=== PATIENT | female | born 1935 | race Caucasian/White ===

== ENCOUNTER 2016-07-17 | Outpatient (CLI) | payer MEDICARE, OTHER | END 2016-07-17 15:38 | disposition critical access hospital (66) | CPT/HCPCS: A0425; A0429 ==

== ENCOUNTER 2016-07-17 | Outpatient (CLI) | payer MEDICARE, OTHER | END 2016-07-17 19:11 | disposition home or self-care (01) | CPT/HCPCS: A0425; A0428 ==

== ENCOUNTER 2016-07-17 15:47 | Emergency (ER) | payer MEDICARE, OTHER ==
[2016-07-17] MEDS ORDERED: HYDROCORTISONE 25 MG SUPPOSITORY PR STA (16:37)
[2016-07-17] MEDS ORDERED: HYDROCORTISONE 25 MG SUPPOSITORY PR ONE (17:08)
== END 2016-07-17 18:44 | disposition home or self-care (01) ==
DX: K59.04 Chronic idiopathic constipation (principal); K64.1 Second degree hemorrhoids; K64.4 Residual hemorrhoidal skin tags; I10 Essential (primary) hypertension; G62.9 Polyneuropathy, unspecified; Z85.3 Personal history of malignant neoplasm of breast
CPT/HCPCS: 99283; 99284; J3490

== ENCOUNTER 2017-10-19 19:52 | Outpatient (CLI) | payer MEDICARE, OTHER | END 2017-10-19 19:53 | disposition critical access hospital (66) | LOC: EMS 19:52 | PROVIDERS: ATTEND Surgery | DX: R41.0 Disorientation, unspecified (principal); R32 Unspecified urinary incontinence; R11.0 Nausea | CPT/HCPCS: A0425; A0427 ==

== ENCOUNTER 2017-10-19 19:59 | Emergency (ER) | payer MEDICARE, OTHER ==
--- NOTE | 2017-10-19 20:49 | ED Physician Documentation ---
PD HPI ALTERED MENTAL STATUS - Stated complaint Stated Complaint: AMS - Chief complaint Chief Complaint: Neuro - History obtained from History obtained from: Patient, Family - History of Present Illness Timing - onset: Enter time (15:00), Today, Other (last normal was 13:00 ) Timing - details: Abrupt onset Quality / character: Confused Basline status: Alert and oriented X 3, Bedbound (due to neuropathy) Similar symptoms before: Has not had sx before Recently seen: Not recently seen - Additional information Additional information: patient woke in late afternoon, which is normal. she took a nap at 1 PM, which states is not normal for her. He then did some errands and returned at 4 PM, woke patient. 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 she usually has mild confusion but today she was asking about names of family whom she would not usually have forgotten, and asking about relatives who had as if they were still alive (also very odd for her). On presentstion, patient is at baseline and says she just feels tired. Review of Systems Constitutional: reports: Reviewed and negative Eyes: reports: Reviewed and negative Cardiac: reports: Reviewed and negative Respiratory: reports: Reviewed and negative GI: reports: Reviewed and negative : denies: Dysuria, Frequency Musculoskeletal: denies: Neck pain, Back pain Neurologic: reports: Focal weakness (chronic BLE weakness due to neuropathy NOS) , Confused, Altered mental status. 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 : Incontinence HEENT: None Psych: Depression Musculoskeletal: Chronic back pain Derm: None - Past Surgical History Past Surgical History: Yes General: Cholecystectomy - Present Medications Home Medications: Ambulatory Orders Medication Instructions Recorded Confirmed Gabapentin 300 mg PO TID 11/13/14 07/17/16 Lisinopril 10 mg PO DAILY 03/07/15 07/17/16 Hydrocortisone Acetate [Anucort-Hc] 25 mg RC DAILY #15 supp.rect 07/17/16 Ciprofloxacin HCl [Cipro] 500 mg PO BID #13 tablet 10/19/17 - Allergies Allergies/Adverse Reactions: Allergies Allergy/AdvReac Type Severity Reaction Status Date / Time Milk Containing Products Allergy Unknown Verified 10/19/17 20:04 scopolamine Allergy Nausea Verified 10/19/17 20:04 - Social History Does the pt smoke?: No Smoking Status: Never smoker Does the pt drink ETOH?: No Does the pt have substance abuse?: No - Immunizations Immunizations are current?: Yes - POLST Patient has POLST: Yes PD ED PE NORMAL - Vitals Vital signs reviewed: Yes - General General: Alert and oriented X 3, No acute distress, Well developed/nourished - HEENT HEENT: Atraumatic, PERRL, EOMI, Moist mucous membranes - Cardiac Cardiac: RRR, No murmur - Respiratory Respiratory: No respiratory distress, Clear bilaterally - Abdomen Abdomen: Soft, Non tender, Non distended - Derm Derm: Normal color, Warm and dry - Extremities Extremities: No edema - Neuro Neuro: Alert and oriented X 3, black puller 2-12 intact Eye Opening: Spontaneous Motor: Obeys Commands Verbal: Oriented GCS Score: 15 PD ED PE EXPANDED - Neuro Neuro: Weakness (BLE 1/5 leg lift (iliopsoas) and dorsi/plantarflexion) Results - Vitals Vitals: Oxygen O2 Source [Without Activity] Room air O2 Source Room air - Labs Labs: Microbiology 10/19/17 21:20 Urine Culture - Final Urine,Catheterized No growth Laboratory Tests 10/19/17 10/19/17 10/19/17 21:20 21:33 21:33 WBC 9.5 RBC 3.82 L Hgb 13.6 Hct 42.4 MCV 110.9 H MCH 35.6 H MCHC 32.1 RDW 16.0 H Plt Count 311 MPV 9.0 Neut # 7.6 H Lymph # 1.1 L [place] # 0.4 Eos # 0.3 Baso # 0.1 Absolute Nucleated RBC 0.01 Nucleated RBC % 0.1 Sodium 142 Potassium 4.2 Chloride 103 Carbon Dioxide 29 Anion Gap 10.0 BUN 12 Creatinine 0.4 Estimated GFR (MDRD) 153 Glucose 115 H Calcium 9.2 Urine Color YELLOW Urine Clarity CLEAR Urine pH 7.0 Ur Specific [place] 1.010 Urine Protein NEGATIVE Urine Glucose (UA) NEGATIVE Urine Ketones NEGATIVE Urine Occult Blood NEGATIVE Urine Nitrite NEGATIVE Urine Bilirubin NEGATIVE Urine Urobilinogen 1 (NORMAL) Ur Leukocyte Esterase TRACE H Urine RBC None Seen Urine WBC 11-25 H Urine WBC Clumps PRESENT Ur Squamous Epith Cells FEW Squamous Urine Bacteria None Seen Ur Microscopic Review INDICATED Urine Culture Comments INDICATED - Rads (name of study) CT head Radiology: Prelim report reviewed, See rad report PD MEDICAL DECISION MAKING - ED course Complexity details: reviewed results, re-evaluated patient, considered differential, d/w patient, d/w family Departure - Departure Disposition: 01 Home, Self Care Clinical Impression: Neuropathy, Confusion, Urinary tract infection Condition: Good Instructions: ED Confusion, ED UTI Cystitis Female Follow-Up: Denzel Trammell MD [Primary Care Provider] - Within 3 Days Prescriptions: Ciprofloxacin HCl [Cipro] 500 mg PO BID #13 tablet Discharge Date/Time: 10/20/17 00:24
[2017-10-19 21:42] LABS: BILIRUBIN,URINE NEGATIVE (NEGATIVE); GLUCOSE, URINE (UA) NEGATIVE (NEGATIVE); KETONES,URINE (UA) NEGATIVE (NEGATIVE); LEUKOCYTE ESTERASE, URINE TRACE (NEGATIVE); NITRITE,URINE NEGATIVE (NEGATIVE); OCCULT BLOOD,URINE NEGATIVE (NEGATIVE); PROTEIN,URINE NEGATIVE (NEGATIVE); UROBILINOGEN,URINE 1 (NORMAL) E.U./dL (NORMAL)
[2017-10-19 21:43] LABS: BASOPHILS # (AUTO) 0.1 10^3/uL (0.0-0.1); EOSINOPHILS # (AUTO) 0.3 10^3/uL (0.0-0.7); EOSINOPHILS % (AUTO) 2.9 %; HGB - HEMOGLOBIN 13.6 g/dL (12.0-16.0); LYMPHOCYTES # (AUTO) 1.1 10^3/uL (1.5-3.5); LYMPHOCYTES % (AUTO) 11.9 %; MEAN CORPUSCULAR HEMOGLOBIN 35.6 pg (27.0-31.0); MEAN CORPUSCULAR HGB CONC 32.1 g/dL (32.0-36.0); MEAN CORPUSCULAR VOLUME 110.9 fL (81.0-99.0); MONOCYTES # (AUTO) 0.4 10^3/uL (0.0-1.0); MONOCYTES % (AUTO) 4.4 %; NEUTROPHILS # (AUTO) 7.6 10^3/uL (1.5-6.6); NEUTROPHILS % (AUTO) 79.8 %; PLT - PLATELET COUNT 311 10^3/uL (130-450); RED BLOOD COUNT 3.82 10^6/uL (4.20-5.40); WHITE BLOOD COUNT 9.5 x10^3/uL (4.8-10.8)
[2017-10-19 21:47] LABS: CLARITY,URINE CLEAR (CLEAR)
[2017-10-19 21:49] LABS: CALCIUM 9.2 mg/dL (8.5-10.3); CREATININE 0.4 mg/dL (0.4-1.0)
[2017-10-19 21:53] LABS: BACTERIA,URINE None Seen /HPF (None Seen); RBC,URINE None Seen /HPF (0-5); SQUAMOUS EPITHELIAL CELL,UR FEW Squamous (<= Few); WBC CLUMPS,URINE PRESENT
--- NOTE | 2017-10-19 22:07 | CT Report ---
EXAM: CT HEAD EXAM DATE: 10/19/2017 09:53 PM. CLINICAL HISTORY: AMS. COMPARISON: None. TECHNIQUE: Multiaxial CT images were obtained from the foramen magnum to the vertex. Reformats: Coron al. IV contrast: None. In accordance with CT protocol optimization, one or more of the following dose reduction techniques w ere utilized for this exam: automated exposure control, adjustment of mA and/or KV based on patient s ize, or use of iterative reconstructive technique. FINDINGS: Parenchyma: No intraparenchymal hemorrhage. No evidence of mass, midline shift, or CT findings of acu te infarction. Herrera-white differentiation is distinct. There is moderate chronic microvascular change s throughout the periventricular and deep white matter of both cerebral hemispheres. 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 Extraaxial Spaces: There is moderate generalized cerebral volume loss. No subdural or epidural collec tions identified. Ventricles: Mild ventriculomegaly is likely related to underlying central volume loss. The temporal h orns do not appear dilated. There is no definite hydrocephalus. Sinuses and Orbits: Imaged paranasal sinuses, orbits, and mastoids show no significant abnormality. Bones: No evidence of fracture or calvarial defect. Other: None. IMPRESSION: 1. No CT evidence of an acute intracranial abnormality. 2. Moderate generalized cerebral volume loss and chronic microvascular change. 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 3. Mild ventriculomegaly. This is likely related to underlying cerebral volume loss. [facility] Referring Provider Line: [phone] SITE ID: [id number]
[2017-10-19 23:34] VITALS: BP 208/92
[2017-10-19] MEDS ORDERED: CIPROFLOXACIN 250 MG TABLET PO STA (23:49)
== END 2017-10-20 00:24 | disposition home or self-care (01) ==
LOC: EDUNIT# → EDBD → ED 19:59
DX: G62.9 Polyneuropathy, unspecified (principal); R41.0 Disorientation, unspecified; N39.0 Urinary tract infection, site not specified; C50.919 Malignant neoplasm of unspecified site of unspecified female breast; I10 Essential (primary) hypertension
CPT/HCPCS: 36415; 51701; 70450; 80048; 81001; 85025; 87086; 99284; A9270; 81003

== ENCOUNTER 2017-10-20 00:29 | Outpatient (CLI) | payer MEDICARE, OTHER | END 2017-10-20 00:30 | disposition home or self-care (01) | LOC: EMS 00:29 | PROVIDERS: ATTEND Surgery | DX: R41.82 Altered mental status, unspecified (principal); N39.0 Urinary tract infection, site not specified; Z74.01 Bed confinement status | CPT/HCPCS: A0425; A0428 ==

== ENCOUNTER 2019-06-20 20:36 | Outpatient (CLI) | payer MEDICARE, OTHER | END 2019-06-20 20:37 | disposition critical access hospital (66) | LOC: EMS 20:36 | PROVIDERS: ATTEND Surgery | DX: R46.4 Slowness and poor responsiveness (principal); R29.810 Facial weakness; R51 Headache; R50.9 Fever, unspecified | CPT/HCPCS: A0425; A0429 ==

== ENCOUNTER 2019-06-20 20:38 | Emergency (ER) | payer MEDICARE, OTHER ==
--- NOTE | 2019-06-20 21:07 | ED Physician Documentation ---
PD HPI ALTERED MENTAL STATUS - Stated complaint Stated Complaint: ALOC - Chief complaint Chief Complaint: Neuro - History obtained from History obtained from: Patient, Family, EMS - History of Present Illness Timing - onset: Today Timing - duration: Hours Timing - details: Gradual onset, Still present in ED Quality / character: Less responsive Associated symptoms: Fever, Headache, General weakness Basline status: Alert and oriented X 3, Bedbound, Home Similar symptoms before: Has not had sx before Recently seen: Not recently seen - Additional information Additional information: 84-year-old female with a disabling peripheral neuropathy that is left her bedbound has had some swelling in her left upper extremity starting about 5 days ago. She has a lot of pain with any movement of the arm seems to be centered around the elbow and the wrist. Today she did not wake up in her usual fashion and when she still was not awake this evening her called 911 and the patient has been brought to the emergency department for evaluation.She did have some headache when the medics were called and she has had resolution of that headache she has some low-grade fever and decreased alertness. Review of Systems Constitutional: reports: Fever, Fatigue Eyes: denies: Decreased vision Ears: denies: Ear pain Nose: denies: Rhinorrhea / runny nose, Congestion Throat: denies: Sore throat Cardiac: denies: Chest pain / pressure, Palpitations Respiratory: denies: Dyspnea, Cough GI: denies: Abdominal Pain, Nausea, Vomiting : denies: Dysuria, Frequency Skin: denies: Rash Musculoskeletal: reports: Extremity pain, Joint pain, Extremity swelling, Joint swelling. denies: Neck pain, Back pain Neurologic: reports: Generalized weakness, Altered mental status, Headache. 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 : Incontinence HEENT: None Psych: Depression Musculoskeletal: Chronic back pain Derm: None - Past Surgical History Past Surgical History: Yes General: Cholecystectomy - Present Medications Home Medications: Ambulatory Orders Medication Instructions Recorded Confirmed Gabapentin 300 mg PO TID 11/13/14 07/17/16 lisinopriL [Lisinopril] 10 mg PO DAILY 03/07/15 07/17/16 Hydrocortisone Acetate [Anucort-Hc] 25 mg RC DAILY #15 supp.rect 07/17/16 Ciprofloxacin HCl [Cipro] 500 mg PO BID #13 tablet 10/19/17 Amox/Clav 875/125 [Augmentin] 1 each PO Q12H #20 tablet 06/21/19 - Allergies Allergies/Adverse Reactions: Allergies Allergy/AdvReac Type Severity Reaction Status Date / Time Milk Containing Products Allergy Unknown Verified 06/20/19 20:55 scopolamine Allergy Nausea Verified 06/20/19 20:55 - Social History Does the pt smoke?: No Smoking Status: Never smoker Does the pt drink ETOH?: No Does the pt have substance abuse?: No - Immunizations Immunizations are current?: Yes - POLST Patient has POLST: Yes PD ED PE NORMAL - Vitals Vital signs reviewed: Yes (low grade fever) - General General: No acute distress, Well developed/nourished, Other (The patient is open mouthed but responds appropriately when questioned. Does want to go home. ) - HEENT HEENT: Atraumatic, PERRL, EOMI, Other (There is a mild right facial droop that is described by the as normal for the patient ) - Neck Neck: Supple, no meningeal sign, No bony TTP - Cardiac Cardiac: RRR, No murmur - Respiratory Respiratory: No respiratory distress, Other (rhonchi in the left base diminished breath sounds ) - Abdomen Abdomen: Soft, Non tender - Back Back: No CVA TTP, No spinal TTP - Derm Derm: Normal color, Warm and dry, No rash - Extremities Extremities: Other (There is marked swelling to the left upper extremity from the mid humerus to the hand There is specific tenderness to the wrist and the elbow and crying pain with any movement of the wrist or elbow. ) - Neuro Neuro: Other (The patients LE are motionless the right insurance collector is present but weak. Any movement on the left causes severe pain. The speech is intelligible and resonable. Her alertness is poor. ) Eye Opening: Spontaneous Motor: Obeys Commands Verbal: Confused GCS Score: 14 - Psych Psych: Other (mood is withdrawn and the affect is flat. ) Results - Vitals Vitals: Vital Signs - 24 hr 06/20/19 06/20/19 06/21/19 20:55 23:43 02:28 Temperature 37.7 C H Heart Rate 61 59 L 69 Respiratory 22 18 19 Rate Blood Pressure 187/53 H 209/71 H O2 Saturation 93 97 97 06/21/19 03:17 Temperature Heart Rate 65 Respiratory 23 Rate Blood Pressure 206/77 H O2 Saturation 96 Oxygen O2 Source [] Room air O2 Source Nasal cannula - Labs Labs: Laboratory Tests 06/20/19 06/20/19 06/20/19 21:02 22:00 22:03 WBC 13.1 H RBC 4.67 Hgb 13.2 Hct 43.4 MCV 92.9 MCH 28.3 MCHC 30.4 L RDW 14.9 Plt Count 276 MPV 10.8 Neut # (Auto) 10.6 H Lymph # (Auto) 1.0 L [place] # (Auto) 1.2 H Eos # (Auto) 0.2 Baso # (Auto) 0.1 Absolute Nucleated RBC 0.00 Nucleated RBC % 0.0 Sodium 138 Potassium 4.1 Chloride 103 Carbon Dioxide 26 Anion Gap 9.0 BUN 13 Creatinine 0.5 Estimated GFR (MDRD) 118 Glucose 140 H Lactic Acid 1.0 Calcium 8.4 L Total Bilirubin 1.0 AST 14 ALT 12 Alkaline Phosphatase 103 Total Protein 6.5 L Albumin 3.2 Globulin 3.3 Albumin/Globulin Ratio 1.0 Lipase 37 Urine Color Urine Clarity Urine pH Ur Specific [place] Urine Protein Urine Glucose (UA) Urine Ketones Urine Occult Blood Urine Nitrite Urine Bilirubin Urine Urobilinogen Ur Leukocyte Esterase Urine RBC Urine WBC Ur Squamous Epith Cells Urine Bacteria Ur Microscopic Review Urine Culture Comments 06/20/19 23:40 WBC RBC Hgb Hct MCV MCH MCHC RDW Plt Count MPV Neut # (Auto) Lymph # (Auto) [place] # (Auto) Eos # (Auto) Baso # (Auto) Absolute Nucleated RBC Nucleated RBC % Sodium Potassium Chloride Carbon Dioxide Anion Gap BUN Creatinine Estimated GFR (MDRD) Glucose Lactic Acid Calcium Total Bilirubin AST ALT Alkaline Phosphatase Total Protein Albumin Globulin Albumin/Globulin Ratio Lipase Urine Color YELLOW Urine Clarity HAZY Urine pH 6.0 Ur Specific [place] <=1.005 Urine Protein TRACE Urine Glucose (UA) NEGATIVE Urine Ketones NEGATIVE Urine Occult Blood LARGE H Urine Nitrite NEGATIVE Urine Bilirubin NEGATIVE Urine Urobilinogen 0.2 (NORMAL) Ur Leukocyte Esterase NEGATIVE Urine RBC 11-25 H Urine WBC 0-3 Ur Squamous Epith Cells MOD Squamous H Urine Bacteria Few Ur Microscopic Review INDICATED Urine Culture Comments NOT INDICATED - Rads (name of study) chest Radiology: Prelim report reviewed (Impression: No acute cardiopulmonary abnormality demonstrated.), EMP read indepedently, See rad report Wrist Radiology: Prelim report reviewed, EMP read indepedently, See rad report Elbow Radiology: Prelim report reviewed, EMP read indepedently, See rad report CT head w/o Radiology: Prelim report reviewed (Impression: No acute intracranial abnormalities. Small air-fluid levels in the right greater than left sphenoid sinuses. Correlation as to the presence of sinusitis.), EMP read indepedently, See rad report u/s LUE Radiology: Prelim report reviewed (Impression: No evidence of venous thrombus in the left arm within limitations of the exam as described above. Soft tissue edema.), EMP read indepedently, See rad report Procedures - IVC sono (time) 2100 Bedside IVC sono: IVC measures (cm) (0.87), IVC collapsed c insp (cm) (complete), Dehydration (est 2 liter deficit) PD MEDICAL DECISION MAKING - ED course Complexity details: reviewed old records, reviewed results, re-evaluated patient, considered differential, d/w patient, d/w family ED course: 84-year-old bedbound female has had decreased level of consciousness today and a low-grade fever. She is found to be dehydrated on interrogation the inferior vena cava and she is administered intravenous saline with some improvement. She is mentating normally now and acting normally. She does have sphenoid sinus disease on her CT scan and she has no other explanation for her fever. Her chest x-ray is without evidence of infiltrate and her urinalysis is unremarkable. She is administered Rocephin and dexamethasone here for treatment of the sinusitis and she is given 30 mg of Toradol intravenously for the pain in her left arm. And we will do a venous Doppler on the arm with concerns about deep vein thrombosis. This is a negative study and the explanation for the arm swelling is not had. Departure - Departure Disposition: 01 Home, Self Care Clinical Impression: Dehydration, Left arm swelling Sinusitis Qualifiers: Sinusitis location: sphenoidal Chronicity: acute Recurrence: non-recurrent Qualified Code(s): J01.30 - Acute sphenoidal sinusitis, unspecified Condition: Stable Instructions: ED Dehydration, ED Sinusitis Abx Tx Follow-Up: Laureano Motta MD [Primary Care Provider] - Prescriptions: Amox/Clav 875/125 [Augmentin] 1 each PO Q12H #20 tablet Discharge Date/Time: 06/21/19 03:17
[2019-06-20] MEDS ORDERED: SODIUM CHLORIDE 0.9% 1,000 ML IV ONE ×2 (21:14→22:44)
--- NOTE | 2019-06-20 21:55 | XRAY Report ---
Reason: pain with movement swelling Procedure Date: 06/20/2019 Accession Number: [id number] / [id number] Procedure: XR - Elbow 3 View LT CPT Code: Final Report FULL RESULT: EXAM: LEFT ELBOW RADIOGRAPHY EXAM DATE: 06/20/2019 09:07 PM. CLINICAL HISTORY: Left elbow pain and swelling. COMPARISON: None. TECHNIQUE: 3 views. FINDINGS: Bones: Bones are osteopenic. No fractures or bone lesions. Joints: Normal. No effusion. No subluxation. Soft Tissues: Normal. No soft tissue swelling. IMPRESSION: No acute findings. [facility]
--- NOTE | 2019-06-20 21:56 | XRAY Report ---
Reason: swelling and pain with movement Procedure Date: 06/20/2019 Accession Number: [id number] / [id number] Procedure: XR - Wrist 4 View LT CPT Code: Final Report FULL RESULT: EXAM: LEFT WRIST RADIOGRAPHY EXAM DATE: 06/20/2019 09:39 PM. CLINICAL HISTORY: Left wrist pain. COMPARISON: WRIST 4 VIEW LT 03/07/2015 6:22 PM. TECHNIQUE: 4 views. FINDINGS: Bones: Bones are osteopenic. No fractures or bone lesions. 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 Alignment is preserved. Soft Tissues: Generalized soft tissue swelling is seen. No radiodense soft tissue abnormality is identified. IMPRESSION: No acute osseous abnormality demonstrated. [facility]
--- NOTE | 2019-06-20 21:57 | XRAY Report ---
Reason: chest pain Procedure Date: 06/20/2019 Accession Number: [id number] / [id number] Procedure: XR - Chest 1 View X-Ray CPT Code: 42174 Final Report FULL RESULT: EXAM: CHEST RADIOGRAPHY EXAM DATE: 06/20/2019 09:49 PM. CLINICAL HISTORY: Chest pain. COMPARISON: XR CHEST 1 VIEWS 06/10/2011 8:47 AM. TECHNIQUE: 1 view. FINDINGS: Lungs/Pleura: Lung apices are partially obscured by patient's chin. No focal opacities evident in the visualized lung kim. No pleural effusion. No pneumothorax. Mediastinum: Heart and mediastinal contours are notable for aortic calcification. Other: None. IMPRESSION: No acute cardiopulmonary abnormality demonstrated. [facility]
[2019-06-20 22:08] LABS: BASOPHILS # (AUTO) 0.1 10^3/uL (0.0-0.1); BASOPHILS % (AUTO) 0.4 %; EOSINOPHILS # (AUTO) 0.2 10^3/uL (0.0-0.7); EOSINOPHILS % (AUTO) 1.3 %; HGB - HEMOGLOBIN 13.2 g/dL (12.0-16.0); MEAN CORPUSCULAR HEMOGLOBIN 28.3 pg (27.0-31.0); MEAN CORPUSCULAR HGB CONC 30.4 g/dL (32.0-36.0); MEAN CORPUSCULAR VOLUME 92.9 fL (81.0-99.0); MEAN PLATELET VOLUME 10.8 fL (7.9-10.8); MONOCYTES # (AUTO) 1.2 10^3/uL (0.0-1.0); NEUTROPHILS # (AUTO) 10.6 10^3/uL (1.5-6.6); NEUTROPHILS % (AUTO) 80.8 %; PLT - PLATELET COUNT 276 10^3/uL (130-450); RED BLOOD COUNT 4.67 10^6/uL (4.20-5.40); RED CELL DISTRIBUTION WIDTH 14.9 % (12.0-15.0); WHITE BLOOD COUNT 13.1 x10^3/uL (4.8-10.8)
--- NOTE | 2019-06-20 22:11 | CT Report ---
Reason: altered loc Procedure Date: 06/20/2019 Accession Number: [id number] / [id number] Procedure: CT - HEAD WO CPT Code: Final Report FULL RESULT: EXAM: CT HEAD EXAM DATE: 06/20/2019 09:38 PM. CLINICAL HISTORY: Altered loc. COMPARISON: HEAD W/O 10/19/2017 9:38 PM. TECHNIQUE: Multiaxial CT images were obtained from the foramen magnum to the vertex. Reformats: Sagittal and coronal. IV contrast: None. In accordance with CT protocol optimization, one or more of the following dose reduction techniques were utilized for this exam: automated exposure control, adjustment of mA and/or KV based on patient size, or use of iterative reconstructive technique. FINDINGS: Parenchyma: No intraparenchymal hemorrhage. No evidence of mass, midline shift or CT findings of acute territorial infarction. Herrera-white differentiation is distinct. Deep white matter low attenuation likely reflects chronic micro-angiopathic ischemic change. Moderate global volume loss. Extraaxial Spaces: No subdural or epidural collections identified. Ventricles: Stable ventricular dilatation, probably ex vacuo. Sinuses: Air-fluid levels in the right greater than left sphenoid sinuses. Bones: No evidence of acute fracture or calvarial defect. Other: None. IMPRESSION: No acute intracranial abnormalities. Small air-fluid levels in the right greater than left sphenoid sinuses. Correlation as to the presence of sinusitis. [facility]
[2019-06-20 22:22] LABS: ALBUMIN 3.2 g/dL (3.2-5.5); CALCIUM 8.4 mg/dL (8.5-10.3); CREATININE 0.5 mg/dL (0.4-1.0); TOTAL PROTEIN 6.5 g/dL (6.7-8.2)
[2019-06-20 23:49] LABS: BILIRUBIN,URINE NEGATIVE (NEGATIVE); GLUCOSE, URINE (UA) NEGATIVE (NEGATIVE); KETONES,URINE (UA) NEGATIVE (NEGATIVE); LEUKOCYTE ESTERASE, URINE NEGATIVE (NEGATIVE); NITRITE,URINE NEGATIVE (NEGATIVE); OCCULT BLOOD,URINE LARGE (NEGATIVE); PROTEIN,URINE TRACE mg/dL (NEGATIVE); UROBILINOGEN,URINE 0.2 (NORMAL) E.U./dL (NORMAL)
[2019-06-20 23:50] LABS: CLARITY,URINE HAZY (CLEAR)
[2019-06-20 23:55] LABS: BACTERIA,URINE Few /HPF (None Seen); SQUAMOUS EPITHELIAL CELL,UR MOD Squamous (<= Few)
[2019-06-21] MEDS ORDERED: DEXAMETHASONE 10 MG/ML VIAL IVP STA (00:10)
[2019-06-21] MEDS ORDERED: KETOROLAC 30 MG/ML VIAL IVP STA (00:10)
[2019-06-21] MEDS ORDERED: cefTRIAXone 1 GM in SODIUM CHLORIDE 0.9% MINIBAG 100 ML IV STA (00:10)
--- NOTE | 2019-06-21 02:10 | Ultrasound Report ---
Reason: left upper ext swelling/pain whole UE Procedure Date: 06/21/2019 Accession Number: [id number] / [id number] Procedure: US - Duplex Ext Veins Left CPT Code: Final Report FULL RESULT: EXAM: LEFT Upper Extremity Venous Ultrasound CLINICAL HISTORY: Arm swelling COMPARISON: None TECHNIQUE: Real-time sonographic vascular imaging was performed by the desk monitor through the upper extremity utilizing both color-flow and Doppler spectral analysis. Multiple vendor representatives static images were saved for review. FINDINGS: Internal Jugular Vein (IJV): Patent. Subclavian Vein (SCV): Limited visualization without gross evidence of thrombus. Axillary Vein : Patent Cephalic Vein (superficial):Patent Basilic Vein (superficial): Patent Brachial Vein: Patent Radial vein: Limited evaluation. No gross evidence of thrombus. Ulnar vein: Limited evaluation. No gross evidence of thrombus. Other:Evaluation of the veins was somewhat limited by the patient's arm swelling and body habitus. IMPRESSION: No evidence of venous thrombus in the left arm within the limitations of the exam as described above. Soft tissue edema. [facility]
[2019-06-21 03:18] VITALS: BP 206/77
== END 2019-06-21 03:17 | disposition home or self-care (01) ==
LOC: ED 20:38
DX: E86.0 Dehydration (principal); J01.30 Acute sphenoidal sinusitis, unspecified; R50.9 Fever, unspecified; M79.602 Pain in left arm; M79.89 Other specified soft tissue disorders; G62.9 Polyneuropathy, unspecified; I10 Essential (primary) hypertension; R29.810 Facial weakness
CPT/HCPCS: 36415; 51701; 70450; 71045; 80053; 81001; 81003; 83605; 83690; 85025; 87040; 87086; 96361; 96365; 96375; 99284

== ENCOUNTER 2019-06-21 03:21 | Outpatient (CLI) | payer MEDICARE, OTHER | END 2019-06-21 03:22 | disposition home or self-care (01) | LOC: EMS 03:21 | PROVIDERS: ATTEND Surgery | DX: Z74.01 Bed confinement status (principal); G82.20 Paraplegia, unspecified; J01.30 Acute sphenoidal sinusitis, unspecified | CPT/HCPCS: A0425; A0428 ==

== ENCOUNTER 2020-02-21 10:50 | Outpatient (CLI) | payer MEDICARE, OTHER ==
--- NOTE | 2020-02-21 18:23 | CONSULTATION NOTE ---
Palliative Care Follow Up - Referral Referring Provider: Dr. Laureano Motta Time of Visit: [id number] Referral setting: Home Referral Reason: Discoloration to legs/Morning Congestion - Information Sources Records reviewed: Previous records reviewed History/Review of Systems obtained from: Patient, Family (spouse, Ham), Caregiver (caregivers Shayna and Lila present) Exam limitations: Clinical condition (Mild short-term memory impairment) - History of Present Illness Update Brief HPI Update: This is an 84-year-old female who is seen in follow-up today in regards to reports of morning congestion, discoloration to lower extremities and underlying debility. Please see detailed history from 01/31/2020 for further details. The patient's spouse and his caregivers continue to note small drops of blood intermittently to the patient's depends. This is not appearing to be a source from the patient's rectum but more as a source of vaginal. He will typically be a drop or 2. The patient herself denies dysuria, flank pain, or suprapubic pressure. She has never had an abnormal Pap smear reported in the past. The patient has increased congestion in the mornings. She typically will consuming liquids to help thin her secretions. She will typically have to cough and clear her throat several times first thing in the morning before clearing. She is presently using Flonase nasal spray in the morning. Does not have a reported history of underlying allergies but cannot be fully ruled out. The patient's spouse has given the patient over the counter cough medication that has contain multiple ingredients including phenylephrine and the patient had reported some "wooziness" after administration. They have not tried any antihistamine nondrowsy relief for her symptoms. The patient and her spouse report that this is been going on for "quite some time." The patient has skin discoloration to her bilateral lower extremities with the left greater than right. Caregiver reports intermittent discoloration to the patient's sheets on the left side with a faint light yellow color. She has flaking to the left lower extremity. No increased warmth or redness. The discoloration to her lower extremities have been present for approximately 4 years. The patient is seen alert sitting up in her hospital bed watching TV. No evidence of acute distress. Patient has a past medical history of hypertension, peripheral neuropathy, breast cancer with left breast infiltrating ductal carcinoma status post lum pectomy with radiation in 2009 and recurrent disease in 2011, incontinence, depression, chronic back pain, herpes zoster, Social History - Living Situation Living arrangement: At home Living Situation: With spouse/s.o. Support System: Patient lives in a one-story home with her , Ham of 62 years. They have 3 children, 2 girls and 1 boy. They have a private duty family that provide caregiving needs, Lorenzo who attends 7 days/week for the last 4 years. Medications/Allergies - Medications Home Medications: Ambulatory Orders Medication Instructions Recorded Confirmed lisinopriL [Lisinopril] 10 mg PO DAILY 03/07/15 01/31/20 Ascorbic Acid [Vitamin C] 1,000 mg PO DAILY 01/31/20 01/31/20 Cholecalciferol (Vitamin D3) 1 cap PO DAILY 01/31/20 01/31/20 [Vitamin D3] Fluticasone [Flonase] 1 spray IN .DAILYBOTHNARES 01/31/20 01/31/20 Gabapentin [Neurontin] 800 mg PO TID 01/31/20 01/31/20 Senna [Senokot] 8.6 mg PO QPM PRN MDD No BM in 2 01/31/20 01/31/20 days Vit A/Vit C/Vit E/Zinc/Copper 1 cap PO BID 01/31/20 01/31/20 [Preservision Areds Softgel] Vitamin B12 1,000 mcg PO DAILY 01/31/20 polyethylene glycoL 3350 [Miralax] 17 g PO DAILY 01/31/20 01/31/20 Loratadine [Claritin] 10 mg PO QPM 02/22/20 02/22/20 - Allergies Allergies/Adverse Reactions: Allergies Allergy/AdvReac Type Severity Reaction Status Date / Time Milk Containing Products Allergy Unknown Verified 01/31/20 16:47 scopolamine Allergy Unknown Verified 01/31/20 16:47 aspirin AdvReac Nausea Verified 01/31/20 16:47 Review of Systems - Constitutional Constitutional: reports: Weight stable. denies: Fever - Ears, Nose & Throat Ears, Nose & Throat: reports: Hearing loss, Nasal congestion (in AM). denies: Hearing aids - Cardiovascular Cardiovascular: denies: Chest pain - Respiratory Respiratory: reports: Cough (first thing in AM, present for appx 1 year). denies: SOB at rest - Gastrointestinal Gastrointestinal: reports: Good appetite. denies: Abdominal pain, Constipation - Genitourinary Genitourinary: reports: Incontinence. denies: Dysuria - Musculoskeletal Musculoskeletal: reports: Muscle pain, Assistive devices, Transfer issues - Integumentary Integumentary: reports: Pigment changes (to BLE, chronic), Other (dry patch to scalp). denies: Rash - Neurological Neurological: reports: General weakness, Memory problems (short term memory, i ntermittent) - Psychiatric Psychiatric: denies: Depression - Endocrine Endocrine: denies: Diabetes type 2 - All Other Systems All Other Systems: reports: Reviewed and negative Physical Exam - Vital Signs Temperature: 36.6 C Pulse Rate: 63 Respiratory Rate: 16 O2 Saturation: 97 (on RA at rest) Blood Pressure: 142/68 - Physical Exam General Appearance: positive: No acute distress, Alert, Other (obese) Eyes Bilateral: positive: Normal inspection ENT: positive: No signs of dehydration, Other (Nose: Nasal mucosa moist without edematous turbinates without obstruction; septum midline.Throat: Posterior oropharynx with PND. Uvula midline. Tonsils without exudate or erythema..). negative: Purulent nasal drainage Neck: positive: No JVD, Trachea midline Cardiovascular: positive: No murmur, Bradycardia Respiratory: positive: No respiratory distress, Breath sounds nml. negative: Wheezes Abdomen: positive: Non-tender, Soft, Nml bowel sounds, Hepatomegaly, Obese, Other (drop of blood noted intermingled with urine on depend). 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 She has tried kcxp-ymh-jikqlgl cough medication but due to multiple ingredients this led to some side effects with dizziness. She continues to take Flonase in the morning for her congestion as well as trying to maintain oral hydration to loosen her secretions. She does not have a history of asthma per her report. The patient continues to have some intermittent bleeding, potentially vaginally with a few drops every so often. Noted on examination today with a drop intermixed with urine. Given the patient's functional disability with her bedbound status and lack of further discomfort no interventions at the present time and will continue to follow. 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 Palliative care to continue to explore goals of care, build rapport, provide symptom management and advance care planning. Recommendations/Counseling Done: 1. Spotting coming likely vaginal nature. Intermittent over the past 2.5 months. No prior history of abnormal Pap smears and is without abdominal discomfort. There is been no heavy bleeding noted. Continue to monitor at the present time with the patient and her spouse wishing to weigh benefits versus burdens with proceeding with diagnostic work-up. 2.Congestion with cough. Noted in the life insurance sales. No past medical history of asthma. Chronic. Recommend trial of administration of Flonase in the evening to work overnight for congestion. Initiate Claritin 10 mg in the evening as a nondrowsy antihistamine to see if her underlying congestion is allergy related. May consider use of humidifier in the future as if there is dryness in the home may contribute to rebound congestion. Recommended to the patient's spouse Would avoid izgl-qhy-tcgzmom cough medication that contains multiple ingredients. If desired ymcq-vcy-cjvwygr cough medication to use guaifenesin or Mucinex with a glass of water if needed as per the package in serts. Continue to encourage oral hydration in the morning to thin secretions. Recommend incorporation of incentive spirometer in to the patient's morning routine. Demonstrated incentive spirometer to the patient with return demonstration provided. 3. Topical candidiasis noted to abdominal pannus, resolved. Nystatin powder as needed in the future. 4. Chronic venous stasis dermatitis bilateral lower extremities with left greater than right. No evidence of infection. Recommend obtainment of remedy skin repair cream to use daily to bilateral lower extremities and as needed for moisturization. 5. HTN. No cardiac awareness. Continue lisinopril as prescribed by PCP discussed with patient and spouse goal blood pressure less than 150/90 at the present time given age and debility with risk of hypotension due to physical deconditioning. Discussed with patient and spouse that blood pressure today was taken prior to the patient's medication administration. Continue to monitor and to be followed by PCP. Time Spent: F/u March 2020 or prn. Total time spent 40 minutes with greater than 50% of this spent in counseling and coordination of care with patient, spouse and private caregivers; review of symptom management and anticipatory guidance. Disclaimer: The chart note was formulated using voice recognition technology and unfortunately sound alike errors may occur.
== END 2020-02-21 10:51 | disposition home or self-care (01) ==
LOC: PC 10:50
PROVIDERS: ATTEND Nurse Practitioner Family
DX: Z51.5 Encounter for palliative care (principal); I87.2 Venous insufficiency (chronic) (peripheral); R58 Hemorrhage, not elsewhere classified; R53.1 Weakness; R41.3 Other amnesia; R09.89 Other specified symptoms and signs involving the circulatory and respiratory systems; R05 Cough; B37.2 Candidiasis of skin and nail; I10 Essential (primary) hypertension; G62.89 Other specified polyneuropathies; Z79.899 Other long term (current) drug therapy; Z74.01 Bed confinement status; Z66 Do not resuscitate
CPT/HCPCS: 99349

== ENCOUNTER 2020-03-09 14:37 | Outpatient (CLI) | payer MEDICARE, OTHER | END 2020-03-09 14:38 | disposition critical access hospital (66) | LOC: EMS 14:37 | PROVIDERS: ATTEND Surgery | DX: N93.9 Abnormal uterine and vaginal bleeding, unspecified (principal) ==

== ENCOUNTER 2020-03-09 14:44 | Emergency (ER) | payer MEDICARE, OTHER ==
--- NOTE | 2020-03-09 14:48 | ED Physician Documentation ---
History of Present Illness - Stated complaint Stated Complaint: FEM - History obtained from History obtained from: Patient, EMS - Additonal information Additional information: This is an 85-year-old woman who is bedbound from neuropathy and who has some dementia. She is cared at home by her and caregivers. She is been having ongoing slight vaginal bleeding for several months but today it was heavier, paramedics estimate about 40 mL. Looking at palliative care notes this was a known phenomenon but was not being worked up because a work-up would not have been concordant with goals of care. 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: Other (Multiple breast biposies) - Present Medications Home Medications: Ambulatory Orders Medication Instructions Recorded Confirmed lisinopriL [Lisinopril] 10 mg PO DAILY 03/07/15 01/31/20 Ascorbic Acid [Vitamin C] 1,000 mg PO DAILY 01/31/20 01/31/20 Cholecalciferol (Vitamin D3) 1 cap PO DAILY 01/31/20 01/31/20 [Vitamin D3] Fluticasone [Flonase] 1 spray IN .DAILYBOTHNARES 01/31/20 01/31/20 Gabapentin [Neurontin] 800 mg PO TID 01/31/20 01/31/20 Senna [Senokot] 8.6 mg PO QPM PRN MDD No BM in 2 01/31/20 01/31/20 days Vit A/Vit C/Vit E/Zinc/Copper 1 cap PO BID 01/31/20 01/31/20 [Preservision Areds Softgel] Vitamin B12 1,000 mcg PO DAILY 01/31/20 polyethylene glycoL 3350 [Miralax] 17 g PO DAILY 01/31/20 01/31/20 Loratadine [Claritin] 10 mg PO QPM 02/22/20 02/22/20 Medroxyprogesterone Acetate 10 mg PO DAILY #90 tablet 03/09/20 - Allergies Allergies/Adverse Reactions: Allergies Allergy/AdvReac Type Severity Reaction Status Date / Time Milk Containing Products Allergy Unknown Verified 03/09/20 14:52 scopolamine Allergy Unknown Verified 03/09/20 14:52 aspirin AdvReac Nausea Verified 03/09/20 14:52 - Social History Does the pt smoke?: No Smoking Status: Never smoker Does the pt drink ETOH?: No Does the pt have substance abuse?: No - Immunizations Immunizations are current?: Yes - POLST Patient has POLST: Yes PD ED PE NORMAL - Vitals Vital signs reviewed: Yes - General General: Other (A/O x2) - HEENT HEENT: PERRL, EOMI - Abdomen Abdomen: Normal bowel sounds, Soft, Non tender - Neuro Neuro: No motor deficit, No sensory deficit Eye Opening: Spontaneous Motor: Obeys Commands Verbal: Confused GCS Score: 14 - Psych Psych: Normal mood, Normal affect Results - Vitals Vitals: Vital Signs - 24 hr 03/09/20 03/09/20 03/09/20 14:52 16:00 17:24 Temperature 36.8 C Heart Rate 55 L 40 L 55 L Respiratory 18 21 19 Rate Blood Pressure 123/72 193/99 H 154/59 H O2 Saturation 100 94 96 03/09/20 19:00 Temperature Heart Rate 61 Respiratory 19 Rate Blood Pressure 150/58 H O2 Saturation 100 Oxygen O2 Source [] Room air O2 Source Room air - EKG (time done) 1604 Rate: Rate (enter#) (53) Rhythm: NSR [place]: Normal Intervals: RBBB QRS: Normal Ischemia: Normal ST segments Computer interpretation: Agree with computer - Labs Labs: Laboratory Tests 03/09/20 03/09/20 03/09/20 15:30 15:30 15:30 WBC 10.2 RBC 5.16 Hgb 14.7 Hct 48.6 H MCV 94.2 MCH 28.5 MCHC 30.2 L RDW 15.5 H Plt Count 287 MPV 10.6 Neut # (Auto) 7.0 H Lymph # (Auto) 1.7 [place] # (Auto) 0.8 Eos # (Auto) 0.6 Baso # (Auto) 0.1 Absolute Nucleated RBC 0.00 Nucleated RBC % 0.0 PT 12.6 INR 1.1 Sodium Potassium Chloride Carbon Dioxide Anion Gap BUN Creatinine Estimated GFR (MDRD) Glucose Calcium Total Bilirubin AST ALT Alkaline Phosphatase Total Protein Albumin Globulin Albumin/Globulin Ratio Lipase Blood Type O POSITIVE Antibody Screen POSITIVE 03/09/20 15:30 WBC RBC Hgb Hct MCV MCH MCHC RDW Plt Count MPV Neut # (Auto) Lymph # (Auto) [place] # (Auto) Eos # (Auto) Baso # (Auto) Absolute Nucleated RBC Nucleated RBC % PT INR Sodium 143 Potassium 4.3 Chloride 103 Carbon Dioxide 28 Anion Gap 12.0 BUN 13 Creatinine 0.6 Estimated GFR (MDRD) 95 Glucose 94 Calcium 9.3 Total Bilirubin 0.7 AST 14 ALT 11 Alkaline Phosphatase 140 H Total Protein 7.5 Albumin 3.8 Globulin 3.7 Albumin/Globulin Ratio 1.0 Lipase 37 Blood Type Antibody Screen - Rads (name of study) CT A/P Radiology: EMP read contemporaneously (Grossly thickened endometrial stripe and 1.3 cm proximal right ureteral stone) PD MEDICAL DECISION MAKING - ED course ED course: arrived shortly after patient's arrival. We discussed potential work-up options; I discussed that given her age and the complaint I am worried about tumor and malignancy and asked what the goals of care would be if that were the case and he did not seem to be able to answer that without some more information such as he did not know if she would want surgeries, Biopsies etc. At that point a work-up was undertaken to obtain more information as to the source of bleeding such that a more informed decision could be made. Imaging was discussed with the , we tried to figure out goals of care but he was vacillating and did not really know what Route to choose as far as aggressiveness of work-up and potential intervention. Dr. Chanel will graciously come and see them and discuss options. Dr. Chanel saw the patient, offered a biopsy, the wanted the biopsy but the patient refused. As such she recommend starting progesterone at a dose of 10 mg a day. Departure - Departure Disposition: 01 Home, Self Care Clinical Impression: Endometrial mass, Vaginal bleeding Condition: Good Record reviewed to determine appropriate education?: Yes Follow-Up: Oneyda Chanel MD [Provider Admit Priv/Credential] - Prescriptions: Medroxyprogesterone Acetate 10 mg PO DAILY #90 tablet Comments: Return or go to the gynecology clinic if you decide you do want the biopsy done or further work-up otherwise. Return for new or worsening symptoms.
[2020-03-09 15:41] LABS: BASOPHILS # (AUTO) 0.1 10^3/uL (0.0-0.1); BASOPHILS % (AUTO) 0.5 %; EOSINOPHILS # (AUTO) 0.6 10^3/uL (0.0-0.7); EOSINOPHILS % (AUTO) 5.5 %; HGB - HEMOGLOBIN 14.7 g/dL (12.0-16.0); LYMPHOCYTES # (AUTO) 1.7 10^3/uL (1.5-3.5); MEAN CORPUSCULAR HEMOGLOBIN 28.5 pg (27.0-31.0); MEAN CORPUSCULAR HGB CONC 30.2 g/dL (32.0-36.0); MEAN CORPUSCULAR VOLUME 94.2 fL (81.0-99.0); MEAN PLATELET VOLUME 10.6 fL (7.9-10.8); MONOCYTES # (AUTO) 0.8 10^3/uL (0.0-1.0); MONOCYTES % (AUTO) 7.5 %; NEUTROPHILS % (AUTO) 69.1 %; PLT - PLATELET COUNT 287 10^3/uL (130-450); RED BLOOD COUNT 5.16 10^6/uL (4.20-5.40); RED CELL DISTRIBUTION WIDTH 15.5 % (12.0-15.0); WHITE BLOOD COUNT 10.2 x10^3/uL (4.8-10.8)
[2020-03-09 15:50] LABS: INR 1.1 (0.8-1.2); PT - PROTHROMBIN TIME 12.6 secs (9.9-12.6)
[2020-03-09 15:52] LABS: ALBUMIN 3.8 g/dL (3.2-5.5); BILIRUBIN,TOTAL 0.7 mg/dL (0.2-1.0); CALCIUM 9.3 mg/dL (8.5-10.3); CREATININE 0.6 mg/dL (0.4-1.0); TOTAL PROTEIN 7.5 g/dL (6.7-8.2)
[2020-03-09] MEDS ORDERED: hydrALAZINE INJ 20 MG/ML VIAL IVP STA (16:13)
[2020-03-09] MEDS ORDERED: IOVERSOL 320 100 ML VIAL IVP ONE ×3 (16:29→17:07)
[2020-03-09] MEDS ORDERED: SODIUM CHLORIDE 0.9% 1,000 ML IV STA (16:38)
--- NOTE | 2020-03-09 17:31 | CT Report ---
PROCEDURE: Abdomen/Pelvis W INDICATIONS: vaginal bleed IV only CONTRAST: IV CONTRAST: Optiray 320 ml: 100 PO CONTRAST: *NO PO CONTRAST TECHNIQUE: After the administration of nonionic IV contrast, 5 mm thick sections acquired from the diaphragms to the symphysis. 5 mm thick coronal and sagittal reformats were acquired. For radiation dose reducti on, the following was used: automated exposure control, adjustment of mA and/or kV according to tye ent size. COMPARISON: None. FINDINGS: Image quality: Excellent. ABDOMEN: Lung bases: Lung bases are clear. Heart size is normal. Solid organs: Liver and spleen are normal in size and enhancement. Gallbladder is not seen and is p resumed to have been previously removed. Biliary system is non dilated. Pancreas enhances normally . No adrenal nodules. Kidneys demonstrate normal size and enhancement, without hydronephrosis. At the posterior aspect of the right kidney, there is a water density cyst seen that measures up to 9.2 cm. There is moderate ri ght-sided hydronephrosis. Within the right proximal ureter, there is an obstructing stone seen that m easures up to 1.3 cm craniocaudally, as on series 3 image 42 and on series 6 image 31. Peritoneum and bowel: Bowel loops demonstrate normal wall thickness and caliber. No free fluid or a ir. A normal appendix is incidentally noted. Nodes and vessels: No retroperitoneal or mesenteric adenopathy by size criteria. Aorta and inferior vena cava are normal in size. Miscellaneous: No ventral hernias. PELVIS: Genitourinary: Bladder wall thickness is normal. The endometrial stripe is thickened in this patien t, measuring up to 2.7 cm, as on series 7 image 37. Miscellaneous: No inguinal hernias or adenopathy. Bones: Scattered sclerotic lesions are seen, which are most likely related to bone islands. The bones are osteopenic. No vertebral body compression fractures. Mild levoconvex scoliotic curvature is see n. Age-appropriate degenerative changes are seen. IMPRESSION: The endometrial stripe is grossly thickened in this patient with a presenting history of postmenopausal bleeding. Differential diagnosis includes endometrial neoplasm versus endometrial hyp erplasia. The scheduled pelvic ultrasound is anticipated to provide additional diagnostic information . Please consider gynecological consultation. There is a 1.3 cm obstructing stone seen within the proximal right ureter. Incidental note is made of: Presumed prior cholecystectomy Prominent simple appearing right renal cyst Normal appendix Sclerotic bone lesions, with an appearance most consistent with bone islands. Levoconvex scoliotic curvature Age-appropriate osteopenia and degenerative change Reviewed by: Mahendra Nuno MD on 03/09/2020 4:29 PM AKDT Approved by: Mahendra Nuno MD on 03/09/2020 4:29 PM AKDT Station ID: [id number]
--- NOTE | 2020-03-09 20:00 | Ultrasound Report ---
PROCEDURE: Pelvic w/Transvaginal INDICATIONS: vaginal bleed TECHNIQUE: Real-time scanning was performed of the pelvic organs, with image documentation. Additional endovagi nal scanning was necessary due to incomplete visualization of the adnexal and endometrial structures by transabdominal scanning. COMPARISON: None. FINDINGS: Endometrium is ill-defined and markedly thickened measuring up to 2.4 cm in maximal double layer thic kness (normal less than 0.6-0.8 cm in a patient of this age. Some of this measured thickness may repr esent blood products in the uterine cavity, nonetheless abnormal. Neither ovary is definitely identified. The adnexa demonstrate no evidence of mass or fluid collectio n. IMPRESSION: Markedly thickened endometrium which in the setting of persistent postmenopausal bleeding is suspicio us for endometrial carcinoma. Endometrial biopsy recommended. Reviewed by: Ronan Marie MD on 03/09/2020 7:59 PM PDT Approved by: Ronan Marie MD on 03/09/2020 7:59 PM PDT Station ID: [id number]
[2020-03-09 21:17] VITALS: BP 194/92
--- NOTE | 2020-03-09 23:32 | CONSULTATION NOTE ---
Referring Provider Name of Referring Provider:: Dr. Soares Consult Date: 03/09/20 Chief Complaint - Chief Complaint Chief Complaint: Postmenopausal bleeding History of Present Illness - History Obtained From Records Reviewed: [facility] History obtained from: Records and patient/ Exam Limitations: Cognitive impairment - History of Present Illness HPI Comment/Other: Patient is a 85 yo who presented [facility] ambulance transport with her for vaginal bleeding. Patient has baseline cognitive/memory impairment and is bed bound due to severe peripheral neuropathy. Her is her primary care provider in the home and he has 2 other assistance that provide home health care. He provides the bulk of her history. 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 She has progressive neuropathy which has left her bed-bound and incontinent. Also has hx of hypertension. Prior Oncology notes from 2014 list her as DNR and patient has had palliative care consultation within the last 2 months. BMI is 40.9. Patient has had on-going vaginal bleeding for at least several months. Eval uation and treatment has not been pursued in the past due to prior discussions that the patient would not necessarily pursue care. Bleeding has become mildly higher in volume, more afshin bleeding that spotting, in the last 24 hours and patient's has brought her in for evaluation. She is not soaking pads, bedding, or clothing. She underwent a CT scan this evening which showed a thickened endometrium of 2.7 cm but no pelvic LAD, free fluid, or other abdomino-pelvic abnormalities. Pelvic us confirmed endometrial thickening of at least 2.4 cm. Patient and her want to discuss next steps in evaluation and management. 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 - Substance History Use: Uses substance without health or social issues: NONE (Former smoker) - POLST Patient has POLST: Yes Meds/Allgy - Home Medications Home Medications: Ambulatory Orders Medication Instructions Recorded Confirmed lisinopriL [Lisinopril] 10 mg PO DAILY 03/07/15 01/31/20 Ascorbic Acid [Vitamin C] 1,000 mg PO DAILY 01/31/20 01/31/20 Cholecalciferol (Vitamin D3) 1 cap PO DAILY 01/31/20 01/31/20 [Vitamin D3] Fluticasone [Flonase] 1 spray IN .DAILYBOTHNARES 01/31/20 01/31/20 Gabapentin [Neurontin] 800 mg PO TID 01/31/20 01/31/20 Senna [Senokot] 8.6 mg PO QPM PRN MDD No BM in 2 01/31/20 01/31/20 days Vit A/Vit C/Vit E/Zinc/Copper 1 cap PO BID 01/31/20 01/31/20 [Preservision Areds Softgel] Vitamin B12 1,000 mcg PO DAILY 01/31/20 polyethylene glycoL 3350 [Miralax] 17 g PO DAILY 01/31/20 01/31/20 Loratadine [Claritin] 10 mg PO QPM 02/22/20 02/22/20 Medroxyprogesterone Acetate 10 mg PO DAILY #90 tablet 03/09/20 - Allergies Allergies/Adverse Reactions: Allergies Allergy/AdvReac Type Severity Reaction Status Date / Time Milk Containing Products Allergy Unknown Verified 03/09/20 14:52 scopolamine Allergy Unknown Verified 03/09/20 14:52 aspirin AdvReac Nausea Verified 03/09/20 14:52 Review of Systems - Other Findings Other Findings: As per HPI, otherwise remaining systems are negative Exam - Vital Signs Reviewed Vital Signs: Yes Vital Signs: Vital Signs x48h Temp Pulse Resp BP Pulse Ox 03/09/20 21:16 98.1 F 56 L 21 194/92 H 96 03/09/20 19:00 61 19 150/58 H 100 03/09/20 17:24 55 L 19 154/59 H 96 03/09/20 16:00 40 L 21 193/99 H 94 - Physical Exam General Appearance: positive: No acute distress Respiratory: positive: No respiratory distress Cardiovascular: positive: Regular rate & rhythm, Other Abdomen: positive: Other (obese, NT/ND) Extremities: positive: Other (Limites mobility) Neurologic/Psychiatric: positive: Sensory loss, Other (Bed bound, progressive n europathy limiting mobility. Memory impairment, cognitive decline. Poor pain tolerance, on verge of tears 2/2 discomfort related to pulse ox.) Conclusion/Plan - Diagnosis Diagnosis: Postmenopausal bleeding. Thickened endometrium - Plan Plan: We had an extensive discussion regarding the implications of postmenopausal bleeding and thickened endometrium. Her primary concern is always malignancy or premalignancy. However, thickened endometrium can also represent an endometrial polyp which can also cause bleeding but is benign. The only way we can differentiate between the various underlying etiologies is through biopsy which we achieved through an endometrial biopsy during clinical exam versus hysteroscopy D&C. We reviewed that malignancy would likely be treated with surgical intervention, which would likely have consequences for further loss in cognitive status in addition to the routine challenges of a surgical recovery. Reviewed that [facility] are only available in [facility] at this time. Hyperplasia (without atypia) is typically managed with progesterone supplementation. Dysfunctional uterine bleeding can also be managed with progesterone. Progression of endometrial cancer can also be slowed with administration of progesterone. We reviewed that an endometrial biopsy can be quite uncomfortable for the patient, particularly in a patient remote from menopause and without any recent sexual activity. Patient herself is reluctant to pursue sampling at this time. Her is adamant that he would like to proceed with some sort of sampling and possible treatment for any premalignant or malignant conditions. Given her limitations on transport and mobility, it would be best to perform a biopsy in the ED today given that patient is present and already positioned on a gynecologic exam bed.Patient is very clear that she is unwilling to undergo a biopsy at this time. We reviewed the potential difficulties with performing a biopsy in clinic versus performing a biopsy in the operating room. Patient is clear that she wants to leave and return to her home. Her wants to follow-up with a biopsy or uterine sampling of some sort. He was provided with clinic contact information. We reviewed the potential challenges to performing a biopsy in clinic including adequate examination beds, need for transport team and standby transfer service to help position the patient.He will call the clinic for follow-up. Patient was provided with a prescription for medroxyprogesterone 10 mg p.o. daily to manage her bleeding and slow progression of a possible premalignant condition. A total of 75 minutes was spent with patient, of which more than 50% was spent in face to face career counselor. - Lab Results Fish Bones: 03/09/20 15:30 03/09/20 15:30
== END 2020-03-09 21:44 | disposition home or self-care (01) ==
LOC: EDUNIT# → ED 14:44
DX: N95.0 Postmenopausal bleeding (principal); N85.8 Other specified noninflammatory disorders of uterus; R93.89 Abnormal findings on diagnostic imaging of other specified body structures; F03.90 Unspecified dementia, unspecified severity, without behavioral disturbance, psychotic disturbance, mood disturbance, and anxiety; G62.9 Polyneuropathy, unspecified; Z85.3 Personal history of malignant neoplasm of breast; I45.10 Unspecified right bundle-branch block; Z74.01 Bed confinement status; R32 Unspecified urinary incontinence; Z66 Do not resuscitate; N21.1 Calculus in urethra; I10 Essential (primary) hypertension
CPT/HCPCS: 36415; 74177; 76856; 80053; 83690; 85025; 85610; 86850; 86900; 86901; 93005; 96374; 99281; 99284; A9270; Q9967; 86870

== ENCOUNTER 2020-03-09 21:43 | Outpatient (CLI) | payer MEDICARE, OTHER | END 2020-03-09 21:44 | disposition home or self-care (01) | LOC: EMS 21:43 | PROVIDERS: ATTEND Surgery | DX: F03.90 Unspecified dementia, unspecified severity, without behavioral disturbance, psychotic disturbance, mood disturbance, and anxiety (principal); G62.9 Polyneuropathy, unspecified | CPT/HCPCS: A0425; A0428; A0429 ==

== ENCOUNTER 2020-03-25 12:00 | Outpatient (CLI) | payer MEDICARE, OTHER ==
--- NOTE | 2020-03-25 13:54 | CONSULTATION NOTE ---
Palliative Care Follow Up - Referral Referring Provider: Dr. Laureano Motta Time of Visit: [id number] Referral setting: Home Referral Reason: Postmenopausal bleeding/Cough - Information Sources Records reviewed: Previous records reviewed History/Review of Systems obtained from: Patient, Family (spouse, Ham), Caregiver (Shayna and Lila present with permission from spouse and patient) Exam limitations: Clinical condition (short term memory impairment) - History of Present Illness Update Brief HPI Update: This is an 85-year-old female who is seen in follow-up today due to postmenopausal bleeding and cough with her , him and private duty caregivers, Shayna and Lila present within her home. The patient has been bedbound for approximately 4 years. In that timeframe the patient and her spouse have private duty caregivers that are a family to assist with their needs as well as the needs of the patient on a daily basis 7 days a week. She developed her debility approximately 20 years ago due to an undifferentiated progressive neuropathy that impacted her functional status. Beginning in approximately November 2019 the patient's spouse and caregivers began noticing blood on the patient depends. The frequency and quantity would vary throughout the week. Sometimes there would be no visible blood. If blood was present it was typically small in quantity. She has never saturated any pads due to blood. She does have a history of left breast infiltrating ductal carcinoma status post radiation in 2009 with recurrent disease in 2010. The patient denies any abnormal Pap smears in the past. On 03/08 the patient's report that she had increased vaginal bleeding from her typical baseline. The following morning she had another episode again that was heavier that prompted her to be evaluated in the emergency department. While in the emergency department on 03/[address] scan as well as ultrasound of her abdomen that demonstrated thickened endometrium of approximately 2.4 to 2.7 cm. She was evaluated by gynecology while in the emergency department. Gynecology was consulted and met with the patient and her spouse. At the time, the patient was reluctant to pursue an endometrial biopsy and subsequently her called to schedule an appointment as an outpatient. Since being discharged home, she was initiated on medroxyprogesterone 10 mg daily to manage her bleeding. Her reports that she will have spotting on her depends every week or so but it is a very "minute amount of blood." Due to a potential exposure of the surgical staff due to COVID-19 the surgical staff at [facility] are on quarantine and the patient's biopsy has subsequently is pending rescheduling and given this rescheduling, moving forward with weighing risk versus benefit of proceeding with an intervention with both the patient and her spouse. The patient is quite clear on her recollection of the events during her emergency department visit. She understands that she needs to undergo a endometrial biopsy to determine if she has an underlying malignancy. She is relaying that she wishes to move forward with a endometrial biopsy to then move forward with further decision making weighing benefits versus burdens with her . Patient is seen sitting up in bed in no apparent distress. She has her TV on [email or web address]. Patient has a past medical history that includes hypertension, peripheral neuropathy, breast cancer with left breast infiltrating ductal carcinoma status post lumpectomy with radiation in 2009 and recurrent disease in 2010, incontinence, depression, chronic back pain, herpes zoster. Social History - Living Situation Living arrangement: At home Living Situation: With spouse/s.o. Support System: The patient lives in a one-story home with her , Ham of 62 years. They have 3 children, 2 girls and 1 boy that are not local. They have private duty family that provides caregiving needs, Lorenzo who attend to the patient and her 7 days/week for the last 4 years. Medications/Allergies - Medications Home Medications: Ambulatory Orders Medication Instructions Recorded Confirmed lisinopriL [Lisinopril] 10 mg PO DAILY 03/07/15 03/20/20 Ascorbic Acid [Vitamin C] 1,000 mg PO DAILY 01/31/20 03/20/20 Cholecalciferol (Vitamin D3) 1 cap PO DAILY 01/31/20 03/20/20 [Vitamin D3] Fluticasone [Flonase] 1 spray IN .DAILYBOTHNARES 01/31/20 03/20/20 Gabapentin [Neurontin] 800 mg PO TID 01/31/20 03/20/20 Senna [Senokot] 8.6 mg PO QPM PRN MDD No BM in 2 01/31/20 03/20/20 days Vit A/Vit C/Vit E/Zinc/Copper 1 cap PO BID 01/31/20 03/20/20 [Preservision Areds Softgel] Vitamin B12 1,000 mcg PO DAILY 01/31/20 03/20/20 polyethylene glycoL 3350 [Miralax] 17 g PO DAILY 01/31/20 03/20/20 Medroxyprogesterone Acetate 10 mg PO DAILY 03/25/20 03/25/20 - Allergies Allergies/Adverse Reactions: Allergies Allergy/AdvReac Type Severity Reaction Status Date / Time Milk Containing Products Allergy Unknown Verified 03/09/20 14:52 scopolamine Allergy Unknown Verified 03/09/20 14:52 aspirin AdvReac Nausea Verified 03/09/20 14:52 Review of Systems - Constitutional Constitutional: reports: Weight stable. denies: Fever - Ears, Nose & Throat Ears, Nose & Throat: reports: Nasal congestion (in AM) - Cardiovascular Cardiovascular: denies: Chest pain - Respiratory Respiratory: reports: Cough (first thing in AM for appx 1 year. reports noted increased dryness with claritin nightly and this has been discontinued after last discussion with last week. Reports cough is better at the present time.). denies: Wheezing - Gastrointestinal Gastrointestinal: reports: Constipation (controlled), Vomiting (reported last week that has resolved.), Good appetite. denies: Abdominal pain - Genitourinary Genitourinary: reports: Incontinence. denies: Dysuria - Musculoskeletal Musculoskeletal: reports: Muscle pain, Assistive devices, Transfer issues. denies: Joint swelling - Integumentary Integumentary: reports: Pigment changes (to BLE, chronic). denies: Pruritis - Neurological Neurological: reports: General weakness, Memory problems (short term memory impairment) - Psychiatric Psychiatric: denies: Depression - Endocrine Endocrine: denies: Diabetes type 2 - All Other Systems All Other Systems: reports: Reviewed and negative Physical Exam - Vital Signs Temperature: 36.6 C Pulse Rate: 54 O2 Saturation: 96 (on RA) Blood Pressure: 142/68 (right UE) - Physical Exam General Appearance: positive: No acute distress, Alert, Other (obese) ENT: positive: No signs of dehydration Neck: positive: No JVD, Trachea midline Cardiovascular: positive: No murmur, Bradycardia Respiratory: positive: No respiratory distress, Breath sounds nml. negative: Wheezes Abdomen: positive: Non-tender, Soft, Nml bowel sounds, Obese Skin: positive: Pallor, Other (scar to left breast s/p lumpectomy; chronic venous stasis dermatitis changes to BLE above ankles L>R with improved moisture to LLE.) Extremities: positive: No pedal edema Neurologic/Psychiatric: positive: Oriented x3, Mood/affect nml (cheerful) Palliative Care - POLST Patient has POLST: Yes POLST Status: DNR, Selective Treatment Performance Status: PPS 30% - Palliative Care Discussion: The patient has had postmenopausal bleeding since November 2019 and previously had opted not for further evaluation given the potential challenges for transport given her bedbound status and immobility due to her undifferentiated progressive neuropathy as well as a lack of symptom burden. However, the patient had an increase of postmenopausal bleeding and was evaluated in the emergency department with demonstration of thickening of the endometrium on imaging. Upon further discussion at home with her /D POA, the patient wishes to proceed forward with an endometrial biopsy to determine the underlying cause of her postmenopausal bleeding. The patient's is presently frustrated regarding the delay in obtainment due to COVID exposure at the facility resulting in staff quarantine and cancelling of the procedure in the operative room. The patient's /DPOA sees the postmenopausal bleeding as a problem that needs intervening to be fixed. The patient herself recognizes that the biopsy could reveal an underlying malignancy and she will weigh the benefits versus burdens of proceeding forward with any surgical interventions, if needed, after the results of the biopsy. Both the patient and her spouse report that they are pragmatic individuals and need [id number] evidence to proceed in a linear fashion regarding any decision making. When further exploring Goals of care the patient, she continues to report that she finds tierra in visits from her caregivers 7 pound toy poodle, Bitsy, spending time with her /D POA as well as watching TV programs with animals. Results - Lab Results Lab results reviewed: Yes Lab and Imaging Results: 03/09/2020 WBC 10.2, hemoglobin 14.7, hematocrit 48.6%, platelet 287, sodium 143, potassium 4.3, BUN 13, creatinine 0.6, glucose 94 Impression and Recommendations - Palliative Care Impression: This is an 85-year-old female with postmenopausal bleeding since November 2019, with functional decline over several years due to undifferentiated progressive neuropathy resulting in a bedbound state with obesity.The patient was scheduled for an endometrial biopsy on 03/27/2020, however, due to surgical staff exposure to coronavirus the staff is presently on mandated quarantine by the health department and is up for rescheduling. Palliative care to continue to explore goals of care, provide symptom management and advance care planning. Recommendations/Counseling Done: 1. Postmenopausal bleeding. Evidence of thickened endometrium on imaging performed in emergency department 03/09/2020 status post gynecology evaluation. The patient has not had any further increase in quantity of vaginal bleeding after initiation of medroxyprogesteron 10mg. Patient and her /DPOA wish to proceed with an endometiral biopsy to differentiate the possible underlying etiology. Contacted Pre-Op nursing at [facility] to coordinate with Dr. Chanel's office for re-scheduling. Once new date of biopsy is set, the patient's will coordinate BLS transport to the hospital and this DIRECTOR OF EVENT MARKETING will assist with COVID testing that is required 72 hours prior to the patient's procedure within her home. 2. Mild cognitive impairment. Supportive care. Patient was quite sharp in her recollection of her emergency department visit and subsequent recommendations that were made by the bender helper and potential outcomes. The patient is able to make her decisions regarding her medical management known with support from her /DPOA. 3. Congestion with cough. Noted in the hand braille transcriber. No past medical history of asthma. Chronic. No improvement with trial of Claritin as potential underlying allergy component. Claritin has been discontinued for lack of effect. Spouse reports improvement. No adventitious lung sounds on assessment today. If continues with cough symptoms further explore potential underlying GERD due to patient's body habitus and sedentary lifestyle. Continue to monitor. 4. Chronic venous stasis dermatitis bilateral lower extremities with left greater than right. No evidence of infection. Noted improvement since initiation of remedy skin repair cream. Continue to use skin repair cream daily to bilateral lower extremities and as needed for moist generalization. 5.Advance care planning. Patient has POLST as DN AR with selective interventions. Reviewed goals with patient and she is pragmatic in regards to her thinking with her postmenopausal bleeding wishing to move forward with an endometrial biopsy to determine the underlying cause. Reviewed potential course that may be ahead, as worse case scenario, with underlying malignancy and need for surgical intervention with both the patient and her /DPOA that would require anesthesia. Highlighted that given the patient's mild cognitive impai rment, by undergoing anesthesia she can be at risk for post-operative delirium and postoperative cognitive dysfunction with surgical intervention and anesthesia. The patient and her /DPOA acknowledge the risk and wish to have an answer for the cause of the patient's postmenopausal bleeding and then will proceed with weighing risks vs benefits regarding further interventions and recommendations based on the biopsy results. Time Spent: F/u after results of biopsy or PRN. Total time spent 60 minutes with greater than 50% of this spent in counseling and coordination of care with patient, spouse and private caregivers; potential etiologies for endometrial thickening; exploration of goals of care; and anticipatory guidance. Disclaimer: The chart note was formulated using voice recognition technology and unfortunately sound alike errors may occur.
== END 2020-03-25 12:01 | disposition home or self-care (01) ==
LOC: PC 12:00
PROVIDERS: ATTEND Nurse Practitioner Family
DX: Z51.5 Encounter for palliative care (principal); N95.0 Postmenopausal bleeding; R93.5 Abnormal findings on diagnostic imaging of other abdominal regions, including retroperitoneum; G31.84 Mild cognitive impairment of uncertain or unknown etiology; I87.2 Venous insufficiency (chronic) (peripheral); R09.81 Nasal congestion; R05 Cough; Z79.899 Other long term (current) drug therapy; Z74.01 Bed confinement status; Z66 Do not resuscitate
CPT/HCPCS: 99350

== ENCOUNTER 2020-04-26 16:15 | Outpatient (CLI) | payer MEDICARE, OTHER | END 2020-04-26 23:59 | disposition home or self-care (01) | LOC: LAB.R 16:15 | PROVIDERS: ATTEND Obstetrics & Gynecology | DX: Z01.812 Encounter for preprocedural laboratory examination (principal); Z20.828 Contact with and (suspected) exposure to other viral communicable diseases; Z74.01 Bed confinement status ==

== ENCOUNTER 2020-05-02 08:07 | Outpatient (CLI) | payer MEDICARE, OTHER | END 2020-05-02 08:08 | disposition critical access hospital (66) | LOC: EMS 08:07 | PROVIDERS: ATTEND Surgery | DX: Z74.01 Bed confinement status (principal); E66.9 Obesity, unspecified | CPT/HCPCS: A0425; A0428 ==

== ENCOUNTER 2020-05-02 08:10 | Inpatient (IN) | payer MEDICARE, OTHER ==
[2020-05-02] MEDS ORDERED: LACTATED RINGERS 1,000 ML IV ONE (09:00)
[2020-05-02 10:36] LABS: BASOPHILS # (AUTO) 0.1 10^3/uL (0.0-0.1); BASOPHILS % (AUTO) 0.4 %; EOSINOPHILS # (AUTO) 0.3 10^3/uL (0.0-0.7); HGB - HEMOGLOBIN 13.7 g/dL (12.0-16.0); LYMPHOCYTES # (AUTO) 1.2 10^3/uL (1.5-3.5); LYMPHOCYTES % (AUTO) 8.8 %; MEAN CORPUSCULAR VOLUME 93.3 fL (81.0-99.0); MONOCYTES # (AUTO) 0.8 10^3/uL (0.0-1.0); MONOCYTES % (AUTO) 5.5 %; NEUTROPHILS # (AUTO) 11.4 10^3/uL (1.5-6.6); NEUTROPHILS % (AUTO) 82.9 %; PLT - PLATELET COUNT 288 10^3/uL (130-450); RED BLOOD COUNT 4.89 10^6/uL (4.20-5.40); RED CELL DISTRIBUTION WIDTH 15.5 % (12.0-15.0); WHITE BLOOD COUNT 13.7 x10^3/uL (4.8-10.8)
[2020-05-02] MEDS ORDERED: ACETAMINOPHEN 325 MG TABLET PO PRN (10:36)
[2020-05-02] MEDS ORDERED: ONDANSETRON 4 MG/2 ML VIAL IVP PRN (10:36)
[2020-05-02] MEDS ORDERED: SODIUM CHLORIDE FLUSH 0.9% 10 ML SYRINGE IVP PRN (10:36)
[2020-05-02] MEDS ORDERED: ONDANSETRON ODT 4 MG TABLET TL PRN (10:36)
[2020-05-02] MEDS ORDERED: oxyCODONE 5 MG TABLET PO PRN (10:36)
[2020-05-02] MEDS ORDERED: hydrALAZINE INJ 20 MG/ML VIAL IVP ONE (10:40)
--- NOTE | 2020-05-02 10:44 | XRAY Report ---
PROCEDURE: Chest 1 View X-Ray INDICATIONS: increased WOD, edema TECHNIQUE: One view of the chest was acquired. COMPARISON: 06/20/2019 FINDINGS: Surgical changes and devices: None. Lungs and pleura: No pleural effusions or pneumothorax. Mild pulmonary vascular congestion is seen. No focal infiltrate. Mediastinum: Tortuous thoracic aorta is seen. Heart size is enlarged. Bones and chest wall: No suspicious bony lesions. Overlying soft tissues appear unremarkable. IMPRESSION: Mild CHF changes. No focal infiltrate, significant pleural effusion or pneumothorax. Reviewed by: Elton Shaw MD on 05/02/2020 9:43 AM RUST Approved by: Elton Shaw MD on 05/02/2020 9:43 AM RUST Station ID: [id number]
[2020-05-02 10:51] LABS: ALBUMIN 3.5 g/dL (3.2-5.5); BILIRUBIN,TOTAL 0.7 mg/dL (0.2-1.0); CREATININE 0.6 mg/dL (0.4-1.0); TOTAL PROTEIN 6.9 g/dL (6.7-8.2)
--- NOTE | 2020-05-02 11:02 | HISTORY & PHYSICAL EXAMINATION ---
HPI - Admitted From Admitted from: Other - History of Present Illness HPI Comment/Other: Patient is a 85 yo presented to the ED on 03/09/2020 ambulance transport with her for vaginal bleeding. Patient has baseline cognitive/memory impairment and is bed bound due to severe peripheral neuropathy. Her is her primary care provider in the home and he has 2 other assistance that provide home health care. He provides the bulk of her history. 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 She has progressive neuropathy which has left her bed-bound and incontinent. Also has hx of hypertension. Prior Oncology notes from 2014 list her as DNR and patient has had palliative care consultation within the last 2 months. BMI is 40.9. Patient has had on-going vaginal bleeding for at least several months. Evaluation and treatment has not been pursued in the past due to prior discussions that the patient would not necessarily pursue care. Bleeding has become mildly higher in volume, more afshin bleeding that spotting, in the last 24 hours and patient's has brought her in for evaluation. She is not soaking pads, bedding, or clothing. She underwent a CT scan this evening which showed a thickened endometrium of 2.7 cm but no pelvic LAD, free fluid, or other abdomino-pelvic abnormalities. Pelvic us confirmed endometrial thickening of at least 2.4 cm. We had discussed the possibility of endometrial cancer and what management and prognosis would entail. Patient refused a biopsy at that time. Her was adamant that she should undergo sampling for a biopsy. An exam under anesthesia and hysteroscopy D&C was scheduled despite patient not having been seen in clinic. Palliative care went to their home to discuss the clinical utility of th e surgery relative to the potential harms. Patient's was clear that he just wanted an answer with regard to a cancer diagnosis. COVID testing was performe din her home but no preop labs were performed. Patient presented to pre-op today for H&P, consent, and procedure. At presentation she was noted to have a temp of 99.7, increased work of breathing, orthopnea, lower extremity edema, and markedly elevated blood pressures into the 220s with heart rate in the 50s. Per Anesthesia, respiratory exam was notable for diminished breath sounds at bases with crackles c/f edema. It was determined that it would be unsafe to proceed with the surgical procedure today. Given her clinical presentation,the hospitalist team has been consulted for possible admission and management of her reposiratory statua and any other relevent underlying conditions. Of note, patient was started on medroxyprogesterone on 03/09/20 and vaginal bleeding has been minimal with spotting limited to every 3-4 days. PMH/PSH - Past Medical History Cardiovascular: positive: Hypertension, Deep vein thrombosis Respiratory: positive: Other Neuro: positive: Dementia, Peripheral neuropathy, Other Endocrine/Autoimmune: positive: None GI: positive: Chronic constipation PULMONOLOGY TECHNICIAN: positive: Breast cancer (Left breast infiltrating ductal carcinoma status post lumpectomy with radiation in 2010 and recurrent disease in 2011), Other ( thickened endometrium and VB c/f endometrial cancer, no biopsy) : positive: Incontinence HEENT: positive: Chronic vision loss, Chronic sinusitis Psych: positive: Depression, Anxiety Musculoskeletal: positive: Chronic back pain, Other (bed bound, LE weakness) Derm: positive: Herpes zoster, Other MRSA Hx?: No - Past Surgical History General: positive: Cholecystectomy /PULMONOLOGY TECHNICIAN: positive: Other (lumpectomy) Social & Family Hx - Social History Does the pt smoke?: No Smoking Status: Never smoker Does the pt drink ETOH?: No Does the pt have substance abuse?: No - POLST Patient has POLST: Yes Meds/Allgy - Home Medications Home Medications: Ambulatory Orders Medication Instructions Recorded Confirmed lisinopriL [Lisinopril] 10 mg PO DAILY 03/07/15 03/20/20 Ascorbic Acid [Vitamin C] 1,000 mg PO DAILY 01/31/20 03/20/20 Cholecalciferol (Vitamin D3) 1 cap PO DAILY 01/31/20 03/20/20 [Vitamin D3] Fluticasone [Flonase] 1 spray IN .DAILYBOTHNARES 01/31/20 03/20/20 Gabapentin [Neurontin] 800 mg PO TID 01/31/20 03/20/20 Senna [Senokot] 8.6 mg PO QPM PRN MDD No BM in 2 01/31/20 03/20/20 days Vit A/Vit C/Vit E/Zinc/Copper 1 cap PO BID 01/31/20 03/20/20 [Preservision Areds Softgel] Vitamin B12 1,000 mcg PO DAILY 01/31/20 03/20/20 polyethylene glycoL 3350 [Miralax] 17 g PO DAILY 01/31/20 03/20/20 Medroxyprogesterone Acetate 10 mg PO DAILY 03/25/20 03/25/20 - Allergies Allergies/Adverse Reactions: Allergies Allergy/AdvReac Type Severity Reaction Status Date / Time Milk Containing Products Allergy Unknown Verified 03/09/20 14:52 scopolamine Allergy Unknown Verified 03/09/20 14:52 aspirin AdvReac Nausea Verified 03/09/20 14:52 Review of Systems - Other Findings Other Findings: Patient history limited due to poor recall. ROS as per HPI, otherwise remaining systems are negative. Exam - Vital Signs Reviewed Vital Signs: Yes Vital Signs: Vital Signs x48h Temp Pulse Resp BP Pulse Ox 05/02/20 08:25 99.7 F H 68 14 212/62 H 100 - Physical Exam General Appearance: positive: Other (Increased WOB, distress when supine) Respiratory: positive: Other (Per FUR DRESSING SUPERVISOR exam, diminished sounds at bases, crackles. Increased WOB and increased RR at time of exam) Cardiovascular: positive: Bradycardia (HR in the 50s on later assessment) Skin: positive: Other (venous stasis changes in BLE with weeping) Extremities: positive: Other (Limited mobility in LE, pitting BLE with weeping.) Neurologic/Psychiatric: positive: Other (baseline cognitive impairment) Results - Lab Results Fish Bones: 05/02/20 10:34 05/02/20 10:34 Other Lab Results: Lab Results x24hrs 05/02/20 05/02/20 05/02/20 Range/Units 10:34 10:34 10:34 WBC 13.7 H (4.8-10.8) x10^3/uL RBC 4.89 (4.20-5.40) 10^6/uL Hgb 13.7 (12.0-16.0) g/dL Hct 45.6 (37.0-47.0) % MCV 93.3 (81.0-99.0) fL MCH 28.0 (27.0-31.0) pg MCHC 30.0 L (32.0-36.0) g/dL RDW 15.5 H (12.0-15.0) % Plt Count 288 (130-450) 10^3/uL MPV 11.0 H (7.9-10.8) fL Neut # (Auto) 11.4 H (1.5-6.6) 10^3/uL Lymph # (Auto) 1.2 L (1.5-3.5) 10^3/uL Gordon # (Auto) 0.8 (0.0-1.0) 10^3/uL Eos # (Auto) 0.3 (0.0-0.7) 10^3/uL Baso # (Auto) 0.1 (0.0-0.1) 10^3/uL Absolute Nucleated RBC 0.00 x10^3/uL Nucleated RBC % 0.0 /100WBC Sodium 143 (135-145) mmol/L Potassium 4.5 (3.5-5.0) mmol/L Chloride 106 (101-111) mmol/L Carbon Dioxide 25 (21-32) mmol/L Anion Gap 12.0 (6-13) BUN 15 (6-20) mg/dL Creatinine 0.6 (0.4-1.0) mg/dL Estimated GFR (MDRD) 95 (>89) Glucose 108 H (70-100) mg/dL Lactic Acid 1.6 (0.5-2.2) mmol/L Calcium 9.0 (8.5-10.3) mg/dL Total Bilirubin 0.7 (0.2-1.0) mg/dL AST 11 (10-42) IU/L ALT 10 (10-60) IU/L Alkaline Phosphatase 116 (42-121) IU/L Total Protein 6.9 (6.7-8.2) g/dL Albumin 3.5 (3.2-5.5) g/dL Globulin 3.4 (2.1-4.2) g/dL Albumin/Globulin Ratio 1.0 (1.0-2.2) Impression/Plan - Problem List Problem List: PREOP: Cancelled surgery due to poor clinical status of patient Patient was signed out to Medicine/Hospitalist with possible admit to ICU for stabilization CBC/CMP/BNP/lactate/portable CXR ordered
[2020-05-02] MEDS: ENALAPRILAT 1.25 MG/ML VIAL IVP SCH ×3 (11:53→23:29)
--- NOTE | 2020-05-02 11:55 | PHARMACY PROGRESS NOTE ---
- Best Possible Medication History Admit Date and Time: 05/02/20 1036 Processed by: Pharmacy Medication History completed: Yes Patient Interview: Pt unable to participate Secondary Source(s): Physician records, Pharmacy records, Insurance records As the person ultimately responsible for medication therapy, providers are able to order a medication from an existing home medication list in [facility] via the "Reconcile Routine" prior to Confirmation of that medication by community support specialist. Such practice is discouraged except when the physician, in their clinical judgment, deems that a medical need exists for a medication without regard to previous use.
[2020-05-02 12:37] LABS: C. PNEUMONIAE- RESP PCR PANEL NOT DETECTED
[2020-05-02] MEDS: SODIUM CHLORIDE 0.9% 1,000 ML IV SCH ×2 (12:38→20:34)
--- NOTE | 2020-05-02 13:02 | HISTORY & PHYSICAL EXAMINATION ---
Chief Complaint - Chief Complaint Chief Complaint: increased work of breathing History of Present Illness - Admitted From Admitted From:: PACU - History Obtained From Records Reviewed: Yes History obtained from: Patient, , and chart Exam Limitations: N/A - History of Present Illness HPI Comment/Other: Patient is a tarah 85-year-old female with a history of breast cancer, hypertension, peripheral neuropathy, and postmenopasual bleeding that has been ongoing for several months. She was seen in our ED on 03/09/20 for increased vaginal bleeding. Her pelvic CT scan showed a thicken endometrium of 2.7cm but not pelvic LAD, free fluid, or other abnormalities. Patient and her were adamant about undergoing a biopsy to determine if patient has cancer. However, they will not pursue any care or treatment if positive for cancer. She was started on medroxyprogesterone on 03/09/2020 and vaginal bleeding has decreased with occasional spotting every few days. Patient was scheduled for a hysteroscopy D&C under anesthesia at [facility] today. Patient was checked into pre-op and was noted to have a low-grade fever of 99.7F, increased work of breathing, orthopneic, lower extremity edema, and elevated blood pressure in the 220s systolic. Per anesthesia, her respiratory exam was notable for diminished breath sounds at the base with crackles. Because of her presentation, it was determined that it is unsafe to proceed with the biopsy today. Due to her respiratory status, her procedure was cancelled and the hospitalist team was called for consult. Upon physical exam, patient was alert and oriented x3. She was sitting upright in bed and did not appear in any respiratory distress. Her O2 saturation is princess ding 98-99% on room air and no signs of labored breathing. She reports having a chronic, nagging cough that started 3 months ago. She denies feeling dyspneic at the moment and says she occasionally feels short of breath because of the cough. She states not being able to lay flat due to her chronic back pain and always sits and sleeps at a 30 degree angle. She has been coughing up clear sputum and denies hemoptysis. No chest pain, palpitations. She has had bilateral pitting edema and according to her George, who is at the bedside, says her legs seems more swollen the last few months. Of note, she has been bed bound for 4 years and has progressive bilateral peripheral neuropathy and cannot gauge the extent of her pedal edema. She is incontinent and is dependent on her two caregivers at home. Her denies seeing bloody stool or urine. Patient denies fever, chills, or malaise. Her CXR shows mild pulmonary vascular congestion and enlarged cardiac silhouette. She is admitted to the hospital service for close monitoring and heart failure work up. Echo is ordered and labs pending. 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: Breast cancer (Left breast infiltrating ductal carcinoma status post lumpectomy with radiation in 2010 and recurrent disease in 2011), Other (thickened endometrium and VB c/f endometrial cancer, no biopsy) : reports: Incontinence HEENT: reports: Chronic vision loss, Chronic sinusitis Psych: reports: Depression, Anxiety Musculoskeletal: reports: Chronic back pain, Other Derm: reports: Herpes zoster, Other MRSA Hx?: No - Past Surgical History General: reports: Cholecystectomy /BRAKE REPAIRER RAILROAD: reports: Other - Family & Social History Family History: Mother: , Father: Living arrangement: At home Living Situation: With spouse/s.o. Social History Notes: The patient lives in a one-story home with her , Ham of 62 years. The patient and her spouse met at a [employer] social event called [employer] and [employer]. The patient's spouse served in the [employer] and they relocated to [facility] in 1978 after he retired from the [employer]. They have 3 children, 2 girls and 1 boy. The children reside in [place], [place] and [place].They have a private duty family that provide caregiving needs, Rod and Lila, 7 days/week for the last 4 years. - Substance History Use: Uses substance without health or social issues: NONE (Former smoker) - POLST Patient has POLST: Yes POLST Status: DNI (Ok for CPAP/BiPAP) Meds/Allgy - Home Medications Home Medications: Ambulatory Orders Medication Instructions Recorded Confirmed lisinopriL [Lisinopril] 10 mg PO DAILY 03/07/15 05/02/20 Ascorbic Acid [Vitamin C] 1,000 mg PO DAILY 01/31/20 05/02/20 Cholecalciferol (Vitamin D3) 1 cap PO DAILY 01/31/20 05/02/20 [Vitamin D3] Cyanocobalamin (Vitamin B-12) 1,000 mcg PO DAILY 01/31/20 05/02/20 [Vitamin B-12] Fluticasone [Flonase] 1 spray IN .DAILYBOTHNARES 01/31/20 05/02/20 Gabapentin [Neurontin] 800 mg PO TID 01/31/20 05/02/20 Senna [Senokot] 8.6 mg PO QPM PRN MDD No BM in 2 01/31/20 05/02/20 days Vit A/Vit C/Vit E/Zinc/Copper 1 cap PO BID 01/31/20 05/02/20 [Preservision Areds Softgel] polyethylene glycoL 3350 [Miralax] 17 g PO DAILY 01/31/20 05/02/20 Medroxyprogesterone Acetate 10 mg PO DAILY 03/25/20 05/02/20 - Allergies Allergies/Adverse Reactions: Allergies Allergy/AdvReac Type Severity Reaction Status Date / Time Milk Containing Products Allergy Unknown Verified 03/09/20 14:52 scopolamine Allergy Unknown Verified 03/09/20 14:52 aspirin AdvReac Nausea Verified 03/09/20 14:52 Review of Systems - Constitutional Constitutional: denies: Fatigue, Fever, Chills, Malaise, Weakness, Poor appetite, Diaphoresis, Night sweats, Weight gain, Weight loss - Eyes Eyes: reports: Vision loss, Corrective lenses. denies: Pain, Irritation, Blurred vision, Spots in vision, Field loss, Dipolpia - Ears, Nose & Throat Ears, Nose & Throat: reports: Bleeding gums. denies: Ear pain, Tinnitus, Nasal pain, Nasal discharge, Nosebleeds, Nasal congestion, Postnasal drainage, Sore throat, Hoarseness - Cardiovascular Cariovascular: reports: Edema, Orthopnea (Sleeps at a 30 degree angle). denies: Irregular heart rate, Palpitations, Chest pain, Lightheadedness, Syncope, Exertional dyspnea - Respiratory Respiratory: reports: Sputum production (clear sputum), Orthopnea, Other (short of breath with coughing fits or when laying flat). denies: Wheezing, Snoring, Hemoptysis, SOB at rest, SOB with exertion - Gastrointestinal Gastrointestinal: reports: Constipation (She has chronic constipation and receives daily suppositories). denies: Abdominal pain, Abdominal distention, Diarrhea, Change in bowel habits, Black stools, Bloody stools, Nausea, Vomiting, Bile emesis, Noah blood emesis, Coffee grounds emesis, Reflux/heartburn, Bloating, Poor appetite - Genitourinary Genitourinary: reports: Incontinence, Other (She uses dependents and pads at home.). denies: Dysuria, Frequency, Urgency, Hematuria - Musculoskeletal Musculoskeletal: reports: Back pain (Chronic back pain), Muscle aches, Stiffness, Limited range of motion, Muscle weakness. denies: Muscle pain, Joint pain, Joint swelling - Integumentary Integumentary: reports: Rash (Red rash under breasts and skin folds/pannus most likely caused by candidiasis). denies: Lesions, Lumps, Acne, Pigment changes, Nail changes, Hair changes - Neurological Neurological: reports: General weakness, Numbness, Memory problems, Pre-existing deficit, Other (Patient has a long history of peripheral neuropathy, but has progressively gotten worse the last 4 years leaving her bedridden.). denies: Headache, Dizziness, Seizures, Incoordination, Slurred speech - Psychiatric Psychiatric: reports: Depression, Anxiety. denies: Suicidal - Endocrine Endocrine: denies: Polyuria, Polydypsia, Polyphagia, Intolerance to cold, Intolerance to heat - Hematologic/Lymphatic Hematologic/Lymphatic: denies: Bruising - All Other Systems All Other Systems: reports: Reviewed and negative Prior Level of Functionality: Patient is bedridden, wheelchair dependent, and immobile due to peripheral neuropathy and chronic back pain. She is fully dependent on caregivers to help her with her ADLs. She is incontinent and uses pads and depends. Because of her neuropathy and loss of fine motor skills and strength, she needs help from her and care givers to help her eat/drink. Exam - Vital Signs Reviewed Vital Signs: Yes Vital Signs: Vital Signs x48h Temp Pulse Pulse Resp BP BP Pulse Ox 05/02/20 12:55 58 L 17 202/94 H 100 05/02/20 12:30 58 L 18 190/81 H 99 05/02/20 12:15 57 L 19 198/64 H 100 05/02/20 12:10 55 L 18 190/69 H 100 05/02/20 12:05 54 L 22 173/99 H 97 05/02/20 12:00 55 L 17 199/86 H 100 05/02/20 11:55 52 L 19 188/82 H 100 05/02/20 11:53 200/83 H 05/02/20 11:45 36.9 C 40 L 12 200/83 H 100 05/02/20 11:30 46 L 18 202/79 H 99 05/02/20 08:25 37.6 C H 68 14 212/62 H 100 - Physical Exam General Appearance: positive: No acute distress, Alert (She is pleasant, cooperative, but looks a little tired.) Eyes Bilateral: positive: Normal inspection, PERRL, EOMI, No lid inflammation, Conjunctivae nml, No scleral icterus ENT: positive: ENT inspection nml, Pharynx nml, No signs of dehydration. negative: Purulent nasal drainage, Pharyngeal erythema, Dry mucous membranes Neck: positive: Nml inspection, Thyroid nml, Trachea midline, Other (Unable to appreciate JVD because of body habitus). negative: Thyromegaly, Lymphadenopathy (R), Lymphadenopathy (L), Stiff neck, Carotid bruit, Tracheal deviation Respiratory: positive: Chest non-tender, No respiratory distress, Wheezes, Rales, Rhonchi, Other (Rate is regular and unlabored. Lung kim are clear in the upper lobe and diminished at the base.) Cardiovascular: positive: Regular rate & rhythm, No gallop, Bradycardia, Systolic murmur (Grade II systolic murmur heard at the Right 2nd ICS). negative: Irregularly irregular, Tachycardia, PMI displaced laterally, Diastolic murmur, Gallop/S3, Gallop/S4, Friction rub, Crepitus Abdomen: positive: Non-tender, Nml bowel sounds, No distention, Other (Unable to assess for organomegaly due to body habitus.). negative: Tenderness, Guarding, Rebound Skin: positive: Color nml, Warm, Dry, Skin rash (Red rash under skin folds: pannus, breasts. Likely due to candidiasis.), Decubitus, Laceration (cm). negative: Cyanosis, Diaphoresis, Pallor Extremities: positive: Pedal edema (+2 to 3 bilateral pedal edema. Skin is red/jessica in the LEs. Slightly tender to palpation and pressure.). negative: Calf tenderness, Joint swelling Neurologic/Psychiatric: positive: Oriented x3, Mood/affect nml, Weakness, Sensory loss (decreased sensation to touch in bilateral LEs). negative: Sensation nml, Facial droop, Slurred/abnml speech, Depressed mood/affect Conclusion/Plan - Problem List (1) Acute respiratory distress Conclusion/Plan: In pre-op, patient appeared to be using accessory muscles and had increased work of breathing when laying supine in preparation for her hysteroscopy D&C procedure. It was noted by anesthesia that she was coughing which was later confirmed by her that her cough has been ongoing for the last several months. A CXR was done and showed mild pulmonary vascular congestion and enlarged cardiac silhouette. Her acute respiratory distress is likely secondary to her lying supine, chronic bronchitis, and possibly undiagnosed heart failure. She is currently on room air and saturating 98-99%. Not in any respiratory distress. Her lung sounds are diminished at the base. Her physical exam and symptoms are consistent with heart failure. BNP is mildly elevated in the 190s. ECG unremarkable. Plan: will work her up for heart failure and order 2D echo. Depending on echo results, may start her on diuretics to help decrease pulmonary congestion. (2) Vaginal bleeding Conclusion/Plan: Patient has been on medroxyprogesterone since 03/09/20. According to patient's , her vaginal bleeding has reduced to spotting every 3-4 days. Plan: Patient will undergo hysteroscopy D&C before discharging home after heart failure workup and stabilizing her vitals. Patient and her Ham is certain that they do not want to undergo any therapy if her biopsy result come back positive for cancer. (3) Hypertension Conclusion/Plan: Her blood pressure was highly elevated in the pre-op area with systolic in the 220s. PRN hydralazine given couple of times with little response. Patient received a dose of Vasotec IV with oren improvement. Her most current BP is 158/73. Her hypertension is likely caused by holding her home dose lisinopril and being in the hospital. Plan is to restart her lisinopril in the morning and continue to monitor her BP. (4) Neuropathy Conclusion/Plan: This is a chronic problem. Will continue her home dose gabapentin. - Lab Results Lab results reviewed: Yes Fish Bones: 05/02/20 10:34 05/02/20 10:34 - Diagnostic Imaging Results Diagnostic Imaging Results: positive: Final report reviewed - EKG Results EKG Interpreted Independently: Yes EKG Comparison: Unchanged from prior EKG Core Measures - Anticipated LOS I expect patient to be DC'd or transferred within 96 hours.: Yes - DVT/VTE - Prophylaxis VTE/DVT Device ordered at admit?: Yes VTE/DVT Prophylaxis med ordered at admit?: Yes - Stroke - Rehab Assessment Rehab services assessment to be ordered?: No Not Ordered - Medical Reason: Not indicated - AMI - Statin at Admit Aspirin Prescribed on Admit: No Not Ordered - Medical Reason: Not indicated
[2020-05-02] MEDS: SODIUM CHLORIDE FLUSH 0.9% 10 ML SYRINGE IVP SCH ×2 (17:27→23:37)
--- NOTE | 2020-05-02 22:05 | Ultrasound Report ---
PROCEDURE: Duplex Ext Veins Bilateral INDICATIONS: Severe leg edema with pain and redness TECHNIQUE: Real-time imaging, as well as color and pulse Doppler interrogation, were performed of the deep veins of both legs from the inguinal ligament to the popliteal fossa. COMPARISON: None FINDINGS: Incomplete examination due to patient refusal to terminate scanning of the legs secondary t o severe pain associated with imaging. IMPRESSION: Nondiagnostic study. Patient requested early termination of imaging secondary to pain. The study does not exclude lower extremity deep vein thrombosis. Reviewed by: Елена Villegas MD, PhD on 05/02/2020 10:03 PM [facility] Approved by: Елена Villegas MD, PhD on 05/02/2020 10:03 PM [facility] Station ID: [id number]
[2020-05-03] MEDS: ENALAPRILAT 1.25 MG/ML VIAL IVP SCH ×2 (05:11→12:52)
[2020-05-03] MEDS: SODIUM CHLORIDE 0.9% 1,000 ML IV SCH (06:46)
[2020-05-03] MEDS ORDERED: ENOXAPARIN 40 MG/0.4 ML SYRINGE SUBQ SCH (09:00)
[2020-05-03] MEDS ORDERED: guaiFENesin 600 MG TABLET PO SCH (09:00)
--- NOTE | 2020-05-03 09:46 | PROVIDER PROGRESS NOTE ---
Subjective - Prog Note Date Prog Note Date: 05/03/20 Prog Note Time: 09:40 - Subjective Pt reports feeling: Improved Subjective: Patient is feeling well today. Denies having any shortness of breath. The only thing she said has been bothering her is her cough. No fevers or chills. She denies having any issues overnight. Patient is mildly confused and is alert and oriented x1. This is patient's baseline per and previous notes. Current Medications - Current Medications Current Medications: Active Medications Generic Name Dose Route Start Last Admin Trade Name Freq PRN Reason Stop Dose Admin Acetaminophen 650 mg 05/02/20 10:36 Tylenol PO Q4HR PRN Pain 1 to 4 Enalaprilat 1.25 mg 05/02/20 12:00 05/03/20 05:11 Vasotec Inj IVP 1.25 mg Q6HR TYLER Administration Enoxaparin Sodium 40 mg 05/03/20 09:00 Lovenox SUBQ DAILY TYLER Guaifenesin 600 mg 05/03/20 09:00 Mucinex PO BID TYLER Sodium Chloride 1,000 mls @ 100 mls/hr 05/02/20 11:00 05/03/20 06:46 Normal Saline 0.9% IV 100 mls/hr .Q10H TYLER Administration Ondansetron HCl 4 mg 05/02/20 10:36 Zofran Odt TL Q6HR PRN Nausea / Vomiting Ondansetron HCl 4 mg 05/02/20 10:36 Zofran Inj IVP Q6HR PRN Nausea / Vomiting Oxycodone HCl 5 mg 05/02/20 10:36 Roxicodone PO Q4HR PRN Pain 5 to 7 Sodium Chloride 10 ml 05/02/20 10:36 05/02/20 20:35 Normal Saline Flush 0.9% IVP 10 ml PRN PRN Administration NEEDED PER PROVIDER ORDERS Sodium Chloride 10 ml 05/02/20 17:00 05/02/20 23:37 Normal Saline Flush 0.9% IVP 10 ml 0100,0900,1700 TYLER Administration lisinopriL [Lisinopril] 10 mg PO DAILY 03/07/15 Ascorbic Acid [Vitamin C] 1,000 mg PO DAILY 01/31/20 Cholecalciferol (Vitamin D3) [Vitamin D3] 1 cap PO DAILY 01/31/20 Cyanocobalamin (Vitamin B-12) [Vitamin B-12] 1,000 mcg PO DAILY 01/31/20 Fluticasone [Flonase] 1 spray IN .DAILYBOTHNARES 01/31/20 Gabapentin [Neurontin] 800 mg PO TID 01/31/20 Senna [Senokot] 8.6 mg PO QPM PRN MDD No BM in 2 days 01/31/20 Vit A/Vit C/Vit E/Zinc/Copper [Preservision Areds Softgel] 1 cap PO BID 01/31/20 polyethylene glycoL 3350 [Miralax] 17 g PO DAILY 01/31/20 Medroxyprogesterone Acetate 10 mg PO DAILY 03/25/20 Objective - Vital Signs/Intake & Output Reviewed Vital Signs: Yes Vital Signs: Vital Signs x48h Temp Pulse Resp BP Pulse Ox 05/03/20 06:10 72 166/69 H 05/03/20 05:55 72 169/66 H 05/03/20 05:40 78 162/92 H 05/03/20 05:25 77 168/70 H 05/03/20 05:20 80 177/70 H 05/03/20 05:15 182/115 H 05/03/20 05:10 36.7 C 83 20 168/77 H 96 Intake & Output: Intake & Output 04/30/20 05/01/20 05/02/20 05/03/20 23:59 23:59 23:59 23:59 Intake Total 450 985.000 Output Total 1 650 Balance 449 335.000 - Objective General Appearance: positive: No acute distress, Alert, Other (Older obsese woman. Bedridden and lying in bed comfortably.) Eyes Bilateral: positive: Normal inspection, PERRL, No lid inflammation, Conjunctivae nml, No scleral icterus ENT: positive: ENT inspection nml, Pharynx nml, No signs of dehydration. negative: Purulent nasal drainage, Dry mucous membranes Neck: positive: Nml inspection, Thyroid nml, Trachea midline. negative: Thyromegaly, Lymphadenopathy (R), Lymphadenopathy (L), Stiff neck, Tracheal deviation Respiratory: positive: Chest non-tender, No respiratory distress, Breath sounds nml, Other (rate is regular and unlabored. Upper lobes at clear bilaterally but diminished at the base.). negative: Wheezes, Rales, Rhonchi Cardiovascular: positive: Regular rate & rhythm, Bradycardia, Systolic murmur (Low grade murmur noted.), Other (unable to appreciate JVD due to short neck). negative: No gallop, Irregularly irregular, Tachycardia, PMI displaced laterally, Diastolic murmur, Gallop/S3, Gallop/S4, Friction rub, Decreased pulse(s), Crepitus Peripheral Pulses: 1+ Posterior tibialis (R), 2+ Radial (R), 2+ Radial (L), 2+ D orsalis pedis (R), 2+ Dorsalis pedis (L) Abdomen: positive: Non-tender, Nml bowel sounds, No distention, Other (unable to assess for organomegaly due to body habitus.). negative: Tenderness, Guarding, Rebound, Bruit Skin: positive: Color nml, Warm, Dry, Skin rash (She has red skin rashes under her breasts and pannus, most likely [place].). negative: Diaphoresis, Pallor Extremities: positive: Pedal edema, Other (She has +2 to 3 bilateral LE edema that is tender to touch. She also has a longstanding history of peripheral neuropathy.). negative: Calf tenderness, Joint swelling Neurologic/Psychiatric: positive: Mood/affect nml (She is mildly confused. She has dementia at baseline.), Disoriented to place, Disoriented to time, Weakness, Sensory loss. negative: Facial droop, Slurred/abnml speech, Depressed mood/affect - Lab Results Fish Bones: 05/02/20 10:34 05/02/20 10:34 Other Labs: Lab Results x24hrs 05/02/20 05/02/20 05/02/20 Range/Units 11:10 11:10 10:34 WBC (4.8-10.8) x10^3/uL RBC (4.20-5.40) 10^6/uL Hgb (12.0-16.0) g/dL Hct (37.0-47.0) % MCV (81.0-99.0) fL MCH (27.0-31.0) pg MCHC (32.0-36.0) g/dL RDW (12.0-15.0) % Plt Count (130-450) 10^3/uL MPV (7.9-10.8) fL Neut # (Auto) (1.5-6.6) 10^3/uL Lymph # (Auto) (1.5-3.5) 10^3/uL [place] # (Auto) (0.0-1.0) 10^3/uL Eos # (Auto) (0.0-0.7) 10^3/uL Baso # (Auto) (0.0-0.1) 10^3/uL Absolute Nucleated RBC x10^3/uL Nucleated RBC % /100WBC Sodium (135-145) mmol/L Potassium (3.5-5.0) mmol/L Chloride (101-111) mmol/L Carbon Dioxide (21-32) mmol/L Anion Gap (6-13) BUN (6-20) mg/dL Creatinine (0.4-1.0) mg/dL Estimated GFR (MDRD) (>89) Glucose (70-100) mg/dL Lactic Acid 1.6 (0.5-2.2) mmol/L Calcium (8.5-10.3) mg/dL Total Bilirubin (0.2-1.0) mg/dL AST (10-42) IU/L ALT (10-60) IU/L Alkaline Phosphatase (42-121) IU/L B-Natriuretic Peptide (5-100) pg/mL Total Protein (6.7-8.2) g/dL Albumin (3.2-5.5) g/dL Globulin (2.1-4.2) g/dL Albumin/Globulin Ratio (1.0-2.2) Nasal Adenovirus (PCR) NOT DETECTED Nasal B. parapertussis DNA (PCR) NOT DETECTED Nasal Coronavir 229E PCR NOT DETECTED Nasal Coronavir HKU1 PCR NOT DETECTED Nasal Coronavir NL63 PCR NOT DETECTED Nasal Coronavir OC43 PCR NOT DETECTED Nasal Enterovir/Rhinovir PCR NOT DETECTED Nasal Influenza B PCR NOT DETECTED Nasal Influenza A PCR NOT DETECTED Nasal Parainfluen 1 PCR NOT DETECTED Nasal Parainfluen 2 PCR NOT DETECTED Nasal Parainfluen 3 PCR NOT DETECTED Nasal Parainfluen 4 PCR NOT DETECTED Nasal RSV (PCR) NOT DETECTED Nasal Screen MRSA (PCR) NEGATIVE (NEGATIVE) Nasal B.pertussis DNA PCR NOT DETECTED Nasal C.pneumoniae (PCR) NOT DETECTED Deven Human Metapneumo PCR NOT DETECTED Nasal M.pneumoniae (PCR) NOT DETECTED Nasal SARS-CoV-2 (PCR) NOT DETECTED 05/02/20 05/02/20 05/02/20 Range/Units 10:34 10:34 10:34 WBC 13.7 H (4.8-10.8) x10^3/uL RBC 4.89 (4.20-5.40) 10^6/uL Hgb 13.7 (12.0-16.0) g/dL Hct 45.6 (37.0-47.0) % MCV 93.3 (81.0-99.0) fL MCH 28.0 (27.0-31.0) pg MCHC 30.0 L (32.0-36.0) g/dL RDW 15.5 H (12.0-15.0) % Plt Count 288 (130-450) 10^3/uL MPV 11.0 H (7.9-10.8) fL Neut # (Auto) 11.4 H (1.5-6.6) 10^3/uL Lymph # (Auto) 1.2 L (1.5-3.5) 10^3/uL [place] # (Auto) 0.8 (0.0-1.0) 10^3/uL Eos # (Auto) 0.3 (0.0-0.7) 10^3/uL Baso # (Auto) 0.1 (0.0-0.1) 10^3/uL Absolute Nucleated RBC 0.00 x10^3/uL Nucleated RBC % 0.0 /100WBC Sodium 143 (135-145) mmol/L Potassium 4.5 (3.5-5.0) mmol/L Chloride 106 (101-111) mmol/L Carbon Dioxide 25 (21-32) mmol/L Anion Gap 12.0 (6-13) BUN 15 (6-20) mg/dL Creatinine 0.6 (0.4-1.0) mg/dL Estimated GFR (MDRD) 95 (>89) Glucose 108 H (70-100) mg/dL Lactic Acid (0.5-2.2) mmol/L Calcium 9.0 (8.5-10.3) mg/dL Total Bilirubin 0.7 (0.2-1.0) mg/dL AST 11 (10-42) IU/L ALT 10 (10-60) IU/L Alkaline Phosphatase 116 (42-121) IU/L B-Natriuretic Peptide 196 H (5-100) pg/mL Total Protein 6.9 (6.7-8.2) g/dL Albumin 3.5 (3.2-5.5) g/dL Globulin 3.4 (2.1-4.2) g/dL Albumin/Globulin Ratio 1.0 (1.0-2.2) Nasal Adenovirus (PCR) Nasal B. parapertussis DNA (PCR) Nasal Coronavir 229E PCR Nasal Coronavir HKU1 PCR Nasal Coronavir NL63 PCR Nasal Coronavir OC43 PCR Nasal Enterovir/Rhinovir PCR Nasal Influenza B PCR Nasal Influenza A PCR Nasal Parainfluen 1 PCR Nasal Parainfluen 2 PCR Nasal Parainfluen 3 PCR Nasal Parainfluen 4 PCR Nasal RSV (PCR) Nasal Screen MRSA (PCR) (NEGATIVE) Nasal B.pertussis DNA PCR Nasal C.pneumoniae (PCR) Deven Human Metapneumo PCR Nasal M.pneumoniae (PCR) Nasal SARS-CoV-2 (PCR) - Diagnostic Imaging Diagnostic Imaging Results: positive: Final report reviewed ABX Reporting Has patient been on IV antibiotics over the past 48 hours?: No Assessment/Plan - Problem List (1) Acute respiratory distress Impression: Her acute respiratory distress in the OR yesterday was most likely caused by putting her in the [place] position which she does not tolerate. She has not had any signs of respiration distress since her admission. She is on room air saturating at 99% and not using any accessory muscles. Because of her lower extremity edema and mild congestion and enlarged heart per CXR, she was worked up for heart failure. Her 2D echo came back unremarkable. She has grade I liang tolic dysfunction, but otherwise her EF is >75%, no valvular disease, and no wall motion abnormality. Plan for her is to be discharged home after her hysteroscopy. (2) Vaginal bleeding Impression: This has been ongoing for the last several months. Her vaginal bleeding is improving since she was started on medroxyprogesterone on 03/09/20. Will touch base with gynecology to see if she can get her hysteroscopy done today or tomorrow depending on the OR schedule before she is discharged home. (3) Hypertension Impression: Her blood pressure is much better today. Systolics are in the 150s. Will restart her lisinopril after her hysteroscopy. (4) Neuropathy Impression: This is a chronic issue. Will continue her gabapentin. This is being managed by her PCP.
[2020-05-03] MEDS: SODIUM CHLORIDE FLUSH 0.9% 10 ML SYRINGE IVP SCH (10:11)
[2020-05-03 13:47] VITALS: BP 157/90
--- NOTE | 2020-05-03 14:30 | PROVIDER PROGRESS NOTE ---
Subjective - Prog Note Date Prog Note Date: 05/03/20 Prog Note Time: 14:23 - Subjective Subjective: Patient has improved from yesterday am. Had an extensive discussion with patient and her partner regarding plans for biopsy. Patient declines biopsy and states that she does not want to proceed and wants to go home. Partner states she feels more comfortable at this time continuing with biopsy. Both are satisfied with continuing with medroxyprogesterone. Objective - Vital Signs/Intake & Output Reviewed Vital Signs: Yes Vital Signs: Vital Signs x48h Temp Pulse Pulse Resp BP Pulse Ox 05/03/20 13:46 70 157/90 H 99 05/03/20 13:30 66 153/73 H 05/03/20 13:15 71 144/83 H 05/03/20 13:00 77 179/69 H 05/03/20 12:55 75 194/77 H 05/03/20 12:50 70 158/81 H 05/03/20 11:04 98.2 F 78 20 149/68 H 94 Intake & Output: Intake & Output 04/30/20 05/01/20 05/02/20 05/03/20 23:59 23:59 23:59 23:59 Intake Total 450 985.000 Output Total 1 1100 Balance 449 -115.000 - Objective General Appearance: positive: Lethargic Neck: positive: Nml inspection Respiratory: positive: Other (normal effort) Cardiovascular: positive: Other (RR) Neurologic/Psychiatric: positive: Other (Non ambulatory. Dementia) - Lab Results Fish Bones: 05/02/20 10:34 05/02/20 10:34 Assessment/Plan - Problem List (1) Postmenopausal bleeding Impression: Patient and partner are declining biopsy at this time Will continue with medroxyprogesterone Have ample supply Reviewed imaging reports showing lack of LAD and ascites from prior assessment Cleared for DC from [facility] perpsective. Thank you for including me in the care of this patient.
--- NOTE | 2020-05-03 14:45 | Discharge Plan ---
Discharge Plan Problem Reviewed?: Yes Disposition: Home, Self Care Condition: Fair Diet: Regular Activity Restrictions: Activity as Tolerated Shower Restrictions: No Driving Restrictions: Yes (no driving) Assistance Devices: Wheelchair Health Concerns: you were admitted to the hospital because of breathing distress while you were being prepared for a uterine biopsy. We found you to have bronchitis, excessive phlegm, and the position they put your body in as the cause of the respiratory distress. Plan of Treatment: 1. You and your have had a long talk about getting the biopsy and have decided not to go thru with in since it will not change the managment of your vaginal bleeding. If you have cancer, you will not get treatment. 2. You will continue your progesterone daily and see Dr. Chanel in folllowup. 3. Followup with your provider, Palliative Care NGUYEN Cordoba in the next week or so. Care Goals: to return to home and stay there for as long as possible Assessment: patient and understand goals and will follow thru No Smoking: If you smoke, Please STOP! Call for help. Follow-up with: Laureano Motta MD [Primary Care Provider] -
[2020-05-03] MEDS ORDERED: GABAPENTIN 400 MG CAPSULE PO SCH (15:00)
--- NOTE | 2020-05-03 15:27 | Discharge Plan ---
Discharge Plan Problem Reviewed?: Yes Disposition: Home, Self Care Condition: Fair No Smoking: If you smoke, Please STOP! Call for help. Follow-up with: Laureano Motta MD [Primary Care Provider] -
--- NOTE | 2020-05-03 18:22 | DISCHARGE SUMMARY ---
"Discharge Summary Admit Date: 05/02/20 Discharge Date: 05/03/20 Discharging Provider: Gayatri Lan MD Primary Care Provider: NGUYEN Shearer Code Status: Do Not Attempt Resuscitation Condition at Discharge: Fair Discharge Disposition: 01 Home, Self Care - DIAGNOSES Discharge Diagnoses with Status of Each Condition: 1. acute respiratory distress 2. Postmenopausal bleeding 3. Hypertension 4. Polyneuropathy 5. Bed confinement status 6. Chronic bronchitis 7. Morbid obesity - HPI History of Present Illness: Patient is a tarah 85-year-old female with a history of breast cancer, hypertension, peripheral neuropathy, and postmenopasual bleeding that has been ongoing for several months. She was seen in our ED on 03/09/20 for increased vaginal bleeding. Her pelvic CT scan showed a thicken endometrium of 2.7cm but not pelvic LAD, free fluid, or other abnormalities. Patient and her were adamant about undergoing a biopsy to determine if patient has cancer. However, they will not pursue any care or treatment if positive for cancer. She was started on medroxyprogesterone on 03/09/2020 and vaginal bleeding has decreased with occasional spotting every few days. Patient was scheduled for a hysteroscopy D&C under anesthesia at [facility] today. Patient was checked into pre-op and was noted to have a low-grade fever of 99.7F, increased work of breathing, orthopneic, lower extremity edema, and elevated blood pressure in the 220s systolic. Per anesthesia, her respiratory exam was notable for diminished breath sounds at the base with crackles. Because of her presentation, it was determined that it is unsafe to proceed with the biopsy today. Due to her respiratory status, her procedure was cancelled and the hospitalist team was called for consult. Upon physical exam, patient was alert and oriented x3. She was sitting upright in bed and did not appear in any respiratory distress. Her O2 saturation is reading 98-99% on room air and no signs of labored breathing. She reports having a chronic, nagging cough that started 3 months ago. She denies feeling dyspneic at the moment and says she occasionally feels short of breath because of the cough. She states not being able to lay flat due to her chronic back pain and always sits and sleeps at a 30 degree angle. She has been coughing up clear sputum and denies hemoptysis. No chest pain, palpitations. She has had bilateral pitting edema and according to her George, who is at the bedside, says her legs seems more swollen the last few months. Of note, she has been bed bound for 4 years and has progressive bilateral peripheral neuropathy and cannot gauge the extent of her pedal edema. She is incontinent and is dependent on her two caregivers at home. Her denies seeing bloody stool or urine. Patient denies fever, chills, or malaise. Her CXR shows mild pulmonary vascular congestion and enlarged cardiac silhouette. She is admitted to the hospital service for close monitoring and heart failure work up. Echo is ordered and labs pending. - Past Medical History Cardiovascular: reports: Hypertension, Deep vein thrombosis Respiratory: reports: Other Neuro: reports: Dementia, Peripheral neuropathy, Other Endocrine/Autoimmune: reports: None GI: reports: Chronic constipation PLANNING FEEDER: reports: Breast cancer (Left breast infiltrating ductal carcinoma status post lumpectomy with radiation in 2010 and recurrent disease in 2011), Other (thickened endometrium and VB c/f endometrial cancer, no biopsy) : reports: Incontinence HEENT: reports: Chronic vision loss, Chronic sinusitis Psych: reports: Depression, Anxiety Musculoskeletal: reports: Chronic back pain, Other Derm: reports: Herpes zoster, Other - CONSULTS | PROCEDURES Consultations: DRYING TUNNEL OPERATOR, Dr. Carmella Chanel Procedures: 1. Chest x-ray with mild CHF changes, no focal infiltrate, significant pleural effusion or pneumothorax. 2. Venous duplex of the legs technically difficult to do because she just could not tolerate the pressure. As such it was nondiagnostic. 3. Echocardiogram showed her to have an ejection fraction that was 65 to 70%. Slightly hyperdynamic. Right ventricle normal. Mild tricuspid regurgitation. RVSP 46 mmHg. Grade 1 diastolic dysfunction. - HOSPITAL COURSE Hospital Course: She was placed initially with one-to-one supervision because of the description of such severe respiratory status in the OR, but by the time we examined her she was baseline. She had coughing, copious phlegm production during our exam but lungs were relatively clear. She was hypertensive and that gradually resolved with resumption of her usual medications. We did a work-up for congestive heart failure and possible PE but were unable to complete the PE work-up because she could not tolerate the venous Doppler studies. Echocardiogram is as above. We really did not change any other medications other than treating her blood pressure. Throughout her stay she was alert, oriented, negative lung exam. It became very clear that there was a push to do the biopsy from the even though both he and his stated that they were not going to do anything with those results. If she had cancer they were not can to do treatment. If she did not have cancer they were not can to do anything further than they were already doing which is taking progesterone. As such the patient was felt stable enough to go back to the OR to get this endometrial biopsy. Dr. Chanel met yet once again with the and . They finally agreed to not to the biopsy since it was not going to change the management and it was causing quite a bit of consternation with regards to how much of risk she was to undergo even a simple lithotomy position or [place] position. We feel that she has chronic bronchitis, and has had it for quite some time. Copious phlegm production, combined with a Trendelenburg position in a patient who never lays down flat, severe obesity, and uncontrolled hypertension cause her to have the acute respiratory distress. She really improved much more quickly than we expected. We thought this lady was going to be here for a couple of days with acute congestive heart failure and uncontrolled hypertension. She was discharged in stable condition. Pulse was 70. Blood pressure 157/90. 99% on room air. She is 5 foot 6 inches tall and weighs 111.5 kg. Pleasant slightly deaf, slightly forgetful elderly female. Neck is difficult to assess for JVD because it she is so short statured. But it is supple. Lungs have diminished breath sounds at the bases but otherwise clear to crackles rhonchi wheezing. PMI is normally placed and she has a regular rate and rhythm. The abdomen is hugely obese, she has Melia in tertrigo. And nonspecific macular blanching rash of the pannus. Melia intertrigo is also present underneath the breast. She has changes of her mastectomy. Normal bowel sounds, nontender. The legs are huge, with dependent edema. Redness in the dependent edema areas. Skin is taut as are the muscles. She has severe lymphedema and venous stasis changes. But she was unable to tolerate venous Dopplers for DVT evaluation. She is bedbound, always sits at a 30 degree position. As such she is discharged in stable condition with the use of BLS. She will follow up with Dr. Chanel about postmenopausal bleeding but only to use the progesterone. I have asked her to follow-up with her palliative care director Lilliam Cordoba. - ALLERGIES Allergies/Adverse Reactions: Allergies Allergy/AdvReac Type Severity Reaction Status Date / Time Milk Containing Products Allergy Unknown Verified 03/09/20 14:52 scopolamine Allergy Unknown Verified 03/09/20 14:52 aspirin AdvReac Nausea Verified 03/09/20 14:52 - MEDICATIONS Home Medications: Ambulatory Orders Medication Instructions Recorded Confirmed lisinopriL [Lisinopril] 10 mg PO DAILY 03/07/15 05/02/20 Ascorbic Acid [Vitamin C] 1,000 mg PO DAILY 01/31/20 05/02/20 Cholecalciferol (Vitamin D3) 1 cap PO DAILY 01/31/20 05/02/20 [Vitamin D3] Cyanocobalamin (Vitamin B-12) 1,000 mcg PO DAILY 01/31/20 05/02/20 [Vitamin B-12] Fluticasone [Flonase] 1 spray IN .DAILYBOTHNARES 01/31/20 05/02/20 Gabapentin [Neurontin] 800 mg PO TID 01/31/20 05/02/20 Senna [Senokot] 8.6 mg PO QPM PRN MDD No BM in 2 01/31/20 05/02/20 days Vit A/Vit C/Vit E/Zinc/Copper 1 cap PO BID 01/31/20 05/02/20 [Preservision Areds Softgel] polyethylene glycoL 3350 [Miralax] 17 g PO DAILY 01/31/20 05/02/20 Medroxyprogesterone Acetate 10 mg PO DAILY 03/25/20 05/02/20 - LABS Result Diagrams: 05/02/20 10:34 05/02/20 10:34"
[2020-05-04] MEDS ORDERED: CYANOCOBALAMIN 500 MCG TABLET PO SCH (09:00)
[2020-05-04] MEDS ORDERED: ASCORBIC ACID CHEW 500 MG TABLET PO SCH (09:00)
[2020-05-04] MEDS ORDERED: lisinopriL 5 MG TABLET PO SCH (09:00)
[2020-05-04] MEDS ORDERED: CHOLECALCIFEROL 25 MCG TABLET PO SCH (09:00)
== END 2020-05-03 18:00 | disposition home or self-care (01) | DRG 204 ==
LOC: SDS 08:10 → ICU 10:36 → MS2 20:51
PROVIDERS: ADMIT Specialist; ATTEND Specialist
DX: R06.03 Acute respiratory distress (principal); Z68.41 Body mass index [BMI] 40.0-44.9, adult; J42 Unspecified chronic bronchitis; N95.0 Postmenopausal bleeding; I11.9 Hypertensive heart disease without heart failure; G62.9 Polyneuropathy, unspecified; E66.01 Morbid (severe) obesity due to excess calories; F03.90 Unspecified dementia, unspecified severity, without behavioral disturbance, psychotic disturbance, mood disturbance, and anxiety; I07.1 Rheumatic tricuspid insufficiency; J32.9 Chronic sinusitis, unspecified; I89.0 Lymphedema, not elsewhere classified; I87.8 Other specified disorders of veins; B37.2 Candidiasis of skin and nail; M54.9 Dorsalgia, unspecified; G89.29 Other chronic pain; K59.09 Other constipation; R32 Unspecified urinary incontinence; H54.7 Unspecified visual loss; Z66 Do not resuscitate; Z51.5 Encounter for palliative care; Z20.828 Contact with and (suspected) exposure to other viral communicable diseases; Z74.01 Bed confinement status; Z87.891 Personal history of nicotine dependence; Z86.718 Personal history of other venous thrombosis and embolism; Z79.899 Other long term (current) drug therapy; Z53.09 Procedure and treatment not carried out because of other contraindication; I10 Essential (primary) hypertension; Z85.3 Personal history of malignant neoplasm of breast
CPT/HCPCS: 36415; 71045; 80053; 83605; 83880; 85025; 87150; 87631; 93005; 93306; 93970; A9270; J7120; 0202U

== ENCOUNTER 2020-05-03 18:04 | Outpatient (CLI) | payer MEDICARE, OTHER | END 2020-05-03 18:05 | disposition home or self-care (01) | LOC: EMS 18:04 | PROVIDERS: ATTEND Surgery | DX: Z74.01 Bed confinement status (principal) | CPT/HCPCS: A0425; A0428 ==

== ENCOUNTER 2020-05-05 00:38 | Outpatient (CLI) | payer MEDICARE, OTHER | END 2020-05-05 00:39 | disposition critical access hospital (66) | LOC: EMS 00:38 | PROVIDERS: ATTEND Surgery | DX: R41.82 Altered mental status, unspecified (principal) | CPT/HCPCS: A0425; A0429 ==

== ENCOUNTER 2020-05-05 00:42 | Inpatient (IN) | payer MEDICARE, OTHER ==
--- NOTE | 2020-05-05 01:24 | ED Physician Documentation ---
PD HPI ALTERED MENTAL STATUS - Stated complaint Stated Complaint: AMS - Chief complaint Chief Complaint: General - History obtained from History obtained from: Family (spouse) - History of Present Illness Timing - onset: Yesterday Quality / character: Less responsive Associated symptoms: No: Fever, Cough, NVD Basline status: Alert and oriented X 3, Bedbound Recently seen: Admitted - Additional information Additional information: discharged from [facility] (inpatient) yesterday. Spouse called 911 phillip, he says that she has been lethargic and "has been sleeping since she came back home from the hospital". He says her baseline mental status is awake, alert, and conversant. He says phillip "I couldn't wake her up". Patient unable to contribute to HPI due to AMS; she responds to some questions with yes/no answers, but speaks quietly and does not give any other/longer answers than simple yes/no answers. Review of Systems Constitutional: reports: Fatigue. denies: Fever Cardiac: denies: Chest pain / pressure Respiratory: reports: Dyspnea GI: denies: Abdominal Pain, Vomiting : denies: Dysuria, Frequency Musculoskeletal: denies: Neck pain, Back pain Neurologic: reports: Generalized weakness. denies: Focal weakness, Numbness, Headache PD PAST MEDICAL HISTORY - Past Medical History Cardiovascular: Hypertension, Deep vein thrombosis Respiratory: Other Neuro: Dementia, Peripheral neuropathy, Other Endocrine/Autoimmune: None GI: Chronic constipation MD PSYCHIATRY: Breast cancer, Other : Incontinence HEENT: Chronic vision loss, Chronic sinusitis Psych: Depression, Anxiety Musculoskeletal: Chronic back pain, Other Derm: Herpes zoster, Other - Past Surgical History Past Surgical History: Yes General: Cholecystectomy /MD PSYCHIATRY: Other - Present Medications Home Medications: Ambulatory Orders Medication Instructions Recorded Confirmed lisinopriL [Lisinopril] 10 mg PO DAILY 03/07/15 05/05/20 Ascorbic Acid [Vitamin C] 1,000 mg PO DAILY 01/31/20 05/05/20 Cholecalciferol (Vitamin D3) 1 cap PO DAILY 01/31/20 05/05/20 [Vitamin D3] Cyanocobalamin (Vitamin B-12) 1,000 mcg PO DAILY 01/31/20 05/05/20 [Vitamin B-12] Fluticasone [Flonase] 1 spray IN DAILY 01/31/20 05/05/20 Gabapentin [Neurontin] 800 mg PO TID 01/31/20 05/05/20 Senna [Senokot] 8.6 mg PO QPM PRN MDD No BM in 2 01/31/20 05/05/20 days Vit A/Vit C/Vit E/Zinc/Copper 1 cap PO BID 01/31/20 05/05/20 [Preservision Areds Softgel] polyethylene glycoL 3350 [Miralax] 17 g PO DAILY 01/31/20 05/05/20 Medroxyprogesterone Acetate 10 mg PO DAILY 03/25/20 05/05/20 - Allergies Allergies/Adverse Reactions: Allergies Allergy/AdvReac Type Severity Reaction Status Date / Time Milk Containing Products Allergy Unknown Verified 03/09/20 14:52 scopolamine Allergy Unknown Verified 03/09/20 14:52 aspirin AdvReac Nausea Verified 03/09/20 14:52 - Social History Does the pt smoke?: No Smoking Status: Never smoker Does the pt drink ETOH?: No Does the pt have substance abuse?: No - Immunizations Immunizations are current?: Yes - POLST Patient has POLST: Yes POLST Status: DNI (Ok for CPAP/BiPAP) PD ED PE NORMAL - Vitals Vital signs reviewed: Yes - HEENT HEENT: PERRL, EOMI, Other (scant left eye discharge). No: Moist mucous membranes (dry mucous membranes) - Cardiac Cardiac: RRR, No murmur - Respiratory Respiratory: No respiratory distress, Clear bilaterally - Abdomen Abdomen: Soft, Non tender PD ED PE EXPANDED - General General: Lethargic, Other (answer few questions, slowly, with yes/no answer but not others) - Neuro Neuro: Lethargic Results - Vitals Vitals: Vital Signs - 24 hr 05/05/20 05/05/20 05/05/20 00:52 01:00 02:30 Temperature 36.9 C Heart Rate 86 79 85 Respiratory 24 20 16 Rate Blood Pressure 208/101 H 199/91 H 204/95 H O2 Saturation 97 97 98 05/05/20 03:30 Temperature Heart Rate 83 Respiratory 18 Rate Blood Pressure 161/117 H O2 Saturation 99 Oxygen O2 Source [Without Activity] Room air O2 Source Room air - Labs Labs: Laboratory Tests 05/05/20 05/05/20 05/05/20 01:50 01:50 01:50 WBC 11.6 H RBC 4.91 Hgb 13.7 Hct 45.3 MCV 92.3 MCH 27.9 MCHC 30.2 L RDW 15.2 H Plt Count 302 MPV 10.6 Neut # (Auto) 8.6 H Lymph # (Auto) 1.6 Hayes # (Auto) 0.8 Eos # (Auto) 0.5 Baso # (Auto) 0.1 Absolute Nucleated RBC 0.00 Nucleated RBC % 0.0 Sodium 143 Potassium 3.7 Chloride 111 Carbon Dioxide 22 Anion Gap 10.0 BUN 10 Creatinine 0.5 Estimated GFR (MDRD) 118 Glucose 107 H Lactic Acid Calcium 8.9 Total Bilirubin 0.8 AST 13 ALT 11 Alkaline Phosphatase 113 B-Natriuretic Peptide 166 H Total Protein 7.0 Albumin 3.6 Globulin 3.4 Albumin/Globulin Ratio 1.1 Lipase 34 TSH Urine Color Urine Clarity Urine pH Ur Specific [place] Urine Protein Urine Glucose (UA) Urine Ketones Urine Occult Blood Urine Nitrite Urine Bilirubin Urine Urobilinogen Ur Leukocyte Esterase Urine RBC Urine WBC Ur Squamous Epith Cells Urine Bacteria Ur Microscopic Review Urine Culture Comments 05/05/20 05/05/20 05/05/20 01:50 01:50 02:22 WBC RBC Hgb Hct MCV MCH MCHC RDW Plt Count MPV Neut # (Auto) Lymph # (Auto) Hayes # (Auto) Eos # (Auto) Baso # (Auto) Absolute Nucleated RBC Nucleated RBC % Sodium Potassium Chloride Carbon Dioxide Anion Gap BUN Creatinine Estimated GFR (MDRD) Glucose Lactic Acid 1.3 Calcium Total Bilirubin AST ALT Alkaline Phosphatase B-Natriuretic Peptide Total Protein Albumin Globulin Albumin/Globulin Ratio Lipase TSH 5.45 Urine Color YELLOW Urine Clarity CLEAR Urine pH 6.0 Ur Specific [place] <=1.005 Urine Protein NEGATIVE Urine Glucose (UA) NEGATIVE Urine Ketones NEGATIVE Urine Occult Blood TRACE-INTA Urine Nitrite NEGATIVE Urine Bilirubin NEGATIVE Urine Urobilinogen 0.2 (NORMAL) Ur Leukocyte Esterase TRACE H Urine RBC 0-5 Urine WBC 0-3 Ur Squamous Epith Cells MANY Squamous H Urine Bacteria Rare Ur Microscopic Review INDICATED Urine Culture Comments NOT INDICATED - Rads (name of study) CT head Radiology: Prelim report reviewed, See rad report PD MEDICAL DECISION MAKING - ED course Complexity details: reviewed old records, reviewed results, re-evaluated patient, considered differential, d/w patient, d/w family ED course: after tests resulted, results d/w patient and spouse. Results are reassuring and nondiagnostic. She is no different, regarding her mental status/level of responsiveness, than when I initially evaluated her. Spouse reiterates that this is far off from baseline. Her blood pressures have been quite elevated in ED and after trending down, have gone back up to 110s DBP. D/W Dr. Spencer, plan is to initiate nicardipine drip for possible hypertensive encephalopathy, can reevaluate mental status as her blood pressure is better controlled and further testing/treatment accordingly Departure - Departure Disposition: [facility] DC/Xfer Clinical Impression: Hypertensive encephalopathy Condition: Stable Discharge Date/Time: 05/05/20 05:25
[2020-05-05] MEDS ORDERED: SODIUM CHLORIDE 0.9% 500 ML IV STA (01:35)
[2020-05-05 02:00] LABS: BASOPHILS # (AUTO) 0.1 10^3/uL (0.0-0.1); BASOPHILS % (AUTO) 0.6 %; EOSINOPHILS # (AUTO) 0.5 10^3/uL (0.0-0.7); EOSINOPHILS % (AUTO) 4.6 %; HGB - HEMOGLOBIN 13.7 g/dL (12.0-16.0); LYMPHOCYTES # (AUTO) 1.6 10^3/uL (1.5-3.5); LYMPHOCYTES % (AUTO) 13.7 %; MEAN CORPUSCULAR HEMOGLOBIN 27.9 pg (27.0-31.0); MEAN CORPUSCULAR HGB CONC 30.2 g/dL (32.0-36.0); MEAN CORPUSCULAR VOLUME 92.3 fL (81.0-99.0); MEAN PLATELET VOLUME 10.6 fL (7.9-10.8); MONOCYTES # (AUTO) 0.8 10^3/uL (0.0-1.0); MONOCYTES % (AUTO) 6.9 %; NEUTROPHILS # (AUTO) 8.6 10^3/uL (1.5-6.6); NEUTROPHILS % (AUTO) 73.8 %; PLT - PLATELET COUNT 302 10^3/uL (130-450); RED BLOOD COUNT 4.91 10^6/uL (4.20-5.40); RED CELL DISTRIBUTION WIDTH 15.2 % (12.0-15.0); WHITE BLOOD COUNT 11.6 x10^3/uL (4.8-10.8)
[2020-05-05 02:13] LABS: ALBUMIN 3.6 g/dL (3.2-5.5); ALBUMIN/GLOBULIN RATIO 1.1 (1.0-2.2); BILIRUBIN,TOTAL 0.8 mg/dL (0.2-1.0); CALCIUM 8.9 mg/dL (8.5-10.3); CREATININE 0.5 mg/dL (0.4-1.0)
[2020-05-05 02:36] LABS: BILIRUBIN,URINE NEGATIVE (NEGATIVE); CLARITY,URINE CLEAR (CLEAR); GLUCOSE, URINE (UA) NEGATIVE (NEGATIVE); KETONES,URINE (UA) NEGATIVE (NEGATIVE); LEUKOCYTE ESTERASE, URINE TRACE (NEGATIVE); NITRITE,URINE NEGATIVE (NEGATIVE); OCCULT BLOOD,URINE TRACE-INTA (NEGATIVE); PROTEIN,URINE NEGATIVE (NEGATIVE); UROBILINOGEN,URINE 0.2 (NORMAL) E.U./dL (NORMAL)
[2020-05-05 02:41] LABS: BACTERIA,URINE Rare /HPF (None Seen); RBC,URINE 0-5 /HPF (0-5); SQUAMOUS EPITHELIAL CELL,UR MANY Squamous (<= Few)
[2020-05-05] MEDS ORDERED: NICARDIPINE HCL 25 MG in SODIUM CHLORIDE 0.9% 240 ML IV STA (03:51)
[2020-05-05] MEDS ORDERED: ACETAMINOPHEN 325 MG TABLET PO PRN (03:53)
[2020-05-05] MEDS ORDERED: SODIUM CHLORIDE FLUSH 0.9% 10 ML SYRINGE IVP PRN (03:53)
[2020-05-05] MEDS ORDERED: ONDANSETRON ODT 4 MG TABLET TL PRN (03:53)
--- NOTE | 2020-05-05 03:57 | HISTORY & PHYSICAL EXAMINATION ---
Chief Complaint - Chief Complaint Chief Complaint: Unresponsive History of Present Illness - Admitted From Admitted From:: Home - History Obtained From Records Reviewed: Yes History obtained from: ER Physician, Spouse, EMR Exam Limitations: Patient is altered and minimally verbal. - History of Present Illness HPI Comment/Other: This is a 85-year-old female with a past medical history significant for breast cancer, hypertension, peripheral neuropathy, abnormal uterine bleeding who presents today after her was concerned about her being minimally responsive. She had been just discharged in the hospital on 03 May after she was admitted when she developed shortness of breath and respiratory distress while in the OR preparing for a hysteroscopy and endometrial biopsy. Her states that the day they were discharged, the power was out and so they went to sleep early that night. She woke up the following morning and she was lethargic but was able to take her medications and have a little breakfast. He states throughout the day she has become less responsive until yesterday evening when she would not respond at all. He was concerned that she may have been dehydrated and so he brought her to the emergency department. The patient is altered and unable provide a meaningful history. She complains of abdominal pain when asked if she has any pain. Shortly after she will say that she has no abdominal pain whatsoever. Patient's reports no new medication since discharge. In the emergency department, she was found to be afebrile temperature of 36.9 C. Heart is 86. Blood pressure was 208/101. She was tachypneic with respirate of 20. She was saturating well on room air. Labs reviewed for white count of 9.6 low left shift otherwise are unremarkable. Lactic acid was normal. She underwent a CT of the head which showed no acute abnormalities. She was initially quite altered upon arrival to the emergency department and unable to verbalize at all. Upon my evaluation, her blood pressure had improved slightly to systolic 160s and diastolic in the 110s. She was a little more verbal with occasional words here and there but still quite altered. Given the above findings, medicine was consulted for admission. I discussed with the regarding goals of care and he confirms that she is a DNR. History - Past Medical History Cardiovascular: reports: Hypertension, Deep vein thrombosis Respiratory: reports: Other Neuro: reports: Dementia, Peripheral neuropathy Endocrine/Autoimmune: reports: None GI: reports: Chronic constipation [employer]: reports: Breast cancer, Other : reports: Incontinence HEENT: reports: Chronic vision loss, Chronic sinusitis Psych: reports: Depression, Anxiety Musculoskeletal: reports: Chronic back pain, Other Derm: reports: Herpes zoster, Other MRSA Hx?: No - Past Surgical History General: reports: Cholecystectomy /[employer]: reports: Other - Family & Social History Family History: Mother: , Father: Family History Comment/Other: The patient's reports that her mother had lung cancer. She was a smoker. Living arrangement: At home Living Situation: With spouse/s.o. Social History Notes: The patient lives at home with her , Clarence. He states that she has remote smoking history in her 20s when she smoked for a few years. She does not drink alcohol. They have a private duty family that provide caregiving needs, Rod and Lila, 7 days/week for the last 4 years. - Substance History Use: Uses substance without health or social issues: NONE (Former smoker) - POLST Patient has POLST: Yes POLST Status: DNI (Ok for CPAP/BiPAP) Meds/Allgy - Home Medications Home Medications: Ambulatory Orders Medication Instructions Recorded Confirmed lisinopriL [Lisinopril] 10 mg PO DAILY 03/07/15 05/02/20 Ascorbic Acid [Vitamin C] 1,000 mg PO DAILY 01/31/20 05/02/20 Cholecalciferol (Vitamin D3) 1 cap PO DAILY 01/31/20 05/02/20 [Vitamin D3] Cyanocobalamin (Vitamin B-12) 1,000 mcg PO DAILY 01/31/20 05/02/20 [Vitamin B-12] Fluticasone [Flonase] 1 spray IN .DAILYBOTHNARES 01/31/20 05/02/20 Gabapentin [Neurontin] 800 mg PO TID 01/31/20 05/02/20 Senna [Senokot] 8.6 mg PO QPM PRN MDD No BM in 2 01/31/20 05/02/20 days Vit A/Vit C/Vit E/Zinc/Copper 1 cap PO BID 01/31/20 05/02/20 [Preservision Areds Softgel] polyethylene glycoL 3350 [Miralax] 17 g PO DAILY 01/31/20 05/02/20 Medroxyprogesterone Acetate 10 mg PO DAILY 03/25/20 05/02/20 - Allergies Allergies/Adverse Reactions: Allergies Allergy/AdvReac Type Severity Reaction Status Date / Time Milk Containing Products Allergy Unknown Verified 03/09/20 14:52 scopolamine Allergy Unknown Verified 03/09/20 14:52 aspirin AdvReac Nausea Verified 03/09/20 14:52 Review of Systems - Cardiovascular Cariovascular: denies: Chest pain - Respiratory Respiratory: denies: SOB at rest, SOB with exertion - Gastrointestinal Gastrointestinal: denies: Abdominal pain - All Other Systems All Other Systems: reports: Other (Review of systems is limited due to the patient's encephalopathy.) Prior Level of Functionality: Patient is bedbound at baseline. Her tells me she has not gotten out of bed for the past 4 years. Exam - Vital Signs Reviewed Vital Signs: Yes Vital Signs: Vital Signs x48h Temp Pulse Resp BP Pulse Ox 05/05/20 03:30 83 18 161/117 H 99 05/05/20 02:30 85 16 204/95 H 98 05/05/20 01:00 79 20 199/91 H 97 05/05/20 00:52 36.9 C 86 24 208/101 H 97 - Physical Exam General Appearance: positive: Mild distress, Lethargic, Other (She appears lethargic but does have her eyes open and will attempt to verbalize when asked a question although her speech is delayed.) Eyes Bilateral: positive: Normal inspection, PERRL, Conjunctivae nml ENT: positive: ENT inspection nml Neck: positive: Nml inspection Respiratory: positive: No respiratory distress, Other (Diminished in bases.). negative: Wheezes, Rales Cardiovascular: positive: Regular rate & rhythm, No murmur. negative: Tachycardia, Bradycardia, Systolic murmur Abdomen: positive: Non-tender, No distention. negative: Tenderness, Guarding, Rebound Skin: positive: Warm, Dry, Other (She has chronic venous disease changes over the bilateral lower extremities. No obvious erythema.) Extremities: positive: Pedal edema (She has trace to +1 pitting edema in her bilateral lower extremities.) Neurologic/Psychiatric: positive: Other (She does appear to be oriented to self as she will respond nicely to name. She is able to identify her . She does not know location, year, month. She is able to move her upper extremities although this is limited.). negative: Facial droop, Slurred/abnml speech Conclusion/Plan - Problem List (1) Hypertensive encephalopathy Conclusion/Plan: I suspect that her unresponsiveness and encephalopathy is related to her severe hypertension. CT of the head showed no acute normalities. Her labs are also unremarkable except for mildly elevated white count which is likely reactive. Lactic acid is normal. TSH is normal. We will not check an ammonia given her normal LFTs. She not appear to have any obvious focal deficits on exam and no slurred speech so do not suspect a stroke at this time. We will admit her to intensive care unit started on a Cardene infusion. Goal systolic blood pressure will be less than 160 and diastolic blood pressure less than 100 with a goal of a mean arterial pressure 25% reduced compared to her initial pressure upon arrival to the emergency department. Will consider repeating a CT of the head or obtaining MRI if she is not improved despite lowering her blood pressure. We will check blood cultures. Avoid sedatives. (2) Hypertension Conclusion/Plan: We will continue her Cardene infusion for the time being. We will resume her lisinopril once she is taking p.o. consistently and her blood pressure is stable with improvement in her neurologic status. She will likely need a second antihypertensive as well. (3) Postmenopausal bleeding Conclusion/Plan: The concerns for endometrial cancer given the endometrial thickening found on ultrasound. She was scheduled for hysteroscopy and biopsy but this was canceled due to her respiratory distress during prior hospitalization. At this point in time, it appears the plan is to hold off on biopsy as it would not post exchange manager as the patient expressed the past she does not want any treatment. We will resume her progesterone when appropriate. (4) Neuropathy Conclusion/Plan: We will resume her home gabapentin as her mentation improves. - Lab Results Lab results reviewed: Yes Fish Bones: 05/05/20 06:05 05/05/20 06:05 - Diagnostic Imaging Results Diagnostic Imaging Results: positive: Final report reviewed Core Measures - Anticipated LOS I expect patient to be DC'd or transferred within 96 hours.: Yes - Issues Hospital Issues and Management Plan: 85-year-old female presents with unresponsiveness and encephalopathy likely due to hypertensive encephalopathy. We will admit to intensive care unit for Ca rdene infusion. Will consider a repeat CT or MRI of the brain if there is no improvement over next 24 hours. - DVT/VTE - Prophylaxis VTE/DVT Device ordered at admit?: Yes VTE/DVT Prophylaxis med ordered at admit?: Yes
[2020-05-05] MEDS ORDERED: NICARDIPINE HCL 25 MG/10 ML VIAL IV ONE (04:03)
[2020-05-05 05:11] LABS: C. PNEUMONIAE- RESP PCR PANEL NOT DETECTED
[2020-05-05] MEDS: NICARDIPINE HCL 25 MG in SODIUM CHLORIDE 0.9% 240 ML IV SCH ×5 (06:07→20:33)
[2020-05-05 06:13] LABS: BASOPHILS # (AUTO) 0.1 10^3/uL (0.0-0.1); BASOPHILS % (AUTO) 0.4 %; EOSINOPHILS # (AUTO) 0.3 10^3/uL (0.0-0.7); EOSINOPHILS % (AUTO) 2.8 %; LYMPHOCYTES # (AUTO) 1.6 10^3/uL (1.5-3.5); LYMPHOCYTES % (AUTO) 13.5 %; MEAN CORPUSCULAR HEMOGLOBIN 27.9 pg (27.0-31.0); MEAN PLATELET VOLUME 10.8 fL (7.9-10.8); MONOCYTES # (AUTO) 0.7 10^3/uL (0.0-1.0); MONOCYTES % (AUTO) 6.1 %; NEUTROPHILS # (AUTO) 9.3 10^3/uL (1.5-6.6); NEUTROPHILS % (AUTO) 76.9 %; PLT - PLATELET COUNT 308 10^3/uL (130-450); RED BLOOD COUNT 5.01 10^6/uL (4.20-5.40); RED CELL DISTRIBUTION WIDTH 15.2 % (12.0-15.0)
[2020-05-05 06:25] LABS: CREATININE 0.5 mg/dL (0.4-1.0); MAGNESIUM 1.9 mg/dL (1.7-2.8); PHOSPHORUS 2.6 mg/dL (2.5-4.6)
--- NOTE | 2020-05-05 07:05 | PHARMACY PROGRESS NOTE ---
- Best Possible Medication History Admit Date and Time: 05/05/20 0353 Processed by: Pharmacy Medication History completed: Yes Secondary Source(s): Previous admit records As the person ultimately responsible for medication therapy, providers are able to order a medication from an existing home medication list in [facility] via the "Reconcile Routine" prior to Confirmation of that medication by production support specialist. Such practice is discouraged except when the physician, in their clinical judgment, deems that a medical need exists for a medication without regard to previous use.
--- NOTE | 2020-05-05 07:29 | CT Report ---
PROCEDURE: HEAD WO INDICATIONS: AMS TECHNIQUE: Noncontrast 4.5 mm thick angled axial sections acquired from the foramen magnum to the vertex. For r adiation dose reduction, the following was used: automated exposure control, adjustment of mA and/or kV according to patient size. COMPARISON: 06/20/2019 FINDINGS: Image quality: Excellent. CSF spaces: Basal cisterns are patent. No extra-axial fluid collections. Ventricles are prominent in size, stable. Brain: No midline shift. No intracranial masses or hemorrhage. Overall moderate cerebral cortical volume loss and hypodensity in the white matter. Herrera-white matter interface is normal. Skull and face: Calvarium and visualized facial bones are intact, without suspicious lesions. Sinuses: Small air-fluid levels in the sphenoid sinuses. Visualized sinuses and mastoids are otherwi se clear. IMPRESSION: 1. No CT evidence of acute process. 2. Chronic cerebral cortical volume loss and stable microvascular ischemic changes. 3. Chronic mild sphenoid sinus disease. 4. Concordant with preliminary report. Reviewed by: Mahi Barr MD on 05/05/2020 7:27 AM PST Approved by: Mahi Barr MD on 05/05/2020 7:27 AM PST Station ID: [id number]
[2020-05-05] MEDS: ENOXAPARIN 40 MG/0.4 ML SYRINGE SUBQ SCH (09:12)
[2020-05-05] MEDS: SODIUM CHLORIDE FLUSH 0.9% 10 ML SYRINGE IVP SCH ×2 (09:13→16:29)
[2020-05-05] MEDS: CHOLECALCIFEROL 25 MCG TABLET PO SCH (11:43)
[2020-05-05] MEDS: ASCORBIC ACID CHEW 500 MG TABLET PO SCH (11:43)
[2020-05-05] MEDS ORDERED: lisinopriL 5 MG TABLET PO SCH (12:00)
[2020-05-05] MEDS: METOPROLOL TARTRATE 25 MG TABLET PO SCH ×2 (13:09→20:37)
[2020-05-05] MEDS: GABAPENTIN 400 MG CAPSULE PO SCH ×3 (14:06→21:35)
[2020-05-06] MEDS: NICARDIPINE HCL 25 MG in SODIUM CHLORIDE 0.9% 240 ML IV SCH ×4 (01:47→21:00)
[2020-05-06] MEDS: SODIUM CHLORIDE FLUSH 0.9% 10 ML SYRINGE IVP SCH ×3 (01:48→16:30)
[2020-05-06 04:57] LABS: BASOPHILS # (AUTO) 0.1 10^3/uL (0.0-0.1); BASOPHILS % (AUTO) 0.5 %; EOSINOPHILS # (AUTO) 0.4 10^3/uL (0.0-0.7); EOSINOPHILS % (AUTO) 2.5 %; HGB - HEMOGLOBIN 13.3 g/dL (12.0-16.0); LYMPHOCYTES # (AUTO) 1.7 10^3/uL (1.5-3.5); LYMPHOCYTES % (AUTO) 10.7 %; MEAN CORPUSCULAR HEMOGLOBIN 27.8 pg (27.0-31.0); MEAN CORPUSCULAR HGB CONC 30.6 g/dL (32.0-36.0); MEAN CORPUSCULAR VOLUME 90.6 fL (81.0-99.0); MONOCYTES # (AUTO) 1.1 10^3/uL (0.0-1.0); MONOCYTES % (AUTO) 6.8 %; NEUTROPHILS # (AUTO) 12.2 10^3/uL (1.5-6.6); NEUTROPHILS % (AUTO) 78.9 %; PLT - PLATELET COUNT 334 10^3/uL (130-450); RED BLOOD COUNT 4.79 10^6/uL (4.20-5.40); RED CELL DISTRIBUTION WIDTH 15.1 % (12.0-15.0); WHITE BLOOD COUNT 15.5 x10^3/uL (4.8-10.8)
[2020-05-06 05:14] LABS: CALCIUM 8.9 mg/dL (8.5-10.3); CREATININE 0.6 mg/dL (0.4-1.0); MAGNESIUM 1.8 mg/dL (1.7-2.8); PHOSPHORUS 2.3 mg/dL (2.5-4.6)
[2020-05-06] MEDS: GABAPENTIN 400 MG CAPSULE PO SCH ×3 (05:18→22:25)
[2020-05-06] MEDS: CHOLECALCIFEROL 25 MCG TABLET PO SCH (08:19)
[2020-05-06] MEDS: ASCORBIC ACID CHEW 500 MG TABLET PO SCH (08:20)
[2020-05-06] MEDS: ENOXAPARIN 40 MG/0.4 ML SYRINGE SUBQ SCH (08:20)
[2020-05-06] MEDS: lisinopriL 5 MG TABLET PO SCH (08:20)
[2020-05-06] MEDS: METOPROLOL TARTRATE 25 MG TABLET PO SCH (09:18)
--- NOTE | 2020-05-06 15:53 | PROVIDER PROGRESS NOTE ---
Subjective - Prog Note Date Prog Note Date: 05/06/20 Prog Note Time: 15:51 - Subjective Pt reports feeling: Improved Subjective: Since yesterday late morning and into the afternoon she has been at baseline mentally. She is an alert, cooperative, very sweet natured elderly female. Who can only focus on wanting to get home. She must last at least several times a day. We are having no success about getting her off Cardene. We increased her lisinopril. We added metoprolol 25 twice daily and already was slowed in her heart rate but not lower her blood pressure. She denies chest pain, palpitations, shortness of breath. She is developing right arm redness and right hand edema where the Cardene is. Current Medications - Current Medications Current Medications: Active Medications Acetaminophen (Tylenol) 650 mg PO Q4HR PRN PRN Reason: Pain 1 to 4 Last Admin: 05/06/20 12:39 Dose: 650 mg Documented by: Amlodipine Besylate (Norvasc) 5 mg PO DAILY [facility] Ascorbic Acid (Vitamin C) 1,000 mg PO DAILY [facility] Last Admin: 05/06/20 08:20 Dose: 1,000 mg Documented by: Cholecalciferol (Vitamin D3) 50 mcg PO DAILY [facility] Last Admin: 05/06/20 08:19 Dose: 50 mcg Documented by: Enoxaparin Sodium (Lovenox) 40 mg SUBQ DAILY [facility] Last Admin: 05/06/20 08:20 Dose: 40 mg Documented by: Gabapentin (Neurontin) 800 mg PO TID [facility] Last Admin: 05/06/20 15:26 Dose: Not Given Documented by: Hydralazine HCl (Apresoline) 10 mg PO BID [facility] Nicardipine HCl 25 mg/ Sodium (Chloride) 250 mls @ 50 mls/hr IV .Q5H [facility]; Protocol Last Admin: 05/06/20 12:15 Dose: 5 mg/hr, 50 mls/hr Documented by: Lisinopril (Zestril) 20 mg PO DAILY [facility] Last Admin: 05/06/20 08:20 Dose: 20 mg Documented by: Medroxyprogesterone Acetate (Provera) 10 mg PO DAILY [facility] Last Admin: 05/06/20 11:18 Dose: 10 mg Documented by: Ondansetron HCl (Zofran Odt) 4 mg TL Q6HR PRN PRN Reason: Nausea / Vomiting Sodium Chloride (Normal Saline Flush 0.9%) 10 ml IVP 0100,0900,1700 [facility] Last Admin: 05/06/20 08:21 Dose: 10 ml Documented by: Sodium Chloride (Normal Saline Flush 0.9%) 10 ml IVP PRN PRN PRN Reason: NEEDED PER PROVIDER ORDERS lisinopriL [Lisinopril] 10 mg PO DAILY 03/07/15 Ascorbic Acid [Vitamin C] 1,000 mg PO DAILY 01/31/20 Cholecalciferol (Vitamin D3) [Vitamin D3] 1 cap PO DAILY 01/31/20 Cyanocobalamin (Vitamin B-12) [Vitamin B-12] 1,000 mcg PO DAILY 01/31/20 Fluticasone [Flonase] 1 spray IN DAILY 01/31/20 Gabapentin [Neurontin] 800 mg PO TID 01/31/20 Senna [Senokot] 8.6 mg PO QPM PRN MDD No BM in 2 days 01/31/20 Vit A/Vit C/Vit E/Zinc/Copper [Preservision Areds Softgel] 1 cap PO BID 01/31/20 polyethylene glycoL 3350 [Miralax] 17 g PO DAILY 01/31/20 Medroxyprogesterone Acetate 10 mg PO DAILY 03/25/20 Objective - Vital Signs/Intake & Output Reviewed Vital Signs: Yes Vital Signs: Vital Signs x48h Pulse Resp BP BP BP Pulse Ox 05/06/20 15:00 80 16 141/90 H 96 05/06/20 14:00 68 20 147/73 H 94 05/06/20 13:00 67 19 162/90 H 94 05/06/20 12:00 71 15 166/70 H 93 05/06/20 11:00 68 18 144/59 H 95 05/06/20 10:00 69 20 156/56 H 95 05/06/20 09:30 136/51 H 05/06/20 09:18 166/53 H 05/06/20 09:00 70 20 166/53 H 94 05/06/20 08:00 70 21 161/61 H 91 L Intake & Output: Intake & Output 05/03/20 05/04/20 05/05/20 05/06/20 23:59 23:59 23:59 23:59 Intake Total 2328.917 1211.250 Output Total 1900 1300 Balance 428.917 -88.750 - Objective General Appearance: positive: No acute distress, Alert, Other (5 foot 6 elderly female who is 107 kg. Rotund, corpulent obesity. Alert, oriented, cheerful. Just wants to go home. Complaining of the right hand swelling.) Eyes Bilateral: positive: PERRL, EOMI Neck: positive: Other (Difficult to assess for JVD since she has such a short thick neck). negative: Stiff neck Respiratory: positive: No respiratory distress. negative: Wheezes, Rales, Rhonchi Cardiovascular: positive: Regular rate & rhythm. negative: Gallop/S4, Friction rub Abdomen: positive: No organomegaly, Nml bowel sounds, No distention Skin: positive: Warm, Dry, Skin rash (Melia intertrigo), Other (The skin of her right arm is normal in appearance other than it is a slightly pink coloration from the biceps triceps area down the arm to the hand. Once you get to the hand the hand is sausagelike and edematous. That is where she has her IV. Cardene is going through this. Her legs continue to h) Extremities: positive: Full ROM (But generalized weakness. She can barely lift her legs off the bed. She is confined to the bed.), Pedal edema (Significant to the legs. Stretch of the thighs and goes all the way down.) Neurologic/Psychiatric: positive: Oriented x3 (While she is oriented, she has short-term memory loss. Symptoms cannot remember we discussed earlier in the day.), CN's nml (2-12), Motor nml - Lab Results Fish Bones: 05/06/20 04:40 05/06/20 04:40 Other Labs: Lab Results x24hrs 05/06/20 05/06/20 Range/Units 04:40 04:40 WBC 15.5 H (4.8-10.8) x10^3/uL RBC 4.79 (4.20-5.40) 10^6/uL Hgb 13.3 (12.0-16.0) g/dL Hct 43.4 (37.0-47.0) % MCV 90.6 (81.0-99.0) fL MCH 27.8 (27.0-31.0) pg MCHC 30.6 L (32.0-36.0) g/dL RDW 15.1 H (12.0-15.0) % Plt Count 334 (130-450) 10^3/uL MPV 11.0 H (7.9-10.8) fL Neut # (Auto) 12.2 H (1.5-6.6) 10^3/uL Lymph # (Auto) 1.7 (1.5-3.5) 10^3/uL [place] # (Auto) 1.1 H (0.0-1.0) 10^3/uL Eos # (Auto) 0.4 (0.0-0.7) 10^3/uL Baso # (Auto) 0.1 (0.0-0.1) 10^3/uL Absolute Nucleated RBC 0.00 x10^3/uL Nucleated RBC % 0.0 /100WBC Sodium 142 (135-145) mmol/L Potassium 3.7 (3.5-5.0) mmol/L Chloride 110 (101-111) mmol/L Carbon Dioxide 21 (21-32) mmol/L Anion Gap 11.0 (6-13) BUN 13 (6-20) mg/dL Creatinine 0.6 (0.4-1.0) mg/dL Estimated GFR (MDRD) 95 (>89) Glucose 119 H (70-100) mg/dL Calcium 8.9 (8.5-10.3) mg/dL Phosphorus 2.3 L (2.5-4.6) mg/dL Magnesium 1.8 (1.7-2.8) mg/dL ABX Reporting Has patient been on IV antibiotics over the past 48 hours?: No Assessment/Plan - Problem List (1) Hypertensive encephalopathy Impression: She was admitted to the ICU. Started on a Cardene infusion. Her blood pressure has been at goal the entire time. But we Managed to get it down with resumption of her oral medications in an effort to wean off her Cardene. We tried adding metoprolol yesterday and all it did was lower her pulse rate but did nothing for her blood pressure. Plan: Add Norvasc even though this may cause more edema Add hydralazine 10 twice daily Goal blood pressure less than 160 systolic and diastolic less than 100 (2) Hypertension Conclusion/Plan: We will continue her Cardene infusion for the time being. We have resumed her lisinopril, increase the dose. Now adding Norvasc and hydralazine. Stopping metoprolol. (3) Postmenopausal bleeding Conclusion/Plan: The concerns for endometrial cancer given the endometrial thickening found on ultrasound. She was scheduled for hysteroscopy and biopsy but this was canceled due to her respiratory distress during prior hospitalization. 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 We will resume her progesterone when appropriate. (4) Neuropathy Conclusion/Plan: We will resume her home gabapentin as her mentation improves.She is had this for decades. Started in her 30s. Gradually progressive to the point that it was too painful to try and walk. So she is bedbound because of pain from neuropathy not because neuropathy is made her legs paralyzed or weak.
[2020-05-06] MEDS: amLODIPine 5 MG TABLET PO SCH (16:30)
[2020-05-06] MEDS: hydrALAZINE 10 MG TABLET PO SCH ×2 (16:30→20:59)
[2020-05-07] MEDS: NICARDIPINE HCL 25 MG in SODIUM CHLORIDE 0.9% 240 ML IV SCH ×2 (04:24→06:57)
[2020-05-07] MEDS: SODIUM CHLORIDE FLUSH 0.9% 10 ML SYRINGE IVP SCH ×2 (04:30→09:04)
[2020-05-07 05:47] LABS: BASOPHILS # (AUTO) 0.1 10^3/uL (0.0-0.1); BASOPHILS % (AUTO) 0.4 %; EOSINOPHILS # (AUTO) 0.4 10^3/uL (0.0-0.7); EOSINOPHILS % (AUTO) 3.1 %; HGB - HEMOGLOBIN 12.6 g/dL (12.0-16.0); LYMPHOCYTES # (AUTO) 1.5 10^3/uL (1.5-3.5); LYMPHOCYTES % (AUTO) 11.9 %; MEAN CORPUSCULAR HEMOGLOBIN 27.9 pg (27.0-31.0); MEAN CORPUSCULAR HGB CONC 30.6 g/dL (32.0-36.0); MEAN CORPUSCULAR VOLUME 91.4 fL (81.0-99.0); MEAN PLATELET VOLUME 9.9 fL (7.9-10.8); MONOCYTES # (AUTO) 0.8 10^3/uL (0.0-1.0); MONOCYTES % (AUTO) 6.3 %; NEUTROPHILS # (AUTO) 9.5 10^3/uL (1.5-6.6); NEUTROPHILS % (AUTO) 77.6 %; PLT - PLATELET COUNT 323 10^3/uL (130-450); RED BLOOD COUNT 4.51 10^6/uL (4.20-5.40); RED CELL DISTRIBUTION WIDTH 15.4 % (12.0-15.0); WHITE BLOOD COUNT 12.2 x10^3/uL (4.8-10.8)
[2020-05-07 05:59] LABS: CALCIUM 8.6 mg/dL (8.5-10.3); CREATININE 0.4 mg/dL (0.4-1.0); MAGNESIUM 1.8 mg/dL (1.7-2.8); PHOSPHORUS 2.6 mg/dL (2.5-4.6)
[2020-05-07] MEDS: GABAPENTIN 400 MG CAPSULE PO SCH ×2 (06:56→13:54)
--- NOTE | 2020-05-07 07:03 | Ultrasound Report ---
PROCEDURE: Duplex Ext Veins Right INDICATIONS: right arm red adn swollen TECHNIQUE: Real-time imaging, as well as color and pulse Doppler interrogation, were performed of the lower extr emity deep veins from the inguinal ligament to the popliteal fossa. COMPARISON: None. FINDINGS: Evaluation of the right upper extremity deep venous system limited secondary to soft tissu e swelling and inability the patient to abduct arm for image acquisition. The deep veins are normally compressible, and free of intraluminal thrombus. Color and pulse Doppler demonstrate normal phasic intraluminal flow. There is normal augmentation response to distal compression maneuver. IMPRESSION: No evidence of deep vein thrombosis involving the right upper extremity within limitations of the heladio dy. Reviewed by: Елена iVllegas MD, PhD on 05/07/2020 7:02 AM PST Approved by: Елена Villegas MD, PhD on 05/07/2020 7:02 AM PST Station ID: [id number]
[2020-05-07] MEDS ORDERED: POTASSIUM CHLORIDE 20 MEQ TABLET PO ONE (07:29)
[2020-05-07] MEDS: CHOLECALCIFEROL 25 MCG TABLET PO SCH (09:00)
[2020-05-07] MEDS ORDERED: polyethylene glycoL 3350 17 GM PACKET PO SCH (09:00)
[2020-05-07] MEDS: lisinopriL 5 MG TABLET PO SCH (09:01)
[2020-05-07] MEDS: ASCORBIC ACID CHEW 500 MG TABLET PO SCH (09:02)
[2020-05-07] MEDS: ENOXAPARIN 40 MG/0.4 ML SYRINGE SUBQ SCH (09:04)
[2020-05-07] MEDS: amLODIPine 5 MG TABLET PO SCH (09:54)
--- NOTE | 2020-05-07 11:15 | Discharge Plan ---
Discharge Plan Problem Reviewed?: Yes Disposition: Home, Self Care Condition: Stable Prescriptions: Amlodipine Besylate [Norvasc] 2.5 mg PO DAILY #30 tablet Lisinopril [Zestril] 20 mg PO DAILY #30 tablet Diet: Low Sodium Activity Restrictions: Activity as Tolerated Health Concerns: The patient was admitted because of altered mental status which appeared to be from severely elevated high blood pressure. The blood pressure medications have been adjusted and the mental status improved. Therefore, the patient is being discharged with a new list of medicines for blood pressure control, take these as prescribed. New prescriptions were electronically sent to the patient's [facility] in [place]. 9Note, the Lisinopril dose was increased from 10 mg daily to 20 mg daily, so you can use up the 10 mg tablets you have at home by doubling those up). Resume all other prehospital medications. Please measure the patient's blood pressure mid-afternoon daily, and start a log book, and write them down, to show the Home Health visiting RN. Plan of Treatment: As above. Care Goals: Improvement in symptoms and stabilization are the goals. Assessment: Written instructions were provided at discharge for reminders. Additional Instructions or Follow Up instructions: If you have new or worsening symptoms, call your PCP for advice or come to the ER. Follow-Up Care: Home Health - RN, Home Health - PT, Home Health - OT No Smoking: If you smoke, Please STOP! Call for help. Follow-up with: Laureano Motta MD [Provider Admit Priv/Credential] -
--- NOTE | 2020-05-07 13:05 | DISCHARGE SUMMARY ---
Discharge Summary Admit Date: 05/05/20 Discharge Date: 05/07/20 Discharging Provider: Dr Meghan Brown Primary Care Provider: Dr Motta Code Status: Do Not Attempt Resuscitation Condition at Discharge: Stable Discharge Disposition: 01 Home, Self Care - [facility] History of Present Illness: From the admission H&P of Dr. Kurt Lebron: This is a 85-year-old female with a past medical history significant for breast cancer, hypertension, peripheral neuropathy, abnormal uterine bleeding who presents today after her was concerned about her being minimally responsive. She had been just discharged in the hospital on 03 May after she was admitted when she developed shortness of breath and respiratory distress while in the OR preparing for a hysteroscopy and endometrial biopsy. Her states that the day they were discharged, the power was out and so they went to sleep early that night. She woke up the following morning and she was lethargic but was able to take her medications and have a little breakfast. He states throughout the day she has become less responsive until yesterday evening when she would not respond at all. He was concerned that she may have been dehydrated and so he brought her to the emergency department. The patient is altered and unable provide a meaningful history. She complains of abdominal pain when asked if she has any pain. Shortly after she will say that she has no abdominal pain whatsoever. Patient's reports no new medication since discharge. In the emergency department, she was found to be afebrile temperature of 36.9 C. Heart is 86. Blood pressure was 208/101. She was tachypneic with respirate of 20. She was saturating well on room air. Labs reviewed for white count of 9.6 low left shift otherwise are unremarkable. Lactic acid was normal. She underwent a CT of the head which showed no acute abnormalities. She was initially quite altered upon arrival to the emergency department and unable to verbalize at all. Upon my evaluation, her blood pressure had improved slightly to systolic 160s and diastolic in the 110s. She was a little more verbal with occasional words here and there but still quite altered. Given the above findings, medicine was consulted for admission. I discussed with the regarding goals of care and he confirms that she is a DNR. - HOSPITAL COURSE Hospital Course: (1) Hypertensive encephalopathy She was admitted to the ICU. Started on a Cardene infusion, which improved the BP and her mentation corrected to its baseline, with dementia. The drip was weaned to off as her home meds were restarted plus metoprolol Norvasc and hydralazine. He was discharged on a new combination of meds. (2) Hypertension As above (3) Postmenopausal bleeding There had been concern for endometrial cancer given the endometrial thickening found previously on ultrasound. She was scheduled for hysteroscopy and biopsy but this was canceled due to her respiratory distress during the recent prior hospitalization. 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 (4) Neuropathy We resumed her home gabapentin as her mentation improved. 5) Bedbound She is bedbound because of pain from neuropathy not because neuropathy made her legs paralyzed or weak. 6) Urinary incontinence As per Hx. She is in a diaper at home, per the . 7) Dementia As per Hx. - ALLERGIES Allergies/Adverse Reactions: Allergies Allergy/AdvReac Type Severity Reaction Status Date / Time Milk Containing Products Allergy Unknown Verified 03/09/20 14:52 scopolamine Allergy Unknown Verified 03/09/20 14:52 aspirin AdvReac Nausea Verified 03/09/20 14:52 - MEDICATIONS Home Medications: Ambulatory Orders Medication Instructions Recorded Confirmed Ascorbic Acid [Vitamin C] 1,000 mg PO DAILY 01/31/20 05/05/20 Cholecalciferol (Vitamin D3) 1 cap PO DAILY 01/31/20 05/05/20 [Vitamin D3] Cyanocobalamin (Vitamin B-12) 1,000 mcg PO DAILY 01/31/20 05/05/20 [Vitamin B-12] Fluticasone [Flonase] 1 spray IN DAILY 01/31/20 05/05/20 Gabapentin [Neurontin] 800 mg PO TID 01/31/20 05/05/20 Senna [Senokot] 8.6 mg PO QPM PRN MDD No BM in 2 01/31/20 05/05/20 days Vit A/Vit C/Vit E/Zinc/Copper 1 cap PO BID 01/31/20 05/05/20 [Preservision Areds Softgel] polyethylene glycoL 3350 [Miralax] 17 g PO DAILY 01/31/20 05/05/20 Medroxyprogesterone Acetate 10 mg PO DAILY 03/25/20 05/05/20 Amlodipine Besylate [Norvasc] 2.5 mg PO DAILY #30 tablet 05/07/20 Lisinopril [Zestril] 20 mg PO DAILY #30 tablet 05/07/20 - PHYSICAL EXAM AT DISCHARGE General Appearance: positive: No acute distress, Alert, Other (Obese) Eyes Bilateral: positive: Normal inspection, EOMI ENT: positive: ENT inspection nml, No signs of dehydration Neck: positive: Nml inspection, No JVD Respiratory: positive: No respiratory distress Cardiovascular: positive: Regular rate & rhythm Abdomen: positive: Other (Obese with a pannus) Skin: positive: Warm, Dry Extremities: positive: No pedal edema, Other (Arms and legs are diffusely tender to touch ) Neurologic/Psychiatric: positive: Motor nml, Disoriented to place, Disoriented to time, Other (Poor attention span and memory) - LABS Result Diagrams: 05/07/20 05:34 05/07/20 05:34 - DIAGNOSTIC IMAGING Diagnostic Imaging Results: Final report reviewed - FOLLOW UP Follow Up: See PCP in 1 to 2 weeks for hospital follow-up. - TIME SPENT Time Spent in Discharge (Minutes): 30
[2020-05-07 13:23] VITALS: BP 147/58
== END 2020-05-07 14:19 | disposition home or self-care (01) | DRG 79 ==
LOC: EDUNIT# → ED 00:42 → ICU 03:53
PROVIDERS: ADMIT Internal Medicine; ATTEND Internal Medicine
DX: I67.4 Hypertensive encephalopathy (principal); I10 Essential (primary) hypertension; N95.0 Postmenopausal bleeding; G62.9 Polyneuropathy, unspecified; Z74.01 Bed confinement status; R32 Unspecified urinary incontinence; F03.90 Unspecified dementia, unspecified severity, without behavioral disturbance, psychotic disturbance, mood disturbance, and anxiety; Z85.3 Personal history of malignant neoplasm of breast; E66.9 Obesity, unspecified; Z66 Do not resuscitate; Z87.891 Personal history of nicotine dependence; R60.0 Localized edema; L30.4 Erythema intertrigo; Z68.39 Body mass index [BMI] 39.0-39.9, adult
CPT/HCPCS: 36415; 51701; 70450; 80048; 80053; 81001; 83605; 83690; 83735; 83880; 84100; 84443; 85025; 87040; 87150; 87631; 93971; 96360; 99283; 99285; A9270; J1650; 0202U; 81003; 87086

== ENCOUNTER 2020-05-07 14:23 | Outpatient (CLI) | payer MEDICARE, OTHER | END 2020-05-07 14:24 | disposition home or self-care (01) | LOC: EMS 14:23 | PROVIDERS: ATTEND Surgery | DX: Z74.01 Bed confinement status (principal) | CPT/HCPCS: A0425; A0428 ==

== ENCOUNTER 2020-05-13 10:40 | Outpatient (CLI) | payer MEDICARE, OTHER ==
--- NOTE | 2020-05-13 16:53 | CONSULTATION NOTE ---
Palliative Care Follow Up - Referral Referring Provider: Dr. Laureano Motta Time of Visit: 7855-1344 Referral setting: Home Referral Reason: F/u Hospitalizations/HTN/Postmenopausal bleeding - Information Sources Records reviewed: Previous records reviewed History/Review of Systems obtained from: Patient, Family (spouse, Ham), Caregiver (Shayna and Lila present at end of visit) Exam limitations: Clinical condition (Short term memory impairment and fatigue) - History of Present Illness Update Brief HPI Update: This is an 85-year-old female who was seen in follow-up today due to recent [id number] hospitalizations earlier this month, postmenopausal bleeding, and hypertension with her , Ham and private caregivers present at the bedside within her home. Beginning in approximately November 2019 the patient spouse and caregivers began noticing blood on the patient's depends. The frequency and quantity would vary throughout the week. She has not had any abnormal Pap smears in the past. On 03/08/2020 the patient's reported an increase of vaginal bleeding from her baseline she was evaluated in the emergency department where a CT scan of the abdomen demonstrated thickened endometrium and gynecology was consulted. The patient and her spouse wish to proceed with a hysteroscopy D&C which was scheduled on 05/02. The patient had a negative Covid test preceding the procedure. However, the patient presented on the day of procedure with a low- grade temperature, increased work of breathing and an elevated SBP and therefore the procedure was canceled and she was admitted. Ultimately, the patient was found to have respiratory distress due to the pending procedure and positioning that would require her to be maintained in for the obtainment of the endometrial biopsy. After consulting with gynecology, Dr. 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 She had a chest x-ray that demonstrated mild CHF changes, a venous duplex that was performed to rule out VTE that was difficult due to the patient's underlying peripheral neuropathy and was nondiagnostic, and an echocardiogram that demonstrated grade 1 diastolic dysfunction with an EF of 65 to 70%. The patient's elevated blood pressure improved with resumption of her baseline medications. Upon return from the hospital and continuation of medroxyprogesterone the patient has not had any vaginal bleeding reported by the patient's spouse or caregivers. The patient was then discharged after 05/03/2020 and was readmitted on 05/05/2020. The patient's spouse report that after the power was out the patient overall was at baseline but the next morning was more left lethargic and not engaged. The patient's spouse was concerned regarding dehydration and contacted EMS. On presentation the patient's blood pressure was 208/101. She had a CT of the head that did not show an acute process but did show stable microvascular ischemic changes. She was begun on a Delon Marlon infusion with frequent blood pressure monitoring. She was discharged from the hospital with an increased dose of lisinopril and a new prescription for amlodipine. She was diagnosed with hypertensive encephalopathy for the cause of her confusion and lethargy. The patient's spouse/DPOA has further questions regarding this diagnosis to understand the pathophysiology. Since return from the last hospitalization, the patient's spouse has been checking her blood pressure on a daily basis at approximately the same time. Her blood pressures ranged 127-145/60 over 67 with a heart rate of 44-58. She is denied any headaches, dizziness, chest pain or visual changes. The patient's spouse reports that after the last hospitalization the patient had swelling to her right hand that was sensitive to touch. He provided elevation of the right upper extremity with ice packs for approximately 1 to 2 days and this has resolved the swelling and tenderness. At baseline, the patient is typically "fuzzy in the morning" and then will wake up after her caregivers provide a.m. care after which she then received her breakfast and a.m. medications. The patient is seen today sitting up in her hospital bed in the front room of the home and appears fatigued. She is easily able to allow stable and will engage in the conversation when questions are addressed to her head and then drifts back off to sleep. No evidence of acute distress. Medications confirmed with patient's spouse, George. Past Medical History: Patient has a past medical history that includes hypertension, peripheral neuropathy with bedbound status for the last 4 years, breast cancer with left breast infiltrating ductal carcinoma status post lumpectomy with radiation in 2009 and recurrent disease in 2010, incontinence, depression, chronic back pain, herpes zostder, hypertensive encephalopathy 2019, postmenopausal bleeding 2019. Social History - Living Situation Living arrangement: At home Living Situation: With spouse/s.o. Support System: The patient lives in a one-story home with her , George of 62 years. They have 3 children, 2 girls and 1 boy that are not local. They have private duty family that provides caregiving needs, Lorenzo who attend the patient and her 7 days/week for the last 4 years. Medications/Allergies - Medications Home Medications: Ambulatory Orders Medication Instructions Recorded Confirmed Ascorbic Acid [Vitamin C] 1,000 mg PO DAILY 01/31/20 05/05/20 Cholecalciferol (Vitamin D3) 1 cap PO DAILY 01/31/20 05/05/20 [Vitamin D3] Cyanocobalamin (Vitamin B-12) 1,000 mcg PO DAILY 01/31/20 05/05/20 [Vitamin B-12] Fluticasone [Flonase] 1 spray IN DAILY 01/31/20 05/05/20 Gabapentin [Neurontin] 800 mg PO TID 01/31/20 05/05/20 Senna [Senokot] 8.6 mg PO QPM PRN MDD No BM in 2 01/31/20 05/05/20 days Vit A/Vit C/Vit E/Zinc/Copper 1 cap PO BID 01/31/20 05/05/20 [Preservision Areds Softgel] polyethylene glycoL 3350 [Miralax] 17 g PO DAILY 01/31/20 05/05/20 Medroxyprogesterone Acetate 10 mg PO DAILY 03/25/20 05/05/20 Amlodipine Besylate [Norvasc] 2.5 mg PO DAILY #30 tablet 05/07/20 Lisinopril [Zestril] 20 mg PO DAILY #30 tablet 05/07/20 - Allergies Allergies/Adverse Reactions: Allergies Allergy/AdvReac Type Severity Reaction Status Date / Time Milk Containing Products Allergy Unknown Verified 03/09/20 14:52 scopolamine Allergy Unknown Verified 03/09/20 14:52 aspirin AdvReac Nausea Verified 03/09/20 14:52 Review of Systems - Constitutional Constitutional: reports: Fatigue, Weight stable. denies: Fever, Chills - Eyes Eyes: denies: Blurred vision - Ears, Nose & Throat Ears, Nose & Throat: reports: Dentures. denies: Dry mouth - Cardiovascular Cardiovascular: denies: Chest pain, Lightheadedness - Respiratory Respiratory: denies: Wheezing - Gastrointestinal Gastrointestinal: reports: Good appetite (at baseline). denies: Constipation - Genitourinary Genitourinary: reports: Incontinence. denies: Dysuria, Hematuria - Musculoskeletal Musculoskeletal: reports: Muscle pain, Assistive devices, Transfer issues. denies: Joint pain - Integumentary Integumentary: reports: Pigment changes (BLE, chronic) - Neurological Neurological: reports: General weakness, Memory problems - Psychiatric Psychiatric: denies: Depression - Endocrine Endocrine: denies: Diabetes type 2 - All Other Systems All Other Systems: reports: Reviewed and negative (ROS supplemented by spouse and caregivers.) Physical Exam - Vital Signs Pulse Rate: 58 Respiratory Rate: 18 O2 Saturation: 95 (on RA at rest) Blood Pressure: 132/62 (left wrist cuff) - Physical Exam General Appearance: positive: No acute distress, Other (obese, alert when addressed then drifts back off to sleep) Eyes Bilateral: positive: Normal inspection, PERRL ENT: positive: No signs of dehydration, Other (Upper dentures in place) Neck: positive: No JVD, Trachea midline Cardiovascular: positive: No murmur, Bradycardia Respiratory: positive: No respiratory distress, Breath sounds nml. negative: Rales Abdomen: positive: Non-tender, Soft, Nml bowel sounds, Obese Skin: positive: Pallor, Other (scar to left breast s/p lumpectomy; chronic venous stasis dermatitis changes to BLE above ankles L>R with noted improvement since last evaluation with Remedy skin repair cream.) Extremities: positive: No pedal edema Neurologic/Psychiatric: positive: Oriented x3, Mood/affect nml (cheerful) Palliative Care - POLST Patient has POLST: Yes POLST Status: DNR, Selective Treatment Performance Status: PPS 30% - Palliative Care Discussion: The patient has had postmenopausal bleeding since November 2019 and had the misfortune of developing acute respiratory distress due to her underlying body habitus, functional status, and positioning to obtain a endometrial biopsy and subsequently had an admission due to this. The patient and her have now elected not to proceed with further work-up of her postmenopausal bleeding after her first hospitalization this month and wish to proceed with medroxyprogesterone. The patient's /DPOA reports that obtaining the results of an endometrial biopsy would not presently change the desired course for management and given the patient's developed acute distress during the initial attempt at initiation of this procedure they do not wish to proceed. The patient then subsequently developed hypertensive encephalopathy. She had an admission due to severe hypertension with cognitive impairment. The patient's found this second hospitalization to be more difficult to manage due to her underlying peripheral neuropathy and sensitivity to frequent blood pressure monitoring and difficulty with lab draws. Her relates that it took approximately 2 days for the patient to recover at home from the stressful event. It is unclear however, moving forward if the patient and her spouse will wish to focus on comfort measures within the home setting versus is continued elective treatment and transfer to the hospital for management given the patient's recent stressors that developed during her hospitalizations. This is something that need to be explored further in the future with the patient's spouse with input from the patient depsite some underlying cognitive impairment she can still provide a contribution to her medical preferences for interventions. . Results - Lab Results Lab results reviewed: Yes Impression and Recommendations - Palliative Care Impression: This is an 85-year-old female with postmenopausal bleeding since November 2019 with functional decline over several years due to undifferentiated progressive neuropathy resulting in a bedbound status with obesity and recent [id number] hospitalizations with most notably hypertensive encephalopathy that has resolved. The patient has tolerated introduction of new antihypertensive medication and increase of her baseline lisinopril. The Patient denies cardiac symptoms. At the present time no further interventions are desired regarding the patient's postmenopausal bleeding. Palliative care to continue to explore goals of care, provide symptom management and advance care planning. Recommendations/Counseling Done: 1. Hypertensive encephalopathy in the setting of chronic hypertensive. Cognitive changes noted on hospitalization resolved and patient is presently at baseline. Lengthy conversation had with the patient's spouse/DPOA as well as private duty caregivers in regards to pathophysiology of hypertensive encephalopathy with questions answered and addressed. Has tolerated introduction of amlodipine and reviewed potential risk of lower extremity edema with both the patient and her spouse. Has tolerated dose increase of lisinopril from 10 mg to 20 mg daily. Discussed importance to avoid hypertensive crisis as well as hypotension given the patient's poor functional status. Goal blood pressure less than 160/90. Ideally do not want her systolic blood pressure less than 110. Request that the patient's spouse/DPOA continue to monitor and record blood pressure daily. Continue to monitor. 2. Postmenopausal bleeding. Evidence of thickened endometrium on imaging performed previously and status post gynecology evaluation. The patient has not had recent vaginal bleeding with continuation of medroxyprogesterone 10 mg daily. There is some question regarding pulse administration of medroxyprogesterone versus daily administration. Contacted hatchery helper, Dr. Eaton at [phone] and message left regarding administration goals of medroxyprogesterone moving forward. The patient and her spouse at the present time declined further work-up given the patient's development of acute respiratory distress prior to her scheduled procedure And the results of a biopsy would not change the plan of care moving forward. 3. Mild cognitive impairment. Supportive care. 1 no disease modifying agents. Patient is typically clear with her alertness later in the day per 's report. The patient is able to make her preferences regarding her medical management known with support from her /DPOA. Given the patient's advanced age and chronic comorbidities a gradual decline is expected. 4. Chronic venous stasis dermatitis bilateral lower extremities with the left greater than the right. No evidence of infection. Significant improvement noted to the left lower extremity since initiation of remedy skin repair cream. Continue application of remedy skin repair cream daily and as needed. 5. Advanced care planning. Patient has POLST as DN AR with selective interventions. Patient subsequently has sustained 2 ajgo-[id number]-[id number] hospitalizations and it took approximately 2 days to recover from the stressful events circling a hospitalization with frequent blood draws and vital sign monitoring that the patient does not recall but the does. The patient and her spouse are declining further evaluation in regards to her postmenopausal bleeding. She diagnosis postmenopausal bleeding above for further details. Given the patient's recent [id number] hospitalizations will need to explore goals of care moving forward regarding advanced care planning and interventions. Time Spent: Follow-up 3 to 6 weeks or as needed Total time spent 50 minutes with greater than 50% of this spent in counseling co ordination of care with the patient, spouse and private caregivers; pathophysiology review of hypertension and hypertension encephalopathy; medication side effects; examination of patient; and anticipatory guidance. Disclaimer: The chart note was formulated using voice recognition technology and unfortunately sound alike errors may occur.
== END 2020-05-13 10:41 | disposition home or self-care (01) ==
LOC: PC 10:40
PROVIDERS: ATTEND Nurse Practitioner Family
DX: Z51.5 Encounter for palliative care (principal); I67.4 Hypertensive encephalopathy; N95.0 Postmenopausal bleeding; G31.84 Mild cognitive impairment of uncertain or unknown etiology; I87.2 Venous insufficiency (chronic) (peripheral); I10 Essential (primary) hypertension; G62.9 Polyneuropathy, unspecified; E66.9 Obesity, unspecified; Z74.01 Bed confinement status; Z66 Do not resuscitate
CPT/HCPCS: 99349

== ENCOUNTER 2020-05-28 10:45 | Outpatient (CLI) | payer MEDICARE, OTHER ==
--- NOTE | 2020-05-28 12:05 | CONSULTATION NOTE ---
Palliative Care Follow Up - Referral Referring Provider: Dr. Laureano Motta Time of Visit: 6032-8574 Referral setting: Home Referral Reason: HTN/Postmenopausal bleeding/Cough - Information Sources Records reviewed: Previous records reviewed History/Review of Systems obtained from: Patient, Family (spouse, George) Exam limitations: Clinical condition (Short-term memory impairment) - History of Present Illness Update Brief HPI Update: This is a tarah 85-year-old female who is seen in follow-up today for postmenopausal bleeding controlled with medroxyprogesterone, hypertension and cough seen within her home with her , George present. The patient began developing postmenopausal bleeding in approximately November 2019. Her caregivers as well as her spouse had noticed small amounts of blood intermittently on her depends. She has never had any abnormal Pap smears in the past. She had a CT scan on 03/08/2020 of the abdomen that demonstrated thickened endometrium and gynecology was consulted by the patient was in the emergency department. She was scheduled for a hysteroscopy D&C on 05/02 but was unable to proceed due to respiratory symptoms and it was eventually decided between the patient, spouse and gynecology, Dr. Eaton that the patient would not pursue treatment even if biopsy resulted in underlying cancer and at this time the patient will continue on medroxyprogesterone therapy. It has been a number of weeks since the patient has had any postmenopausal bleeding per the spouse's report. The patient herself denies any abdominal discomfort. The patient has a history of hypertension and was recently admitted for hypertensive encephalopathy in April/2020. The patient's spouse is checking her blood pressure and pulse on a routine basis at approximately 3 PM in the afternoon. Upon review of blood pressure trends the lowest has been 106/51. Blood pressure trends have ranged 130-146/58-70 with a heart rate of 49-53. The patient herself denies any headaches, dizziness, chest pain or palpitations. The patient continues with a cough typically first thing in the morning where sh e has to clear phlegm. The phlegm is typically clear or lightly yellow-tinged. She has a dry mouth first thing in the morning due to mouth breathing overnight. She also reports nasal dryness that is "present 50% of the time." She has been triedOn routine Claritin but the patient's spouse did not notice a improvement with her congestion. She has used Flonase in the past and had requested that this been changed from morning to evening however, the spouse reports today that they have not been using it consistently in the last several weeks. The patient herself does report a history of seasonal allergies. She has noticed difficulties with see foam plants in their prior home. No history of asthma or COPD reported. The patient herself is not troubled by the cough. She denies any wheezing or shortness of breath. However, she does have some increased congestion when she is laid flat for her caregivers to provide bathing assistance. She is a former tobacco user. Per the patient and 's report this cough has been going on for "some time." Therefore, it is not recent. The patient herself is seen sitting up in bed today watching the [employer] on aviation. She is alert and quite conversant. No evidence of acute distress. Past Medical History: Patient has a past medical history that includes hypertension, peripheral neuropathy with bedbound status for the last 4 years, breast cancer with left breast infiltrating ductal carcinoma status post lumpectomy with radiation in 2009 and recurrent disease in 2010, incontinence, depression, chronic back pain, herpes zoster, hypertensive encephalopathy 2019, postmenopausal bleeding 2019. Social History - Living Situation Living arrangement: At home Living Situation: With spouse/s.o. Support System: Lives in a one story home with her , George of 62 years. They have 3 children, 2 girls and 1 boy a. Their eldest, Elaina is about 10 hours away in [place]. They have private duty family that provides caregiving needs, Lorenzo who attend to the patient and her 7 days/week for the last 4 years. Medications/Allergies - Medications Home Medications: Ambulatory Orders Medication Instructions Recorded Confirmed Ascorbic Acid [Vitamin C] 1,000 mg PO DAILY 01/31/20 05/05/20 Cholecalciferol (Vitamin D3) 1 cap PO DAILY 01/31/20 05/05/20 [Vitamin D3] Cyanocobalamin (Vitamin B-12) 1,000 mcg PO DAILY 01/31/20 05/05/20 [Vitamin B-12] Fluticasone [Flonase] 1 spray IN BID 01/31/20 05/05/20 Gabapentin [Neurontin] 800 mg PO TID 01/31/20 05/05/20 Senna [Senokot] 8.6 mg PO QPM PRN MDD No BM in 2 01/31/20 05/05/20 days Vit A/Vit C/Vit E/Zinc/Copper 1 cap PO BID 01/31/20 05/05/20 [Preservision Areds Softgel] polyethylene glycoL 3350 [Miralax] 17 g PO DAILY 01/31/20 05/05/20 Medroxyprogesterone Acetate 10 mg PO DAILY 03/25/20 05/05/20 Amlodipine Besylate [Norvasc] 2.5 mg PO DAILY #30 tablet 05/07/20 Lisinopril [Zestril] 20 mg PO DAILY #30 tablet 05/07/20 Guaifenesin [Tussin] PRN MDD per bottle OTC 05/28/20 - Allergies Allergies/Adverse Reactions: Allergies Allergy/AdvReac Type Severity Reaction Status Date / Time Milk Containing Products Allergy Unknown Verified 03/09/20 14:52 scopolamine Allergy Unknown Verified 03/09/20 14:52 aspirin AdvReac Nausea Verified 03/09/20 14:52 Review of Systems - Constitutional Constitutional: reports: Weight stable. denies: Fever - Ears, Nose & Throat Ears, Nose & Throat: reports: Nasal congestion (in AM), Dentures - Cardiovascular Cardiovascular: denies: Palpitations, Chest pain - Respiratory Respiratory: reports: Cough (in the AM with congestion), Other (short of breath when lying flat due to body habitus). denies: Wheezing - Gastrointestinal Gastrointestinal: reports: Good appetite (at baseline). denies: Constipation - Genitourinary Genitourinary: reports: Incontinence. denies: Dysuria - Musculoskeletal Musculoskeletal: reports: Assistive devices, Transfer issues. denies: Joint pain - Integumentary Integumentary: reports: Pigment changes (BLE, chronic) - Neurological Neurological: reports: General weakness, Memory problems - Psychiatric Psychiatric: denies: Depression - Endocrine Endocrine: denies: Diabetes type 2 - All Other Systems All Other Systems: reports: Reviewed and negative (ROS supplemented by spouse.) Physical Exam - Vital Signs Temperature: 36.9 C Pulse Rate: 52 O2 Saturation: 97 (on RA at rest) Blood Pressure: 135/60 (left wrist cuff) - Physical Exam General Appearance: positive: No acute distress, Other (obese, alert and engaged today) Eyes Bilateral: positive: Normal inspection ENT: positive: No signs of dehydration, Other (Ears: Bilateral TMs intact. Nose: dry crusting to b/l nares without boggy turbinates that are slightly enlarged. spetum midlines. Throat: MMM. Posterior oropharynx with PND and without cobblestoning. Uvula midline.) Neck: positive: Trachea midline. negative: Lymphadenopathy (R), Lymphadenopathy (L) Cardiovascular: positive: No murmur, Bradycardia Respiratory: positive: No respiratory distress, Breath sounds nml, Diminished in bases. negative: Wheezes, Rales Abdomen: positive: Non-tender, Soft, Nml bowel sounds, Obese Skin: positive: Pallor, Other (scar to left breast s/p lumpectomy; chronic venous stasis dermatitis changes to BLE above ankles L>R) Extremities: positive: No pedal edema Neurologic/Psychiatric: positive: Oriented x3 (STM impairment), Mood/affect nml (cheerful) Palliative Care - POLST Patient has POLST: Yes POLST Status: DNR, Selective Treatment Sleep: Sleeps well Constipation: Managed Performance Status: PPS 30% - Palliative Care Discussion: The patient has been without cardiac complaints since her recent admission for hypertensive encephalopathy. She continues to tolerate her antihypertensive medications with her blood pressure trends less than 160/90 upon review. The patient her self is quite content and without symptom burden. The patient's spouse, George is most concerned regarding the patient's continued, chronic cough. The cough is most persistent in the morning and then clears after the patient has been up for a length of time. She denies any wheezing or shortness of breath with the cough with noted congestion. They are no longer using Flonase consistently and the patient is reporting a past history of seasonal allergies that may be contributing. The patient herself is not bothered by the cough. Impression and Recommendations - Palliative Care Impression: This is an 85-year-old female with postmenopausal bleeding since November 2019 with functional decline over several years due to undifferentiated progressive neuropathy resulting in bedbound status with obesity, hypertension, and chronic cough. The patient's spouse is most worried about having the patient's cough under control however, the patient herself is not bothered by the increased morning congestion. She has tolerated adjustment of her lisinopril and addition of amlodipine and her continues to monitor her blood pressure daily with recording the readings. Palliative care to continue to provide support for symptom management, care coordination and advance care planning. Recommendations/Counseling Done: 1. Cough, chronic. 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 Likely due to postnasal drip secondary to rhinitis. The patient does have a history of seasonal allergies. She did not find Claritin effective. Discussion with the patient and her spouse today regarding the 3 top causes of cough including asthma/COPD, GERD, and rhinitis. Given that the patient has congestion first in the morning her cough is likely due to rhinitis vs KARIN inhibitor that would expect throughout the day. Chest x-ray performed while inpatient 04/2020 that demonstrated "mild CHF changes, no focal infiltrate, significant pleural effusion or pneumothorax." They have relaxed in the use of Flonase. Recommend reinitiating Flonase 1 spray each nostril twice daily and to expect having to do this for some time consistently to note any improvement in symptoms. Advised unlikely to have complete resolution of cough. Continue to encourage oral hydration in the morning to thin secretions. May use guaifenesin as needed [id number] for cough. Provided demonstration for Flonase administration. Questions answered and addressed. 2. Chronic venous stasis dermatitis bilateral lower extremities with left greater than right. No evidence of infection. Noted reduction in pigmentation discoloration. Continue remedy skin repair cream daily to bilateral lower extremities and as needed after bathing. 3. Hypertension. Status post hypertensive encephalopathy 04/2020. Blood pressure log reviewed. Encourage goal blood pressure to be less than 160/90 given the patient's age and sedentary lifestyle. Continue lisinopril 20 mg daily and amlodipine 2.5 mg daily. If noted lower blood pressure trends then consider discontinuation of amlodipine in the future. Continue to monitor blood pressure on a daily basis around the same time. Continue to monitor. 4. Postmenopausal bleeding. Evidence of thickened endometrium tram on imaging performed by CT of abdomen 02/2020. Has not had any vaginal bleeding since initiation of medroxyprogesterone 10 mg daily. Per gynecology, to continue medroxyprogesterone moving forward. The patient and her spouse have declined further work-up. 5. Mild cognitive impairment. Supportive care. On no disease modifying agents. Given the patient's advanced age and chronic comorbidities a gradual decline is expected. Time Spent: Follow-up 4 to 6 weeks or as needed if new/worsening symptoms. Total time spent 40 minutes with greater than 50% of this spent in counseling and coordination of care with patient and spouse; expectations regarding chronic cough that the patient is not troubled by and potential underlying etiologies reviewed; medication administration review of flonase with demonstration; examination of patient; review of symptom management and anticipatory guidance. Disclaimer: The chart note was formulated using voice recognition technology and unfortunately sound alike errors may occur.
== END 2020-05-28 10:46 | disposition home or self-care (01) ==
LOC: PC 10:45
PROVIDERS: ATTEND Nurse Practitioner Family
DX: Z51.5 Encounter for palliative care (principal); R05 Cough; I87.2 Venous insufficiency (chronic) (peripheral); I10 Essential (primary) hypertension; N95.0 Postmenopausal bleeding; G31.84 Mild cognitive impairment of uncertain or unknown etiology; G62.9 Polyneuropathy, unspecified; Z87.891 Personal history of nicotine dependence; Z74.01 Bed confinement status; Z66 Do not resuscitate
CPT/HCPCS: 99349

== ENCOUNTER 2020-07-17 10:35 | Outpatient (CLI) | payer MEDICARE, OTHER ==
--- NOTE | 2020-07-17 13:13 | CONSULTATION NOTE ---
Palliative Care Follow Up - Referral Referring Provider: Dr. Laureano Motta Time of Visit: 1211-8610 Referral Reason: Chronic AM cough/HTN/Debility - Information Sources Records reviewed: Previous records reviewed History/Review of Systems obtained from: Patient, Family (spouse/DPOA, Ror) Exam limitations: Clinical condition (short term memory impairment) - History of Present Illness Update Brief HPI Update: This is a tarah 85-year-old female who was seen in follow-up today for postmenopausal bleeding, hypertension and chronic cough within her home with her , George present at bedside. Patient began developing postmenopausal bleeding in approximately November 2019. Initially which is small amounts noted intermittently on her depends. Denies any abnormal Pap smears in the past. She had a CT scan on 03/08/2020 of the abdomen that demonstrated thickened endometrium and gynecology was consulted while the patient was in the emergency department. She was scheduled for hysteroscopic D&C on 05/02/2020 but unable to proceed due to respiratory symptoms and was eventually decided between the patient, spouse and gynecology that they would not pursue further treatment even if the biopsy resulted in underlying cancer the patient was to continue medroxyprogesterone therapy indefinitely. The patient was discharged home with medroxyprogesterone and there have been approximately 3 episodes where there has been "a speck of blood" noted on the patient's depends per the spouse report but none in the last month. The patient denies any abdominal discomfort. The patient has a history of hypertension was admitted for hypertensive encephalopathy in April 2020. The patient spouse is checking her blood pressure on a daily basis between 3:57 PM in the afternoon. She typically is ranging about in the 140s over 160s to 70s. Upon review of the blood pressure log the lowest was noted at 95/61 and the highest at 164/76. The patient denies any cardiac symptoms such as chest pain, palpitations or lightheadedness. The patient continues to have a chronic cough typically first thing in the morning where she needs to clear phlegm. The patient spouse is reinitiated her Flonase after they had previously been lax and discontinued. Since reinitiating the Flonase she has noticed some improvement in her morning congestion. The patient spouse is also administering guaifenesin/Mucinex 1 tablet typically in the evenings and reviewed today with the spouse may administer 1 tablet twice daily if needed for the cough. The patient denies any shortness of breath. The patient is seen sitting up in bed watching television. She is alert and conversant. No evidence of acute distress. 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 Social History - Living Situation Living arrangement: At home Living Situation: With spouse/s.o. Support System: Patient lives in a one-story home with her , George of 62 years. They have 3 children, 2 girls and 1 boy. Their eldest Elaina is about 10 hours away in [place]. They have a private duty family that provides caregiving needs, Shayna and Lila who attend to the patient and her 7 days/week and they have been present for the last 4 years. Medications/Allergies - Medications Home Medications: Ambulatory Orders Medication Instructions Recorded Confirmed Ascorbic Acid [Vitamin C] 1,000 mg PO DAILY 01/31/20 05/05/20 Cholecalciferol (Vitamin D3) 1 cap PO DAILY 01/31/20 05/05/20 [Vitamin D3] Cyanocobalamin (Vitamin B-12) 1,000 mcg PO DAILY 01/31/20 05/05/20 [Vitamin B-12] Fluticasone [Flonase] 1 spray IN BID 01/31/20 05/05/20 Gabapentin [Neurontin] 800 mg PO TID 01/31/20 05/05/20 Senna [Senokot] 8.6 mg PO QPM PRN MDD No BM in 2 01/31/20 05/05/20 days Vit A/Vit C/Vit E/Zinc/Copper 1 cap PO BID 01/31/20 05/05/20 [Preservision Areds Softgel] polyethylene glycoL 3350 [Miralax] 17 g PO DAILY 01/31/20 05/05/20 Medroxyprogesterone Acetate 10 mg PO DAILY 03/25/20 05/05/20 Amlodipine Besylate [Norvasc] 2.5 mg PO DAILY #30 tablet 05/07/20 Lisinopril [Zestril] 20 mg PO DAILY #30 tablet 05/07/20 guaiFENesin [Mucinex] 1 tab PO BID PRN 07/17/20 07/17/20 - Allergies Allergies/Adverse Reactions: Allergies Allergy/AdvReac Type Severity Reaction Status Date / Time Milk Containing Products Allergy Unknown Verified 03/09/20 14:52 scopolamine Allergy Unknown Verified 03/09/20 14:52 aspirin AdvReac Nausea Verified 03/09/20 14:52 Review of Systems - Constitutional Constitutional: reports: Weight stable. denies: Fever - Ears, Nose & Throat Ears, Nose & Throat: reports: Nasal congestion (in AM, see HPI), Dentures - Cardiovascular Cardiovascular: denies: Palpitations, Chest pain - Respiratory Respiratory: reports: Cough (in the AM with congestion), Other (short of breath when lying flat due to body habitus). denies: Wheezing - Gastrointestinal Gastrointestinal: reports: Good appetite. denies: Constipation (controlled with mirlax every 2-4 days with defecation) - Genitourinary Genitourinary: reports: Incontinence. denies: Dysuria - Musculoskeletal Musculoskeletal: reports: Assistive devices, Transfer issues. denies: Joint pain - Integumentary Integumentary: reports: Pigment changes (BLE, chronic) - Neurological Neurological: reports: General weakness, Memory problems - Psychiatric Psychiatric: reports: Depression - Endocrine Endocrine: denies: Diabetes type 2 - Hematologic/Lymphatic Hematologic/Lymph: Other (No recurrent infections) - All Other Systems All Other Systems: reports: Reviewed and negative (ROS supplemented by spouse.) Physical Exam - Vital Signs Temperature: 36.4 C Pulse Rate: 64 O2 Saturation: 94 (on RA) Blood Pressure: 134/68 (left wrist cuff) - Physical Exam General Appearance: positive: No acute distress, Alert, Other (obese, sitting up in her hospital bed) Eyes Bilateral: positive: Normal inspection ENT: positive: No signs of dehydration Neck: positive: Trachea midline Cardiovascular: positive: Regular rate & rhythm, No murmur Respiratory: positive: No respiratory distress, Breath sounds nml, Diminished in bases. negative: Wheezes Abdomen: positive: Non-tender, Soft, Nml bowel sounds, Obese, Other (bladder nondistended and nontender) Skin: positive: Other (scar to left breast s/p lumpectomy; chronic venous stasis dermatitis changes to BLE above ankles L>R) Extremities: positive: No pedal edema Neurologic/Psychiatric: positive: Oriented x3 (STM impairment), Mood/affect nml (cheerful and engaged) Palliative Care - POLST Patient has POLST: Yes POLST Status: DNR, Selective Treatment Pain: Comment (controlled with present regimen) Constipation: Managed (controlled with present regimen) Performance Status: PPS 30% - Palliative Care Discussion: Patient at this time remains relatively stable. Reviewing her blood pressure trends today she is less than 160/90 overall and is without cardiac complaints. The patient herself is not troubled by anything and is quite content. The patient's spouse reports that they are just taking things day by day and moving right along. The patient's spouse is concerned regarding obtainment of Covid 19 vaccine and discussed obtainment moving forward. Impression and Recommendations - Palliative Care Impression: This is an 85-year-old female with postmenopausal bleeding since November 2019 with functional decline over several years due to undifferentiated progressive neuropathy resulting in a bedbound status with obesity, hypertension and chronic cough. Cough has improved some since initial reinitiation of Flonase. Spouse continues to intermittently give her Mucinex 600 mg 1-2 times daily. Palliative care to continue provide support for symptom management, care coordination and advance care planning. Recommendations/Counseling Done: 1. Chronic cough. Continues to persist but improved since patient spouse is reinitiated Flonase nasal spray. 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 The patient does have a history of seasonal allergies. 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 Questions answered and addressed. 2. Hypertension. Status post hypertensive encephalopathy 04/2020. Blood pressure log reviewed with spouse. Continue to encourage goal blood pressure to be less than 160/90 given the patient's age and sedentary lifestyle. Continue lisinopril 20 mg daily and amlodipine 2.5 mg daily. Spouse continues to take patient's blood pressure at approximately 3-4pm in the afternoon. Patient has no cardiac complaints. Continue to monitor. 3. Postmenopausal bleeding. On CT of abdomen before 02/2020 there was evidence of thickened endometrium. Patient was unable to undergo biopsy. She was initiated on medroxyprogesterone 10 mg daily and per gynecology is to continue this moving forward. Recent small evidence of drops of blood, not concerning. Patient remains without discomfort. Spouse and patient have declined further work-up. Continue to monitor. 4. Skin tear. Reported to left buttocks previously. Resolved. Spouse has calamine barrier cream in the home to utilize if needed. Time Spent: F/u 2-3 months or PRN if new/worsening symptoms. Total time spent 45 minutes with greater than 50% of this spent in counseling and coordination of care with patient and spouse/DPOA; examination of patient; review of symptom management and anticipatory guidance. Disclaimer: The chart note was formulated using voice recognition technology and unfortunately sound alike errors may occur.
== END 2020-07-17 10:36 | disposition home or self-care (01) ==
LOC: PC 10:35
PROVIDERS: ATTEND Nurse Practitioner Family
DX: Z51.5 Encounter for palliative care (principal); R05 Cough; I10 Essential (primary) hypertension; N95.0 Postmenopausal bleeding; Z66 Do not resuscitate
CPT/HCPCS: 99349

== ENCOUNTER 2020-08-23 12:00 | Outpatient (CLI) | payer MEDICARE, OTHER ==
--- NOTE | 2020-08-23 15:42 | CONSULTATION NOTE ---
Palliative Care Follow Up - Referral Referring Provider: Dr. Laureano Motta Time of Visit: 9997-9138 Referral setting: Home Referral Reason: Chronic AM cough/HTN/left hand swelling - Information Sources Records reviewed: Previous records reviewed History/Review of Systems obtained from: Patient, Family (spouse/DPOA, George) Exam limitations: Clinical condition (short term memory impairment due to dementia) - History of Present Illness Update Brief HPI Update: This is a tarah 85-year-old female who was seen in an evaluation today in follow-up for chronic cough in the mornings, hypertension, and new development of left hand swelling within her home with her , George present at bedside. Please see detailed history dictated in HPI from 07/17/2020. The patient has intermittent spotting due to postmenopausal bleeding but has not had any recurrence of significant bleeding since the initiation of medroxypro gesterone therapy in February 2020. In the last several weeks the patient's spouse and caregivers report to some noted swelling in the patient's left upper extremity most specifically, her left hand. She denies any increased pain to her left upper extremity and there is no visual discoloration or skin changes to the left upper extremity. The spouse reports that when doing caregiving and assistance every morning with bathing the patient is always on her left side. Of note, she has a history of breast cancer on the left status post lumpectomy and radiation with no prior history of lymphedema reported. No history of trauma to left upper extremity prior to changes. The patient has a history of hypertension was admitted for hypertensive encephalopathy in April 2020. Her spouse continues to check her blood pressure on almost daily basis and range has been 122-169/60 -82 with her heart rate mainly in the 40s. She denies any cardiac symptoms such as chest pain, palpitation, or headaches. Due to recent reports of left hand swelling the spouse has not been checking her blood pressure on the left side but has been taking her blood pressure with a wrist blood pressure cuff on the right side. The patient continues to have a chronic cough typically first thing in the morning when she needs to clear phlegm. She has reinitiated Flonase without improvement of her morning symptoms. The spouse has been administering Mucinex but this has not alleviated any symptoms of cough in the morning. The patient herself denies shortness of breath. She is unable to lie a flat due to her body habitus and increasing reports of shortness of breath. The patient is seen sitting up in bed watching television. She is alert and conversant. No evidence of acute distress. 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 Social History - Living Situation Living arrangement: At home Living Situation: With spouse/s.o. Support System: Patient lives in a one-story home with her , George of 62 years. They have 3 children, 2 girls and 1 boy. Their eldest child, Elaina is about 10 hours away in [place]. They have a private duty family that provides caregiving needs, Shayna and Lila who attend to the patient and her 7 days/week and they have been present for the last 4 years. Medications/Allergies - Medications Home Medications: Ambulatory Orders Medication Instructions Recorded Confirmed Ascorbic Acid [Vitamin C] 1,000 mg PO DAILY 01/31/20 05/05/20 Cholecalciferol (Vitamin D3) 1 cap PO DAILY 01/31/20 05/05/20 [Vitamin D3] Cyanocobalamin (Vitamin B-12) 1,000 mcg PO DAILY 01/31/20 05/05/20 [Vitamin B-12] Fluticasone [Flonase] 1 spray IN BID 01/31/20 05/05/20 Gabapentin [Neurontin] 800 mg PO TID 01/31/20 05/05/20 Senna [Senokot] 8.6 mg PO QPM PRN MDD No BM in 2 01/31/20 05/05/20 days Vit A/Vit C/Vit E/Zinc/Copper 1 cap PO BID 01/31/20 05/05/20 [Preservision Areds Softgel] polyethylene glycoL 3350 [Miralax] 17 g PO DAILY 01/31/20 05/05/20 Medroxyprogesterone Acetate 10 mg PO DAILY 03/25/20 05/05/20 Amlodipine Besylate [Norvasc] 2.5 mg PO DAILY #30 tablet 05/07/20 Lisinopril [Zestril] 20 mg PO DAILY #30 tablet 05/07/20 guaiFENesin [Mucinex] 1 tab PO BID PRN 07/17/20 07/17/20 Ipratropium [place] 2 spray IN .EACHNOSTRILDAILY 08/23/20 08/23/20 - Allergies Allergies/Adverse Reactions: Allergies Allergy/AdvReac Type Severity Reaction Status Date / Time Milk Containing Products Allergy Unknown Verified 08/23/20 15:53 scopolamine Allergy Unknown Verified 08/23/20 15:53 aspirin AdvReac Nausea Verified 08/23/20 15:53 Review of Systems - Constitutional Constitutional: reports: Weight stable. denies: Fever, Poor appetite - Ears, Nose & Throat Ears, Nose & Throat: reports: Nasal congestion (in AM, see HPI), Postnasal drainage, Dentures. denies: Dry mouth - Cardiovascular Cardiovascular: reports: Edema (left hand, see hPI). denies: Palpitations, Chest pain, Lightheadedness - Respiratory Respiratory: reports: Cough (in the AM with congestion), Other (short of breath when lying flat due to body habitus). denies: Wheezing - Gastrointestinal Gastrointestinal: reports: Good appetite. denies: Abdominal pain, Constipation (controlled with mirlax every 2-4 days with defecation), Vomiting - Genitourinary Genitourinary: reports: Incontinence. denies: Dysuria - Musculoskeletal Musculoskeletal: reports: Assistive devices, Transfer issues. denies: Joint pain - Integumentary Integumentary: reports: Pigment changes (BLE, chronic) - Neurological Neurological: reports: General weakness, Memory problems. denies: Headache - Psychiatric Psychiatric: reports: Depression - Endocrine Endocrine: denies: Hypothyroidism - Hematologic/Lymphatic Hematologic/Lymph: reports: Other (No recurrent infections) - All Other Systems All Other Systems: reports: Reviewed and negative (ROS supplemented by spouse.) Physical Exam - Vital Signs Temperature: 36.5 C Pulse Rate: 52 O2 Saturation: 97 (on RA) Blood Pressure: 146/70 (right wrist) - Physical Exam General Appearance: positive: No acute distress, Alert, Other (obese, sitting up in her hospital bed) Eyes Bilateral: positive: Normal inspection ENT: positive: No signs of dehydration, Other (+upper dentures; dry crusting to both nares with left > right; No noted cobblestoning to oropharynx) Neck: positive: No JVD, Trachea midline. negative: Lymphadenopathy (R), Lymphadenopathy (L) Cardiovascular: positive: No murmur, Bradycardia Respiratory: positive: No respiratory distress, Breath sounds nml, Diminished in bases Abdomen: positive: Non-tender, Soft, Nml bowel sounds, Obese Skin: positive: Other (scar to left breast s/p lumpectomy; chronic venous stasis dermatitis changes to BLE above ankles L>R) Extremities: positive: No pedal edema, Other (Trace swelling noted to left hand with circumference of RUE and LUE almost equal with both forearms. LUE with no visible open areas without tenderness to palpation or erythema.) Neurologic/Psychiatric: positive: Oriented x3 (STM impairment), Mood/affect nml Palliative Care - POLST Patient has POLST: Yes POLST Status: DNR, Selective Treatment Pain: Comment (controlled with present regimen of gabapentin) Anorexia: None Depression: None Anxiety: None Constipation: No, Managed Performance Status: PPS 30% - Palliative Care Discussion: Patient has developed some left and edema that appears to be related to lymphedema given it is on the affected side that she has a history of left breast cancer and lump ectomy as well as radiation. Discussed with the patient as well as her spouse that lymphedema can occur years after treatment and is likely is less likely that it is due to something such as a DVT given she has not had any recent injury or central venous catheter placement. Weight benefits versus burdens upon further evaluation and patient and spouse opted to monitor at this time at his has been present for several weeks. She is not troubled by this new development. The chronic cough in the morning continues to bother both the patient and her spouse. Given it is due to increased congestion we will try to manage further with introduction of an intranasal anticholinergic to reduce congestion in the mornings and the patient and spouse are open to this. Impression and Recommendations - Palliative Care Impression: This is an 85-year-old female with a history of postmenopausal bleeding since November 2019 with functional decline over several years due to undifferentiated progressive neuropathy resulting in bedbound status with obesity, hypertension, chronic cough, and development of left hand edema over several weeks. Cough remains the same despite introduction of Mucinex in the evenings as well as Flonase. Palliative care to continue provide support for symptom management, care coordination and advance care planning. Recommendations/Counseling Done: 1. Left hand swelling. Present for the last several weeks no history of trauma or recent central venous catheter that would be more suspicious of UE DVT. Given that the affected side is on the side the patient had left breast cancer status post lumpectomy and radiation in the setting of obesity more suspicious that this is a development of lymphedema vs venous insufficiency. Review risk versus benefits of further evaluation of left hand swelling such as imaging with venous duplex with spouse and patient declined, opting to monitor as the patient is not having any Discomfort and is bedbound Would recommend elevation of left hand on a pillow to reduce swelling. Would avoid long periods of time on the left side when providing care. Would not obtain blood pressure on the left side reviewed with spouse and patient. Continue to monitor. 2. Chronic Cough. Continues to persist despite introduction of Mucinex and reintroduction of Flonase nasal spray. The cough is typically early in the morning indicative of a postnasal drip secondary to rhinitis. The patient does have a history of seasonal allergies. Continue to encourage oral hydration. Will initiate trial of ipratropium bromide nasal spray 2 sprays each nostril daily in the morning for congestion. 3.Hypertension. Status post hypertensive encephalopathy 04/2020. Blood pressure log reviewed with spouse. Goal blood pressure remains less than 150/90 given the patient's age and sedentary lifestyle. Continue lisinopril 20 mg daily and amlodipine 2.5 mg daily. Spouse continues to take the patient's blood pressure typically daily in the afternoons. Would avoid use of left upper extremity for obtainment of blood pressure. Patient has no cardiac complaints. Continue to monitor. 4.Mild cognitive impairment. Supportive care. On no disease modifying agents. The patient is able to make her preferences regarding her medical management known with support from her /DPOA. Given the patient's advanced age and chronic comorbidities a gradual decline is expected. Total time spent 50 minutes with greater than 50% of this spent in counseling and coordination of care with patient and spouse/DPOA; review of management of edema to left hand and potential causes; examination of patient; review of blood pressure log; review of symptom management and anticipatory guidance. Disclaimer: The chart note was formulated using voice recognition technology and unfortunately sound alike errors may occur.
== END 2020-08-23 12:01 | disposition home or self-care (01) ==
LOC: PC 12:00
PROVIDERS: ATTEND Nurse Practitioner Family
DX: Z51.5 Encounter for palliative care (principal); R22.32 Localized swelling, mass and lump, left upper limb; R05 Cough; I10 Essential (primary) hypertension; G31.84 Mild cognitive impairment of uncertain or unknown etiology; G62.9 Polyneuropathy, unspecified; E66.9 Obesity, unspecified; Z85.3 Personal history of malignant neoplasm of breast; Z74.01 Bed confinement status; Z66 Do not resuscitate
CPT/HCPCS: 99349

== ENCOUNTER 2020-09-26 11:35 | Outpatient (CLI) | payer MEDICARE, OTHER ==
--- NOTE | 2020-09-26 19:00 | CONSULTATION NOTE ---
Palliative Care Follow Up - Referral Referring Provider: Dr. Laureano Motta Time of Visit: 09/26/2020 [id number] Referral setting: Home Referral Reason: Chronic Cough/HTN/Peripheral Neuropathy - Information Sources Records reviewed: Previous records reviewed History/Review of Systems obtained from: Patient, Family (spouse/DPOA, Ham), Caregiver (Shayna and Lila) - History of Present Illness Update Brief HPI Update: This is a tarah 85-year-old female who is seen in and evaluated in follow-up today for chronic cough in the mornings, hypertension, and peripheral neuropathy. Please see detailed history dictated in HPI from 07/17/2020. The patient continues to have intermittent spotting due to postmenopausal bleeding but has not had any recurrence of significant bleeding since the initiation of medroxyprogesterone therapy in February 2020. The patient continues to have a chronic cough, typically first thing in the morning when she needs to clear phlegm. The patient herself denies any wheezing or shortness of breath that is perceived. She finds the cough a nuisance but otherwise does not give her distress. Her caregivers and spouse report that they are unable to lie her flat as she becomes short of breath intermittently the spouse has noticed some wheezing intermittently after coughing. On last evaluation initiated Ipratropium nasal spray but did not offer much effect. She has been tried on a nondrowsy antihistamine without benefit. She has also been on Flonase however, the patient's spouse has not been consistent in the past with administration. She is also trialed Mucinex without noted benefit. Most effective has been guaifenesin administered typically twice a day. Spouse notices that the cough is back tender pulp drier with less phlegm. She has not sounded as congestion as she has previously. He notes intermittently that she will cough in her sleep. The patient denies waking up in the night due to cough. Blood pressure continues to appear to be well controlled.She denies headaches or chest pain. She was admitted for hypertensive encephalopathy in April 2020. Continue to request that the patient's spouse avoid checking the patient's blood pressure on the left side due to right upper extremity nonpitting edema, possibly due to lymphedema. The patient continues to have venous stasis changes to her bilateral lower extremities and both the spouse and caregivers continue application of remedy skin repair cream to good effect. The erythema continues to be controlled to her lower extremities. Patient is seen sitting up in bed watching a television trial. She is alert and conversant. No evidence of acute distress. 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 Social History - Living Situation Living arrangement: At home Living Situation: With spouse/s.o. Support System: Patient lives in a one-story home with her , George of 62 years. They have 3 children, 2 girls and 1 boy. Their eldest child, Elaina is about 10 hours away in [place]. They have a private duty family that provides caregiving needs, Shayna and Lila who attend to the patient and her 7 days/week and they have been present for the last 4 years. Her private caregivers do not feel comfortable preforming toenail care due to the patient's history of neuropathy. Medications/Allergies - Medications Home Medications: Ambulatory Orders Medication Instructions Recorded Confirmed Ascorbic Acid [Vitamin C] 1,000 mg PO DAILY 01/31/20 05/05/20 Cholecalciferol (Vitamin D3) 1 cap PO DAILY 01/31/20 05/05/20 [Vitamin D3] Cyanocobalamin (Vitamin B-12) 1,000 mcg PO DAILY 01/31/20 05/05/20 [Vitamin B-12] Fluticasone [Flonase] 1 spray IN BID 01/31/20 05/05/20 Gabapentin [Neurontin] 800 mg PO TID 01/31/20 05/05/20 Senna [Senokot] 8.6 mg PO QPM PRN MDD No BM in 2 01/31/20 05/05/20 days Vit A/Vit C/Vit E/Zinc/Copper 1 cap PO BID 01/31/20 05/05/20 [Preservision Areds Softgel] polyethylene glycoL 3350 [Miralax] 17 g PO DAILY 01/31/20 05/05/20 Medroxyprogesterone Acetate 10 mg PO DAILY 03/25/20 05/05/20 Amlodipine Besylate [Norvasc] 2.5 mg PO DAILY #30 tablet 05/07/20 Lisinopril [Zestril] 20 mg PO DAILY #30 tablet 05/07/20 Omeprazole Magnesium 20 mg PO DAILY 09/26/20 09/26/20 guaiFENesin [Tussin] 200 mg PO BID PRN 09/26/20 09/26/20 - Allergies Allergies/Adverse Reactions: Allergies Allergy/AdvReac Type Severity Reaction Status Date / Time Milk Containing Products Allergy Unknown Verified 08/23/20 15:53 scopolamine Allergy Unknown Verified 08/23/20 15:53 aspirin AdvReac Nausea Verified 08/23/20 15:53 Review of Systems - Constitutional Constitutional: reports: Weight stable. denies: Fever, Poor appetite - Ears, Nose & Throat Ears, Nose & Throat: reports: Nasal congestion (in AM, see HPI), Dentures (p refers not to take her dentures out and recently had soreness to at her gums that has resolved). denies: Dry mouth - Cardiovascular Cardiovascular: reports: Edema (see HPI). denies: Palpitations, Chest pain, Lightheadedness - Respiratory Respiratory: reports: Cough (in the AM with congestion, is back tender pulp drier lately), Wheezing (perceived by spouse and caregivers intermittently but not by patient), Other (short of breath when lying flat due to body habitus) - Gastrointestinal Gastrointestinal: reports: Good appetite. denies: Abdominal pain, Constipation (controlled), Vomiting - Genitourinary Genitourinary: reports: Incontinence. denies: Dysuria - Musculoskeletal Musculoskeletal: reports: Assistive devices, Transfer issues. denies: Joint pain - Integumentary Integumentary: reports: Pigment changes (BLE, chronic) - Neurological Neurological: reports: General weakness, Memory problems, Other (Neuropathy). denies: Headache - Psychiatric Psychiatric: reports: Depression - Endocrine Endocrine: denies: Diabetes type 2 - Hematologic/Lymphatic Hematologic/Lymph: reports: Other (No recurrent infections) - All Other Systems All Other Systems: reports: Reviewed and negative (ROS supplemented by spouse and caregivers.) Physical Exam - Vital Signs Temperature: 36.3 C Pulse Rate: 52 O2 Saturation: 98 (on RA) Blood Pressure: 132/70 (right arm) - Physical Exam General Appearance: positive: No acute distress, Alert, Other (obese, sitting up in her hospital bed) Eyes Bilateral: positive: Normal inspection ENT: positive: No signs of dehydration, Other (+upper dentures; No noted cobblestoning to oropharynx) Neck: positive: Trachea midline. negative: Lymphadenopathy (R), Lymphadenopathy (L) Cardiovascular: positive: No murmur, Bradycardia Respiratory: positive: No respiratory distress, Breath sounds nml, Rales (RLL, trace). negative: Wheezes Abdomen: positive: Non-tender, Soft, Nml bowel sounds, Obese Skin: positive: Other (scar to left breast s/p lumpectomy; chronic venous stasis dermatitis changes to BLE above ankles L>R) Extremities: positive: No pedal edema, Other (Trace nonpitting edema noted to left hand.) Neurologic/Psychiatric: positive: Oriented x3 (STM impairment), Mood/affect nml Palliative Care - POLST Patient has POLST: Yes POLST Status: DNR, Selective Treatment Performance Status: PPS 30% - Palliative Care Discussion: The patient has continued to left hand nonpitting edema that appears to wax and wane that may be related to lymphedema given it is on the affected side and the patient has a history of left breast cancer and lumpectomy as well as radiation. Continue to encourage elevation. Spouse/DPOA as well as patient has previously declined further diagnostic imaging. The patient denies any pain or distress to her left upper extremity. The patient continues with her chronic cough in the morning that she finds an annoyance. However, it appears to continue to bother the spouse himself regarding management. Several therapies have been tried specifically targeting potential allergic rhinitis, postnasal drip, with oral medications as well as nasal sprays without positive effect. The patient has not had any signs or symptoms of respiratory distress outside of when she is laid entirely flat which is avoided if at all possible. However, her difficulty with lying flat may also be due to her body habitus. We will continue to try to reduce the patient's congestion and this may be due to underlying GERD given her body habitus and immobility. We will trial a PPI. Impression and Recommendations - Palliative Care Impression: This is an 85-year-old female who is in a bedbound state due to undifferentiated progressive neuropathy with obesity, chronic cough, and left hand edema. Cough continues to remain the same typically in the mornings. The patient has not demonstrated any signs or symptoms of acute respiratory distress. Palliative care to continue provide support for symptom management, care coordination and advance care planning. Recommendations/Counseling Done: 1. Chronic Cough. Continues with a persistent cough despite use of Flonase nasal spray and guaifenesin oral cough medication. It is typically early in the morning which is most likely indicative of a post nasal drip however, has not responded to Flonase, second-generation antihistamines, and ipratropium nasal spray. No evidence of respiratory distress on physical examination. Pulse oximetry is 98% on room air. Questionable GERD given the patient's body habitus vs side effect of lisinopril vs CHF. Given her cough is productive feel that CHF is less likely. Discussed with the patient's spouse/DPOA and agreed to trial of omeprazole 20 mg 30 minutes before the first meal of the day. Rx has been sent to [facility]. Recommend discontinuation of ipratropium nasal spray as it was uneffective. Continue to monitor and re-address. If no improvement with PPI, then may consider switching from KARIN inhibitor to ARB therapy for HTN management. 2.Elongated toenails. No evidence of thickness. Has private caregivers are hesitant to provide nail care recommend filing as an alternative. Also provided contact number for toenail specialist, Vero Kevin her services in the homes and follow-up regarding availability to provide care in the home. 3. Left hand nonpitting edema. Patient continues with some mild, nonpitting edema to the left hand. This has been persistent for 2+ months with no history of trauma. Given the affected side his on the side the patient had left breast cancer status post lumpectomy and radiation in the setting of obesity is more likely that she has lymphedema versus venous insufficiency. The patient's spouse is previously opted to not have further evaluation and intervention with imaging as did the patient. She is not displaying any discomfort to the left upper extremity. Continue to advise the patient's spouse not to obtain blood pressure in the left side. Continue to encourage elevation of the left upper extremity on a pillow to reduce swelling. Continue to monitor. 4.Chronic venous stasis dermatitis to bilateral lower extremities with the left greater than the right. No evidence of infection. Hyperpigmentation appears stable. Continue remedy skin repair cream to use daily to bilateral lower extremities for moisturization. 5. Oral care. Reinforced with the patient the need to remove her dentures daily to clean and provide rest to her gums to reduce the risk of gum irritation or gingivitis. She verbalized understanding and is agreeable to taking her dentures out daily. 6.COVID-19 vaccine. Patient has never had a vaccine reaction and spouse has concerns regarding the patient receiving the vaccine due to her underlying health status. Attempted to provide reassurance. As the patient is homebound she may receive Foster and Foster vaccine from [facility]--provided contact number for spouse. Discussed that Foster and Foster vaccine utilizes the viral vector vaccine vs mRNA vaccine and is therefore more traditional . Also reviewed, that as the patient is entirely homebound her risk of peng COVID-19 comes from parties entering the home and therefore it would important for her caregivers and her spouse, himself, be vaccinated to reduce her risk. otherwise, the patient's risk is minimal due to her bedbound status. Total time spent 40 minutes with greater than 50% of the spent in counseling coordination of care with the patient and spouse/DPOA; review of Covid19 vaccine; highlighting potential pathophysiology of chronic cough; examination of patient; review of symptom management and anticipatory guidance. Disclaimer: The chart note was formulated using voice recognition technology and unfortunately sound alike errors may occur.
== END 2020-09-26 11:36 | disposition home or self-care (01) ==
LOC: PC 11:35
PROVIDERS: ATTEND Nurse Practitioner Family
DX: Z51.5 Encounter for palliative care (principal); R05 Cough; R60.9 Edema, unspecified; E11.51 Type 2 diabetes mellitus with diabetic peripheral angiopathy without gangrene; E11.42 Type 2 diabetes mellitus with diabetic polyneuropathy; I10 Essential (primary) hypertension; R32 Unspecified urinary incontinence; E66.9 Obesity, unspecified; Z66 Do not resuscitate; Z74.01 Bed confinement status; Z85.3 Personal history of malignant neoplasm of breast; Z79.899 Other long term (current) drug therapy; Z92.3 Personal history of irradiation; Z90.12 Acquired absence of left breast and nipple
CPT/HCPCS: 99349

== ENCOUNTER 2020-12-06 10:30 | Outpatient (CLI) | payer MEDICARE, OTHER ==
--- NOTE | 2020-12-06 16:01 | CONSULTATION NOTE ---
Palliative Care Follow Up - Referral Referring Provider: Dr. Laureano Motta Time of Visit: [id number] Referral setting: Home Referral Reason: Chronic Cough/HTN/Memory Impairment - Information Sources Records reviewed: Previous records reviewed History/Review of Systems obtained from: Patient, Family (spouse/DPOA, George; son,Reji), Caregiver (Shayna and Lila) Exam limitations: Clinical condition (Memory impairment) - History of Present Illness Update Brief HPI Update: This is a tarah 85-year-old female who was seen and evaluated in her home for follow-up regarding chronic cough, hypertension, peripheral neuropathy and increased forgetfulness with her spouse/DPOA Ham presents as well as additional parties as noted above. Please see detailed history dictated in HPI from 07/17/2020. The patient continues to have intermittent spotting due to postmenopausal bleeding. The patient's spouse reports that when he notes blood on the patient's incontinence pads it may be the size of a quarter or a half daughter. There is no evidence of clotting. The patient has not reported any abdominal pain. Her spouse reports that she may have some evidence of bleeding every several pads. It is not every pad change that the bleeding is present. She continues on medroxyprogesterone therapy which was initiated in February 2020. The patient continues to have a chronic cough, typically first thing in the morning. Various interventions have been trialed however, the patient's spouse who is wanting to trial for a limited period of time and then discontinue if intervention has not been effective. The patient's body habitus is likely a contributing factor. We will have trial potential postnasal drip being a factor with intranasal sprays that have subsequently been discontinued Has well as potential allergies relating to a postnasal drip with nondrowsy and histamine which was without benefit; and lastly none PPI use for potential underlying GERD that also has been discontinued by the patient's spouse. Presently the patient spouse is a menacing guaifenesin periodically as needed for cough. The cough is switched from being productive to now being nonproductive. The patient herself denies wheezing or shortness of breath and is not bothered by the cough. The patient continues to be adequately oxygenated when evaluated with her pulse ox. The patient has been afebrile with out any signs or symptoms of infection. The patient's spouse is frustrated and troubled by the continued chronic cough and does admit that he is likely more bothered by it than the patient herself. Caregivers report a reduction in the patient's overall oral intake, specifically noting for breakfast. She is also requiring assistance from others to feed and is no longer able to fully self feed. She is also demonstrating some word salad at times and this is frustrating for the patient that is visibly noted by the patient's spouse as well as caregivers. She does have a history of hypertension and her blood pressures continue to be in normal range with the patient's spouse obtaining on a regular basis. She has developed some skin breakdown to her right buttocks that her caregivers and spouse are presently working on resolving and they are utilizing a barrier cream and the sizing has significantly reduced and is almost resolved. Patient is seen sitting up in bed after just completing her bath. She is alert and can Versed. No evidence of acute distress. 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 +COVID vaccine Social History - Living Situation Living arrangement: At home Living Situation: With spouse/s.o. Support System: Patient lives in a one-story home with her , George of 62 years. They have 3 children, 2 girls and 1 boy. Their eldest child, Elaina is about 10 hours away in [place]. They have a private duty family that provides caregiving needs, Shayna and Lila who attend to the patient and her 7 days/week and they have been present for the last 4 years. her son,Reji is presently visiting for a week and has not been physically to visit for 2 years and sees change in the patient's cognition. The patient's daughter, Jazmine is to visit later this summer. Medications/Allergies - Medications Home Medications: Ambulatory Orders Medication Instructions Recorded Confirmed Ascorbic Acid [Vitamin C] 1,000 mg PO DAILY 01/31/20 05/05/20 Cholecalciferol (Vitamin D3) 1 cap PO DAILY 01/31/20 05/05/20 [Vitamin D3] Cyanocobalamin (Vitamin B-12) 1,000 mcg PO DAILY 08/12/20 11/15/20 [Vitamin B-12] Gabapentin [Neurontin] 800 mg PO TID 01/31/20 05/05/20 Senna [Senokot] 8.6 mg PO QPM PRN MDD No BM in 2 01/31/20 05/05/20 days Vit A/Vit C/Vit E/Zinc/Copper 1 cap PO BID 01/31/20 05/05/20 [Preservision Areds Softgel] polyethylene glycoL 3350 [Miralax] 17 g PO DAILY 01/31/20 05/05/20 Medroxyprogesterone Acetate 10 mg PO DAILY 03/25/20 05/05/20 Amlodipine Besylate [Norvasc] 2.5 mg PO DAILY #30 tablet 05/07/20 Lisinopril [Zestril] 20 mg PO DAILY #30 tablet 05/07/20 guaiFENesin [Tussin] 200 mg PO BID PRN 09/26/20 09/26/20 - Allergies Allergies/Adverse Reactions: Allergies Allergy/AdvReac Type Severity Reaction Status Date / Time Milk Containing Products Allergy Unknown Verified 08/23/20 15:53 scopolamine Allergy Unknown Verified 08/23/20 15:53 aspirin AdvReac Nausea Verified 08/23/20 15:53 Review of Systems - Constitutional Constitutional: reports: Fatigue, Weight stable. denies: Fever, Poor appetite - Eyes Eyes: denies: Irritation - Ears, Nose & Throat Ears, Nose & Throat: reports: Dentures. denies: Nasal congestion, Dry mouth - Cardiovascular Cardiovascular: denies: Palpitations, Chest pain - Respiratory Respiratory: reports: Cough (in the AM non productive, no cough at night, no reports of apnea noted at night), Wheezing (perceived by spouse and caregivers periodically when patient is laid completely flat in bed--body habitus contributing) - Gastrointestinal Gastrointestinal: reports: Other (Decrease in overall oral intake). denies: Constipation (controlled), Vomiting - Genitourinary Genitourinary: reports: Incontinence. denies: Dysuria - Musculoskeletal Musculoskeletal: reports: Assistive devices, Transfer issues. denies: Joint pain - Integumentary Integumentary: reports: Pigment changes (BLE, chronic) - Neurological Neurological: reports: General weakness, Memory problems (increasing forgetfulness reported), Other (Neuropathy). denies: Headache - Psychiatric Psychiatric: reports: Depression - Hematologic/Lymphatic Hematologic/Lymph: reports: Other (No recurrent infections) - All Other Systems All Other Systems: reports: Reviewed and negative (ROS supplemented by spouse,son and caregivers.) Physical Exam - Vital Signs Temperature: 36.6 C Pulse Rate: 58 O2 Saturation: 96 (on RA) Blood Pressure: 122/80 (right arm) - Physical Exam General Appearance: positive: No acute distress, Alert, Other (obese, sitting up in her hospital bed) Eyes Bilateral: positive: Normal inspection ENT: positive: No signs of dehydration, Other (+upper dentures;no evidence of lesions or candidasis) Neck: positive: Trachea midline Cardiovascular: positive: No murmur, Bradycardia Respiratory: positive: No respiratory distress, Breath sounds nml, Rales (LLL trace). negative: Wheezes Abdomen: positive: Non-tender, Soft, Nml bowel sounds, Obese. negative: Distended Skin: positive: Other (scar to left breast s/p lumpectomy; chronic venous stasis dermatitis changes to BLE above ankles L>R; excoriation to right buttock appx quarter size that is resolving without discharge due to friction/sheer likely) Extremities: positive: No pedal edema Neurologic/Psychiatric: positive: Mood/affect nml, Disoriented to place (Initially kept stating that she was living in [place], when able to connect that she is living in [place] she recognized that the lives in [place]), Disoriented to time (Believed the year was 1978. Did not recognize that her son,Reji that is visiting was her son but called him her brother.) Palliative Care - POLST Patient has POLST: Yes POLST Status: DNR, Selective Treatment Pain: Comment (controlled with routine gabapentin) Sleep: Sleeps well Constipation: Managed Performance Status: Patient is bedbound and nonambulatory. Now requiring assistance with feeding. Incontinent of bowel and bladder. No history of falls. PPS 30% - Palliative Care Discussion: Patient continues with her chronic cough that appears to now be dry in nature and after lengthy discussion with both the patient and her spouse she relates that she is not troubled by the cough but "other appear to be" per her own report. She is not displaying any signs and symptoms of infection and none some of her symptoms may be due to her body habitus due to obesity. Multiple trials of interventions have been performed without success however, the patient spouse wishes to continue utilization of as needed guaifenesin. Gently introduced to the patient's spouse/DPOA to follow the lead of the patient in regards to management of her chronic cough hand spouse recognizes that he is the one that is more troubled by the cough and the patient herself. As this is the case, would look towards comfort and symptom management and as the patient is bedbound and unable to leave her home it is not feasible to be able to obtain diagnostic imaging and again, but we do with this information as the patient herself is not troubled by this symptom. All parties present who recognized the patient is having declining cognitive impairment indicative of dementia. This was discussed briefly today and highlighted that dementia is a chronic, progressive illness. The patient's son notices further decline in the patient's cognitive ability to be able to hold a conversation. We will continue to explore goals of care moving forward. Impression and Recommendations - Palliative Care Impression: This is an 85-year-old female who is in a bedbound state due to undifferentiated progressive neuropathy with obesity, chronic cough, and dementia. Cough continues to be persistent however, the patient herself is not troubled by this symptom. She has not demonstrated any signs or symptoms of respiratory to distress or infection. Palliative care to continue provide support for symptom management, care coordination and advance care planning. Recommendations/Counseling Done: 1. Chronic cough. Patient continues with persistent chronic cough that is now noted to be dry in nature and not productive. Multiple interventions have been trialed without success. The patient's body habitus is likely contributing. As the patient herself is not demonstrating any signs and symptoms of acute acute respiratory distress, infectious process and she is not troubled by the symptoms would continue to have the patient's clinical presentation guide our interventions and to focus on comfort and the patient's spouse/DPOA and agreement. However, the patient's spouse does wish to continue to utilize as needed guaifenesin at the present time. We will continue off omeprazole and intranasal's sprays. In the future may also trial switching from an KARIN inhibitor to an ARB for hypertension management if this may be contributing fac tor for the chronic cough that was previously productive. 2. Excoriations to right right buttocks. Resolving. Continue attentive pericare and application of barrier cream. Turn and reposition frequently every 2 hours. Continue pressure reducing mattress and hospital bed. 3.Postmenopausal bleeding. On CT of the abdomen on 02/2020 there was evidence of thickened endometrium. Patient was unable to undergo endometrial biopsy. She was initiated on medroxyprogesterone 10 mg daily and per gynecology, Dr. Eaton, is to continue this therapy moving forward. Continues to have intermittent in spotting. If the patient were to have heavier flow resulting in skin irritation then per gynecology could in creased dosage of medroxyprogesterone to 20 mg daily. Patient continues without abdominal discomfort. Continue to monitor. 4. Dementia. Patient presents with signs and symptoms of dementia. Patient was not engaged long enough to be able to perform SL UMS testing or more formal testing will be need to be teased out is moving forward. History given by patient's son, spouse and caregivers are indicative of dementia. Reviewed with all parties that dementia is a chronic, progressive course. Supportive measures. On no disease modifying agents. Given the patient's advanced age and chronic comorbidities a gradual decline is expected. 5. Hypertension. Status post hypertensive encephalopathy 04/2020. Blood pressure remained stable with goal blood pressure less than 150/90 given the patient's age and sedentary lifestyle. Continue lisinopril 20 mg daily and amlodipine 12.5 mg daily. Would continue to avoid use of left upper extremity for obtainment of blood pressure. Patient is without cardiac complaints. Continue to monitor. Total time spent dense 60 minutes with greater than 50% of the spent in counseling and coordination of care with the patient's spouse/DPOA, caregivers, and son, Reji; review of dementia signs and symptoms; examination of the patient; review of symptom management anticipatory guidance. Disclaimer: The chart note was formulated using voice recognition technology and unfortunately sound alike errors may occur.
== END 2020-12-06 10:31 | disposition home or self-care (01) ==
LOC: PC 10:30
PROVIDERS: ATTEND Nurse Practitioner Family
DX: Z51.5 Encounter for palliative care (principal); R05 Cough; L98.411 Non-pressure chronic ulcer of buttock limited to breakdown of skin; N95.0 Postmenopausal bleeding; F03.90 Unspecified dementia, unspecified severity, without behavioral disturbance, psychotic disturbance, mood disturbance, and anxiety; I10 Essential (primary) hypertension; E66.9 Obesity, unspecified; G62.9 Polyneuropathy, unspecified; R15.9 Full incontinence of feces; R32 Unspecified urinary incontinence; Z74.01 Bed confinement status; Z66 Do not resuscitate
CPT/HCPCS: 99350

== ENCOUNTER 2021-02-06 12:00 | Outpatient (CLI) | payer MEDICARE, OTHER ==
--- NOTE | 2021-02-06 18:22 | CONSULTATION NOTE ---
Palliative Care Follow Up - Referral Referring Provider: Dr.Richard Motta Time of Visit: [id number] Referral setting: Home Referral Reason: Chronic Cough/Memory Impairment/Post menopausal bleeding - Information Sources Records reviewed: Previous records reviewed History/Review of Systems obtained from: Patient, Family (spouse/DPOA, Ham), Caregiver (Shayna and Lila) Exam limitations: Clinical condition (STM impairment) - History of Present Illness Update Brief HPI Update: This is a tarah 85-year-old female who was seen and evaluated today in her home for follow-up regarding chronic cough, hypertension, peripheral neuropathy and postmenopausal bleeding. With her spouse/DPOA Hem/present as well as her ca regivers. Please see detailed history dictated in HPI from 07/17/2020 for further details. The patient continues to have bleeding due to postmenopausal bleeding. The patient's spouse had contacted the wound care provider and 01/26 and had been advised to increase medroxyprogesterone from 10 mg to 20 mg. The patient's spouse reports upon initial dose increase the bleeding subsided. Has never soak ed pads. He reports that the bleeding is unpredictable. Presently she is on 20 mg of medroxyprogesterone. He will notice 2 to 3 days of nothing and then 2 to 3 days 3 out of her 8 depends will just have a drop. The patient herself is never having any complaints of abdominal discomfort. Palliative care REFINER OPERATOR reached out to her hims clerk, Dr. Eaton who reports that may stay at 20 mg medroxyprogesterone but if she is soaking pads, having heavy bleeding or passing large clots then will need to increase the dose. As patient has had an improvement with 20 mg/day recommend decreasing back to medroxyprogesterone 10 mg/day and increasing if very heavy bleeding or signs and symptoms of large clots with spouse in agreement. Unfortunately, she was unable to undergo an endometrial biopsy in February 2020 and at the present time is focused on comfort. The patient has a longstanding history of chronic cough that is typically first thing in the morning. Various interventions have been trialed however have ultimately not been effective. The patient spouse reports that she is now having less phlegm in the morning over the last few weeks. The patient continues to not be able to lie flat on her back for long periods of time due to her body habitus. The patient herself is not bothered by the cough or displaying any signs of wheezing or shortness of breath. The patient has waxing and waning appetite however, recently she has had an uptake in her appetite per her caregivers report. She enjoys breakfast. She requires assistance for feeding. The patient spouse continues to check her blood pressure regularly and it continues to be in a normal range and denies headaches. Patient is seen sitting up in bed completing breakfast. She is alert and conversant. No evidence of acute distress. 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 +COVID vaccine Social History - Living Situation Living arrangement: At home Living Situation: With spouse/s.o. Support System: Patient lives in a one-story home with her , Ham of 62 years. They have 3 children, 2 girls and 1 boy. Their eldest child, Elaina is about 10 hours away in [place]. They have a private duty family that provides caregiving needs, Shayna and Lila who attend to the patient and her 7 days/week and they have been present for the last 4 years. Medications/Allergies - Medications Home Medications: Ambulatory Orders Medication Instructions Recorded Confirmed Ascorbic Acid [Vitamin C] 1,000 mg PO DAILY 01/31/20 05/05/20 Cholecalciferol (Vitamin D3) 1 cap PO DAILY 01/31/20 05/05/20 [Vitamin D3] Cyanocobalamin (Vitamin B-12) 1,000 mcg PO DAILY 01/31/20 05/05/20 [Vitamin B-12] Gabapentin [Neurontin] 800 mg PO TID 01/31/20 05/05/20 Senna [Senokot] 8.6 mg PO QPM PRN MDD No BM in 2 01/31/20 05/05/20 days Vit A/Vit C/Vit E/Zinc/Copper 1 cap PO BID 01/31/20 05/05/20 [Preservision Areds Softgel] polyethylene glycoL 3350 [Miralax] 17 g PO DAILY 01/31/20 05/05/20 Medroxyprogesterone Acetate 10 mg PO DAILY 03/25/20 05/05/20 Amlodipine Besylate [Norvasc] 2.5 mg PO DAILY #30 tablet 05/07/20 Lisinopril [Zestril] 20 mg PO DAILY #30 tablet 05/07/20 guaiFENesin [Tussin] 200 mg PO BID PRN 09/26/20 09/26/20 - Allergies Allergies/Adverse Reactions: Allergies Allergy/AdvReac Type Severity Reaction Status Date / Time Milk Containing Products Allergy Unknown Verified 08/23/20 15:53 scopolamine Allergy Unknown Verified 08/23/20 15:53 aspirin AdvReac Nausea Verified 08/23/20 15:53 Review of Systems - Constitutional Constitutional: reports: Weight stable (Left MAC 39cm today, 02/06/2021). denies: Fever, Poor appetite - Eyes Eyes: denies: Irritation - Ears, Nose & Throat Ears, Nose & Throat: reports: Dentures. denies: Nasal congestion, Dry mouth - Cardiovascular Cardiovascular: denies: Palpitations, Chest pain - Respiratory Respiratory: reports: Cough (in the AM non productive, no cough at night, no reports of apnea noted at night--improved per spouse) - Gastrointestinal Gastrointestinal: reports: Good appetite (improved recently). denies: Constipation (controlled), Vomiting - Genitourinary Genitourinary: reports: Incontinence. denies: Dysuria - Musculoskeletal Musculoskeletal: reports: Assistive devices, Transfer issues. denies: Joint pain - Integumentary Integumentary: reports: Pigment changes (BLE, chronic) - Neurological Neurological: reports: General weakness, Memory problems (forgetfulness reported), Other (+ Generalized Neuropathy). denies: Headache - Psychiatric Psychiatric: reports: Depression - Endocrine Endocrine: reports: Other (+Post menopausal bleeding) - Hematologic/Lymphatic Hematologic/Lymph: reports: Other (No recurrent infections) - All Other Systems All Other Systems: reports: Reviewed and negative (ROS supplemented by spouse and caregivers.) Physical Exam - Vital Signs Temperature: 36.3 C Pulse Rate: 63 O2 Saturation: 96 (on RA) Blood Pressure: 110/60 (left arm) - Physical Exam General Appearance: positive: No acute distress, Alert, Other (obese, sitting up in her hospital bed) Eyes Bilateral: positive: Normal inspection ENT: positive: No signs of dehydration, Other (+upper dentures) Neck: positive: Trachea midline Cardiovascular: positive: Regular rate & rhythm, Other (Distant heart sound due to body habitus) Respiratory: positive: No respiratory distress, Breath sounds nml. negative: Wheezes Abdomen: positive: Non-tender, Soft, Nml bowel sounds, Obese. negative: Distended Skin: positive: Other (scar to left breast s/p lumpectomy; chronic venous stasis dermatitis changes to BLE above ankles L>R) Extremities: positive: No pedal edema Neurologic/Psychiatric: positive: Mood/affect nml (Pleasant and cheerful), Disoriented to time Palliative Care - POLST Patient has POLST: Yes POLST Status: DNR, Selective Treatment Pain: No pain (C), Pain unchanged (Controlled with gabapentin administration) Feelings of wellbeing/Perceived Quality of Life: Good Sleep: Sleeps well Constipation: Managed - Palliative Care Discussion: Patient continues with postmenopausal bleeding. This is been present since approximately November 2019. In February 2021 she was unable to undergo an endometrial biopsy due to respiratory distress body habitus and the spouse made the decision to focus on comfort measures and consulting with hims clerk, Dr. Eaton was advised to initiate medroxyprogesterone for symptom management. Reviewed at length today with the patient and spouse the potential causes of endometrial thickening such as an oncologic diagnosis, obesity, and unopposed estrogen. Reviewed the purpose of medroxyprogesterone at length and would only go up on dosing as per Dr. Eaton's recommendation if the patient is having very heavy bleeding such as soaking pads or passing large clots. If these are not the case, then would continue at present dose of medroxyprogesterone At 10 mg daily. Attempted to set expectations that would expect as we move forward that the patient may likely have increased bleeding and will need additional oversight. At a certain point, would then need to discuss course and goals for management with patient and spouse. Supportive listening provided and review of titration of medication. Impression and Recommendations - Palliative Care Impression: This is an 85-year-old female who is in a bedbound state due to undifferentiated progressive neuro neuropathy with obesity, chronic cough and cyclic intermittent episodes of post menopausal bleeding managed with medryoxyprogesterone.The cough has improved per spouse's report. Palliative care to continue provide support for symptom management, care coordination between PCP and specialist and advance care planning. Recommendations/Counseling Done: 1. Postmenopausal bleeding. On CT of the abdomen on 02/2020 there was evidence of thickened endometrium. Patient was unable to undergo an endometrial biopsy. She was initiated on medroxyprogesterone 10 mg daily and per gynecology, Dr. Eaton is to continue this therapy moving forward. Again, per Dr. Eaton's recommendations may in crease medroxyprogesterone dosage if the patient has increase in her overall bleeding such as soaking pads or passing long clots. However, if the bleeding is not very heavy and there is only a small increase in her bleeding then would continue at present dosage of medroxyprogesterone. This is reviewed at length with the patient's spouse with review of pathophysiology and supportive listening. Recommend reducing dose back down to 10 mg of medroxyprogesterone daily. Began setting expectations regarding bleeding moving forward given the patient's body habitus, obesity, and unopposed estrogen in the setting of thickened endometrium. Patient continues without any abdominal pain or discomfort. Continue to monitor. 2. Chronic cough. Patient continues with a persistent chronic cough that has greatly improved per spouse's report. Multiple interventions have been tried without success. The patient's body habitus is likely contributing. She is not demonstrating any signs or symptoms of acute respiratory distress, infectious process and she is not troubled by her symptoms. Continue off intranasal sprays and omeprazole. In the future may trial switching from KARIN inhibitor to an ARB for hypertension management if this may be a contributing factor for the chronic cough that was previously productive. Continue to monitor. 3. Hypertension. Status post hypertensive encephalopathy 04/2020. Blood pressure remains within goal less than 150/90 given the patient's age and sedentary lifestyle. Continue lisinopril and amlodipine as prescribed. Patient without cardiac complaints. Continue to monitor. 4. Dementia. Patient presents with signs and symptoms of dementia. Consider SL UMS testing or more formal testing in the future. Chronic. Progressive. Supportive measures. No disease modifying agents. Given the patient's advanced age and chronic comorbidities a gradual decline is expected. Total time spent 40 minutes with greater than 50% of the spent in counseling and coordination of care with the patient spouse/DPOA Ham and caregivers; review of postmenopausal bleeding and pathophysiology as well as medication titration of medroxyprogesterone; examination of patient; review of symptom management and anticipatory guidance. Disclaimer: The chart note was formulated using voice recognition technology and unfortunately sound alike errors may occur.
== END 2021-02-06 12:01 | disposition home or self-care (01) ==
LOC: PC 12:00
PROVIDERS: ATTEND Nurse Practitioner Family
DX: Z51.5 Encounter for palliative care (principal); N95.0 Postmenopausal bleeding; R05 Cough; I10 Essential (primary) hypertension; G62.9 Polyneuropathy, unspecified; R41.3 Other amnesia; Z74.01 Bed confinement status; Z85.3 Personal history of malignant neoplasm of breast; Z66 Do not resuscitate; E66.9 Obesity, unspecified; F03.90 Unspecified dementia, unspecified severity, without behavioral disturbance, psychotic disturbance, mood disturbance, and anxiety
CPT/HCPCS: 99349

== ENCOUNTER 2021-04-02 10:35 | Outpatient (CLI) | payer MEDICARE, OTHER ==
--- NOTE | 2021-04-02 12:22 | CONSULTATION NOTE ---
Palliative Care Follow Up - Referral Referring Provider: Dr. Laureano Motta Time of Visit: Initiated 1035 Referral setting: Home Referral Reason: Post menopausal bleeding/HTN/Dementia/Post menopausal bleeding - Information Sources Records reviewed: Previous records reviewed History/Review of Systems obtained from: Patient, Family (spouse/DPOA Ham) - History of Present Illness Update Brief HPI Update: This is a tarah 86-year-old female who was seen and evaluated today in her home for follow-up regarding hypertension, postmenopausal bleeding, and eye complaint with spouse/DPOA, Ham present. Provider worn N95 mask. Please see detailed history dictated in HPI from 07/17/2020 for further details. In this time #2020 the patient spouse reported the left eye being matted shut most mornings with light yellow tinge and therefore patient was started on Polytrim 1 drop to the left eye 4 times daily. It has been hit or miss for consistency regarding administration. Patient spouse reports almost resolution of matting shut of the eye as well as redness. Continues to utilize warm compress. New Rx for Polytrim was sent to the pharmacy per spouse's request. Patient herself denies blurred vision, double vision, or itching to the site. The patient continues to have bleeding due to postmenopausal bleeding. Presently on medroxyprogesterone 10 mg daily. She has her depends pads changed 8 times per day. To will be completely clear and the rest will either have a spot of blood or a streak. Reports that the consistency for the amount remains the same and no noted clots. The patient herself denies any abdominal pain. She was initially noted to have postmenopausal bleeding in 2019 and was to undergo an endometrial biopsy in February 2020 however, was unable to be performed due to series of events and at the present time is focused on comfort for management. Presently, the patient's appetite remains engaged in good. She is having a bowel movement approximately 3 times per week. She requires assistance with feeding. She does have a history of hypertension and hypertensive encephalopathy that resulted in admission in 2019. Blood pressure is presently controlled with lisinopril and amlodipine. She denies chest pain. Patient spouse continues to check her blood pressure regularly. Patient is seen sitting up in bed watching TV. She is alert and conversant. No evidence of acute distress. 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 +COVID vaccine Social History - Living Situation Living arrangement: At home Living Situation: With spouse/s.o. Support System: Patient lives in a one-story home with her , George of 62 years. They have 3 children, 2 girls and 1 boy. Their eldest child, Elaina is about 10 hours away in [place]. They have a private duty family that provides caregiving needs, Shayna and Lila who attend to the patient and her 7 days/week and they have been present for the last 4 years. Daughter, Nayla to visit the first week of April. Medications/Allergies - Medications Home Medications: Ambulatory Orders Medication Instructions Recorded Confirmed Cholecalciferol (Vitamin D3) 1 cap PO DAILY 01/31/20 05/05/20 [Vitamin D3] Cyanocobalamin (Vitamin B-12) 1,000 mcg PO DAILY 01/31/20 05/05/20 [Vitamin B-12] Gabapentin [Neurontin] 800 mg PO TID 01/31/20 05/05/20 Senna [Senokot] 8.6 mg PO QPM 01/31/20 05/05/20 polyethylene glycoL 3350 [Miralax] 17 g PO DAILY PRN 01/31/20 05/05/20 Medroxyprogesterone Acetate 10 mg PO DAILY 03/25/20 05/05/20 Amlodipine Besylate [Norvasc] 2.5 mg PO DAILY #30 tablet 05/07/20 Lisinopril [Zestril] 20 mg PO DAILY #30 tablet 05/07/20 guaiFENesin [Tussin] 200 mg PO BID PRN 09/26/20 09/26/20 - Allergies Allergies/Adverse Reactions: Allergies Allergy/AdvReac Type Severity Reaction Status Date / Time Milk Containing Products Allergy Unknown Verified 08/23/20 15:53 scopolamine Allergy Unknown Verified 08/23/20 15:53 aspirin AdvReac Nausea Verified 08/23/20 15:53 Review of Systems - Constitutional Constitutional: reports: Weight stable (Left MAC 39cm 02/06/2021). denies: Fever, Poor appetite - Eyes Eyes: reports: Other (see HPI). denies: Irritation, Blurred vision - Ears, Nose & Throat Ears, Nose & Throat: reports: Dentures. denies: Nasal congestion, Dry mouth - Cardiovascular Cardiovascular: denies: Palpitations, Chest pain - Respiratory Respiratory: reports: Cough (in the AM non productive--chronic and stable) - Gastrointestinal Gastrointestinal: reports: Good appetite. denies: Abdominal pain, Constipation (controlled, see HPI), Vomiting - Genitourinary Genitourinary: reports: Incontinence. denies: Dysuria - Musculoskeletal Musculoskeletal: reports: Assistive devices, Transfer issues. denies: Joint pain - Integumentary Integumentary: reports: Pigment changes (BLE, chronic) - Neurological Neurological: reports: General weakness, Memory problems (forgetfulness reported), Other (+ Generalized Neuropathy). denies: Headache - Psychiatric Psychiatric: reports: Depression - Endocrine Endocrine: reports: Other (+Post menopausal bleeding) - Hematologic/Lymphatic Hematologic/Lymph: reports: Other (No recurrent infections) - All Other Systems All Other Systems: reports: Reviewed and negative (ROS supplemented by spouse.) Physical Exam - Vital Signs Temperature: 37.1 C Pulse Rate: 52 O2 Saturation: 97 (on RA) Blood Pressure: 141/62 (right wrist) - Physical Exam General Appearance: positive: No acute distress, Alert, Other (obese, sitting up in her hospital bed) Eyes Bilateral: positive: Normal inspection, PERRL, Conjunctivae nml, Other (no crusting to eyelids b/l) ENT: positive: No signs of dehydration, Other (+upper dentures) Neck: positive: Trachea midline Cardiovascular: positive: Bradycardia, Other (Distant heart sound due to body habitus) Respiratory: positive: No respiratory distress, Breath sounds nml, Wheezes Abdomen: positive: Non-tender, Soft, Nml bowel sounds, Obese Skin: positive: Other (scar to left breast s/p lumpectomy; chronic venous stasis dermatitis changes to BLE above ankles L>R) Extremities: positive: No pedal edema Neurologic/Psychiatric: positive: Mood/affect nml (Pleasant and cheerful), Disoriented to time Palliative Care - POLST Patient has POLST: Yes POLST Status: DNR, Selective Treatment Pain: Comment (controlled with gabapentin routine administration) Nausea: None Anorexia: None Sleep: Sleeps well Constipation: Managed - Palliative Care Discussion: Patient continues with postmenopausal bleeding that began in November 2019. In February 2020 she was unable to go undergo an endometrial biopsy due to respiratory distress from body habitus and spouse made the decision to focus on comfort after consulting with certified solid waste facility operator, Dr. Eaton. She continues on medroxyprogesterone for symptom management. Presently postmenopausal bleeding is stable. Patient has had improvement of with her left eye complaint and made recommendation to spouse to discontinue Polytrim ophthalmic drops and to continue routine ophthalmic care with warm compresses every morning. Presently, the patient spouse reports everything is "status quo." Impression and Recommendations - Palliative Care Impression: This is an 86-year-old female who is bedbound due to undifferentiated progressive neuropathy with obesity, postmenopausal bleeding managed with medroxyprogesterone, hypertension and recent conjunctivitis to the left eye that has resolved. Palliative care to continue provide support for symptom management, care coordination and advance care planning as the patient is unable to leave her home due to her bedbound state. Recommendations/Counseling Done: 1. Hypertension. Status post hypertensive encephalopathy 04/2020. Blood pressure remains within goal less than 150/90 given the patient's advanced age and sedentary lifestyle. Continue lisinopril and amlodipine as prescribed. Patient remains without cardiac complaints. Continue to monitor. 2. Left eye conjunctivitis. Resolved. Advised spouse to discontinue Polytrim as symptoms have resolved. Continue routine eye care with warm compresses every morning. Aware to contact palliative care if symptoms return. 3. Constipation. Multifactorial given the patient's bedbound status and sedentary lifestyle. Presently having routine bowel movements with utilization of senna 8.6 mg nightly. Has MiraLAX available to utilize 17 g as needed if no bowel movement. Continue to monitor and adjust bowel regimen as needed. 4. Peripheral neuropathy. Controlled. Continue gabapentin as ordered by PCP. 5. Postmenopausal bleeding. On CT of the abdomen on 02/2020 there was evidence of thickened endometrium. Patient was unable to undergo an endometrial biopsy. She was initiated on medroxyprogesterone 10 mg daily and per gynecology, Dr. Eaton is to continue this. Therapy moving forward. May increase medroxyprogesterone dosage per Dr. Benedict's recommendations of the patient has an increase in of her overall bleeding such as soaking pads or passing large clots. Presently, her overall bleeding is controlled. And does not require dose adjustment. Patient spouse wishes to focus on comfort measures within the home. Continue to monitor. 6. Dementia. Patient presents with signs and symptoms of dementia. Chronic. Progressive. Supportive measures. On no disease modifying agents. Given the patient's advanced age and chronic comorbidities a gradual Dunn is expected. CPT 92431 Plan of care reviewed with patient and spouse with questions answered and addressed. Disclaimer: The chart note was formulated using voice recognition technology and unfortunately sound alike errors may occur.
== END 2021-04-02 10:36 | disposition home or self-care (01) ==
LOC: PC 10:35
PROVIDERS: ATTEND Nurse Practitioner Family
DX: Z51.5 Encounter for palliative care (principal); N95.0 Postmenopausal bleeding; G62.9 Polyneuropathy, unspecified; Z74.01 Bed confinement status; R32 Unspecified urinary incontinence; F32.9 Major depressive disorder, single episode, unspecified; G89.29 Other chronic pain; M54.9 Dorsalgia, unspecified; I10 Essential (primary) hypertension; H10.9 Unspecified conjunctivitis; K59.00 Constipation, unspecified; F03.90 Unspecified dementia, unspecified severity, without behavioral disturbance, psychotic disturbance, mood disturbance, and anxiety; E66.9 Obesity, unspecified; Z66 Do not resuscitate; Z79.899 Other long term (current) drug therapy
CPT/HCPCS: 99349

== ENCOUNTER 2021-05-21 15:30 | Outpatient (CLI) | payer MEDICARE, OTHER ==
--- NOTE | 2021-05-21 17:00 | CONSULTATION NOTE ---
Palliative Care Follow Up - Referral Referring Provider: Dr. Laureano Motta Time of Visit: 0098-5101 Referral setting: Home Referral Reason: Generalized Rash/HTN/Obesity - Information Sources Records reviewed: Previous records reviewed History/Review of Systems obtained from: Patient, Family (spouse/DPOA Ham) - History of Present Illness Update Brief HPI Update: This is a tarah 86-year-old female who was seen and evaluated today in her home for acute evaluation due to increasing generalized rash with a request for spouse/DPOA and follow-up regarding hypertension and obesity with her spouse/DPOA him present. Provider wore N95 mask. Spouse reports that the patientto her creases under her bilateral breasts and abdominal folds are typically well controlled with use of Lotrimin [id number] cream. However, due to cost was switched to nystatin cream. Spouse reports Lotrimin and nystatin have been effective and recently due to the bulk Lotrimin provides endotube transition back to that but the larger tube was manufactured in [place] and appeared to be not as effective.And the last 2 weeks spouse and private caregivers have noted spreading rash to creases that only under bilateral breasts, abdominal folds but also to the patient's right aspect of her neck and flexors of her elbows where moisture collects. Spouse reports typically they have been able to stay "ahead of things." There has been no change in her soaps or lotions. She denies any pruritus. The patient does not have a history of diabetes mellitus or impaired glucose intolerance. She does have a history of hypertension and hypertensive encephalopathy that resulted in admission in 2019. Blood pressure is presently controlled with lisinopril and amlodipine. She denies chest pain. Patient is seen sitting up in bed watching TV. She is alert and conversant. No evidence of acute distress. 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 +COVID vaccine Social History - Living Situation Living arrangement: At home Living Situation: With spouse/s.o. Support System: Patient lives in a one-story home with her , George of 62 years. They have 3 children, 2 girls and 1 boy. Their eldest child, Elaina is about 10 hours away in [place]. They have a private duty family that provides caregiving needs, Shayna and Lila who attend to the patient and her 7 days/week and they have been present for the last 4 years. Patient's daughter is presently visiting from [place] with her family. Patient is to receive her Covid19 booster tomorrow from [facility]. Medications/Allergies - Medications Home Medications: Ambulatory Orders Medication Instructions Recorded Confirmed Cholecalciferol (Vitamin D3) 1 cap PO DAILY 01/31/20 05/05/20 [Vitamin D3] Cyanocobalamin (Vitamin B-12) 1,000 mcg PO DAILY 01/31/20 05/05/20 [Vitamin B-12] Gabapentin [Neurontin] 800 mg PO TID 01/31/20 05/05/20 Senna [Senokot] 8.6 mg PO QPM 01/31/20 05/05/20 polyethylene glycoL 3350 [Miralax] 17 g PO DAILY PRN 01/31/20 05/05/20 Medroxyprogesterone Acetate 10 mg PO DAILY 03/25/20 05/05/20 Amlodipine Besylate [Norvasc] 2.5 mg PO DAILY #30 tablet 05/07/20 Lisinopril [Zestril] 20 mg PO DAILY #30 tablet 05/07/20 guaiFENesin [Tussin] 200 mg PO BID PRN 09/26/20 09/26/20 Fluconazole [Diflucan] MDD x1 then in 72hours then 1 week 05/21/21 - Allergies Allergies/Adverse Reactions: Allergies Allergy/AdvReac Type Severity Reaction Status Date / Time Milk Containing Products Allergy Unknown Verified 08/23/20 15:53 scopolamine Allergy Unknown Verified 08/23/20 15:53 aspirin AdvReac Nausea Verified 08/23/20 15:53 Review of Systems - Constitutional Constitutional: reports: Weight stable (Left MAC 39cm 02/06/2021). denies: Fever, Poor appetite - Ears, Nose & Throat Ears, Nose & Throat: reports: Dentures. denies: Hearing loss - Cardiovascular Cardiovascular: denies: Chest pain, Edema - Respiratory Respiratory: denies: Wheezing - Gastrointestinal Gastrointestinal: reports: Good appetite. denies: Constipation (controlled with senna in evenings and has not needed enemeese recently), Change in bowel habits, Vomiting - Genitourinary Genitourinary: reports: Incontinence. denies: Dysuria - Musculoskeletal Musculoskeletal: reports: Assistive devices, Transfer issues. denies: Joint pain - Integumentary Integumentary: reports: Rash (see HPI), Pigment changes (BLE, chronic) - Neurological Neurological: reports: General weakness, Memory problems, Other (+ Generalized Neuropathy). denies: Headache - Psychiatric Psychiatric: reports: Depression - Endocrine Endocrine: reports: Other (+Post menopausal bleeding) - Hematologic/Lymphatic Hematologic/Lymph: reports: Other (No recurrent infections) - All Other Systems All Other Systems: reports: Reviewed and negative (ROS supplemented by spouse.) Physical Exam - Vital Signs Temperature: 36.7 C Pulse Rate: 69 O2 Saturation: 94 (on RA) Blood Pressure: 141/62 (right wrist) - Physical Exam General Appearance: positive: No acute distress, Alert, Other (obese, sitting up in her hospital bed) Eyes Bilateral: positive: Normal inspection ENT: positive: No signs of dehydration Neck: positive: Trachea midline Cardiovascular: positive: Regular rate & rhythm, Other (Distant heart sound due to body habitus) Respiratory: positive: No respiratory distress, Breath sounds nml Abdomen: positive: Non-tender, Soft, Nml bowel sounds, Obese Skin: positive: Rash (Candidiasis with pustule Satellite lesions to base of right neck; candiasis with circular satellite patches to right breast, right axilla, flexors of b/l elbows, under bilateral breasts and under b/l abdominal panus. No open areas.), Other (scar to left breast s/p lumpectomy; chronic venous stasis dermatitis changes to BLE above ankles L>R) Extremities: positive: No pedal edema Neurologic/Psychiatric: positive: Mood/affect nml (Pleasant and cheerful), Disoriented to time Palliative Care - POLST Patient has POLST: Yes POLST Status: DNR, Selective Treatment Pain: No pain Constipation: Managed - Palliative Care Discussion: Patient has developed a extensive candidiasis with satellite lesions and patches likely due to her body habitus resulting in increased moisture and potential for impaired fasting glucose however, no recent labs so this is unclear if this is a contributing factor. There have been no changes in her body products and presently rash is resistant to topical treatment and therefore will do a pulse therapy with flucanazole 150 mg over the next 2 weeks. Discussed with the past patient spouse to continue daily skin care to reduce habitable environment for candidiasis. Results - Lab Results Lab and Imaging Results: No visible HgA1C on file Impression and Recommendations - Palliative Care Impression: This is a 86-year-old female who is bedbound due to undifferentiated progressive neuropathy with obesity, hypertension, and diffuse candidiasis with satellite lesions and patches. Would benefit from pulsed dosing of flucanazole over 2 weeks. Palliative care to continue provide support for symptom management, care coordination and advance care planning as the patient is unable to leave her home due to her bedbound state. Recommendations/Counseling Done: 1. Diffuse candidiasis to multiple sites due to increased moisture and body habitus. Patient does not have a history of diabetes mellitus and no visible hemoglobin A1c noted in records. Presently topical treatment is ineffective for management. We will [id number] mg x 1 then in 72 hours and then in 7 days as pulse therapy for a total of 3 doses to maintain a diffuse candidi asis. Discussed with spouse to continue daily skin hygiene to reduce spread. Did introduce utilization of Interdry fabric in the future when rashes diminished. Is of candidiasis dermatitis remains a persistent problem then consider evaluating for underlying diabetes mellitus as a potential contributor. 2. Hypertension. Status post hypertensive encephalopathy 04/2020. Blood pressure remains within goal less than 150/90 given the patient's advanced age and sedentary lifestyle. Continue lisinopril and amlodipine as prescribed. Continue to monitor. 3. Dementia. Patient presents with signs and symptoms of dementia. Chronic. Progressive. Supportive measures. On no disease modifying agents. Given the patient's advanced age and chronic comorbidities a gradual decline is expected. Total time spent 30 minutes with greater than 50% of the spent in counseling and coordination of care with the patient and spouse with questions answered and addressed; examination of patient; review of medication and side effects with flucanazole; and advance care planning. Disclaimer: The chart note was formulated using voice recognition technology and unfortunately sound alike errors may occur.
== END 2021-05-21 15:31 | disposition home or self-care (01) ==
LOC: PC 15:30
PROVIDERS: ATTEND Nurse Practitioner Family
DX: Z51.5 Encounter for palliative care (principal); B37.2 Candidiasis of skin and nail; I10 Essential (primary) hypertension; F03.90 Unspecified dementia, unspecified severity, without behavioral disturbance, psychotic disturbance, mood disturbance, and anxiety; E66.9 Obesity, unspecified; G62.9 Polyneuropathy, unspecified; R32 Unspecified urinary incontinence; F32.9 Major depressive disorder, single episode, unspecified; G89.29 Other chronic pain; M54.9 Dorsalgia, unspecified; Z66 Do not resuscitate; Z79.51 Long term (current) use of inhaled steroids; Z79.899 Other long term (current) drug therapy; Z74.01 Bed confinement status
CPT/HCPCS: 99348

== ENCOUNTER 2021-06-11 14:35 | Outpatient (CLI) | payer MEDICARE, OTHER ==
--- NOTE | 2021-06-11 16:24 | CONSULTATION NOTE ---
Palliative Care Follow Up - Referral Referring Provider: Dr. Laureano Motta Time of Visit: [id number] Referral setting: Home Referral Reason: Candidasis/Lesion to scalp/Dementia - Information Sources Records reviewed: Previous records reviewed History/Review of Systems obtained from: Patient, Family (spouse/DPOA) Exam limitations: Clinical condition - History of Present Illness Update Brief HPI Update: This is a tarah 86-year-old female who was seen and evaluated in her home for follow-up regarding dermatitis due to candidiasis that was diffuse, scalp lesion, and dementia with spouse/DPOA present. Provider wore N95 mask. Patient was seen earlier this month due to a diffuse rash to her bilateral axilla, under her bilateral breasts, under abdominal folds, to bilateral flexors of her elbows. Had been trialed on Lotrimin and nystatin that were not effective when previously had been effective. Has attentive care by her caregivers. She was started on Diflucan and is status post three doses that have been completed. She has had improvement of her rash but it continues to persist. There have been no change in bath products or detergents. Patient denies pruritus. Spouse denies discharge to the rash. Would benefit from continued course of Diflucan. This is all in the setting of obesity without a history of diabetes mellitus. Jayne reports concern regarding lesion to top of the patient's scalp. It is nonbleeding. Symmetric in size and uniform coloring and appears to be a support keratosis. Patient denies tenderness to the sites. Patient is seen sitting up in bed watching TV. She is alert and conversant. No evidence of acute distress. 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 +COVID vaccine Social History - Living Situation Living arrangement: At home Living Situation: With spouse/s.o. Support System: Patient lives in a one-story home with her , George of 62 years. They have 3 children, 2 girls and 1 boy. Their eldest child, Elaina is about 10 hours away in [place]. They have a private duty family that provides caregiving needs, Shayna and Lila who attend to the patient and her 7 days/week and they have been present for the last 4 years. They have recently visited with their children who came to visit and are going to be without family for the upcoming holiday. Patient's mattress of her hospital bed is not functioning properly and repair company to service it in the coming weeks with [facility] being rented for transfer during the repair. Medications/Allergies - Medications Home Medications: Ambulatory Orders Medication Instructions Recorded Confirmed Cholecalciferol (Vitamin D3) 1 cap PO DAILY 01/31/20 05/05/20 [Vitamin D3] Cyanocobalamin (Vitamin B-12) 1,000 mcg PO DAILY 01/31/20 05/05/20 [Vitamin B-12] Gabapentin [Neurontin] 800 mg PO TID 01/31/20 05/05/20 Senna [Senokot] 8.6 mg PO QPM 01/31/20 05/05/20 polyethylene glycoL 3350 [Miralax] 17 g PO DAILY PRN 01/31/20 05/05/20 Medroxyprogesterone Acetate 10 mg PO DAILY 03/25/20 05/05/20 Amlodipine Besylate [Norvasc] 2.5 mg PO DAILY #30 tablet 05/07/20 Lisinopril [Zestril] 20 mg PO DAILY #30 tablet 05/07/20 guaiFENesin [Tussin] 200 mg PO BID PRN 09/26/20 09/26/20 Fluconazole [Diflucan] 1 tab PO .EVERY WEEK MDD x3 doses 05/21/21 - Allergies Allergies/Adverse Reactions: Allergies Allergy/AdvReac Type Severity Reaction Status Date / Time Milk Containing Products Allergy Unknown Verified 08/23/20 15:53 scopolamine Allergy Unknown Verified 08/23/20 15:53 aspirin AdvReac Nausea Verified 08/23/20 15:53 Review of Systems - Constitutional Constitutional: denies: Fever, Poor appetite - Ears, Nose & Throat Ears, Nose & Throat: reports: Dentures. denies: Hearing loss - Cardiovascular Cardiovascular: denies: Edema - Gastrointestinal Gastrointestinal: reports: Good appetite. denies: Constipation (controlled with senna in evenings), Change in bowel habits, Vomiting - Genitourinary Genitourinary: reports: Incontinence. denies: Dysuria - Musculoskeletal Musculoskeletal: reports: Assistive devices, Transfer issues. denies: Joint pain - Integumentary Integumentary: reports: Rash (see HPI), Pigment changes (BLE, chronic) - Neurological Neurological: reports: General weakness, Memory problems, Other (+ Generalized Neuropathy) - Psychiatric Psychiatric: reports: Depression - Endocrine Endocrine: reports: Other (+Post menopausal bleeding) - Hematologic/Lymphatic Hematologic/Lymph: reports: Other (No recurrent infections) - All Other Systems All Other Systems: reports: Reviewed and negative (ROS supplemented by spouse, Ham) Physical Exam - Vital Signs Temperature: 36.7 C Pulse Rate: 64 O2 Saturation: 95 (on RA) Blood Pressure: 135/65 (right wrist) - Physical Exam General Appearance: positive: No acute distress, Alert, Other (obese, sitting up in her hospital bed) Eyes Bilateral: positive: Normal inspection ENT: positive: No signs of dehydration Neck: positive: Trachea midline Cardiovascular: positive: Regular rate & rhythm, Other (Distant heart sound due to body habitus) Respiratory: positive: No respiratory distress, Breath sounds nml, Diminished in bases Abdomen: positive: Non-tender, Soft, Nml bowel sounds, Obese Skin: positive: Rash (Candidiasis with pustule Satellite lesions to base of right neck--reduced; candiasis with circular satellite patches to right breast, under bilateral breasts and under b/l abdominal panus. No open areas. NOted improvement but not resolved.), Other (scar to left breast s/p lumpectomy; chronic venous stasis dermatitis changes to BLE above ankles L>R; lesion to top of scalp appx 2cm that is even in coloring, no bleeding or discharge, dry that appears to be c/w seborrheic keratosis.) Extremities: positive: No pedal edema Neurologic/Psychiatric: positive: Mood/affect nml (Pleasant and cheerful), Disoriented to time Palliative Care - POLST Patient has POLST: Yes POLST Status: DNR, Selective Treatment Pain: Comment (Controlled with gabapentin) Sleep: Sleeps well - Palliative Care Discussion: Patient developed extensive candidiasis with satellite lesions and patches likely due to her body habitus resulting in increased moisture and potential for impaired fasting glucose however, no recent labs. Patient is status post 3 doses of Diflucan 150 mg tablets and pulse therapy. This is resulted in general improvement of the patient's extensive candidiasis however, has not had resolution. Will reintroduce Diflucan 150 mg weekly x3 weeks for additional pulse therapy and check in with the patient spouse for reevaluation. The patient continues to have diligent caregivers providing skin care on a daily basis. Impression and Recommendations - Palliative Care Impression: This is an 86-year-old female who is bedbound due to undifferentiated progressive neuropathy with obesity, hypertension, and diffuse candidiasis that has had some improvement status post 3 doses of Diflucan. Would benefit from additional pulse therapy of Diflucan weekly x3 weeks. Palliative care to continue to provide support for symptom management, care coordination and advance care planning as the patient is unable to leave her home due to her bedbound state. Recommendations/Counseling Done: 1. Diffuse candidiasis dermatitis to multiple sites due to increased moisture and body habitus. Status post 3 doses of Diflucan with some noted improvement. Previously topical treatment was effective and now ineffective. Will prescribe additional pulse therapy with Diflucan 150 mg weekly x3 weeks. Rx sent to [facility] pharmacy in [place]. Discussed continued daily skin hygiene to reduce persistence. May consider utilization of Interdry fabric in the future when r ashes have resolved most pacifically under bilateral breasts and abdominal folds. If remains to continue to persistent problem consider evaluating for diabetes mellitus as a potential contributor. 2. Seborrheic keratosis. Noted to top of scalp. Reviewed with spouse this is a benign lesion and discussed concerns such as bleeding, growth, etc. with understanding verbalized. 3. Dementia. Patient presents with signs and symptoms of dementia. Chronic. Progressive. Supportive care. On no disease modifying agents. Given the patient's advanced age and chronic comorbidities a gradual Dunn is expected. :Total time spent 25 minutes with greater than 50% of the spent in counseling and coordination of care with the patient and spouse [place] of patient; and advance care planning Disclaimer: The chart note was formulated using voice recognition technology and unfortunately sound alike errors may occur.
== END 2021-06-11 14:36 | disposition home or self-care (01) ==
LOC: PC 14:35
PROVIDERS: ATTEND Nurse Practitioner Family
DX: Z51.5 Encounter for palliative care (principal); B37.2 Candidiasis of skin and nail; L82.1 Other seborrheic keratosis; F03.90 Unspecified dementia, unspecified severity, without behavioral disturbance, psychotic disturbance, mood disturbance, and anxiety; G62.9 Polyneuropathy, unspecified; E66.9 Obesity, unspecified; Z79.899 Other long term (current) drug therapy; Z74.01 Bed confinement status; Z66 Do not resuscitate
CPT/HCPCS: 99348

== ENCOUNTER 2021-07-15 15:05 | Outpatient (CLI) | payer MEDICARE, OTHER ==
--- NOTE | 2021-07-15 18:15 | CONSULTATION NOTE ---
Palliative Care Follow Up - Referral Referring Provider: Dr. Laureano Motta Time of Visit: [id number] Referral setting: Home Referral Reason: Rash - Information Sources Records reviewed: Previous records reviewed History/Review of Systems obtained from: Patient, Family (spouse/DPOA Ham), Caregiver (Lila and Shayna) Exam limitations: Clinical condition (Cognitie impairment) - History of Present Illness Update Brief HPI Update: This is a tarah 86-year-old female who was seen in follow-up today in her home regarding dermatitis due to candidiasis continues to persist with her spouse/DPOA and caregivers present. Provider wore N95 mask. Patient was seen first in May 2021 due to diffuse rash to her bilateral axilla, under her bilateral breasts and under her abdominal fold as well as to bilateral flexors of her elbows. Spouse had previously been applying Lotrimin and it was not effective. Caregivers report that they noted that when Lotrimin was obtained from [id number] at local pharmacies this worked better than wholesale that the patient obtained on line. In the past, caregivers report that the patient would have a flare of some mild candidiasis that wants it was attended by Lotrimin would quickly ena and resolved. Unfortunately, the patient has had waxing and waning candidiasis. Overall, her skin has improved from initial presentation however, due to her body habitus and areas of increased moisture the rashes persisted. The patient's caregiver Shayna, reports that approximately 6 days ago the rash was resolving to the backs of her arms more specifically left arm and was fading. Upon return to the home after 5 days off the rash is now flaring up again and is bright red. The patient will report discomfort during bathing due to fissures that are appearing in the skin under her left axilla and left breast fold. The patient has had 2 courses of Diflucan for approximately 6 doses. While this is occurring in the setting of obesity without history of diabetes mellitus. The patient is seen resting in bed asleep, she awakens to conversation. No evidence of acute distress. 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 +COVID vaccine Social History - Living Situation Living arrangement: At home Living Situation: With spouse/s.o. Support System: Patient lives in a one-story home with her , Shawn 62 years. They have 3 children, 2 girls and 1 boy. They have a private duty family that provides caregiving needs, Shayna and Lila who attend the patient and her 7 days/week and have been present for the last 5 years. Medications/Allergies - Medications Home Medications: Ambulatory Orders Medication Instructions Recorded Confirmed Cholecalciferol (Vitamin D3) 1 cap PO DAILY 01/31/20 05/05/20 [Vitamin D3] Cyanocobalamin (Vitamin B-12) 1,000 mcg PO DAILY 01/31/20 05/05/20 [Vitamin B-12] Gabapentin [Neurontin] 800 mg PO TID 01/31/20 05/05/20 Senna [Senokot] 8.6 mg PO QPM 01/31/20 05/05/20 polyethylene glycoL 3350 [Miralax] 17 g PO DAILY PRN 01/31/20 05/05/20 Medroxyprogesterone Acetate 10 mg PO DAILY 03/25/20 05/05/20 Amlodipine Besylate [Norvasc] 2.5 mg PO DAILY #30 tablet 05/07/20 Lisinopril [Zestril] 20 mg PO DAILY #30 tablet 05/07/20 guaiFENesin [Tussin] 200 mg PO BID PRN 09/26/20 09/26/20 Fluconazole [Diflucan] 1 tab PO .EVERY WEEK MDD x3 doses 05/21/21 - Allergies Allergies/Adverse Reactions: Allergies Allergy/AdvReac Type Severity Reaction Status Date / Time Milk Containing Products Allergy Unknown Verified 08/23/20 15:53 scopolamine Allergy Unknown Verified 08/23/20 15:53 aspirin AdvReac Nausea Verified 08/23/20 15:53 Review of Systems - Constitutional Constitutional: denies: Fever, Poor appetite - Ears, Nose & Throat Ears, Nose & Throat: reports: Dentures - Gastrointestinal Gastrointestinal: reports: Good appetite. denies: Constipation (controlled with senna in evenings) - Genitourinary Genitourinary: reports: Incontinence, Nocturia. denies: Dysuria - Musculoskeletal Musculoskeletal: reports: Assistive devices, Transfer issues. denies: Joint pain - Integumentary Integumentary: reports: Rash (see HPI), Pigment changes (BLE, chronic) - Neurological Neurological: reports: General weakness, Memory problems, Other (+ Generalized Neuropathy) - Endocrine Endocrine: denies: Diabetes type 2 - All Other Systems All Other Systems: reports: Reviewed and negative (ROS supplemented by spouse, Ham and caregivers) Physical Exam - Vital Signs Temperature: 36.5 C Pulse Rate: 77 O2 Saturation: 95 - Physical Exam General Appearance: positive: No acute distress, Alert, Other (obese, sitting up in her hospital bed) Eyes Bilateral: positive: Normal inspection ENT: positive: No signs of dehydration Neck: positive: Trachea midline Cardiovascular: positive: Regular rate & rhythm, Other (Distant heart sound due to body habitus) Respiratory: positive: No respiratory distress, Breath sounds nml, Diminished in bases Abdomen: positive: Non-tender, Soft, Nml bowel sounds, Obese Skin: positive: Rash (Candidiasis with extensive patches of erythema to posterior aspect of left arm, b/l axialla (L>R), under bilateral breasts, right elbow flexor and under b/l abdominal panus. Minor fissure noted to left axilla without discharge.), Other (scar to left breast s/p lumpectomy; chronic venous stasis dermatitis changes to BLE above ankles L>R) Extremities: positive: No pedal edema Neurologic/Psychiatric: positive: Mood/affect nml (Pleasant and cheerful), Disoriented to time Palliative Care - POLST Patient has POLST: Yes POLST Status: DNR, Selective Treatment - Palliative Care Discussion: Patient continues to have extensive candidiasis that has improved and then worsened but has now and it returned to original findings. The patient has had a total of 6 doses of Diflucan 150 mg tablets for pulse therapy. Contributing factors for persisting candidiasis remains the patient's body habitus, limited supply of nystatin for her extensive surface area application, and utilization of Chux pads that have plastic to continue to promote moisture staying close to the patient's skin. Patient's caregivers continue to be diligent in providing skin care on a daily basis. Given the persistence would benefit from evaluation of diabetes mellitus though has not been present in the past. Discussed at length with patient spouse regarding diabetes mellitus as possible contributing factor. Impression and Recommendations - Palliative Care Impression: This is an 86-year-old female who is bedbound due to undifferentiated progressive neuropathy with obesity and diffuse candidiasis that continues to persist the patient 6 doses of Diflucan. Would benefit from additional pulse therapy of Diflucan weekly 150 mg x 3 weeks. Also to initiate nystatin topical cream to be applied twice a day to the affected areas. Palliative care to continue provide support for symptom management, care coordination and advance care planning as the patient is unable to leave her home due to her bedbound state. Recommendations/Counseling Done: 1. Diffuse candidiasis dermatitis due to multiple sites due to increased moisture and body habitus. Status post 6 doses of Diflucan with improvement the return of symptoms.Would benefit from additional pulse therapy of Diflucan weekly 150 mg x 3 weeks. Also to initiate nystatin topical cream to be applied twice a day to the affected areas and avoidance of Clotrimazole and Desitin moving forward. Rx for Diflucan and [facility]ystatin [facility] in [place]. Discussed removing plastic Pads away from the patient's arms to allow for better air movement and reduction of moisture buildup. Caregivers report in the past trialed Interdry fabric but given the quantity needed for the patient's folds this was not continued. Given the persistent problem regarding this candidiasis would benefit from evaluation of diabetes mellitus as a potential contributor and will attempt labdraw at next visit. 2. Bedbound state. Obesity and undifferentiated progressive neuropathy contributing. Palliative care to continue provide support within the home as the patient is unable to leave her home. Total time spent 25 minutes with greater than 50% of the spent in counseling and coordination of care with the patient, spouse, and caregivers; review of candidiasis and potential contributing factors and risk reduction; medication management; and anticipatory guidance. Disclaimer: The chart note was formulated using voice recognition technology and unfortunately sound alike errors may occur.
== END 2021-07-15 15:06 | disposition home or self-care (01) ==
LOC: PC 15:05
PROVIDERS: ATTEND Nurse Practitioner Family
DX: Z51.5 Encounter for palliative care (principal); B37.2 Candidiasis of skin and nail; G62.9 Polyneuropathy, unspecified; E66.9 Obesity, unspecified; Z79.899 Other long term (current) drug therapy; Z74.01 Bed confinement status; Z66 Do not resuscitate
CPT/HCPCS: 99348

== ENCOUNTER 2021-08-07 10:30 | Outpatient (CLI) | payer MEDICARE, OTHER ==
--- NOTE | 2021-08-07 11:39 | CONSULTATION NOTE ---
Palliative Care Follow Up - Referral Referring Provider: Dr. Laureano Motta Time of Visit: [id number] Referral setting: Home Referral Reason: Candidiasis/Postmenopasual bleeding - Information Sources Records reviewed: Previous records reviewed History/Review of Systems obtained from: Patient, Family (spouse/DPOA, [place]), Caregiver (Lila and Shayna) Exam limitations: Clinical condition (+Cognitive impairment) - History of Present Illness Update Brief HPI Update: This is a tarah 86-year-old female who was seen in follow-up today in her home regarding dermatitis due to candidiasis, postmenopausal bleeding, and dementia with her spouse/DPOA and caregivers present. Provider N95 mask. Patient was first seen in May 2021 due to diffuse rash to her bilateral axilla, under her bilateral breasts and under her abdominal fold as well as bilateral flexors of her elbows. Spouse had been applying Lotrimin and it was not effective. The patient has had 3 courses of Diflucan for pulse therapy in 3-week intervals. She is also having nystatin being applied twice a day to affected areas in the setting of obesity without a history of diabetes mellitus. Her rash is significantly improved and has faded in multiple sites. There was a skin lesion to the patient's scalp that became soft during hair washing that the spouse removed. There is now a scab formation to that area with no evidence of erythema or discharge. The patient continues to have postmenopausal bleeding. It is often intermingled with urine. She continues on medroxyprogesterone. When her pads are changed every 3 hours she typically is having some trace amount of bright-colored discharge approximately half of the time. She denies headaches or dizziness. 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 +COVID vaccine Social History - Living Situation Living arrangement: At home Living Situation: With spouse/s.o. Support System: Patient lives in a one-story home with her , Shawn 62 years. They have 3 children, 2 girls and 1 boy. They have a private duty family that provides caregiving needs, Shayna and Lila who attend the patient and her 7 days/week and have been present for the last 5 years. Medications/Allergies - Medications Home Medications: Ambulatory Orders Medication Instructions Recorded Confirmed Cholecalciferol (Vitamin D3) 1 cap PO DAILY 01/31/20 05/05/20 [Vitamin D3] Cyanocobalamin (Vitamin B-12) 1,000 mcg PO DAILY 01/31/20 05/05/20 [Vitamin B-12] Gabapentin [Neurontin] 800 mg PO TID 01/31/20 05/05/20 Senna [Senokot] 8.6 mg PO QPM 01/31/20 05/05/20 polyethylene glycoL 3350 [Miralax] 17 g PO DAILY PRN 01/31/20 05/05/20 Medroxyprogesterone Acetate 10 mg PO DAILY 03/25/20 05/05/20 Amlodipine Besylate [Norvasc] 2.5 mg PO DAILY #30 tablet 05/07/20 Lisinopril [Zestril] 20 mg PO DAILY #30 tablet 05/07/20 guaiFENesin [Tussin] 200 mg PO BID PRN 09/26/20 09/26/20 - Allergies Allergies/Adverse Reactions: Allergies Allergy/AdvReac Type Severity Reaction Status Date / Time Milk Containing Products Allergy Unknown Verified 08/23/20 15:53 scopolamine Allergy Unknown Verified 08/23/20 15:53 aspirin AdvReac Nausea Verified 08/23/20 15:53 Review of Systems - Constitutional Constitutional: denies: Fever, Poor appetite, Weight loss - Eyes Eyes: denies: Vision loss - Ears, Nose & Throat Ears, Nose & Throat: reports: Dentures. denies: Hearing aids - Cardiovascular Cardiovascular: denies: Edema - Respiratory Respiratory: reports: Cough (pronounced in the mornings). denies: Wheezing - Gastrointestinal Gastrointestinal: reports: Good appetite. denies: Abdominal pain, Constipation (controlled with senna in evenings), Vomiting - Genitourinary Genitourinary: reports: Incontinence. denies: Dysuria - Musculoskeletal Musculoskeletal: reports: Assistive devices, Transfer issues. denies: Joint pain - Integumentary Integumentary: reports: Rash (see HPI), Lesions (scalp, see HPI), Pigment changes (BLE, chronic). denies: Pruritis - Neurological Neurological: reports: General weakness, Memory problems, Other (+ Generalized Neuropathy) - Psychiatric Psychiatric: reports: Depression - Endocrine Endocrine: denies: Diabetes type 2 - Hematologic/Lymphatic Hematologic/Lymph: reports: Other (No recurrent infections) - All Other Systems All Other Systems: reports: Reviewed and negative (ROS supplemented by spouse, Ham and caregivers) Physical Exam - Vital Signs Temperature: 36.8 C Pulse Rate: 55 O2 Saturation: 96 (on RA) Blood Pressure: 136/59 - Physical Exam General Appearance: positive: No acute distress, Alert, Other (obese, sitting up in her hospital bed) Eyes Bilateral: positive: Normal inspection, Other (keratin deposited lesions by left nostril and above left eyebrow) ENT: positive: No signs of dehydration Neck: positive: Trachea midline Cardiovascular: positive: Bradycardia, Other (Distant heart sound due to body habitus) Respiratory: positive: No respiratory distress, Breath sounds nml, Diminished in bases Abdomen: positive: Non-tender, Soft, Nml bowel sounds, Obese Skin: positive: Rash (No longer with extensive patches of erythema to posterior aspect of left arm, b/l axialla (L>R), under bilateral breasts, right elbow flexor and under b/l abdominal panus. Noted to have trace erythema to posterior aspect of left arm. Mild erythema due to candidasis along right side of neck.), Other (scar to left breast s/p lumpectomy; chronic venous stasis dermatitis changes to BLE above ankles L>R, scab to scap appx 0.3cm in size without erythema or discharge.) Extremities: positive: No pedal edema Neurologic/Psychiatric: positive: Mood/affect nml (Pleasant and cheerful), Disoriented to time Palliative Care - POLST Patient has POLST: Yes POLST Status: DNR, Selective Treatment Pain: No pain - Palliative Care Discussion: The patient has had significant improvement with her extensive candidiasis after approximately 9 doses of Diflucan 150 mg for pulse therapy. Her spouse and caregivers have been diligent in applying nystatin and spouse has removed utilization of Chux pads that may have been promoting moisture staying close to the patient's skin. Her body habitus is likely a contributing factor and given the persistence will evaluate for diabetes mellitus today with obtainment of hemoglobin A1c and BMP and follow with results. Discussed with patient spouse and caregivers at length regarding diabetes mellitus as a contributing factor and what potential treatment options there would be if this indeed was positive. Results - Lab Results Lab and Imaging Results: Labs pending Impression and Recommendations - Palliative Care Impression: This is an 86-year-old female who is bedbound due to undifferentiated progressive neuropathy with obesity and a history of diffuse candidiasis status post 9 doses of Diflucan. She continues to have nystatin topical cream be applied twice daily to affected areas and there has been significant improvement since last evaluation in June 2021. Given the patient's persistence of her candidiasis in the setting of morbid obesity we will evaluate for diabetes mellitus. Palliative care will continue to provide support for symptom management, care coordination and advance care planning as the patient is unable to leave her home due to her bedbound state. Recommendations/Counseling Done: 1. Candidiasis dermatitis due to to multiple sites due to increased moisture and body habitus. Improved. Status post 9 doses of Diflucan with pulse therapy. Continue nystatin topical cream to be applied twice daily to affected areas until rash resolved/gone. No longer utilizing plastic pads for better air movement close to the patient's body. Given the persistence of the problem regarding the candidiasis to obtain BMP and hemoglobin A1c today to evaluate for diabetes mellitus and will follow with results. 2. Postmenopausal bleeding. On CT of the abdomen on 02/2020 there was evidence of thickened endometrium. Patient was unable to undergo an endometrial biopsy. She was initiated on on medroxyprogesterone 10 mg daily and per gynecology, Dr. Eaton, is to continue this therapy moving forward. Again, per Dr. Eaton's recommendations may increase medroxyprogesterone dosage the patient has an increase in her overall bleeding such as soaking pads or passing large clots. Continues to have trace amounts of menopausal postmenopausal bleeding due to the patient's body habitus, obesity, and unopposed estrogen in the setting of thickened endometrium. Patient continues without any distress or complaints. Continue to monitor. 3. Dementia. Patient presents with signs and symptoms of dementia. Consider SL UMS testing or for more formal testing in the future. Chronic. Progressive. Supportive measures. No disease modifying agents. Given the patient's advanced age and chronic morbidities a gradual decline is expected. Total time spent 35 minutes with greater than 50% has been in counseling and coordination of care with the patient, spouse, and caregivers, review of purpose of obtainment of BMP and hemoglobin A1c for evaluation of diabetes mellitus, review of pathophysiology of diabetes mellitus type 2, lab draw; examination of patient; and anticipatory guidance. Disclaimer: The chart note was formulated using voice recognition technology and unfortunately sound alike errors may occur.
== END 2021-08-07 10:31 | disposition home or self-care (01) ==
LOC: PC 10:30
PROVIDERS: ATTEND Nurse Practitioner Family
DX: Z51.5 Encounter for palliative care (principal); N95.0 Postmenopausal bleeding; G62.89 Other specified polyneuropathies; R41.89 Other symptoms and signs involving cognitive functions and awareness; B37.2 Candidiasis of skin and nail; E66.01 Morbid (severe) obesity due to excess calories; Z79.899 Other long term (current) drug therapy; Z74.01 Bed confinement status; Z66 Do not resuscitate
CPT/HCPCS: 99348

== ENCOUNTER 2021-08-07 11:21 | Outpatient (CLI) | payer MEDICARE, OTHER ==
[2021-08-07 11:41] LABS: CALCIUM 8.5 mg/dL (8.5-10.3); CREATININE 0.7 mg/dL (0.4-1.0); POTASSIUM 4.2 mmol/L (3.5-5.0)
[2021-08-07 12:55] LABS: ESTIMATED AVERAGE GLUCOSE 103 mg/dL (70-100); HEMOGLOBIN A1c% 5.2 % (4.27-6.07)
== END 2021-08-07 11:22 | disposition home or self-care (01) ==
LOC: LAB.R 11:21
PROVIDERS: ATTEND Family Medicine
DX: I10 Essential (primary) hypertension (principal); E66.9 Obesity, unspecified; B37.9 Candidiasis, unspecified
CPT/HCPCS: 80048; 83036

== ENCOUNTER 2021-09-11 17:02 | Outpatient (CLI) | payer MEDICARE, OTHER | END 2021-09-11 17:03 | disposition critical access hospital (66) | LOC: EMS 17:02 | DX: R41.82 Altered mental status, unspecified (principal); R06.2 Wheezing; R60.0 Localized edema; R23.2 Flushing; I10 Essential (primary) hypertension | CPT/HCPCS: A0425; A0429 ==

== ENCOUNTER 2021-09-11 17:08 | Inpatient (IN) | payer MEDICARE, OTHER ==
--- NOTE | 2021-09-11 17:51 | ED Physician Documentation ---
PD HPI ALTERED MENTAL STATUS - Stated complaint Stated Complaint: AMS - Chief complaint Chief Complaint: Neuro - History obtained from History obtained from: Family, EMS - History of Present Illness Timing - duration: Days (1) Timing - details: Other (last seen speaking last night) Quality / character: Other (not speaking today) Associated symptoms: No: Fever, Headache Contributing factors: No: Anticoagulated, Diabetic Basline status: Bedbound, Other (alert, mildly confused). No: Ambulatory, Independent Recently seen: Not recently seen - Additional information Additional information: Patient is an 86-year-old female brought in by EMS today for altered mental status. She lives at home with her . 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 states that she lost the ability to walk about 5 years ago, she lost ability to feed herself a few years ago and is bedbound now. He takes care of her at home and has caregivers that come and help him take care of her. They use overnight pads and change them about every 2 hours for her urinary needs. No fevers. No vomiting. She is normally verbal and today she is not verbal. 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 SECURITY DEVELOPER: Breast cancer, Other : Incontinence HEENT: Chronic vision loss, Chronic sinusitis Psych: Depression, Anxiety Musculoskeletal: Chronic back pain, Other Derm: Herpes zoster, Other - Past Surgical History Past Surgical History: Yes General: Cholecystectomy /APPLICATION SECURITY DEVELOPER: Other - Present Medications Home Medications: Ambulatory Orders Medication Instructions Recorded Confirmed Cholecalciferol (Vitamin D3) 1 cap PO DAILY 01/31/20 05/05/20 [Vitamin D3] Cyanocobalamin (Vitamin B-12) 1,000 mcg PO DAILY 01/31/20 05/05/20 [Vitamin B-12] Gabapentin [Neurontin] 800 mg PO TID 01/31/20 05/05/20 Senna [Senokot] 8.6 mg PO QPM 01/31/20 05/05/20 polyethylene glycoL 3350 [Miralax] 17 g PO DAILY PRN 01/31/20 05/05/20 Medroxyprogesterone Acetate 10 mg PO DAILY 03/25/20 05/05/20 Amlodipine Besylate [Norvasc] 2.5 mg PO DAILY #30 tablet 05/07/20 Lisinopril [Zestril] 20 mg PO DAILY #30 tablet 05/07/20 guaiFENesin [Tussin] 200 mg PO BID PRN 09/26/20 09/26/20 - Allergies Allergies/Adverse Reactions: Allergies Allergy/AdvReac Type Severity Reaction Status Date / Time Milk Containing Products Allergy Unknown Verified 09/11/21 17:19 scopolamine Allergy Unknown Verified 09/11/21 17:19 aspirin AdvReac Nausea Verified 09/11/21 17:19 - Social History Does the pt smoke?: No Smoking Status: Never smoker Does the pt drink ETOH?: No Does the pt have substance abuse?: No - Immunizations Immunizations are current?: Yes - POLST Patient has POLST: Yes POLST Status: DNI (Ok for CPAP/BiPAP) PD ED PE NORMAL - Vitals Vital signs reviewed: Yes - General General: No acute distress, Other (Alert, completely nonverbal.) - HEENT HEENT: PERRL, Moist mucous membranes - Neck Neck: Supple, no meningeal sign - Cardiac Cardiac: RRR, Strong equal pulses - Respiratory Respiratory: No respiratory distress, Clear bilaterally - Abdomen Abdomen: Soft, Non tender, Non distended - Derm Derm: Warm and dry, No rash - Extremities Extremities: No calf tenderness / cord - Neuro Neuro: Other (Alert, nonverbal) - Psych Psych: Normal mood, Normal affect Results - Vitals Vitals: Vital Signs - 24 hr 09/11/21 09/11/21 09/11/21 17:18 17:58 21:00 Temperature 37.2 C Heart Rate 58 L 57 L 53 L Respiratory 24 18 25 H Rate Blood Pressure 218/94 H 149/67 H O2 Saturation 97 97 Oxygen O2 Source [Without Activity] Room air O2 Source Room air - Labs Labs: Laboratory Tests 09/11/21 09/11/21 09/11/21 17:54 17:54 18:57 WBC 13.5 H RBC 4.74 Hgb 13.5 Hct 43.7 MCV 92.2 MCH 28.5 MCHC 30.9 L RDW 16.4 H Plt Count 343 MPV 10.1 Neut # (Auto) 10.8 H Lymph # (Auto) 1.3 L Tre[place] # (Auto) 0.7 Eos # (Auto) 0.6 Baso # (Auto) 0.1 Absolute Nucleated RBC 0.00 Nucleated RBC % 0.0 Sodium 143 Potassium 4.2 Chloride 108 Carbon Dioxide 23 Anion Gap 12.0 BUN 10 Creatinine 0.5 Estimated GFR (MDRD) 117 Glucose 125 H Lactic Acid Calcium 8.6 Total Bilirubin 0.7 AST 16 ALT 11 Alkaline Phosphatase 104 Total Protein 6.9 Albumin 3.4 Globulin 3.5 Albumin/Globulin Ratio 1.0 Lipase 28 Urine Color YELLOW Urine Clarity SL. CLOUDY Urine pH 6.0 Ur Specific Calera 1.020 Urine Protein TRACE Urine Glucose (UA) NEGATIVE Urine Ketones NEGATIVE Urine Occult Blood SMALL H Urine Nitrite POSITIVE H Urine Bilirubin NEGATIVE Urine Urobilinogen 0.2 (NORMAL) Ur Leukocyte Esterase MODERATE H Urine RBC 11-25 H Urine WBC >25 H Ur Squamous Epith Cells RARE Squamous Urine Bacteria Moderate H Ur Microscopic Review INDICATED Urine Culture Comments INDICATED Nasal Adenovirus (PCR) Nasal B. parapertussis DNA (PCR) Nasal Coronavir 229E PCR Nasal Coronavir HKU1 PCR Nasal Coronavir NL63 PCR Nasal Coronavir OC43 PCR Nasal Enterovir/Rhinovir PCR Nasal Influenza B PCR Nasal Influenza A PCR Nasal Parainfluen 1 PCR Nasal Parainfluen 2 PCR Nasal Parainfluen 3 PCR Nasal Parainfluen 4 PCR Nasal RSV (PCR) Nasal B.pertussis DNA PCR Nasal C.pneumoniae (PCR) Deven Human Metapneumo PCR Nasal M.pneumoniae (PCR) Nasal SARS-CoV-2 (PCR) 09/11/21 09/11/21 20:20 20:51 WBC RBC Hgb Hct MCV MCH MCHC RDW Plt Count MPV Neut # (Auto) Lymph # (Auto) Treutlen # (Auto) Eos # (Auto) Baso # (Auto) Absolute Nucleated RBC Nucleated RBC % Sodium Potassium Chloride Carbon Dioxide Anion Gap BUN Creatinine Estimated GFR (MDRD) Glucose Lactic Acid 1.2 Calcium Total Bilirubin AST ALT Alkaline Phosphatase Total Protein Albumin Globulin Albumin/Globulin Ratio Lipase Urine Color Urine Clarity Urine pH Ur Specific Calera Urine Protein Urine Glucose (UA) Urine Ketones Urine Occult Blood Urine Nitrite Urine Bilirubin Urine Urobilinogen Ur Leukocyte Esterase Urine RBC Urine WBC Ur Squamous Epith Cells Urine Bacteria Ur Microscopic Review Urine Culture Comments Nasal Adenovirus (PCR) NOT DETECTED Nasal B. parapertussis DNA (PCR) NOT DETECTED Nasal Coronavir 229E PCR NOT DETECTED Nasal Coronavir HKU1 PCR NOT DETECTED Nasal Coronavir NL63 PCR NOT DETECTED Nasal Coronavir OC43 PCR NOT DETECTED Nasal Enterovir/Rhinovir PCR NOT DETECTED Nasal Influenza B PCR NOT DETECTED Nasal Influenza A PCR NOT DETECTED Nasal Parainfluen 1 PCR NOT DETECTED Nasal Parainfluen 2 PCR NOT DETECTED Nasal Parainfluen 3 PCR NOT DETECTED Nasal Parainfluen 4 PCR NOT DETECTED Nasal RSV (PCR) NOT DETECTED Nasal B.pertussis DNA PCR NOT DETECTED Nasal C.pneumoniae (PCR) NOT DETECTED Deven Human Metapneumo PCR NOT DETECTED Nasal M.pneumoniae (PCR) NOT DETECTED Nasal SARS-CoV-2 (PCR) NOT DETECTED - Rads (name of study) CT head Radiology: Final report received, EMP read contemporaneously, See rad report CT abdomen pelvis Radiology: Final report received, EMP read contemporaneously, See rad report PD MEDICAL DECISION MAKING - ED course Complexity details: reviewed results, re-evaluated patient, considered differential, d/w patient, d/w family ED course: 86-year-old female with a 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 Became nonverbal today. Appears to have pyelonephritis and UTI. Will place on IV antibiotics and place the patient in observation to see if her mental status improves with treatment of the UTI/pyelonephritis. No evidence of stroke. Discussed the case with Dr. Darby hospitalist who accepts CT head IMPRESSION: 1.No acute intracranial abnormality. 2.Chronic microvascular ischemic changes and diffuse parenchymal volume loss. 3.Mild sphenoid sinus disease appears similar when compared to the exam from 05/05/2020. CT abdomen pelvis IMPRESSION: 1. Mild dilatation of a right extrarenal pelvis and proximal right ureter with associated wall thickening, enhancement, and adjacent mild fat stranding. The findings are suggestive of a urinary tract infection. No discrete obstructing ur eteral stone identified. 2. Nonobstructing right renal stones measuring up to 1.2 cm. 3. Mild stool distention in the rectosigmoid colon with associated mild wall thickening suggestive of a mild stercoral proctocolitis. 4. Thickening of the endometrium with indistinct margins redemonstrated. The findings are similar to the prior study but are again suspicious for possible endometrial mass versus endometrial hyperplasia. Departure - Departure Disposition: ED Place in Observation Clinical Impression: Pyelonephritis Altered mental status Qualifiers: Altered mental status type: unspecified Qualified Code(s): R41.82 - Altered mental status, unspecified UTI (urinary tract infection) Qualifiers: Urinary tract infection type: acute cystitis Hematuria presence: without hematuria Qualified Code(s): N30.00 - Acute cystitis without hematuria Leukocytosis Qualifiers: Leukocytosis type: unspecified Qualified Code(s): D72.829 - Elevated white blood cell count, unspecified Condition: Stable Discharge Date/Time: 09/11/21 22:08
[2021-09-11 18:00] LABS: BASOPHILS # (AUTO) 0.1 10^3/uL (0.0-0.1); BASOPHILS % (AUTO) 0.5 %; EOSINOPHILS # (AUTO) 0.6 10^3/uL (0.0-0.7); EOSINOPHILS % (AUTO) 4.4 %; HCT - HEMATOCRIT 43.7 % (37.0-47.0); HGB - HEMOGLOBIN 13.5 g/dL (12.0-16.0); LYMPHOCYTES # (AUTO) 1.3 10^3/uL (1.5-3.5); LYMPHOCYTES % (AUTO) 9.5 %; MEAN CORPUSCULAR HEMOGLOBIN 28.5 pg (27.0-31.0); MEAN CORPUSCULAR HGB CONC 30.9 g/dL (32.0-36.0); MEAN CORPUSCULAR VOLUME 92.2 fL (81.0-99.0); MEAN PLATELET VOLUME 10.1 fL (7.9-10.8); MONOCYTES # (AUTO) 0.7 10^3/uL (0.0-1.0); MONOCYTES % (AUTO) 5.4 %; NEUTROPHILS # (AUTO) 10.8 10^3/uL (1.5-6.6); NEUTROPHILS % (AUTO) 79.8 %; PLT - PLATELET COUNT 343 10^3/uL (130-450); RED BLOOD COUNT 4.74 10^6/uL (4.20-5.40); RED CELL DISTRIBUTION WIDTH 16.4 % (12.0-15.0); WHITE BLOOD COUNT 13.5 x10^3/uL (4.8-10.8)
[2021-09-11 18:15] LABS: ALBUMIN 3.4 g/dL (3.2-5.5); BILIRUBIN,TOTAL 0.7 mg/dL (0.2-1.0); CALCIUM 8.6 mg/dL (8.5-10.3); CREATININE 0.5 mg/dL (0.4-1.0); POTASSIUM 4.2 mmol/L (3.5-5.0); TOTAL PROTEIN 6.9 g/dL (6.7-8.2)
--- NOTE | 2021-09-11 18:29 | CT Report ---
PROCEDURE: HEAD WO INDICATIONS: altered mental status TECHNIQUE: Noncontrast 4.5 mm thick angled axial sections acquired from the foramen magnum to the vertex. For r adiation dose reduction, the following was used: automated exposure control, adjustment of mA and/or kV according to patient size. COMPARISON: CT head 05/05/2020. FINDINGS: Image quality: Excellent. CSF spaces: Basal cisterns are patent. No extra-axial fluid collections.. Ventricles and sulci are enlarged, consistent with diffuse cerebral and cerebellar parenchymal volume loss. Brain: No midline shift. No acute intracranial hemorrhage or mass effect. Hypodensities in the subco rtical and periventricular white matter most commonly seen in setting of chronic microvascular ischem ic changes. No acute loss of jefferson-white matter differentiation is seen. Skull and face: Calvarium and visualized facial bones are intact, without suspicious lesions. Sinuses: Small air-fluid levels are seen in the sphenoid sinuses bilaterally. The remaining visualize d paranasal sinuses and the mastoid air cells are clear. IMPRESSION: 1.No acute intracranial abnormality. 2.Chronic microvascular ischemic changes and diffuse parenchymal volume loss. 3.Mild sphenoid sinus disease appears similar when compared to the exam from 05/05/2020. Reviewed by: Ti Tamayo MD on 09/11/2021 5:28 PM DON Approved by: Ti Tamayo MD on 09/11/2021 5:28 PM AKJAY Station ID: [id number]
[2021-09-11 19:01] LABS: BILIRUBIN,URINE NEGATIVE (NEGATIVE); GLUCOSE, URINE (UA) NEGATIVE (NEGATIVE); KETONES,URINE (UA) NEGATIVE (NEGATIVE); LEUKOCYTE ESTERASE, URINE MODERATE (NEGATIVE); NITRITE,URINE POSITIVE (NEGATIVE); OCCULT BLOOD,URINE SMALL (NEGATIVE); PROTEIN,URINE TRACE mg/dL (NEGATIVE); UROBILINOGEN,URINE 0.2 (NORMAL) E.U./dL (NORMAL)
[2021-09-11 19:02] LABS: CLARITY,URINE SL. CLOUDY (CLEAR)
[2021-09-11] MEDS ORDERED: cefTRIAXone 1 GM VIAL IVP STA (19:03)
[2021-09-11 19:07] LABS: BACTERIA,URINE Moderate /HPF (None Seen); SQUAMOUS EPITHELIAL CELL,UR RARE Squamous (<= Few); WBC,URINE >25 /HPF (0-5)
[2021-09-11] MEDS ORDERED: SODIUM CHLORIDE 0.9% 1,000 ML IV STA (19:42)
[2021-09-11] MEDS ORDERED: IOVERSOL 320 100 ML VIAL IVP ONE ×2 (20:07→21:00)
[2021-09-11] MEDS ORDERED: ACETAMINOPHEN 325 MG TABLET PO PRN (21:23)
[2021-09-11] MEDS ORDERED: ONDANSETRON 4 MG/2 ML VIAL IVP PRN (21:23)
[2021-09-11] MEDS ORDERED: SODIUM CHLORIDE FLUSH 0.9% 10 ML SYRINGE IVP PRN (21:23)
--- NOTE | 2021-09-11 21:34 | HISTORY & PHYSICAL EXAMINATION ---
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 She also has history of hypertension, breast cancer status post lumpectomy and radiation and morbid obesity. She lives with her who is her primary caregiver but also has 2 caregivers who come in to assist. History is provided by her who reported that the patient became unresponsive/noncommunicative last night. Normally she is able to speak without difficulty however since yesterday, despite being awake she would not speak. He denied any significant complaints 2 days prior. Work-up in the ED included a urine analysis which was indicative of a UTI. She also had a white blood cell count of 13.5. As a result of this findings she was presented for admission for further treatment. At bedside she appears to be comfortable and awake. However she is noncommunicative. She has a mild audible wheeze. History - Past Medical History Cardiovascular: reports: Hypertension, Deep vein thrombosis Respiratory: reports: Other Neuro: reports: Dementia, Peripheral neuropathy, Other Endocrine/Autoimmune: reports: None GI: reports: Chronic constipation FOOD CHECKER: reports: Breast cancer, Other : reports: Incontinence HEENT: reports: Chronic vision loss, Chronic sinusitis Psych: reports: Depression, Anxiety Musculoskeletal: reports: Chronic back pain, Other Derm: reports: Herpes zoster, Other MRSA Hx?: No - Past Surgical History General: reports: Cholecystectomy /FOOD CHECKER: reports: Other - Family & Social History Family History: Mother: , Father: Family History Comment/Other: The patient's reports that her mother had lung cancer. She was a smoker. Living Situation: With spouse/s.o. Social History Notes: The patient lives at home with her , Clarence. He states that she has remote smoking history in her 20s when she smoked for a few years. She does not drink alcohol. They have a private duty family that provide caregiving needs, Rod and Lila, 7 days/week for the last 4 years. - Substance History Use: Uses substance without health or social issues: NONE (Former smoker) - POLST Patient has POLST: Yes POLST Status: DNI (Ok for CPAP/BiPAP) Meds/Allgy - Home Medications Home Medications: Ambulatory Orders Medication Instructions Recorded Confirmed Cholecalciferol (Vitamin D3) 1 cap PO DAILY 01/31/20 05/05/20 [Vitamin D3] Cyanocobalamin (Vitamin B-12) 1,000 mcg PO DAILY 01/31/20 05/05/20 [Vitamin B-12] Gabapentin [Neurontin] 800 mg PO TID 01/31/20 05/05/20 Senna [Senokot] 8.6 mg PO QPM 01/31/20 05/05/20 polyethylene glycoL 3350 [Miralax] 17 g PO DAILY PRN 01/31/20 05/05/20 Medroxyprogesterone Acetate 10 mg PO DAILY 03/25/20 05/05/20 Amlodipine Besylate [Norvasc] 2.5 mg PO DAILY #30 tablet 05/07/20 Lisinopril [Zestril] 20 mg PO DAILY #30 tablet 05/07/20 guaiFENesin [Tussin] 200 mg PO BID PRN 09/26/20 09/26/20 - Allergies Allergies/Adverse Reactions: Allergies Allergy/AdvReac Type Severity Reaction Status Date / Time Milk Containing Products Allergy Unknown Verified 09/11/21 17:19 scopolamine Allergy Unknown Verified 09/11/21 17:19 aspirin AdvReac Nausea Verified 09/11/21 17:19 Review of Systems - Other Findings Other Findings: Review of system is limited because the patient is noncommunicative and unable to provide a reliable history. 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 She is bedbound. Her care is provided [id number] by her and 2 additional caregivers. Exam - Vital Signs Vital Signs: Vital Signs x48h Temp Pulse Resp BP Pulse Ox 09/11/21 17:58 57 L 18 97 09/11/21 17:18 37.2 C 58 L 24 218/94 H 97 - Physical Exam General Appearance: positive: No acute distress, Alert, Other (non- communicative) Eyes Bilateral: positive: PERRL, EOMI ENT: positive: No signs of dehydration Neck: positive: No JVD Respiratory: positive: Chest non-tender, No respiratory distress, Other (mild wheeze) Cardiovascular: positive: Regular rate & rhythm Abdomen: positive: Non-tender, No organomegaly, Nml bowel sounds, No distention. negative: Guarding, Rebound Back: positive: Nml inspection Skin: positive: Color nml, No rash, Warm, Dry Extremities: positive: Non-tender, Pedal edema (mild. non-pitting) Neurologic/Psychiatric: positive: Mood/affect nml, Other (pparalyzed from neck distally) Conclusion/Plan - Problem List (1) Urinary tract infection Conclusion/Plan: WBC was 13.5. Blood and urine cultures pending. Patient started on Rocephin 1 g IV daily. We will continue. Patient was given IV hydration in the ED. We will hold off on any further IV hy dration for now. Qualifiers: Urinary tract infection type: acute cystitis Hematuria presence: without hematuria Qualified Code(s): N30.00 - Acute cystitis without hematuria (2) Altered mental status Conclusion/Plan: Suspect secondary to infection. Anticipate improvement with treatment of UTI. CT brain without contrast was unremarkable for any acute intracranial process. This could also be due to uncontrolled high blood pressure. Patient systolic blood pressure was 218 in the ED Qualifiers: Altered mental status type: unspecified Qualified Code(s): R41.82 - Altered mental status, unspecified (3) Hypertension Conclusion/Plan: Blood pressure was reported as high as 218/94 Will resume patient's home medications of amlodipine 2.5 mg p.o. daily, lisinopril 20 mg p.o. daily. We will also order hydralazine 10 mg every 4 hours as needed for systolic greater than 160. (4) Neuropathy Conclusion/Plan: On gabapentin 800 mg p.o. 3 times daily - Lab Results Fish Bones: 09/11/21 17:54 09/11/21 17:54 Core Measures - Anticipated LOS I expect patient to be DC'd or transferred within 96 hours.: Yes - DVT/VTE - Prophylaxis VTE/DVT Prophylaxis med ordered at admit?: Yes
--- NOTE | 2021-09-11 21:36 | CT Report ---
PROCEDURE: Abdomen/Pelvis W INDICATIONS: UTI, altered CONTRAST: IV CONTRAST: Optiray 320 ml: 100 PO CONTRAST: *NO PO CONTRAST TECHNIQUE: After the administration of intravenous contrast, 5 mm thick sections acquired from the diaphragms to the symphysis. 5 mm thick coronal and sagittal reformats were acquired. For radiation dose reducti on, the following was used: automated exposure control, adjustment of mA and/or kV according to tye ent size. COMPARISON: CT abdomen pelvis 03/09/2020. FINDINGS: Image quality: There is mild motion artifact as well as beam hardening artifact from the patient's up per extremities limiting evaluation. ABDOMEN: Lung bases: There is bronchial wall thickening within the visualized lower lobes associated with qasim ear peribronchial opacities. Findings suggest sequelae of aspiration. There is biatrial enlargement o f the heart. Solid organs: Evaluation of the liver demonstrates no focal hepatic lesions. The gallbladder is surg ically absent. There is mild intra and extra hepatic biliary ductal dilatation redemonstrated likely representing sequelae of prior cholecystectomy. The spleen is normal in size. Pancreas enhances norm ally without peripancreatic fat stranding or fluid collections. No adrenal nodules. There is a larg e exophytic right renal cyst measuring up to 8.8 cm. There are 2 nonobstructing stones within the rig ht kidney, with the largest stone measuring up to 1.2 cm. This demonstrates attenuation values of rayshawn roximately 500-600 Hounsfield units. There is mild dilatation of a right extrarenal pelvis and the pr oximal right ureter with associated urothelial wall thickening and mild adjacent fat stranding. No di screte obstructing ureteral stone identified. The distal right ureter is nondistended. The left kidne y demonstrates no renal stones or hydronephrosis. The left ureter is nondistended. Peritoneum and bowel: Bowel loops demonstrate normal wall thickness and caliber. No evidence of rayshawn endicitis. There is mild stool distention in the rectosigmoid colon distally with associated mild col onic wall thickening suggestive of a mild stercoral proctocolitis. No free fluid or air. Nodes and vessels: No retroperitoneal or mesenteric adenopathy by size criteria. Aorta and inferior vena cava are normal in size. Miscellaneous: No ventral hernias. PELVIS: Genitourinary: The urinary bladder is nondistended with a Villafuerte catheter present. There is suggestion of bladder wall thickening. There is thickening of the endometrium with indistinct margins, measurin g up to approximately 3.0 cm. Findings are similar to the prior study. Miscellaneous: No inguinal hernias or adenopathy. Bones: No suspicious bony lesions. No vertebral body compression fractures. IMPRESSION: 1. Mild dilatation of a right extrarenal pelvis and proximal right ureter with associated wall thicke angi, enhancement, and adjacent mild fat stranding. The findings are suggestive of a urinary tract in fection. No discrete obstructing ureteral stone identified. 2. Nonobstructing right renal stones measuring up to 1.2 cm. 3. Mild stool distention in the rectosigmoid colon with associated mild wall thickening suggestive of a mild stercoral proctocolitis. 4. Thickening of the endometrium with indistinct margins redemonstrated. The findings are similar to the prior study but are again suspicious for possible endometrial mass versus endometrial hyperplasia . Reviewed by: Trey Crum MD on 09/11/2021 9:34 PM PDT Approved by: Trey Crum MD on 09/11/2021 9:34 PM PDT Station ID: [id number]
[2021-09-11 21:55] LABS: B. PARAPERTUSSIS- RESP PCR PAN NOT DETECTED; B. PERTUSSIS- RESP PCR PANEL NOT DETECTED; C. PNEUMONIAE- RESP PCR PANEL NOT DETECTED; CORONAVIRUS 229E-RESP PCR NOT DETECTED; CORONAVIRUS HKU1-RESP PCR NOT DETECTED; CORONAVIRUS NL63-RESP PCR NOT DETECTED; CORONAVIRUS OC43-RESP PCR NOT DETECTED; HUMAN METAPNEUMOVIRUS NOT DETECTED; INFLUENZA A- RESP PCR PANEL NOT DETECTED; INFLUENZA B - RESP PCR PANEL NOT DETECTED; M. PNEUMONIAE- RESP PCR PANEL NOT DETECTED; PARAINFLUENZA VIRUS 1 NOT DETECTED; PARAINFLUENZA VIRUS 2 NOT DETECTED; PARAINFLUENZA VIRUS 3 NOT DETECTED; PARAINFLUENZA VIRUS 4 NOT DETECTED; RHINOVIRUS/ENTEROVIRUS NOT DETECTED; RSV- RESP PCR PANEL NOT DETECTED; SARS-CoV-2 -RESP PCR PANEL NOT DETECTED
[2021-09-11] MEDS: GABAPENTIN 400 MG CAPSULE PO SCH (23:00)
[2021-09-12] MEDS: SODIUM CHLORIDE FLUSH 0.9% 10 ML SYRINGE IVP SCH ×4 (00:22→22:00)
[2021-09-12] MEDS: GABAPENTIN 400 MG CAPSULE PO SCH (05:37)
[2021-09-12 08:30] LABS: BASOPHILS # (AUTO) 0.1 10^3/uL (0.0-0.1); BASOPHILS % (AUTO) 0.4 %; EOSINOPHILS # (AUTO) 0.4 10^3/uL (0.0-0.7); EOSINOPHILS % (AUTO) 2.7 %; HCT - HEMATOCRIT 43.5 % (37.0-47.0); HGB - HEMOGLOBIN 13.5 g/dL (12.0-16.0); LYMPHOCYTES # (AUTO) 1.3 10^3/uL (1.5-3.5); LYMPHOCYTES % (AUTO) 9.8 %; MEAN CORPUSCULAR HEMOGLOBIN 28.4 pg (27.0-31.0); MEAN CORPUSCULAR VOLUME 91.6 fL (81.0-99.0); MEAN PLATELET VOLUME 9.9 fL (7.9-10.8); MONOCYTES # (AUTO) 0.9 10^3/uL (0.0-1.0); MONOCYTES % (AUTO) 6.4 %; NEUTROPHILS # (AUTO) 10.7 10^3/uL (1.5-6.6); NEUTROPHILS % (AUTO) 80.3 %; PLT - PLATELET COUNT 337 10^3/uL (130-450); RED BLOOD COUNT 4.75 10^6/uL (4.20-5.40); RED CELL DISTRIBUTION WIDTH 16.2 % (12.0-15.0); WHITE BLOOD COUNT 13.4 x10^3/uL (4.8-10.8)
[2021-09-12 08:39] LABS: CALCIUM 8.3 mg/dL (8.5-10.3); CREATININE 0.5 mg/dL (0.4-1.0); POTASSIUM 3.6 mmol/L (3.5-5.0)
[2021-09-12] MEDS: amLODIPine 5 MG TABLET PO SCH (09:19)
[2021-09-12] MEDS: lisinopriL 20 MG TABLET PO SCH (09:19)
[2021-09-12] MEDS: cefTRIAXone 1 GM in SODIUM CHLORIDE 0.9% MINIBAG 100 ML IV SCH (09:20)
[2021-09-12] MEDS: ENOXAPARIN 40 MG/0.4 ML SYRINGE SUBQ SCH (09:20)
--- NOTE | 2021-09-12 13:27 | PROVIDER PROGRESS NOTE ---
Assessment/Plan - Problem List (1) Altered mental status Qualifiers: Altered mental status type: unspecified Qualified Code(s): R41.82 - Altered mental status, unspecified Assessment/Plan: Patient's report 2 days ago patient can talk with him and her family member but today pt is aphasia, when feeding her, she ate it, but she did not respond commands. CT of head was Unremarkable for acute finding. Suspect secondary to UTI infection. pt was admitted just on last night. Anticipate improvement with treatment of UTI. (2)aphasia Patient is aphasia but she ate her breakfast and lunch after feeding to her. she was fed for over one and half year per her Hospital report. CT of the head was unremarkable for acute intracranial process. Suspect secondary to UTI infection. pt was admitted just on last night. (3) Urinary tract infection Conclusion/Plan: WBC was 13.5. pt has hx of elevated WBC. UA analysis reveal pyuria and infection. Blood and urine cultures is pending. Patient started on Rocephin 1 g IV daily. We will continue. (4) Hypertension stable, will resume home meds after confirmed (5) Neuropathy Conclusion/Plan: On gabapentin 800 mg p.o. 3 times daily - Current Meds Current Meds: Current Medications Generic Name Dose Route Start Last Admin Trade Name Freq PRN Reason Stop Dose Admin Amlodipine Besylate 2.5 mg 09/12/21 09:00 09/12/21 09:19 Amlodipine 5 Mg Tablet PO 2.5 mg DAILY TYLER Administration Enoxaparin Sodium 40 mg 09/12/21 09:00 09/12/21 09:20 Enoxaparin 40 Mg/0.4 Ml Syringe SUBQ 40 mg DAILY TYLER Administration Gabapentin 800 mg 09/11/21 22:00 09/12/21 05:37 Gabapentin 400 Mg Capsule PO 800 mg TID TYLER Administration Ceftriaxone Sodium 1 gm/ 100 mls @ 200 mls/hr 09/12/21 09:00 09/12/21 09:20 Sodium Chloride IV 200 mls/hr DAILY TYLER Administration Lisinopril 20 mg 09/12/21 09:00 09/12/21 09:19 Lisinopril 20 Mg Tablet PO 20 mg DAILY TYLER Administration Sodium Chloride 10 ml 09/12/21 01:00 09/12/21 09:20 Sodium Chloride Flush 0.9% 10 Ml Syringe IVP 10 ml 0100,0900,1700 [facility] Administration - Lab Result Fish Bone Diagrams: 09/12/21 08:24 09/12/21 08:24 - Additional Planning My Orders: My Active Orders 09/12/21 Lunch Dysphagia - Soft and Bite Sized [DIET] 09/13/21 05:00 BMP - BASIC METABOLIC PANEL [CHEM] DAILYLAB CBC - COMP BLD CT W/AUTO DIFF [HEME] DAILYLAB 09/14/21 05:00 BMP - BASIC METABOLIC PANEL [CHEM] DAILYLAB CBC - COMP BLD CT W/AUTO DIFF [HEME] DAILYLAB 09/15/21 05:00 BMP - BASIC METABOLIC PANEL [CHEM] DAILYLAB CBC - COMP BLD CT W/AUTO DIFF [HEME] DAILYLAB 09/16/21 05:00 BMP - BASIC METABOLIC PANEL [CHEM] DAILYLAB CBC - COMP BLD CT W/AUTO DIFF [HEME] DAILYLAB 09/17/21 05:00 BMP - BASIC METABOLIC PANEL [CHEM] DAILYLAB CBC - COMP BLD CT W/AUTO DIFF [HEME] DAILYLAB Subjective - Subjective Patient Reports: Other (aphasia) Objective Vital Signs: Vital Signs - 24 hr 09/11/21 09/11/21 09/11/21 17:18 17:58 21:00 Temperature 37.2 C Heart Rate 58 L 57 L 53 L Heart Rate [ Brachial] Respiratory 24 18 25 H Rate Blood Pressure 218/94 H 149/67 H Blood Pressure [Left Radial artery] O2 Saturation 97 97 09/11/21 09/12/21 09/12/21 22:25 05:35 08:30 Temperature 36.6 C 36.4 C L 37.1 C Heart Rate Heart Rate [ 60 58 L 64 Brachial] Respiratory 20 22 20 Rate Blood Pressure Blood Pressure 106/87 H 157/67 H 185/67 H [Left Radial artery] O2 Saturation 99 97 95 09/12/21 11:43 Temperature Heart Rate Heart Rate [ 56 L Brachial] Respiratory 22 Rate Blood Pressure Blood Pressure 149/53 H [Left Radial artery] O2 Saturation 95 Oxygen O2 Source [Without Activity] Room air O2 Source Room air I&O (Last 24 Hrs): Intake and Output Totals x24h 09/10/21 09/11/21 09/12/21 23:59 23:59 23:59 Intake Total 1000 1120 Output Total 1050 1000 Balance -50 120 General: No acute distress HEENT: Atraumatic Neck: Supple Lymphatic: no adenopathy Neuro: Alert Cardiovascular: Regular rate, Normal S1 Respiratory: Chest non-tender, No respiratory distress Abdomen: Normal bowel sounds, Soft Extremities: Normal pulses - Results Results: Laboratory Results WBC 13.4 x10^3/uL (4.8-10.8) H 09/12/21 08:24 RBC 4.75 10^6/uL (4.20-5.40) 09/12/21 08:24 Hgb 13.5 g/dL (12.0-16.0) 09/12/21 08:24 Hct 43.5 % (37.0-47.0) 09/12/21 08:24 MCV 91.6 fL (81.0-99.0) 09/12/21 08:24 MCH 28.4 pg (27.0-31.0) 09/12/21 08:24 MCHC 31.0 g/dL (32.0-36.0) L 09/12/21 08:24 RDW 16.2 % (12.0-15.0) H 09/12/21 08:24 Plt Count 337 10^3/uL (130-450) 09/12/21 08:24 MPV 9.9 fL (7.9-10.8) 09/12/21 08:24 Neut # (Auto) 10.7 10^3/uL (1.5-6.6) H 09/12/21 08:24 Lymph # (Auto) 1.3 10^3/uL (1.5-3.5) L 09/12/21 08:24 [place] # (Auto) 0.9 10^3/uL (0.0-1.0) 09/12/21 08:24 Eos # (Auto) 0.4 10^3/uL (0.0-0.7) 09/12/21 08:24 Baso # (Auto) 0.1 10^3/uL (0.0-0.1) 09/12/21 08:24 Absolute Nucleated RBC 0.00 x10^3/uL 09/12/21 08:24 Nucleated RBC % 0.0 /100WBC 09/12/21 08:24 Sodium 140 mmol/L (135-145) 09/12/21 08:24 Potassium 3.6 mmol/L (3.5-5.0) 09/12/21 08:24 Chloride 104 mmol/L (101-111) 09/12/21 08:24 Carbon Dioxide 23 mmol/L (21-32) 09/12/21 08:24 Anion Gap 13.0 (6-13) 09/12/21 08:24 BUN 8 mg/dL (6-20) 09/12/21 08:24 Creatinine 0.5 mg/dL (0.4-1.0) 09/12/21 08:24 Estimated GFR (MDRD) 117 (>89) 09/12/21 08:24 Glucose 118 mg/dL (70-100) H 09/12/21 08:24 Lactic Acid 1.2 mmol/L (0.5-2.2) 09/11/21 20:20 Calcium 8.3 mg/dL (8.5-10.3) L 09/12/21 08:24 Total Bilirubin 0.7 mg/dL (0.2-1.0) 09/11/21 17:54 AST 16 IU/L (10-42) 09/11/21 17:54 ALT 11 IU/L (10-60) 09/11/21 17:54 Alkaline Phosphatase 104 IU/L (42-121) 09/11/21 17:54 Total Protein 6.9 g/dL (6.7-8.2) 09/11/21 17:54 Albumin 3.4 g/dL (3.2-5.5) 09/11/21 17:54 Globulin 3.5 g/dL (2.1-4.2) 09/11/21 17:54 Albumin/Globulin Ratio 1.0 (1.0-2.2) 09/11/21 17:54 Lipase 28 U/L (22-51) 09/11/21 17:54 Urine Color YELLOW 09/11/21 18:57 Urine Clarity SL. CLOUDY (CLEAR) 09/11/21 18:57 Urine pH 6.0 PH (5.0-7.5) 09/11/21 18:57 Ur Specific [place] 1.020 (1.002-1.030) 09/11/21 18:57 Urine Protein TRACE mg/dL (NEGATIVE) 09/11/21 18:57 Urine Glucose (UA) NEGATIVE mg/dL (NEGATIVE) 09/11/21 18:57 Urine Ketones NEGATIVE mg/dL (NEGATIVE) 09/11/21 18:57 Urine Occult Blood SMALL (NEGATIVE) H 09/11/21 18:57 Urine Nitrite POSITIVE (NEGATIVE) H 09/11/21 18:57 Urine Bilirubin NEGATIVE (NEGATIVE) 09/11/21 18:57 Urine Urobilinogen 0.2 (NORMAL) E.U./dL (NORMAL) 09/11/21 18:57 Ur Leukocyte Esterase MODERATE (NEGATIVE) H 09/11/21 18:57 Urine RBC 11-25 /HPF (0-5) H 09/11/21 18:57 Urine WBC >25 /HPF (0-5) H 09/11/21 18:57 Ur Squamous Epith Cells RARE Squamous (<= Few) 09/11/21 18:57 Urine Bacteria Moderate /HPF (None Seen) H 09/11/21 18:57 Ur Microscopic Review INDICATED 09/11/21 18:57 Urine Culture Comments INDICATED 09/11/21 18:57 Nasal Adenovirus (PCR) NOT DETECTED 09/11/21 20:51 Nasal B. parapertussis DNA (PCR) NOT DETECTED 09/11/21 20:51 Nasal Coronavir 229E PCR NOT DETECTED 09/11/21 20:51 Nasal Coronavir HKU1 PCR NOT DETECTED 09/11/21 20:51 Nasal Coronavir NL63 PCR NOT DETECTED 09/11/21 20:51 Nasal Coronavir OC43 PCR NOT DETECTED 09/11/21 20:51 Nasal Enterovir/Rhinovir PCR NOT DETECTED 09/11/21 20:51 Nasal Influenza B PCR NOT DETECTED 09/11/21 20:51 Nasal Influenza A PCR NOT DETECTED 09/11/21 20:51 Nasal Parainfluen 1 PCR NOT DETECTED 09/11/21 20:51 Nasal Parainfluen 2 PCR NOT DETECTED 09/11/21 20:51 Nasal Parainfluen 3 PCR NOT DETECTED 09/11/21 20:51 Nasal Parainfluen 4 PCR NOT DETECTED 09/11/21 20:51 Nasal RSV (PCR) NOT DETECTED 09/11/21 20:51 Nasal B.pertussis DNA PCR NOT DETECTED 09/11/21 20:51 Nasal C.pneumoniae (PCR) NOT DETECTED 09/11/21 20:51 Deven Human Metapneumo PCR NOT DETECTED 09/11/21 20:51 Nasal M.pneumoniae (PCR) NOT DETECTED 09/11/21 20:51 Nasal SARS-CoV-2 (PCR) NOT DETECTED 09/11/21 20:51 ABX Reporting Has patient been on IV antibiotics over the past 48 hours?: Yes Current Medications - Current Medications Current Medications: Active Medications Acetaminophen (Acetaminophen 325 Mg Tablet) 650 mg PO Q4HR PRN PRN Reason: Pain 1 to 4 Amlodipine Besylate (Amlodipine 5 Mg Tablet) 2.5 mg PO DAILY [facility] Last Admin: 09/12/21 09:19 Dose: 2.5 mg Enoxaparin Sodium (Enoxaparin 40 Mg/0.4 Ml Syringe) 40 mg SUBQ DAILY [facility] Last Admin: 09/12/21 09:20 Dose: 40 mg Gabapentin (Gabapentin 400 Mg Capsule) 800 mg PO TID [facility] Last Admin: 09/12/21 05:37 Dose: 800 mg Hydralazine HCl (Hydralazine Inj 20 Mg/Ml Vial) 10 mg IVP Q4H PRN PRN Reason: PER PHYSICIAN ORDER Ceftriaxone Sodium 1 gm/ (Sodium Chloride) 100 mls @ 200 mls/hr IV DAILY [facility] Last Admin: 09/12/21 09:20 Dose: 200 mls/hr Lisinopril (Lisinopril 20 Mg Tablet) 20 mg PO DAILY [facility] Last Admin: 09/12/21 09:19 Dose: 20 mg Ondansetron HCl (Ondansetron 4 Mg/2 Ml Vial) 4 mg IVP Q6HR PRN PRN Reason: Nausea / Vomiting Sodium Chloride (Sodium Chloride Flush 0.9% 10 Ml Syringe) 10 ml IVP PRN PRN PRN Reason: NEEDED PER PROVIDER ORDERS Sodium Chloride (Sodium Chloride Flush 0.9% 10 Ml Syringe) 10 ml IVP 0100,0900,1700 [facility] Last Admin: 09/12/21 09:20 Dose: 10 ml Cholecalciferol (Vitamin D3) [Vitamin D3] 1 cap PO DAILY 01/31/20 Cyanocobalamin (Vitamin B-12) [Vitamin B-12] 1,000 mcg PO DAILY 01/31/20 Gabapentin [Neurontin] 800 mg PO TID 01/31/20 Senna [Senokot] 8.6 mg PO QPM 01/31/20 polyethylene glycoL 3350 [Miralax] 17 g PO DAILY PRN 01/31/20 Medroxyprogesterone Acetate 10 mg PO DAILY 03/25/20 guaiFENesin [Tussin] 200 mg PO BID PRN 09/26/20
[2021-09-12] MEDS: GABAPENTIN 300 MG CAPSULE PO SCH ×2 (14:29→22:00)
[2021-09-13 04:55] LABS: BASOPHILS # (AUTO) 0.1 10^3/uL (0.0-0.1); BASOPHILS % (AUTO) 0.5 %; EOSINOPHILS # (AUTO) 0.5 10^3/uL (0.0-0.7); EOSINOPHILS % (AUTO) 4.4 %; HCT - HEMATOCRIT 40.3 % (37.0-47.0); HGB - HEMOGLOBIN 12.4 g/dL (12.0-16.0); LYMPHOCYTES # (AUTO) 1.6 10^3/uL (1.5-3.5); LYMPHOCYTES % (AUTO) 13.7 %; MEAN CORPUSCULAR HEMOGLOBIN 28.2 pg (27.0-31.0); MEAN CORPUSCULAR HGB CONC 30.8 g/dL (32.0-36.0); MEAN CORPUSCULAR VOLUME 91.6 fL (81.0-99.0); MEAN PLATELET VOLUME 10.1 fL (7.9-10.8); MONOCYTES # (AUTO) 0.8 10^3/uL (0.0-1.0); MONOCYTES % (AUTO) 7.2 %; NEUTROPHILS # (AUTO) 8.6 10^3/uL (1.5-6.6); NEUTROPHILS % (AUTO) 73.9 %; PLT - PLATELET COUNT 320 10^3/uL (130-450); RED CELL DISTRIBUTION WIDTH 16.3 % (12.0-15.0); WHITE BLOOD COUNT 11.6 x10^3/uL (4.8-10.8)
[2021-09-13 05:03] LABS: CALCIUM 8.3 mg/dL (8.5-10.3); CREATININE 0.5 mg/dL (0.4-1.0); POTASSIUM 3.8 mmol/L (3.5-5.0)
[2021-09-13] MEDS: GABAPENTIN 300 MG CAPSULE PO SCH ×3 (06:12→21:20)
[2021-09-13] MEDS: ENOXAPARIN 40 MG/0.4 ML SYRINGE SUBQ SCH (08:14)
[2021-09-13] MEDS: SODIUM CHLORIDE FLUSH 0.9% 10 ML SYRINGE IVP SCH ×2 (08:14→16:21)
[2021-09-13] MEDS: cefTRIAXone 1 GM in SODIUM CHLORIDE 0.9% MINIBAG 100 ML IV SCH (08:15)
[2021-09-13] MEDS: amLODIPine 5 MG TABLET PO SCH (08:17)
[2021-09-13] MEDS: lisinopriL 20 MG TABLET PO SCH (08:17)
[2021-09-13] MEDS: ZINC OXIDE 20% OINT 30 GM TUBE TOP PRN ×2 (12:57→21:41)
[2021-09-13] MEDS: MIN OIL/DIMETHICON/COCONUT OIL 92 GM TUBE TOP PRN ×2 (12:57→21:41)
--- NOTE | 2021-09-13 14:40 | PHARMACY PROGRESS NOTE ---
- Best Possible Medication History Admit Date and Time: 09/12/21 1041 Processed by: Pharmacy Medication History completed: Yes Secondary Source(s): Physician records, Pharmacy records, Insurance records As the person ultimately responsible for medication therapy, providers are able to order a medication from an existing home medication list in [facility] via the "Reconcile Routine" prior to Confirmation of that medication by business support specialist. Such practice is discouraged except when the physician, in their clinical judgment, deems that a medical need exists for a medication without regard to previous use.
[2021-09-13 16:45] LABS: BACTERIAL VAGINOSIS DNA NEGATIVE (NEGATIVE); CANDIDA GROUP DNA NEGATIVE (NEGATIVE); CANDIDA KRUSEI DNA NEGATIVE (NEGATIVE); TRICHOMONAS VAGINALIS DNA NEGATIVE (NEGATIVE)
[2021-09-13 16:46] LABS: CANDIDA GLABRATA DNA NEGATIVE (NEGATIVE)
[2021-09-13 18:23] LABS: CHLAMYDIA TRACHOMATIS DNA NEGATIVE (NEGATIVE); NEISSERIA GONORRHOEAE DNA NEGATIVE (NEGATIVE); TRICHOMONAS VAGINALIS DNA NEGATIVE (NEGATIVE)
--- NOTE | 2021-09-13 22:41 | PROVIDER PROGRESS NOTE ---
Assessment/Plan - Problem List (1) Urinary tract infection Qualifiers: Urinary tract infection type: acute cystitis Hematuria presence: without hematuria Qualified Code(s): N30.00 - Acute cystitis without hematuria Assessment/Plan: Urine culture grew E. coli. Patient is on Rocephin. WBC 11.6 today. We will continue antibiotics and continue to monitor patient. Anticipate discharge in 1 to 2 days. (2) Altered mental status Qualifiers: Altered mental status type: unspecified Qualified Code(s): R41.82 - Altered mental status, unspecified Assessment/Plan: Though patient remains nonverbal she is more awake and alert. (3) Hypertension Assessment/Plan: On amlodipine and lisinopril. Hydralazine ordered as needed. (4) Neuropathy Assessment/Plan: On gabapentin 800 mg p.o. 3 times daily - Current Meds Current Meds: Current Medications Generic Name Dose Route Start Last Admin Trade Name Freq PRN Reason Stop Dose Admin Amlodipine Besylate 2.5 mg 09/12/21 09:00 09/13/21 08:17 Amlodipine 5 Mg Tablet PO 2.5 mg DAILY TYLER Administration Enoxaparin Sodium 40 mg 09/12/21 09:00 09/13/21 08:14 Enoxaparin 40 Mg/0.4 Ml Syringe SUBQ 40 mg DAILY TYLER Administration Gabapentin 300 mg 09/12/21 14:00 09/13/21 21:20 Gabapentin 300 Mg Capsule PO 300 mg TID TYLER Administration Ceftriaxone Sodium 1 gm/ 100 mls @ 200 mls/hr 09/12/21 09:00 09/13/21 08:50 Sodium Chloride IV Infused DAILY TYLER Infusion Lisinopril 20 mg 09/12/21 09:00 09/13/21 08:17 Lisinopril 20 Mg Tablet PO 20 mg DAILY TYLER Administration Mineral Oil 1 applic 09/13/21 10:22 09/13/21 21:41 Min Oil/Dimethicon/Coconut Oil 92 Gm Tube TOP 1 applic PRN PRN Administration Skin Care Multi-Ingredient Ointment 1 applic 09/13/21 10:22 09/13/21 21:41 Zinc Oxide 20% Oint 30 Gm Tube TOP 1 applic PRN PRN Administration Skin Care Sodium Chloride 10 ml 09/12/21 01:00 09/13/21 16:21 Sodium Chloride Flush 0.9% 10 Ml Syringe IVP 10 ml 0100,0900,1700 TYLER Administration - Lab Result Fish Bone Diagrams: 09/13/21 04:45 09/13/21 04:45 Subjective - Subjective Patient Reports: Other (Patient was resting comfortably in bed. She appears more alert and awake today but remains nonverbal) Objective Vital Signs: Vital Signs - 24 hr 09/12/21 09/13/21 09/13/21 23:39 00:34 04:45 Temperature 36.9 C 37.1 C Heart Rate [ 73 56 L 56 L Brachial] Respiratory 22 22 Rate Blood Pressure [Left Brachial artery] Blood Pressure 182/66 H 142/61 H 147/50 H [Left Radial artery] Blood Pressure [Right Brachial artery] O2 Saturation 100 94 09/13/21 09/13/21 09/13/21 07:54 10:05 11:57 Temperature 37 C 36.1 C L Heart Rate [ 61 63 58 L Brachial] Respiratory 21 20 Rate Blood Pressure 196/58 H 150/56 H [Left Brachial artery] Blood Pressure [Left Radial artery] Blood Pressure 199/57 H 159/55 H [Right Brachial artery] O2 Saturation 98 95 09/13/21 15:43 Temperature 36.7 C Heart Rate [ 57 L Brachial] Respiratory 20 Rate Blood Pressure [Left Brachial artery] Blood Pressure [Left Radial artery] Blood Pressure 141/49 H [Right Brachial artery] O2 Saturation 97 Oxygen O2 Source [Without Activity] Room air O2 Source Room air I&O (Last 24 Hrs): Intake and Output Totals x24h 09/11/21 09/12/21 09/13/21 23:59 23:59 23:59 Intake Total 1000 1420 1080 Output Total 1050 2900 2625 Balance -50 -1480 -1545 General: Alert, No acute distress HEENT: PERRLA, EOMI Neck: Supple, No JVD Neuro: Alert Cardiovascular: Regular rate, Normal S1, Normal S2, No murmurs Respiratory: Chest non-tender, No respiratory distress, Wheezes (mild) Abdomen: Normal bowel sounds, Soft, No tenderness Extremities: No clubbing, Other (mild non-pitting edema) Skin: No rashes, No breakdown - Results Results: Laboratory Results WBC 11.6 x10^3/uL (4.8-10.8) H 09/13/21 04:45 RBC 4.40 10^6/uL (4.20-5.40) 09/13/21 04:45 Hgb 12.4 g/dL (12.0-16.0) 09/13/21 04:45 Hct 40.3 % (37.0-47.0) 09/13/21 04:45 MCV 91.6 fL (81.0-99.0) 09/13/21 04:45 MCH 28.2 pg (27.0-31.0) 09/13/21 04:45 MCHC 30.8 g/dL (32.0-36.0) L 09/13/21 04:45 RDW 16.3 % (12.0-15.0) H 09/13/21 04:45 Plt Count 320 10^3/uL (130-450) 09/13/21 04:45 MPV 10.1 fL (7.9-10.8) 09/13/21 04:45 Neut # (Auto) 8.6 10^3/uL (1.5-6.6) H 09/13/21 04:45 Lymph # (Auto) 1.6 10^3/uL (1.5-3.5) 09/13/21 04:45 [place] # (Auto) 0.8 10^3/uL (0.0-1.0) 09/13/21 04:45 Eos # (Auto) 0.5 10^3/uL (0.0-0.7) 09/13/21 04:45 Baso # (Auto) 0.1 10^3/uL (0.0-0.1) 09/13/21 04:45 Absolute Nucleated RBC 0.00 x10^3/uL 09/13/21 04:45 Nucleated RBC % 0.0 /100WBC 09/13/21 04:45 Sodium 141 mmol/L (135-145) 09/13/21 04:45 Potassium 3.8 mmol/L (3.5-5.0) 09/13/21 04:45 Chloride 106 mmol/L (101-111) 09/13/21 04:45 Carbon Dioxide 25 mmol/L (21-32) 09/13/21 04:45 Anion Gap 10.0 (6-13) 09/13/21 04:45 BUN 6 mg/dL (6-20) 09/13/21 04:45 Creatinine 0.5 mg/dL (0.4-1.0) 09/13/21 04:45 Estimated GFR (MDRD) 117 (>89) 09/13/21 04:45 Glucose 107 mg/dL (70-100) H 09/13/21 04:45 Lactic Acid 1.2 mmol/L (0.5-2.2) 09/11/21 20:20 Calcium 8.3 mg/dL (8.5-10.3) L 09/13/21 04:45 Total Bilirubin 0.7 mg/dL (0.2-1.0) 09/11/21 17:54 AST 16 IU/L (10-42) 09/11/21 17:54 ALT 11 IU/L (10-60) 09/11/21 17:54 Alkaline Phosphatase 104 IU/L (42-121) 09/11/21 17:54 Total Protein 6.9 g/dL (6.7-8.2) 09/11/21 17:54 Albumin 3.4 g/dL (3.2-5.5) 09/11/21 17:54 Globulin 3.5 g/dL (2.1-4.2) 09/11/21 17:54 Albumin/Globulin Ratio 1.0 (1.0-2.2) 09/11/21 17:54 Lipase 28 U/L (22-51) 09/11/21 17:54 Urine Color YELLOW 09/11/21 18:57 Urine Clarity SL. CLOUDY (CLEAR) 09/11/21 18:57 Urine pH 6.0 PH (5.0-7.5) 09/11/21 18:57 Ur Specific [place] 1.020 (1.002-1.030) 09/11/21 18:57 Urine Protein TRACE mg/dL (NEGATIVE) 09/11/21 18:57 Urine Glucose (UA) NEGATIVE mg/dL (NEGATIVE) 09/11/21 18:57 Urine Ketones NEGATIVE mg/dL (NEGATIVE) 09/11/21 18:57 Urine Occult Blood SMALL (NEGATIVE) H 09/11/21 18:57 Urine Nitrite POSITIVE (NEGATIVE) H 09/11/21 18:57 Urine Bilirubin NEGATIVE (NEGATIVE) 09/11/21 18:57 Urine Urobilinogen 0.2 (NORMAL) E.U./dL (NORMAL) 09/11/21 18:57 Ur Leukocyte Esterase MODERATE (NEGATIVE) H 09/11/21 18:57 Urine RBC 11-25 /HPF (0-5) H 09/11/21 18:57 Urine WBC >25 /HPF (0-5) H 09/11/21 18:57 Ur Squamous Epith Cells RARE Squamous (<= Few) 09/11/21 18:57 Urine Bacteria Moderate /HPF (None Seen) H 09/11/21 18:57 Ur Microscopic Review INDICATED 09/11/21 18:57 Urine Culture Comments INDICATED 09/11/21 18:57 Nasal Adenovirus (PCR) NOT DETECTED 09/11/21 20:51 Nasal B. parapertussis DNA (PCR) NOT DETECTED 09/11/21 20:51 Nasal Coronavir 229E PCR NOT DETECTED 09/11/21 20:51 Nasal Coronavir HKU1 PCR NOT DETECTED 09/11/21 20:51 Nasal Coronavir NL63 PCR NOT DETECTED 09/11/21 20:51 Nasal Coronavir OC43 PCR NOT DETECTED 09/11/21 20:51 Nasal Enterovir/Rhinovir PCR NOT DETECTED 09/11/21 20:51 Nasal Influenza B PCR NOT DETECTED 09/11/21 20:51 Nasal Influenza A PCR NOT DETECTED 09/11/21 20:51 Nasal Parainfluen 1 PCR NOT DETECTED 09/11/21 20:51 Nasal Parainfluen 2 PCR NOT DETECTED 09/11/21 20:51 Nasal Parainfluen 3 PCR NOT DETECTED 09/11/21 20:51 Nasal Parainfluen 4 PCR NOT DETECTED 09/11/21 20:51 Nasal RSV (PCR) NOT DETECTED 09/11/21 20:51 Nasal B.pertussis DNA PCR NOT DETECTED 09/11/21 20:51 Nasal C.pneumoniae (PCR) NOT DETECTED 09/11/21 20:51 Deven Human Metapneumo PCR NOT DETECTED 09/11/21 20:51 Nasal M.pneumoniae (PCR) NOT DETECTED 09/11/21 20:51 Nasal SARS-CoV-2 (PCR) NOT DETECTED 09/11/21 20:51 C. glabrata (PCR) NEGATIVE (NEGATIVE) 09/13/21 13:00 C. krusei (PCR) NEGATIVE (NEGATIVE) 09/13/21 13:00 Melia species DNA NEGATIVE (NEGATIVE) 09/13/21 13:00 Chlam trachomat DNA PCR NEGATIVE (NEGATIVE) 09/13/21 13:00 N.gonorrhoeae DNA (PCR) NEGATIVE (NEGATIVE) 09/13/21 13:00 T. vaginalis (PCR) NEGATIVE (NEGATIVE) 09/13/21 13:00 T. vaginalis (PCR) NEGATIVE (NEGATIVE) 09/13/21 13:00 Bact Vaginosis (PCR) NEGATIVE (NEGATIVE) 09/13/21 13:00 ABX Reporting Has patient been on IV antibiotics over the past 48 hours?: Yes
[2021-09-14] MEDS: SODIUM CHLORIDE FLUSH 0.9% 10 ML SYRINGE IVP SCH ×3 (01:08→16:20)
[2021-09-14 05:25] LABS: BASOPHILS # (AUTO) 0.1 10^3/uL (0.0-0.1); BASOPHILS % (AUTO) 0.5 %; EOSINOPHILS # (AUTO) 0.8 10^3/uL (0.0-0.7); EOSINOPHILS % (AUTO) 6.7 %; HCT - HEMATOCRIT 40.2 % (37.0-47.0); HGB - HEMOGLOBIN 12.4 g/dL (12.0-16.0); LYMPHOCYTES # (AUTO) 1.5 10^3/uL (1.5-3.5); LYMPHOCYTES % (AUTO) 13.1 %; MEAN CORPUSCULAR HEMOGLOBIN 28.1 pg (27.0-31.0); MEAN CORPUSCULAR HGB CONC 30.8 g/dL (32.0-36.0); MEAN CORPUSCULAR VOLUME 91.2 fL (81.0-99.0); MEAN PLATELET VOLUME 10.6 fL (7.9-10.8); MONOCYTES # (AUTO) 0.9 10^3/uL (0.0-1.0); MONOCYTES % (AUTO) 7.8 %; NEUTROPHILS # (AUTO) 8.1 10^3/uL (1.5-6.6); NEUTROPHILS % (AUTO) 71.6 %; PLT - PLATELET COUNT 325 10^3/uL (130-450); RED BLOOD COUNT 4.41 10^6/uL (4.20-5.40); RED CELL DISTRIBUTION WIDTH 16.1 % (12.0-15.0); WHITE BLOOD COUNT 11.3 x10^3/uL (4.8-10.8)
[2021-09-14 05:29] LABS: CALCIUM 8.3 mg/dL (8.5-10.3); CREATININE 0.5 mg/dL (0.4-1.0)
[2021-09-14] MEDS: GABAPENTIN 300 MG CAPSULE PO SCH ×3 (05:31→21:34)
[2021-09-14] MEDS: amLODIPine 5 MG TABLET PO SCH (08:31)
[2021-09-14] MEDS: lisinopriL 20 MG TABLET PO SCH (08:31)
[2021-09-14] MEDS: ENOXAPARIN 40 MG/0.4 ML SYRINGE SUBQ SCH (08:32)
[2021-09-14] MEDS: cefTRIAXone 1 GM in SODIUM CHLORIDE 0.9% MINIBAG 100 ML IV SCH (08:32)
[2021-09-14] MEDS: ZINC OXIDE 20% OINT 30 GM TUBE TOP PRN ×2 (10:36→16:20)
[2021-09-14] MEDS: MIN OIL/DIMETHICON/COCONUT OIL 92 GM TUBE TOP PRN (10:36)
[2021-09-14] MEDS ORDERED: polyethylene glycoL 3350 17 GM PACKET PO PRN (10:49)
[2021-09-14] MEDS: NYSTATIN POWDER 15 GM TOP SCH ×2 (14:02→21:34)
--- NOTE | 2021-09-14 16:29 | PROVIDER PROGRESS NOTE ---
Assessment/Plan - Problem List (1) Altered mental status Qualifiers: Altered mental status type: unspecified Qualified Code(s): R41.82 - Altered mental status, unspecified Assessment/Plan: Since being admitted, she has only been able to swallow ( feeds her with a spoon or cup). She only opens her eyes intermittently and only when fed. This is not her usual neuro status, per the . He described to me today that she is usually alert, eyes open when eating, watches TV part of the day, speaks, and they have interactions. Head CT was negative for any acute event. We were suspecting that a UTI was the cause of her altered mental status and she has been getting IV antibiotics since admission. We will continue to treat the infection. We are following electrolytes to assure she is not acidotic. She has had no fevers or hypothermia. Will consider doing an MRI of the brain tomorrow (today is the weekend and they are now here). The wants everything done, wants to "give her all her chances to awaken more" and wants to take her home. He has 2 caregivers that help him, gets help 7 days a week, and does a lot of her care himself. We will also request and consult her established Palliative Care provider, Lilliam Cordoba NP to see her and help with going forward in making decisions regarding her medical care and potentially transitioning to hospice care. 2) Aphasia As per the description and findings on exam 3) E coli UTI The Ecoli is restrepo sensitive. Also awaitred are vaginal culture, which was done when RN noted brown vaginal discharge 4) HTN Stable on her BP meds. 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 Perhaps this AMS is just progression of her neuro deficit. - Current Meds Current Meds: Current Medications Generic Name Dose Route Start Last Admin Trade Name Freq PRN Reason Stop Dose Admin Amlodipine Besylate 2.5 mg 09/12/21 09:00 09/14/21 08:31 Amlodipine 5 Mg Tablet PO 2.5 mg DAILY TYLER Administration Enoxaparin Sodium 40 mg 09/12/21 09:00 09/14/21 08:32 Enoxaparin 40 Mg/0.4 Ml Syringe SUBQ 40 mg DAILY TYLER Administration Gabapentin 300 mg 09/12/21 14:00 09/14/21 14:01 Gabapentin 300 Mg Capsule PO 300 mg TID TYLER Administration Ceftriaxone Sodium 1 gm/ 100 mls @ 200 mls/hr 09/12/21 09:00 09/14/21 09:10 Sodium Chloride IV Infused DAILY TYLER Infusion Lisinopril 20 mg 09/12/21 09:00 09/14/21 08:31 Lisinopril 20 Mg Tablet PO 20 mg DAILY TYLER Administration Mineral Oil 1 applic 09/13/21 10:22 09/14/21 10:36 Min Oil/Dimethicon/Coconut Oil 92 Gm Tube TOP 1 applic PRN PRN Administration Skin Care Multi-Ingredient Ointment 1 applic 09/13/21 10:22 09/14/21 16:20 Zinc Oxide 20% Oint 30 Gm Tube TOP 1 applic PRN PRN Administration Skin Care Nystatin 1 applic 09/14/21 11:00 09/14/21 14:02 Nystatin Powder 15 Gm TOP 1 applic BID TYLER Administration Sodium Chloride 10 ml 09/12/21 01:00 09/14/21 16:20 Sodium Chloride Flush 0.9% 10 Ml Syringe IVP 10 ml 0100,0900,1700 TYLER Administration - Lab Result Fish Bone Diagrams: 09/15/21 04:14 09/15/21 04:14 - Additional Planning My Orders: My Active Orders 09/14/21 Palliative Care Consult [CONS] Routine 09/14/21 10:49 polyethylene glycoL 3350 [Miralax] 17 gm PO DAILY PRN 09/14/21 11:00 Nystatin [Nystop] 1 applic TOP BID 09/15/21 09:00 Cholecalciferol [Vitamin D3] 25 mcg PO DAILY Cyanocobalamin [Vitamin B-12] 1,000 mcg PO DAILY Subjective - Subjective Patient Reports: Other (She does not answer to her name, is asleep) Nursing Reports: Other ( reports that she opens her mouth and swallows when he feeds her here, with a spoon or a cup. She opens her eyes intermittently when eating. She then closes her eyes and sleeps all day. This is not like her usual, as she would be awake part of the day, watching TV at home and speaks to him) Objective Vital Signs: Vital Signs - 24 hr 09/14/21 09/14/21 09/14/21 00:05 07:42 16:01 Temperature 37.1 C 36.1 C L 37.6 C Heart Rate [ 58 L 51 L 73 Brachial] Respiratory 20 16 19 Rate Blood Pressure 165/55 H [Left Radial artery] Blood Pressure 165/55 H 158/65 H [Right Brachial artery] O2 Saturation 96 99 95 Oxygen O2 Source [Without Activity] Room air O2 Source Room air I&O (Last 24 Hrs): Intake and Output Totals x24h 09/12/21 09/13/21 09/14/21 23:59 23:59 23:59 Intake Total 1420 1080 990 Output Total 2900 2625 1750 Balance -2670 -3163 -536 General: Other (Asleep) HEENT: Atraumatic, Mucous membr. moist/pink Neck: No JVD Neuro: Other (Asleep, and no response to sounds or to her name, paralyzed from neck down) Cardiovascular: Regular rate Respiratory: No respiratory distress Abdomen: Other (Obese) Extremities: No edema - Results Results: Laboratory Results WBC 11.3 x10^3/uL (4.8-10.8) H 09/14/21 04:33 RBC 4.41 10^6/uL (4.20-5.40) 09/14/21 04:33 Hgb 12.4 g/dL (12.0-16.0) 09/14/21 04:33 Hct 40.2 % (37.0-47.0) 09/14/21 04:33 MCV 91.2 fL (81.0-99.0) 09/14/21 04:33 MCH 28.1 pg (27.0-31.0) 09/14/21 04:33 MCHC 30.8 g/dL (32.0-36.0) L 09/14/21 04:33 RDW 16.1 % (12.0-15.0) H 09/14/21 04:33 Plt Count 325 10^3/uL (130-450) 09/14/21 04:33 MPV 10.6 fL (7.9-10.8) 09/14/21 04:33 Neut # (Auto) 8.1 10^3/uL (1.5-6.6) H 09/14/21 04:33 Lymph # (Auto) 1.5 10^3/uL (1.5-3.5) 09/14/21 04:33 [place]ran # (Auto) 0.9 10^3/uL (0.0-1.0) 09/14/21 04:33 Eos # (Auto) 0.8 10^3/uL (0.0-0.7) H 09/14/21 04:33 Baso # (Auto) 0.1 10^3/uL (0.0-0.1) 09/14/21 04:33 Absolute Nucleated RBC 0.00 x10^3/uL 09/14/21 04:33 Nucleated RBC % 0.0 /100WBC 09/14/21 04:33 Sodium 142 mmol/L (135-145) 09/14/21 04:33 Potassium 4.0 mmol/L (3.5-5.0) 09/14/21 04:33 Chloride 107 mmol/L (101-111) 09/14/21 04:33 Carbon Dioxide 26 mmol/L (21-32) 09/14/21 04:33 Anion Gap 9.0 (6-13) 09/14/21 04:33 BUN 7 mg/dL (6-20) 09/14/21 04:33 Creatinine 0.5 mg/dL (0.4-1.0) 09/14/21 04:33 Estimated GFR (MDRD) 117 (>89) 09/14/21 04:33 Glucose 98 mg/dL (70-100) 09/14/21 04:33 Lactic Acid 1.2 mmol/L (0.5-2.2) 09/11/21 20:20 Calcium 8.3 mg/dL (8.5-10.3) L 09/14/21 04:33 Total Bilirubin 0.7 mg/dL (0.2-1.0) 09/11/21 17:54 AST 16 IU/L (10-42) 09/11/21 17:54 ALT 11 IU/L (10-60) 09/11/21 17:54 Alkaline Phosphatase 104 IU/L (42-121) 09/11/21 17:54 Total Protein 6.9 g/dL (6.7-8.2) 09/11/21 17:54 Albumin 3.4 g/dL (3.2-5.5) 09/11/21 17:54 Globulin 3.5 g/dL (2.1-4.2) 09/11/21 17:54 Albumin/Globulin Ratio 1.0 (1.0-2.2) 09/11/21 17:54 Lipase 28 U/L (22-51) 09/11/21 17:54 Urine Color YELLOW 09/11/21 18:57 Urine Clarity SL. CLOUDY (CLEAR) 09/11/21 18:57 Urine pH 6.0 PH (5.0-7.5) 09/11/21 18:57 Ur Specific [place] 1.020 (1.002-1.030) 09/11/21 18:57 Urine Protein TRACE mg/dL (NEGATIVE) 09/11/21 18:57 Urine Glucose (UA) NEGATIVE mg/dL (NEGATIVE) 09/11/21 18:57 Urine Ketones NEGATIVE mg/dL (NEGATIVE) 09/11/21 18:57 Urine Occult Blood SMALL (NEGATIVE) H 09/11/21 18:57 Urine Nitrite POSITIVE (NEGATIVE) H 09/11/21 18:57 Urine Bilirubin NEGATIVE (NEGATIVE) 09/11/21 18:57 Urine Urobilinogen 0.2 (NORMAL) E.U./dL (NORMAL) 09/11/21 18:57 Ur Leukocyte Esterase MODERATE (NEGATIVE) H 09/11/21 18:57 Urine RBC 11-25 /HPF (0-5) H 09/11/21 18:57 Urine WBC >25 /HPF (0-5) H 09/11/21 18:57 Ur Squamous Epith Cells RARE Squamous (<= Few) 09/11/21 18:57 Urine Bacteria Moderate /HPF (None Seen) H 09/11/21 18:57 Ur Microscopic Review INDICATED 09/11/21 18:57 Urine Culture Comments INDICATED 09/11/21 18:57 Nasal Adenovirus (PCR) NOT DETECTED 09/11/21 20:51 Nasal B. parapertussis DNA (PCR) NOT DETECTED 09/11/21 20:51 Nasal Coronavir 229E PCR NOT DETECTED 09/11/21 20:51 Nasal Coronavir HKU1 PCR NOT DETECTED 09/11/21 20:51 Nasal Coronavir NL63 PCR NOT DETECTED 09/11/21 20:51 Nasal Coronavir OC43 PCR NOT DETECTED 09/11/21 20:51 Nasal Enterovir/Rhinovir PCR NOT DETECTED 09/11/21 20:51 Nasal Influenza B PCR NOT DETECTED 09/11/21 20:51 Nasal Influenza A PCR NOT DETECTED 09/11/21 20:51 Nasal Parainfluen 1 PCR NOT DETECTED 09/11/21 20:51 Nasal Parainfluen 2 PCR NOT DETECTED 09/11/21 20:51 Nasal Parainfluen 3 PCR NOT DETECTED 09/11/21 20:51 Nasal Parainfluen 4 PCR NOT DETECTED 09/11/21 20:51 Nasal RSV (PCR) NOT DETECTED 09/11/21 20:51 Nasal B.pertussis DNA PCR NOT DETECTED 09/11/21 20:51 Nasal C.pneumoniae (PCR) NOT DETECTED 09/11/21 20:51 Deven Human Metapneumo PCR NOT DETECTED 09/11/21 20:51 Nasal M.pneumoniae (PCR) NOT DETECTED 09/11/21 20:51 Nasal SARS-CoV-2 (PCR) NOT DETECTED 09/11/21 20:51 C. glabrata (PCR) NEGATIVE (NEGATIVE) 09/13/21 13:00 C. krusei (PCR) NEGATIVE (NEGATIVE) 09/13/21 13:00 Melia species DNA NEGATIVE (NEGATIVE) 09/13/21 13:00 Chlam trachomat DNA PCR NEGATIVE (NEGATIVE) 09/13/21 13:00 N.gonorrhoeae DNA (PCR) NEGATIVE (NEGATIVE) 09/13/21 13:00 T. vaginalis (PCR) NEGATIVE (NEGATIVE) 09/13/21 13:00 T. vaginalis (PCR) NEGATIVE (NEGATIVE) 09/13/21 13:00 Bact Vaginosis (PCR) NEGATIVE (NEGATIVE) 09/13/21 13:00
[2021-09-15] MEDS: hydrALAZINE INJ 20 MG/ML VIAL IVP PRN ×2 (00:57→13:12)
[2021-09-15] MEDS: SODIUM CHLORIDE FLUSH 0.9% 10 ML SYRINGE IVP SCH ×3 (00:58→16:27)
[2021-09-15] MEDS: ZINC OXIDE 20% OINT 30 GM TUBE TOP PRN ×4 (00:58→21:46)
[2021-09-15 05:42] LABS: BASOPHILS # (AUTO) 0.1 10^3/uL (0.0-0.1); BASOPHILS % (AUTO) 0.6 %; EOSINOPHILS # (AUTO) 0.5 10^3/uL (0.0-0.7); HCT - HEMATOCRIT 40.7 % (37.0-47.0); HGB - HEMOGLOBIN 12.7 g/dL (12.0-16.0); LYMPHOCYTES # (AUTO) 1.6 10^3/uL (1.5-3.5); LYMPHOCYTES % (AUTO) 13.6 %; MEAN CORPUSCULAR HEMOGLOBIN 28.7 pg (27.0-31.0); MEAN CORPUSCULAR HGB CONC 31.2 g/dL (32.0-36.0); MEAN CORPUSCULAR VOLUME 92.1 fL (81.0-99.0); MEAN PLATELET VOLUME 10.5 fL (7.9-10.8); MONOCYTES # (AUTO) 0.9 10^3/uL (0.0-1.0); MONOCYTES % (AUTO) 7.4 %; NEUTROPHILS # (AUTO) 8.7 10^3/uL (1.5-6.6); PLT - PLATELET COUNT 321 10^3/uL (130-450); RED BLOOD COUNT 4.42 10^6/uL (4.20-5.40); RED CELL DISTRIBUTION WIDTH 16.1 % (12.0-15.0); WHITE BLOOD COUNT 11.7 x10^3/uL (4.8-10.8)
[2021-09-15 05:54] LABS: CALCIUM 8.6 mg/dL (8.5-10.3); CREATININE 0.5 mg/dL (0.4-1.0); POTASSIUM 3.8 mmol/L (3.5-5.0)
[2021-09-15] MEDS: GABAPENTIN 300 MG CAPSULE PO SCH ×3 (06:39→21:47)
[2021-09-15] MEDS: CYANOCOBALAMIN 500 MCG TABLET PO SCH (08:50)
[2021-09-15] MEDS: amLODIPine 5 MG TABLET PO SCH (08:50)
[2021-09-15] MEDS: CHOLECALCIFEROL 25 MCG TABLET PO SCH (08:50)
[2021-09-15] MEDS: lisinopriL 20 MG TABLET PO SCH (08:50)
[2021-09-15] MEDS: cefTRIAXone 1 GM in SODIUM CHLORIDE 0.9% MINIBAG 100 ML IV SCH (08:50)
[2021-09-15] MEDS: ENOXAPARIN 40 MG/0.4 ML SYRINGE SUBQ SCH (08:51)
--- NOTE | 2021-09-15 09:20 | PROVIDER PROGRESS NOTE ---
Assessment/Plan - Problem List (1) Altered mental status Qualifiers: Altered mental status type: unspecified Qualified Code(s): R41.82 - Altered mental status, unspecified Assessment/Plan: Since being admitted, she has only been able to swallow ( feeds her with a spoon or cup). She only opens her eyes intermittently and only when fed. This is not her usual neuro status, per the . He described to me that she is usually alert, eyes open when eating, watches TV part of the day, speaks, and they have interactions. Head CT was negative for any acute event. She remains somnolent, but is able to eat and drink as she has always done when her feeds her. She is not awake as much as she was at home, is not speaking at all or following commands or keeping her eyes open as much as at home. We were hopeful that treating her UTI would help return her mental status recover, back to its usual. She has now finished 4 days of IV antibiotics for the UTI. We are following electrolytes to assure she is not acidotic. She has had no fevers or hypothermia. Will consider doing an MRI of the brain today The wants everything done, wants to "give her all her chances to awaken more" and wants to take her home. He has 2 caregivers that help him, gets help 7 days a week, and does a lot of her care himself. Palliative care has been following her as an outpatient. A consult has been placed for palliative care to do a consult while she is here, since they know her usual mental status and will also help with the make decisions going forward with her care vs comfort care or Hospice. (2) E coli UTI The urine culture grew E. coli, which is pansensitive. E coli also grew from the vaginal culture She has received 4 days of IV ceftriaxone IV. We will change to oral p.o. Augmentin, 3 more days, to complete a 7-day course. (3) Aphasia As per the description and findings on exam. See discussion in #1 (4) Polyneuropathy She has an undiagnosed ascending neuropathy, unchanged for 5 years, per the . Perhaps this AMS is just progression of her neuro deficit. (5) Post-menopausal bleeding The asked her RN today why she is not getting her MedroxyProgesterone. Pharmacy confirmed she is getting it for post-menopausal bleeding, as directed by ObGyn Dr Chanel. Will resume this today as she has been off it since admission. That would explain why nurses saw red-brown vaginal discharge. It was sent for culture and E coli also grew in the vaginal culture (6) HTN Stable on her BP meds. - Current Meds Current Meds: Current Medications Generic Name Dose Route Start Last Admin Trade Name Freq PRN Reason Stop Dose Admin Amlodipine Besylate 2.5 mg 09/12/21 09:00 09/15/21 08:50 Amlodipine 5 Mg Tablet PO 2.5 mg DAILY TYLER Administration Cholecalciferol 25 mcg 09/15/21 09:00 09/15/21 08:50 Cholecalciferol 25 Mcg Tablet PO 25 mcg DAILY TYLER Administration Cyanocobalamin 1,000 mcg 09/15/21 09:00 09/15/21 08:50 Cyanocobalamin 500 Mcg Tablet PO 1,000 mcg DAILY TYLER Administration Enoxaparin Sodium 40 mg 09/12/21 09:00 09/15/21 08:51 Enoxaparin 40 Mg/0.4 Ml Syringe SUBQ 40 mg DAILY TYLER Administration Gabapentin 300 mg 09/12/21 14:00 09/15/21 06:39 Gabapentin 300 Mg Capsule PO 300 mg TID TYLER Administration Hydralazine HCl 10 mg 09/11/21 21:58 09/15/21 00:57 Hydralazine Inj 20 Mg/Ml Vial IVP 10 mg Q4H PRN Administration PER PHYSICIAN ORDER Lisinopril 20 mg 09/12/21 09:00 09/15/21 08:50 Lisinopril 20 Mg Tablet PO 20 mg DAILY TYLER Administration Mineral Oil 1 applic 09/13/21 10:22 09/14/21 10:36 Min Oil/Dimethicon/Coconut Oil 92 Gm Tube TOP 1 applic PRN PRN Administration Skin Care Multi-Ingredient Ointment 1 applic 09/13/21 10:22 09/15/21 00:58 Zinc Oxide 20% Oint 30 Gm Tube TOP 1 applic PRN PRN Administration Skin Care Nystatin 1 applic 09/14/21 11:00 09/14/21 21:34 Nystatin Powder 15 Gm TOP 1 applic BID TYLER Administration Sodium Chloride 10 ml 09/12/21 01:00 09/15/21 08:51 Sodium Chloride Flush 0.9% 10 Ml Syringe IVP 10 ml 0100,0900,1700 TYLER Administration - Lab Result Fish Bone Diagrams: 09/15/21 04:14 09/15/21 04:14 - Additional Planning My Orders: My Active Orders 09/14/21 10:49 polyethylene glycoL 3350 [Miralax] 17 gm PO DAILY PRN 09/14/21 11:00 Nystatin [Nystop] 1 applic TOP BID 09/15/21 09:00 Cholecalciferol [Vitamin D3] 25 mcg PO DAILY Cyanocobalamin [Vitamin B-12] 1,000 mcg PO DAILY 09/16/21 09:00 Amox/Clav 875/125 [Augmentin 875/125 Tab] 1 tab PO BID Subjective - Subjective Patient Reports: Other (Asleep, swallows when fed by ) Objective Vital Signs: Vital Signs - 24 hr 09/14/21 09/15/21 09/15/21 16:01 00:36 01:02 Temperature 37.6 C 37.2 C Heart Rate [ 73 61 54 L Brachial] Respiratory 19 20 Rate Blood Pressure Blood Pressure 165/55 H 215/79 H [Left Radial artery] Blood Pressure 148/50 H [Right Brachial artery] Blood Pressure [Right Radial artery] O2 Saturation 95 97 09/15/21 09/15/21 09/15/21 01:05 01:10 01:15 Temperature Heart Rate [ 64 59 L 59 L Brachial] Respiratory Rate Blood Pressure Blood Pressure [Left Radial artery] Blood Pressure [Right Brachial artery] Blood Pressure 153/50 H 146/48 H 153/45 H [Right Radial artery] O2 Saturation 09/15/21 09/15/21 09/15/21 01:30 01:45 02:00 Temperature Heart Rate [ 61 62 60 Brachial] Respiratory Rate Blood Pressure 161/48 H Blood Pressure [Left Radial artery] Blood Pressure [Right Brachial artery] Blood Pressure 161/48 H 157/43 H 163/51 H [Right Radial artery] O2 Saturation 09/15/21 08:49 Temperature 36.9 C Heart Rate [ 68 Brachial] Respiratory Rate Blood Pressure Blood Pressure [Left Radial artery] Blood Pressure [Right Brachial artery] Blood Pressure 157/98 H [Right Radial artery] O2 Saturation 98 Oxygen O2 Source [Without Activity] Room air O2 Source Room air I&O (Last 24 Hrs): Intake and Output Totals x24h 09/13/21 09/14/21 09/15/21 23:59 23:59 23:59 Intake Total 1080 1260 200 Output Total 2625 2150 1275 [facility] -120 [phone] General: Other (Asleep, opens eyes spontaneously, no response to voice or touch) HEENT: Mucous membr. moist/pink Neck: Supple (Obese, cannot eval JVP) Neuro: Other (Paralyzed from neck down, obtunded, snoring, opens eyes and swallows when spoon at lips, otherwise does not follow commands or move below neck) Cardiovascular: No murmurs Respiratory: No respiratory distress Abdomen: Soft (Obese with pannus) Extremities: Other (1+ edema) - Results Results: Laboratory Results WBC 11.7 x10^3/uL (4.8-10.8) H 09/15/21 04:14 RBC 4.42 10^6/uL (4.20-5.40) 09/15/21 04:14 Hgb 12.7 g/dL (12.0-16.0) 09/15/21 04:14 Hct 40.7 % (37.0-47.0) 09/15/21 04:14 MCV 92.1 fL (81.0-99.0) 09/15/21 04:14 MCH 28.7 pg (27.0-31.0) 09/15/21 04:14 MCHC 31.2 g/dL (32.0-36.0) L 09/15/21 04:14 RDW 16.1 % (12.0-15.0) H 09/15/21 04:14 Plt Count 321 10^3/uL (130-450) 09/15/21 04:14 MPV 10.5 fL (7.9-10.8) 09/15/21 04:14 Neut # (Auto) 8.7 10^3/uL (1.5-6.6) H 09/15/21 04:14 Lymph # (Auto) 1.6 10^3/uL (1.5-3.5) 09/15/21 04:14 [place] # (Auto) 0.9 10^3/uL (0.0-1.0) 09/15/21 04:14 Eos # (Auto) 0.5 10^3/uL (0.0-0.7) 09/15/21 04:14 Baso # (Auto) 0.1 10^3/uL (0.0-0.1) 09/15/21 04:14 Absolute Nucleated RBC 0.00 x10^3/uL 09/15/21 04:14 Nucleated RBC % 0.0 /100WBC 09/15/21 04:14 Sodium 144 mmol/L (135-145) 09/15/21 04:14 Potassium 3.8 mmol/L (3.5-5.0) 09/15/21 04:14 Chloride 108 mmol/L (101-111) 09/15/21 04:14 Carbon Dioxide 26 mmol/L (21-32) 09/15/21 04:14 Anion Gap 10.0 (6-13) 09/15/21 04:14 BUN 7 mg/dL (6-20) 09/15/21 04:14 Creatinine 0.5 mg/dL (0.4-1.0) 09/15/21 04:14 Estimated GFR (MDRD) 117 (>89) 09/15/21 04:14 Glucose 102 mg/dL (70-100) H 09/15/21 04:14 Lactic Acid 1.2 mmol/L (0.5-2.2) 09/11/21 20:20 Calcium 8.6 mg/dL (8.5-10.3) 09/15/21 04:14 Total Bilirubin 0.7 mg/dL (0.2-1.0) 09/11/21 17:54 AST 16 IU/L (10-42) 09/11/21 17:54 ALT 11 IU/L (10-60) 09/11/21 17:54 Alkaline Phosphatase 104 IU/L (42-121) 09/11/21 17:54 Total Protein 6.9 g/dL (6.7-8.2) 09/11/21 17:54 Albumin 3.4 g/dL (3.2-5.5) 09/11/21 17:54 Globulin 3.5 g/dL (2.1-4.2) 09/11/21 17:54 Albumin/Globulin Ratio 1.0 (1.0-2.2) 09/11/21 17:54 Lipase 28 U/L (22-51) 09/11/21 17:54 Urine Color YELLOW 09/11/21 18:57 Urine Clarity SL. CLOUDY (CLEAR) 09/11/21 18:57 Urine pH 6.0 PH (5.0-7.5) 09/11/21 18:57 Ur Specific [place] 1.020 (1.002-1.030) 09/11/21 18:57 Urine Protein TRACE mg/dL (NEGATIVE) 09/11/21 18:57 Urine Glucose (UA) NEGATIVE mg/dL (NEGATIVE) 09/11/21 18:57 Urine Ketones NEGATIVE mg/dL (NEGATIVE) 09/11/21 18:57 Urine Occult Blood SMALL (NEGATIVE) H 09/11/21 18:57 Urine Nitrite POSITIVE (NEGATIVE) H 09/11/21 18:57 Urine Bilirubin NEGATIVE (NEGATIVE) 09/11/21 18:57 Urine Urobilinogen 0.2 (NORMAL) E.U./dL (NORMAL) 09/11/21 18:57 Ur Leukocyte Esterase MODERATE (NEGATIVE) H 09/11/21 18:57 Urine RBC 11-25 /HPF (0-5) H 09/11/21 18:57 Urine WBC >25 /HPF (0-5) H 09/11/21 18:57 Ur Squamous Epith Cells RARE Squamous (<= Few) 09/11/21 18:57 Urine Bacteria Moderate /HPF (None Seen) H 09/11/21 18:57 Ur Microscopic Review INDICATED 09/11/21 18:57 Urine Culture Comments INDICATED 09/11/21 18:57 Nasal Adenovirus (PCR) NOT DETECTED 09/11/21 20:51 Nasal B. parapertussis DNA (PCR) NOT DETECTED 09/11/21 20:51 Nasal Coronavir 229E PCR NOT DETECTED 09/11/21 20:51 Nasal Coronavir HKU1 PCR NOT DETECTED 09/11/21 20:51 Nasal Coronavir NL63 PCR NOT DETECTED 09/11/21 20:51 Nasal Coronavir OC43 PCR NOT DETECTED 09/11/21 20:51 Nasal Enterovir/Rhinovir PCR NOT DETECTED 09/11/21 20:51 Nasal Influenza B PCR NOT DETECTED 09/11/21 20:51 Nasal Influenza A PCR NOT DETECTED 09/11/21 20:51 Nasal Parainfluen 1 PCR NOT DETECTED 09/11/21 20:51 Nasal Parainfluen 2 PCR NOT DETECTED 09/11/21 20:51 Nasal Parainfluen 3 PCR NOT DETECTED 09/11/21 20:51 Nasal Parainfluen 4 PCR NOT DETECTED 09/11/21 20:51 Nasal RSV (PCR) NOT DETECTED 09/11/21 20:51 Nasal B.pertussis DNA PCR NOT DETECTED 09/11/21 20:51 Nasal C.pneumoniae (PCR) NOT DETECTED 09/11/21 20:51 Deven Human Metapneumo PCR NOT DETECTED 09/11/21 20:51 Nasal M.pneumoniae (PCR) NOT DETECTED 09/11/21 20:51 Nasal SARS-CoV-2 (PCR) NOT DETECTED 09/11/21 20:51 C. glabrata (PCR) NEGATIVE (NEGATIVE) 09/13/21 13:00 C. krusei (PCR) NEGATIVE (NEGATIVE) 09/13/21 13:00 Melia species DNA NEGATIVE (NEGATIVE) 09/13/21 13:00 Chlam trachomat DNA PCR NEGATIVE (NEGATIVE) 09/13/21 13:00 N.gonorrhoeae DNA (PCR) NEGATIVE (NEGATIVE) 09/13/21 13:00 T. vaginalis (PCR) NEGATIVE (NEGATIVE) 09/13/21 13:00 T. vaginalis (PCR) NEGATIVE (NEGATIVE) 09/13/21 13:00 Bact Vaginosis (PCR) NEGATIVE (NEGATIVE) 09/13/21 13:00
[2021-09-15] MEDS: NYSTATIN POWDER 15 GM TOP SCH ×2 (12:43→21:46)
[2021-09-15] MEDS: MIN OIL/DIMETHICON/COCONUT OIL 92 GM TUBE TOP PRN (13:13)
[2021-09-16] MEDS: SODIUM CHLORIDE FLUSH 0.9% 10 ML SYRINGE IVP SCH ×3 (01:19→21:32)
[2021-09-16] MEDS: GABAPENTIN 300 MG CAPSULE PO SCH ×3 (05:17→21:31)
[2021-09-16 05:39] LABS: BASOPHILS # (AUTO) 0.1 10^3/uL (0.0-0.1); BASOPHILS % (AUTO) 0.4 %; EOSINOPHILS # (AUTO) 0.6 10^3/uL (0.0-0.7); EOSINOPHILS % (AUTO) 5.1 %; HCT - HEMATOCRIT 40.2 % (37.0-47.0); HGB - HEMOGLOBIN 12.4 g/dL (12.0-16.0); LYMPHOCYTES % (AUTO) 16.4 %; MEAN CORPUSCULAR HEMOGLOBIN 28.1 pg (27.0-31.0); MEAN CORPUSCULAR HGB CONC 30.8 g/dL (32.0-36.0); MEAN CORPUSCULAR VOLUME 91.2 fL (81.0-99.0); MEAN PLATELET VOLUME 10.5 fL (7.9-10.8); MONOCYTES % (AUTO) 7.9 %; NEUTROPHILS # (AUTO) 8.4 10^3/uL (1.5-6.6); NEUTROPHILS % (AUTO) 69.8 %; PLT - PLATELET COUNT 354 10^3/uL (130-450); RED BLOOD COUNT 4.41 10^6/uL (4.20-5.40); RED CELL DISTRIBUTION WIDTH 16.5 % (12.0-15.0); WHITE BLOOD COUNT 12.1 x10^3/uL (4.8-10.8)
[2021-09-16 05:45] LABS: CALCIUM 8.5 mg/dL (8.5-10.3); CREATININE 0.5 mg/dL (0.4-1.0); POTASSIUM 3.9 mmol/L (3.5-5.0)
[2021-09-16] MEDS: CHOLECALCIFEROL 25 MCG TABLET PO SCH (08:46)
[2021-09-16] MEDS: AMOX/CLAV 875 MG/125 MG TABLET PO SCH ×2 (08:46→21:32)
[2021-09-16] MEDS: amLODIPine 5 MG TABLET PO SCH (08:47)
[2021-09-16] MEDS: ENOXAPARIN 40 MG/0.4 ML SYRINGE SUBQ SCH (08:48)
[2021-09-16] MEDS: lisinopriL 20 MG TABLET PO SCH (08:48)
[2021-09-16] MEDS: CYANOCOBALAMIN 500 MCG TABLET PO SCH (08:58)
[2021-09-16] MEDS: SACCHAROMYCES BOULARDII 250 MG CAPSULE PO SCH ×2 (10:12→17:16)
--- NOTE | 2021-09-16 10:57 | XRAY Report ---
PROCEDURE: Chest 1 View X-Ray INDICATIONS: cough, SOB TECHNIQUE: One view of the chest was acquired. COMPARISON: 05/02/2020 FINDINGS: Surgical changes and devices: None. Lungs and pleura: No pleural effusions or pneumothorax. Lungs are clear. Mediastinum: Mediastinal contours appear normal. Heart size is normal. Bones and chest wall: No suspicious bony lesions. Overlying soft tissues appear unremarkable. IMPRESSION: No acute process. Reviewed by: Anay Mackey MD on 09/16/2021 10:56 AM PDT Approved by: Anay Mackey MD on 09/16/2021 10:56 AM PDT Station ID: [id number]
[2021-09-16] MEDS: NYSTATIN POWDER 15 GM TOP SCH ×2 (13:13→21:32)
--- NOTE | 2021-09-16 16:28 | PROVIDER PROGRESS NOTE ---
Assessment/Plan - Problem List (1) Altered mental status Qualifiers: Altered mental status type: unspecified Qualified Code(s): R41.82 - Altered mental status, unspecified Assessment/Plan: pt smile at morning when I assessed pt but pt remains somnolent in the most time of day, she is able to eat and drink when her feeds her. per pt's hus band report She is not awake as much as she was at home, is not speaking at all or following commands or keeping her eyes open as much as at home. pt does not CT of head was unremarkable for acute process. At this point, The wants everything done but he agreed to discuss the further care plan with her family and agree let palliative care see pt. Pt was previous followup with palliative care provider. Thank Palliative care provider see and care of pt today. we will order MRI of brain on today, continue neur check (2) E coli UTI will continue antibiotics, add probiotics. The urine culture grew E. coli, which is pansensitive. 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 pt may followup with PCP (5) Post-menopausal bleeding HGB is stable. we will continue her home MedroxyProgesterone. (6) HTN Stable on her BP meds. - Current Meds Current Meds: Current Medications Generic Name Dose Route Start Last Admin Trade Name Bill PRN Reason Stop Dose Admin Amlodipine Besylate 2.5 mg 09/12/21 09:00 09/16/21 08:47 Amlodipine 5 Mg Tablet PO 2.5 mg DAILY TYLER Administration Amoxicillin/Clavulanate Potassium 1 tab 09/16/21 09:00 09/16/21 08:46 Amox/Clav 875 Mg/125 Mg Tablet PO 09/19/21 00:01 1 tab BID TYLER Administration Cholecalciferol 25 mcg 09/15/21 09:00 09/16/21 08:46 Cholecalciferol 25 Mcg Tablet PO 25 mcg DAILY TYLER Administration Cyanocobalamin 1,000 mcg 09/15/21 09:00 09/16/21 08:58 Cyanocobalamin 500 Mcg Tablet PO 1,000 mcg DAILY TYLER Administration Enoxaparin Sodium 40 mg 09/12/21 09:00 09/16/21 08:48 Enoxaparin 40 Mg/0.4 Ml Syringe SUBQ 40 mg DAILY TYLER Administration Gabapentin 300 mg 09/12/21 14:00 09/16/21 13:56 Gabapentin 300 Mg Capsule PO 300 mg TID YTLER Administration Hydralazine HCl 10 mg 09/11/21 21:58 09/15/21 13:12 Hydralazine Inj 20 Mg/Ml Vial IVP 10 mg Q4H PRN Administration PER PHYSICIAN ORDER Lisinopril 20 mg 09/12/21 09:00 09/16/21 08:48 Lisinopril 20 Mg Tablet PO 20 mg DAILY TYLER Administration Medroxyprogesterone Acetate 10 mg 09/15/21 11:30 09/16/21 10:13 Medroxyprogesterone 2.5 Mg Tablet PO 10 mg DAILY TYLER Administration Mineral Oil 1 applic 09/13/21 10:22 09/15/21 13:13 Min Oil/Dimethicon/Coconut Oil 92 Gm Tube TOP 1 applic PRN PRN Administration Skin Care Multi-Ingredient Ointment 1 applic 09/13/21 10:22 09/15/21 21:46 Zinc Oxide 20% Oint 30 Gm Tube TOP 1 applic PRN PRN Administration Skin Care Nystatin 1 applic 09/14/21 11:00 09/16/21 13:13 Nystatin Powder 15 Gm TOP 1 applic BID TYLER Administration Saccharomyces Boulardii 250 mg 09/16/21 08:13 09/16/21 10:12 Saccharomyces Boulardii 250 Mg Capsule PO 250 mg BIDWM TYLER Administration Sodium Chloride 10 ml 09/11/21 21:23 09/15/21 13:12 Sodium Chloride Flush 0.9% 10 Ml Syringe IVP 10 ml PRN PRN Administration NEEDED PER PROVIDER ORDERS Sodium Chloride 10 ml 09/12/21 01:00 09/16/21 13:13 Sodium Chloride Flush 0.9% 10 Ml Syringe IVP 10 ml 0100,0900,1700 TYLER Administration - Lab Result Fish Bone Diagrams: 09/16/21 04:09 09/16/21 04:09 - Additional Planning My Orders: My Active Orders 09/16/21 08:13 Saccharomyces Boulardii [Florastor] 250 mg PO BIDWM 09/16/21 10:32 BRAIN WO [MRI] Stat 09/17/21 05:00 BMP - BASIC METABOLIC PANEL [CHEM] DAILYLAB CBC - COMP BLD CT W/AUTO DIFF [HEME] DAILYLAB Subjective - Subjective Patient Reports: Resting Comfortably Objective Vital Signs: Vital Signs - 24 hr 09/16/21 09/16/21 09/16/21 00:00 08:00 15:34 Temperature 36.8 C 37.0 C Heart Rate [ 71 64 60 Brachial] Respiratory 18 18 18 Rate Blood Pressure 131/85 H 195/58 H [Left Radial artery] Blood Pressure [Right Brachial artery] Blood Pressure 152/68 H [Right Radial artery] O2 Saturation 96 98 98 09/16/21 15:46 Temperature Heart Rate [ 60 Brachial] Respiratory 18 Rate Blood Pressure [Left Radial artery] Blood Pressure 152/68 H [Right Brachial artery] Blood Pressure [Right Radial artery] O2 Saturation 98 Oxygen O2 Source [Without Activity] Room air O2 Source Room air I&O (Last 24 Hrs): Intake and Output Totals x24h 09/14/21 09/15/21 09/16/21 23:59 23:59 23:59 Intake Total 1260 1010 240 Output Total 2150 3025 1200 [facility] -890 -2014 -960 General: Alert, No acute distress HEENT: Atraumatic Neck: Supple Lymphatic: no adenopathy Neuro: Alert, Non Focal Cardiovascular: Regular rate, Normal S1, Normal S2 Respiratory: Chest non-tender, No respiratory distress Abdomen: Normal bowel sounds, Soft Extremities: Normal pulses - Results Results: Laboratory Results WBC 12.1 x10^3/uL (4.8-10.8) H 09/16/21 04:09 RBC 4.41 10^6/uL (4.20-5.40) 09/16/21 04:09 Hgb 12.4 g/dL (12.0-16.0) 09/16/21 04:09 Hct 40.2 % (37.0-47.0) 09/16/21 04:09 MCV 91.2 fL (81.0-99.0) 09/16/21 04:09 MCH 28.1 pg (27.0-31.0) 09/16/21 04:09 MCHC 30.8 g/dL (32.0-36.0) L 09/16/21 04:09 RDW 16.5 % (12.0-15.0) H 09/16/21 04:09 Plt Count 354 10^3/uL (130-450) 09/16/21 04:09 MPV 10.5 fL (7.9-10.8) 09/16/21 04:09 Neut # (Auto) 8.4 10^3/uL (1.5-6.6) H 09/16/21 04:09 Lymph # (Auto) 2.0 10^3/uL (1.5-3.5) 09/16/21 04:09 [place] # (Auto) 1.0 10^3/uL (0.0-1.0) 09/16/21 04:09 Eos # (Auto) 0.6 10^3/uL (0.0-0.7) 09/16/21 04:09 Baso # (Auto) 0.1 10^3/uL (0.0-0.1) 09/16/21 04:09 Absolute Nucleated RBC 0.00 x10^3/uL 09/16/21 04:09 Nucleated RBC % 0.0 /100WBC 09/16/21 04:09 Sodium 141 mmol/L (135-145) 09/16/21 04:09 Potassium 3.9 mmol/L (3.5-5.0) 09/16/21 04:09 Chloride 106 mmol/L (101-111) 09/16/21 04:09 Carbon Dioxide 25 mmol/L (21-32) 09/16/21 04:09 Anion Gap 10.0 (6-13) 09/16/21 04:09 BUN 9 mg/dL (6-20) 09/16/21 04:09 Creatinine 0.5 mg/dL (0.4-1.0) 09/16/21 04:09 Estimated GFR (MDRD) 117 (>89) 09/16/21 04:09 Glucose 100 mg/dL (70-100) 09/16/21 04:09 Lactic Acid 1.2 mmol/L (0.5-2.2) 09/11/21 20:20 Calcium 8.5 mg/dL (8.5-10.3) 09/16/21 04:09 Total Bilirubin 0.7 mg/dL (0.2-1.0) 09/11/21 17:54 AST 16 IU/L (10-42) 09/11/21 17:54 ALT 11 IU/L (10-60) 09/11/21 17:54 Alkaline Phosphatase 104 IU/L (42-121) 09/11/21 17:54 Total Protein 6.9 g/dL (6.7-8.2) 09/11/21 17:54 Albumin 3.4 g/dL (3.2-5.5) 09/11/21 17:54 Globulin 3.5 g/dL (2.1-4.2) 09/11/21 17:54 Albumin/Globulin Ratio 1.0 (1.0-2.2) 09/11/21 17:54 Lipase 28 U/L (22-51) 09/11/21 17:54 Urine Color YELLOW 09/11/21 18:57 Urine Clarity SL. CLOUDY (CLEAR) 09/11/21 18:57 Urine pH 6.0 PH (5.0-7.5) 09/11/21 18:57 Ur Specific [place] 1.020 (1.002-1.030) 09/11/21 18:57 Urine Protein TRACE mg/dL (NEGATIVE) 09/11/21 18:57 Urine Glucose (UA) NEGATIVE mg/dL (NEGATIVE) 09/11/21 18:57 Urine Ketones NEGATIVE mg/dL (NEGATIVE) 09/11/21 18:57 Urine Occult Blood SMALL (NEGATIVE) H 09/11/21 18:57 Urine Nitrite POSITIVE (NEGATIVE) H 09/11/21 18:57 Urine Bilirubin NEGATIVE (NEGATIVE) 09/11/21 18:57 Urine Urobilinogen 0.2 (NORMAL) E.U./dL (NORMAL) 09/11/21 18:57 Ur Leukocyte Esterase MODERATE (NEGATIVE) H 09/11/21 18:57 Urine RBC 11-25 /HPF (0-5) H 09/11/21 18:57 Urine WBC >25 /HPF (0-5) H 09/11/21 18:57 Ur Squamous Epith Cells RARE Squamous (<= Few) 09/11/21 18:57 Urine Bacteria Moderate /HPF (None Seen) H 09/11/21 18:57 Ur Microscopic Review INDICATED 09/11/21 18:57 Urine Culture Comments INDICATED 09/11/21 18:57 Nasal Adenovirus (PCR) NOT DETECTED 09/11/21 20:51 Nasal B. parapertussis DNA (PCR) NOT DETECTED 09/11/21 20:51 Nasal Coronavir 229E PCR NOT DETECTED 09/11/21 20:51 Nasal Coronavir HKU1 PCR NOT DETECTED 09/11/21 20:51 Nasal Coronavir NL63 PCR NOT DETECTED 09/11/21 20:51 Nasal Coronavir OC43 PCR NOT DETECTED 09/11/21 20:51 Nasal Enterovir/Rhinovir PCR NOT DETECTED 09/11/21 20:51 Nasal Influenza B PCR NOT DETECTED 09/11/21 20:51 Nasal Influenza A PCR NOT DETECTED 09/11/21 20:51 Nasal Parainfluen 1 PCR NOT DETECTED 09/11/21 20:51 Nasal Parainfluen 2 PCR NOT DETECTED 09/11/21 20:51 Nasal Parainfluen 3 PCR NOT DETECTED 09/11/21 20:51 Nasal Parainfluen 4 PCR NOT DETECTED 09/11/21 20:51 Nasal RSV (PCR) NOT DETECTED 09/11/21 20:51 Nasal B.pertussis DNA PCR NOT DETECTED 09/11/21 20:51 Nasal C.pneumoniae (PCR) NOT DETECTED 09/11/21 20:51 [place] Human Metapneumo PCR NOT DETECTED 09/11/21 20:51 Nasal M.pneumoniae (PCR) NOT DETECTED 09/11/21 20:51 Nasal SARS-CoV-2 (PCR) NOT DETECTED 09/11/21 20:51 C. glabrata (PCR) NEGATIVE (NEGATIVE) 09/13/21 13:00 C. krusei (PCR) NEGATIVE (NEGATIVE) 09/13/21 13:00 Melia species DNA NEGATIVE (NEGATIVE) 09/13/21 13:00 Chlam trachomat DNA PCR NEGATIVE (NEGATIVE) 09/13/21 13:00 N.gonorrhoeae DNA (PCR) NEGATIVE (NEGATIVE) 09/13/21 13:00 T. vaginalis (PCR) NEGATIVE (NEGATIVE) 09/13/21 13:00 T. vaginalis (PCR) NEGATIVE (NEGATIVE) 09/13/21 13:00 Bact Vaginosis (PCR) NEGATIVE (NEGATIVE) 09/13/21 13:00 ABX Reporting Has patient been on IV antibiotics over the past 48 hours?: Yes Current Medications - Current Medications Current Medications: Active Medications Acetaminophen (Acetaminophen 325 Mg Tablet) 650 mg PO Q4HR PRN PRN Reason: Pain 1 to 4 Amlodipine Besylate (Amlodipine 5 Mg Tablet) 2.5 mg PO DAILY [facility] Last Admin: 09/16/21 08:47 Dose: 2.5 mg Amoxicillin/Clavulanate Potassium (Amox/Clav 875 Mg/125 Mg Tablet) 1 tab PO BID [facility] Stop: 09/19/21 00:01 Last Admin: 09/16/21 08:46 Dose: 1 tab Cholecalciferol (Cholecalciferol 25 Mcg Tablet) 25 mcg PO DAILY [facility] Last Admin: 09/16/21 08:46 Dose: 25 mcg Cyanocobalamin (Cyanocobalamin 500 Mcg Tablet) 1,000 mcg PO DAILY [facility] Last Admin: 09/16/21 08:58 Dose: 1,000 mcg Enoxaparin Sodium (Enoxaparin 40 Mg/0.4 Ml Syringe) 40 mg SUBQ DAILY [facility] Last Admin: 09/16/21 08:48 Dose: 40 mg Gabapentin (Gabapentin 300 Mg Capsule) 300 mg PO TID [facility] Last Admin: 09/16/21 13:56 Dose: 300 mg Hydralazine HCl (Hydralazine Inj 20 Mg/Ml Vial) 10 mg IVP Q4H PRN PRN Reason: PER PHYSICIAN ORDER Last Admin: 09/15/21 13:12 Dose: 10 mg Lisinopril (Lisinopril 20 Mg Tablet) 20 mg PO DAILY [facility] Last Admin: 09/16/21 08:48 Dose: 20 mg Medroxyprogesterone Acetate (Medroxyprogesterone 2.5 Mg Tablet) 10 mg PO DAILY [facility] Last Admin: 09/16/21 10:13 Dose: 10 mg Mineral Oil (Min Oil/Dimethicon/Coconut Oil 92 Gm Tube) 1 applic TOP PRN PRN PRN Reason: Skin Care Last Admin: 09/15/21 13:13 Dose: 1 applic Multi-Ingredient Ointment (Zinc Oxide 20% Oint 30 Gm Tube) 1 applic TOP PRN PRN PRN Reason: Skin Care Last Admin: 09/15/21 21:46 Dose: 1 applic Nystatin (Nystatin Powder 15 Gm) 1 applic TOP BID [facility] Last Admin: 09/16/21 13:13 Dose: 1 applic Ondansetron HCl (Ondansetron 4 Mg/2 Ml Vial) 4 mg IVP Q6HR PRN PRN Reason: Nausea / Vomiting Polyethylene Glycol (Polyethylene Glycol 3350 17 Gm Packet) 17 gm PO DAILY PRN PRN Reason: Constipation Saccharomyces Boulardii (Saccharomyces Boulardii 250 Mg Capsule) 250 mg PO BIDWM [facility] Last Admin: 09/16/21 10:12 Dose: 250 mg Sodium Chloride (Sodium Chloride Flush 0.9% 10 Ml Syringe) 10 ml IVP PRN PRN PRN Reason: NEEDED PER PROVIDER ORDERS Last Admin: 09/15/21 13:12 Dose: 10 ml Sodium Chloride (Sodium Chloride Flush 0.9% 10 Ml Syringe) 10 ml IVP 0100,0900,1700 [facility] Last Admin: 09/16/21 13:13 Dose: 10 ml Cholecalciferol (Vitamin D3) [Vitamin D3] 1 cap PO DAILY 01/31/20 Cyanocobalamin (Vitamin B-12) [Vitamin B-12] 1,000 mcg PO DAILY 01/31/20 Gabapentin [Neurontin] 800 mg PO TID 01/31/20 polyethylene glycoL 3350 [Miralax] 17 g PO DAILY PRN 01/31/20 Medroxyprogesterone Acetate 10 mg PO DAILY 03/25/20 Nystatin Cream [Mycostatin Cream] 1 applic TOP BID 09/13/21
--- NOTE | 2021-09-16 16:30 | CONSULTATION NOTE ---
Palliative Care Follow Up - Referral Referring Provider: Dr. Meghan Brown Time of Visit: [id number] Referral setting: Hospitalized patient Referral Reason: Alerted Mental Status/ACP - Information Sources Records reviewed: Previous records reviewed History/Review of Systems obtained from: Family (spouse/DPOA George), Other (Hospitalist TIMOTEO Harrell) Exam limitations: Clinical condition (Nonverbal) - History of Present Illness Update Past Medical History: Patient has a past medical history that includes hypertension, peripheral neuropathy, with bedbound status for the last 4 years, breast cancer with left breast infiltrating ductal carcinoma status post lumpectomy with radiation in 2009 and recurrent disease in 2010, incontinence, depression, chronic back pain, herpes zoster, hypertensive encephalopathy 2019, postmenopausal bleeding 2019. +COVID vaccine Social History - Living Situation Living arrangement: At home Living Situation: With spouse/s.o. Support System: Patient lives in a one-story home with her , George of 62 years. They have 3 children, 2 girls and 1 boy. They have a private duty family that provides caregiving needs, Shayna and Lila who attend the patient and her 7 days/week and have been present for the last 5 years. Daughter, Karen, works in a medical office and is requesting physicians she works with for additional information and input on additional medical causes for the patient's present alerted mental state. Medications/Allergies - Medications Active Medication List: Active Medications Acetaminophen (Acetaminophen 325 Mg Tablet) 650 mg PO Q4HR PRN PRN Reason: Pain 1 to 4 Amlodipine Besylate (Amlodipine 5 Mg Tablet) 2.5 mg PO DAILY [facility] Last Admin: 09/16/21 08:47 Dose: 2.5 mg Amoxicillin/Clavulanate Potassium (Amox/Clav 875 Mg/125 Mg Tablet) 1 tab PO BID [facility] Stop: 09/19/21 00:01 Last Admin: 09/16/21 08:46 Dose: 1 tab Cholecalciferol (Cholecalciferol 25 Mcg Tablet) 25 mcg PO DAILY [facility] Last Admin: 09/16/21 08:46 Dose: 25 mcg Cyanocobalamin (Cyanocobalamin 500 Mcg Tablet) 1,000 mcg PO DAILY [facility] Last Admin: 09/16/21 08:58 Dose: 1,000 mcg Enoxaparin Sodium (Enoxaparin 40 Mg/0.4 Ml Syringe) 40 mg SUBQ DAILY [facility] Last Admin: 09/16/21 08:48 Dose: 40 mg Gabapentin (Gabapentin 300 Mg Capsule) 300 mg PO TID [facility] Last Admin: 09/16/21 13:56 Dose: 300 mg Hydralazine HCl (Hydralazine Inj 20 Mg/Ml Vial) 10 mg IVP Q4H PRN PRN Reason: PER PHYSICIAN ORDER Last Admin: 09/15/21 13:12 Dose: 10 mg Lisinopril (Lisinopril 20 Mg Tablet) 20 mg PO DAILY [facility] Last Admin: 09/16/21 08:48 Dose: 20 mg Medroxyprogesterone Acetate (Medroxyprogesterone 2.5 Mg Tablet) 10 mg PO DAILY [facility] Last Admin: 09/16/21 10:13 Dose: 10 mg Mineral Oil (Min Oil/Dimethicon/Coconut Oil 92 Gm Tube) 1 applic TOP PRN PRN PRN Reason: Skin Care Last Admin: 09/15/21 13:13 Dose: 1 applic Multi-Ingredient Ointment (Zinc Oxide 20% Oint 30 Gm Tube) 1 applic TOP PRN PRN PRN Reason: Skin Care Last Admin: 09/15/21 21:46 Dose: 1 applic Nystatin (Nystatin Powder 15 Gm) 1 applic TOP BID [facility] Last Admin: 09/16/21 13:13 Dose: 1 applic Ondansetron HCl (Ondansetron 4 Mg/2 Ml Vial) 4 mg IVP Q6HR PRN PRN Reason: Nausea / Vomiting Polyethylene Glycol (Polyethylene Glycol 3350 17 Gm Packet) 17 gm PO DAILY PRN PRN Reason: Constipation Saccharomyces Boulardii (Saccharomyces Boulardii 250 Mg Capsule) 250 mg PO BIDWM [facility] Last Admin: 09/16/21 10:12 Dose: 250 mg Sodium Chloride (Sodium Chloride Flush 0.9% 10 Ml Syringe) 10 ml IVP PRN PRN PRN Reason: NEEDED PER PROVIDER ORDERS Last Admin: 09/15/21 13:12 Dose: 10 ml Sodium Chloride (Sodium Chloride Flush 0.9% 10 Ml Syringe) 10 ml IVP 0100,0900,1700 [facility] Last Admin: 09/16/21 13:13 Dose: 10 ml Cholecalciferol (Vitamin D3) [Vitamin D3] 1 cap PO DAILY 01/31/20 Cyanocobalamin (Vitamin B-12) [Vitamin B-12] 1,000 mcg PO DAILY 01/31/20 Gabapentin [Neurontin] 800 mg PO TID 01/31/20 polyethylene glycoL 3350 [Miralax] 17 g PO DAILY PRN 01/31/20 Medroxyprogesterone Acetate 10 mg PO DAILY 03/25/20 Nystatin Cream [Mycostatin Cream] 1 applic TOP BID 09/13/21 - Allergies Allergies/Adverse Reactions: Allergies Allergy/AdvReac Type Severity Reaction Status Date / Time Milk Containing Products Allergy Unknown Verified 09/11/21 17:19 scopolamine Allergy Unknown Verified 09/11/21 17:19 aspirin AdvReac Nausea Verified 09/11/21 17:19 Review of Systems - Constitutional Constitutional: denies: Fever, Poor appetite, Weight loss - Ears, Nose & Throat Ears, Nose & Throat: reports: Hearing loss (spouse feels like the patient is not listening to him), Dentures. denies: Hearing aids - Cardiovascular Cardiovascular: denies: Edema - Respiratory Respiratory: reports: Cough (pronounced in the mornings). denies: Wheezing - Gastrointestinal Gastrointestinal: reports: Good appetite (is being fed by spouse at meal times). denies: Abdominal pain, Constipation (controlled with senna in evenings), Vomiting - Genitourinary Genitourinary: reports: Hematuria, Other (+pennington catheter in place) - Musculoskeletal Musculoskeletal: reports: Assistive devices, Transfer issues. denies: Joint pain - Integumentary Integumentary: reports: Pigment changes (BLE, chronic) - Neurological Neurological: reports: General weakness, Memory problems, Other (+ Generalized Neuropathy) - Psychiatric Psychiatric: reports: Depression - Endocrine Endocrine: denies: Diabetes type 2 - Hematologic/Lymphatic Hematologic/Lymph: reports: Other (No recurrent infections) - All Other Systems All Other Systems: reports: Reviewed and negative (ROS supplemented by spouse, Ham) Physical Exam - Vital Signs Vital Signs: Vital Signs x48h Pulse Resp BP BP Pulse Ox 09/16/21 15:46 60 18 152/68 H 98 09/16/21 15:34 60 18 152/68 H 98 - Physical Exam General Appearance: positive: No acute distress, Alert (Nonverbal and does not respond to commands), Other (obese, sitting up in her hospital bed) Eyes Bilateral: positive: Normal inspection, Other (keratin deposited lesions by left nostril and above left eyebrow) ENT: positive: No signs of dehydration Neck: positive: Trachea midline Cardiovascular: positive: Regular rate & rhythm, Other (Distant heart sound due to body habitus) Respiratory: positive: No respiratory distress, Diminished in bases Abdomen: positive: Non-tender, Soft, Nml bowel sounds, Obese, Other (Pennington catheter draining yellow urine) Skin: positive: Rash (No evidence of candidasis under b/l breasts or b/l axilla.), Other (scar to left breast s/p lumpectomy; chronic venous stasis dermatitis changes to BLE above ankles L>R) Extremities: positive: No pedal edema Neurologic/Psychiatric: positive: Disoriented to person, Disoriented to place, Disoriented to time, Weakness, Other (Nonverbal and not following commands or stimuli) Palliative Care - POLST Patient has POLST: Yes POLST Status: DNR, Selective Treatment Pain: No pain Constipation: Managed Performance Status: Patient has been nonambulatory for approximately 5 years due to ascending neuropathy. Incontinent of bowel and bladder. Requires assistance with feedin g. Now nonverbal. - Palliative Care Discussion: 8Patient has had a sharp change in her mental status from her baseline. At baseline she does have underlying dementia but will respond to stimuli, commands, and articulate a few words. However, she would not hold conversations. Since she has not been articulate and at present has been treated for E. coli acute cystitis and continues on antibiotic therapy. Unclear for the full underlying cause of the patient's altered mental status as she continues to be treated for potential infection and has been afebrile is to be evaluated with a brain MRI later this afternoon. The patient's spouse perce bessie that they staff at the facility will "give up after the MRI" and allow them to go back home. He remains optimistic regarding the patient returning near to baseline status. Introduced to the patient's spouse concerns if brain MRI does not show any cause for the patient's altered mental status may need to consider progression of dementia versus neuropathy contributing and may be appropriate to transition to hospice services. Discussed the role of hospice services with the patient's spouse. The patient spouse recognizes that over the last several months to year the patient has been declining cognitively. He greatly desires for the patient to be able to communicate to know if she is having pain even with a simple "yes or no." He then feels that he would be able to fill in the blanks regarding the patient's needs given the long history of marriage and partnership. He also expresses a concern that the patient may choke on something and will not be able to breathe resulting in her demise. Supportive and empathetic listening provided. Results - Lab Results Fish Bones: 09/16/21 04:09 09/16/21 04:09 Lab and Imaging Results: Lab Results x24hrs 09/16/21 09/16/21 Range/Units 04:09 04:09 WBC 12.1 H (4.8-10.8) x10^3/uL RBC 4.41 (4.20-5.40) 10^6/uL Hgb 12.4 (12.0-16.0) g/dL Hct 40.2 (37.0-47.0) % MCV 91.2 (81.0-99.0) fL MCH 28.1 (27.0-31.0) pg MCHC 30.8 L (32.0-36.0) g/dL RDW 16.5 H (12.0-15.0) % Plt Count 354 (130-450) 10^3/uL MPV 10.5 (7.9-10.8) fL Neut # (Auto) 8.4 H (1.5-6.6) 10^3/uL Lymph # (Auto) 2.0 (1.5-3.5) 10^3/uL Miner # (Auto) 1.0 (0.0-1.0) 10^3/uL Eos # (Auto) 0.6 (0.0-0.7) 10^3/uL Baso # (Auto) 0.1 (0.0-0.1) 10^3/uL Absolute Nucleated RBC 0.00 x10^3/uL Nucleated RBC % 0.0 /100WBC Sodium 141 (135-145) mmol/L Potassium 3.9 (3.5-5.0) mmol/L Chloride 106 (101-111) mmol/L Carbon Dioxide 25 (21-32) mmol/L Anion Gap 10.0 (6-13) BUN 9 (6-20) mg/dL Creatinine 0.5 (0.4-1.0) mg/dL Estimated GFR (MDRD) 117 (>89) Glucose 100 (70-100) mg/dL Calcium 8.5 (8.5-10.3) mg/dL Impression and Recommendations - Palliative Care Impression: This is an 86-year-old female who is bedbound due to undifferentiated pro gressive neuropathy with obesity now with acute mental status change. Despite treatment for her urinary tract infection with antibiotic therapy she has not returned to her baseline cognition. She has a brain MRI scheduled and pending and next steps regarding decision making will be based on the MRI results. Palliative care will continue provide support for symptom management, Care coordination advance care planning. Recommendations/Counseling Done: 1.Altered mental status. She is not at her usual baseline neurologically and is unable to follow commands. Was suspected to have a urinary tract infection and continues on antibiotic therapy that has been present since admission without noted improvement in her mental status. Unclear if dementia versus progressive neuropathy contributing factors. She is a brain MRI pending later this afternoon and this will be a determining factor per the 's report as to next steps in regards to management and pivoting. Set expectations today regarding brain MRI if it is without any clinical evidence for the patient's cause of altered mental status may consider transitioning to hospice services and this was presented to the patient's spouse today. He wishes to reconvene after results of brain MRI for further discussion. 2. Acute cystitis. E. coli positive. Continues to be treated for urinary tract infection with antibiotic therapy. Followed by hospitalist. 3. Postmenopausal bleeding. On CT of the abdomen on 02/2020 there was evidence of thickened endometrium. Patient was unable to undergo endometrial biopsy. She was initiated on medroxyprogesterone 10 mg daily per gynecology, Dr. Zana Eaton is to continue this therapy moving forward. Continues to have intermittent amounts of menopausal bleeding due to the patient's body habitus, obesity, and unopposed estrogen in the setting of thickened endometrium. No evidence of distress. 4.Progressive neuropathy. Has been nonambulatory for approximately 5 years. Continue gabapentin as ordered. 5. Dementia. Patient previously presented with signs and symptoms of dementia. Spouse is aware this is chronic and progressive. She is not on any disease modifying agents. Given the patient's advanced age and chronic comorbidities a gradual Dunn expected. Unclear if patient's altered mental status is due to this underlying advancement of dementia. 6. Advanced care planning. Patient has POLST in place as DN AR with selective interventions. Spouse continues to be optimistic regarding the patient's ability to return close to her previous baseline. However, he recognizes that the brain MRI will be determining factor as to next steps for proceeding. Injured asked the role of hospice services if patient continues on this course of being unable to follow commands, unable to articulate her needs demonstrating further decline. Spouse also was met by Edda, medical billing associate and Moody, clinical nursing intern in regards to obtainment of medical records and to follow-up regarding DPOA paperwork for the spouse to have access to medical records. Total time spent 65 minutes with greater than 50% of the spent in counseling and coordination of care with the spouse, hospitalist, medical billing associate, RN director; examination of patient; supportive listening; review of palliative versus hospice philosophy; and anticipatory guidance. Disclaimer: The chart note was formulated using voice recognition technology and unfortunately sound alike errors may occur.
--- NOTE | 2021-09-16 17:17 | MRI Report ---
PROCEDURE: Brain W/O INDICATIONS: AMS/stroke TECHNIQUE: Noncontrast axial T1 spin echo, axial T2 fast spin echo, sagittal and axial FLAIR, coronal T2 fast sp in echo, axial gradient echo, axial diffusion and ADC through the brain. COMPARISON: Correlation is made with head CT, 09/11/2021 FINDINGS: Image quality: Excellent. CSF Spaces: Basal cisterns are patent. No extra-axial fluid collections. Ventricles are prominent in size, yet symmetric. No acute hydrocephalus is seen. Brain: There is a relatively prominent left anterior cerebral artery territory infarction seen, as o n series 705 image 18, with increased diffusion-weighted signal and associated dark signal on the ADC maps. Mild developing T2-weighted signal can be seen at this site. No intracranial masses or hemorrhage. Herrera/white matter interface is normal. Brainstem appears norm al. Diffusion-weighted images demonstrate no acute ischemic insult. No chronic ischemic insults. N ormal intravascular flow voids are present. Skull and face: Calvarium has normal marrow signal. Orbits appear normal. Sinuses: Mild mucosal thickening is seen within the posterior sphenoid sinuses. Sinuses and mastoids are otherwise relatively clear. IMPRESSION: Left anterior cerebral artery territory infarction, which has a subacute appearance. Underlying brain parenchymal volume loss is seen, with prominence of the lateral ventricles. The late ral ventricles are more prominent than would be expected for the degree of sulcal atrophy. Please con onion tier normal pressure hydrocephalus. Chronic small vessel ischemic changes are also seen. Reviewed by: Mahendra Nuno MD on 09/16/2021 4:16 PM DON Approved by: Mahendra Nuno MD on 09/16/2021 4:16 PM DON Station ID: [id number]
[2021-09-16] MEDS: CLOPIDOGREL 75 MG TABLET PO SCH (21:31)
[2021-09-16] MEDS: ATORVASTATIN 40 MG TABLET PO SCH (21:32)
[2021-09-17] MEDS: SODIUM CHLORIDE FLUSH 0.9% 10 ML SYRINGE IVP SCH ×3 (00:32→22:39)
[2021-09-17 05:56] LABS: BASOPHILS # (AUTO) 0.1 10^3/uL (0.0-0.1); BASOPHILS % (AUTO) 0.8 %; EOSINOPHILS # (AUTO) 0.7 10^3/uL (0.0-0.7); EOSINOPHILS % (AUTO) 5.6 %; HCT - HEMATOCRIT 42.7 % (37.0-47.0); HGB - HEMOGLOBIN 13.2 g/dL (12.0-16.0); LYMPHOCYTES # (AUTO) 1.4 10^3/uL (1.5-3.5); LYMPHOCYTES % (AUTO) 12.2 %; MEAN CORPUSCULAR HEMOGLOBIN 28.4 pg (27.0-31.0); MEAN CORPUSCULAR HGB CONC 30.9 g/dL (32.0-36.0); MEAN CORPUSCULAR VOLUME 91.8 fL (81.0-99.0); MEAN PLATELET VOLUME 10.9 fL (7.9-10.8); MONOCYTES # (AUTO) 0.9 10^3/uL (0.0-1.0); MONOCYTES % (AUTO) 7.7 %; NEUTROPHILS # (AUTO) 8.5 10^3/uL (1.5-6.6); NEUTROPHILS % (AUTO) 73.2 %; PLT - PLATELET COUNT 330 10^3/uL (130-450); RED BLOOD COUNT 4.65 10^6/uL (4.20-5.40); RED CELL DISTRIBUTION WIDTH 16.6 % (12.0-15.0); WHITE BLOOD COUNT 11.6 x10^3/uL (4.8-10.8)
[2021-09-17 06:03] LABS: CALCIUM 8.5 mg/dL (8.5-10.3); CREATININE 0.6 mg/dL (0.4-1.0); POTASSIUM 4.1 mmol/L (3.5-5.0)
[2021-09-17 06:11] LABS: CHOL/HDL RATIO 3.6 (<4.4); CHOLESTEROL 172 mg/dL; HDL CHOLESTEROL 48 mg/dL; LDL CHOLESTEROL,CALCULATED 105 mg/dL; LDL/HDL RATIO 2.2 (<4.4); TRIGLYCERIDES 93 mg/dL; VLDL CHOLESTEROL 19 mg/dL
[2021-09-17] MEDS: GABAPENTIN 300 MG CAPSULE PO SCH ×3 (06:19→22:39)
[2021-09-17] MEDS: CYANOCOBALAMIN 500 MCG TABLET PO SCH (09:35)
[2021-09-17] MEDS: SACCHAROMYCES BOULARDII 250 MG CAPSULE PO SCH ×2 (09:35→22:39)
[2021-09-17] MEDS: lisinopriL 20 MG TABLET PO SCH (09:35)
[2021-09-17] MEDS: CHOLECALCIFEROL 25 MCG TABLET PO SCH (09:35)
[2021-09-17] MEDS: AMOX/CLAV 875 MG/125 MG TABLET PO SCH ×2 (09:35→22:39)
[2021-09-17] MEDS: amLODIPine 5 MG TABLET PO SCH (09:35)
[2021-09-17] MEDS: NYSTATIN POWDER 15 GM TOP SCH ×2 (09:36→22:39)
[2021-09-17] MEDS: CLOPIDOGREL 75 MG TABLET PO SCH (09:36)
[2021-09-17] MEDS: ENOXAPARIN 40 MG/0.4 ML SYRINGE SUBQ SCH (09:36)
--- NOTE | 2021-09-17 11:40 | PROVIDER PROGRESS NOTE ---
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 Patient present mental status change, aphasia. We will start with Plavix, patient's allergy to aspirin, Lipitor, Check lipid panel, Continue dysphagia diet with aspiration precaution. We will have PT, OT, ST for evaluation and treatment for patient, Consult social work for disposition planning. Patient's hope patient D/C to home pt smile at morning when I assessed pt but pt remains somnolent in the most time of day, she is able to eat and drink when her feeds her. per pt's report She is not awake as much as she was at home, is not speaking at all or following commands or keeping her eyes open as much as at home. pt does not CT of head was unremarkable for acute process. At this point, The wants everything done but he agreed to discuss the further care plan with her family and agree let palliative care see pt. Pt was previous followup with palliative care provider. Thank Palliative care provider see and care of pt today. we will order MRI of brain on today, continue neur check (2) normal pressure hydrocephalus 09/17 MRI of brain also show Normal pressure hydrocephalus. Discussed the care plans, including transfer pt to high level care, for normal pressure hydrocephalus With the patient's at the bedside on yesterday. After Patient's discussed with her family, Patient's clearly state they do not want to do any further intervention or transfer pt for high level of care. He hope to see Patient's palliative provider on tomorrow, then he hope d/c pt to home with all family and caregiver's support. (3) E coli UTI will continue antibiotics, add probiotics. The urine culture grew E. coli, which is pansensitive. (4) Aphasia 09/17 pt continue present aphasia. It appears secondary to combination of subacute stroke and normal pressure hydrocephalus. we will consult with ST to help pt. (5) Post-menopausal bleeding HGB is stable. we will continue her home MedroxyProgesterone. (6) HTN Stable on her BP meds. - Current Meds Current Meds: Current Medications Generic Name Dose Route Start Last Admin Trade Name Freq PRN Reason Stop Dose Admin Amlodipine Besylate 2.5 mg 09/12/21 09:00 09/17/21 09:35 Amlodipine 5 Mg Tablet PO 2.5 mg DAILY [facility]ER Administration Amoxicillin/Clavulanate Potassium 1 tab 09/16/21 09:00 09/17/21 09:35 Amox/Clav 875 Mg/125 Mg Tablet PO 09/19/21 00:01 1 tab BID TYLER Administration Atorvastatin Calcium 40 mg 09/16/21 21:00 09/16/21 21:32 Atorvastatin 40 Mg Tablet PO 40 mg QPM [facility]ER Administration Cholecalciferol 25 mcg 09/15/21 09:00 09/17/21 09:35 Cholecalciferol 25 Mcg Tablet PO 25 mcg DAILY [facility]ER Administration Clopidogrel Bisulfate 75 mg 09/16/21 18:43 09/17/21 09:36 Clopidogrel 75 Mg Tablet PO 75 mg DAILY [facility] Administration Cyanocobalamin 1,000 mcg 09/15/21 09:00 09/17/21 09:35 Cyanocobalamin 500 Mcg Tablet PO 1,000 mcg DAILY [facility] Administration Enoxaparin Sodium 40 mg 09/12/21 09:00 09/17/21 09:36 Enoxaparin 40 Mg/0.4 Ml Syringe SUBQ 40 mg DAILY [facility]ER Administration Gabapentin 300 mg 09/12/21 14:00 09/17/21 06:19 Gabapentin 300 Mg Capsule PO 300 mg TID [facility]ER Administration Hydralazine HCl 10 mg 09/11/21 21:58 09/15/21 13:12 Hydralazine Inj 20 Mg/Ml Vial IVP 10 mg Q4H PRN Administration PER PHYSICIAN ORDER Lisinopril 20 mg 09/12/21 09:00 09/17/21 09:35 Lisinopril 20 Mg Tablet PO 20 mg DAILY [facility]ER Administration Medroxyprogesterone Acetate 10 mg 09/15/21 11:30 09/17/21 09:36 Medroxyprogesterone 2.5 Mg Tablet PO 10 mg DAILY [facility]ER Administration Mineral Oil 1 applic 09/13/21 10:22 09/15/21 13:13 Min Oil/Dimethicon/Coconut Oil 92 Gm Tube TOP 1 applic PRN PRN Administration Skin Care Multi-Ingredient Ointment 1 applic 09/13/21 10:22 09/15/21 21:46 Zinc Oxide 20% Oint 30 Gm Tube TOP 1 applic PRN PRN Administration Skin Care Nystatin 1 applic 09/14/21 11:00 09/17/21 09:36 Nystatin Powder 15 Gm TOP 1 applic BID [facility]ER Administration Saccharomyces Boulardii 250 mg 09/16/21 08:13 09/17/21 09:35 Saccharomyces Boulardii 250 Mg Capsule PO 250 mg BIDWM [facility]ER Administration Sodium Chloride 10 ml 09/11/21 21:23 09/15/21 13:12 Sodium Chloride Flush 0.9% 10 Ml Syringe IVP 10 ml PRN PRN Administration NEEDED PER PROVIDER ORDERS Sodium Chloride 10 ml 09/12/21 01:00 09/17/21 09:36 Sodium Chloride Flush 0.9% 10 Ml Syringe IVP 10 ml 0100,0900,1700 TYLER Administration - Lab Result Fish Bone Diagrams: 09/17/21 05:44 09/17/21 05:44 - Additional Planning My Orders: My Active Orders 09/16/21 17:00 Neuro Check [RC] QSHIFT 09/16/21 18:43 Clopidogrel [Plavix] 75 mg PO DAILY 09/16/21 21:00 Atorvastatin [Lipitor] 40 mg PO QPM 09/17/21 Social Work Consult [CONS] Routine Evaluate and Treat ST [ST] Routine Evaluate and Treat OT [OT] Routine Evaluate and Treat PT [PT] Routine Subjective - Subjective Patient Reports: Resting Comfortably Objective Vital Signs: Vital Signs - 24 hr 09/16/21 09/16/21 09/16/21 15:34 15:46 20:19 Temperature 37.2 C Heart Rate [ 60 60 58 L Brachial] Respiratory 18 18 21 Rate Blood Pressure 144/64 H [Left Radial artery] Blood Pressure 152/68 H [Right Brachial artery] Blood Pressure 152/68 H [Right Radial artery] O2 Saturation 98 98 97 09/17/21 09/17/21 04:44 07:33 Temperature 37.1 C 36.7 C Heart Rate [ 57 L 56 L Brachial] Respiratory 24 18 Rate Blood Pressure [Left Radial artery] Blood Pressure [Right Brachial artery] Blood Pressure 148/61 H 168/54 H [Right Radial artery] O2 Saturation 96 95 Oxygen O2 Source [Without Activity] Room air O2 Source Room air I&O (Last 24 Hrs): Intake and Output Totals x24h 09/15/21 09/16/21 09/17/21 23:59 23:59 23:59 Intake Total 1010 240 150 Output Total 3025 1700 350 Balance -2014 -3200 -200 General: Alert, No acute distress HEENT: Atraumatic Neck: Supple Lymphatic: no adenopathy Neuro: Alert, Other (pt is aphasia) Cardiovascular: Regular rate, Normal S1, Normal S2 Respiratory: Chest non-tender, No respiratory distress Abdomen: Normal bowel sounds, Soft Extremities: Normal pulses - Results Results: Laboratory Results WBC 11.6 x10^3/uL (4.8-10.8) H 09/17/21 05:44 RBC 4.65 10^6/uL (4.20-5.40) 09/17/21 05:44 Hgb 13.2 g/dL (12.0-16.0) 09/17/21 05:44 Hct 42.7 % (37.0-47.0) 09/17/21 05:44 MCV 91.8 fL (81.0-99.0) 09/17/21 05:44 MCH 28.4 pg (27.0-31.0) 09/17/21 05:44 MCHC 30.9 g/dL (32.0-36.0) L 09/17/21 05:44 RDW 16.6 % (12.0-15.0) H 09/17/21 05:44 Plt Count 330 10^3/uL (130-450) 09/17/21 05:44 MPV 10.9 fL (7.9-10.8) H 09/17/21 05:44 Neut # (Auto) 8.5 10^3/uL (1.5-6.6) H 09/17/21 05:44 Lymph # (Auto) 1.4 10^3/uL (1.5-3.5) L 09/17/21 05:44 [place] # (Auto) 0.9 10^3/uL (0.0-1.0) 09/17/21 05:44 Eos # (Auto) 0.7 10^3/uL (0.0-0.7) 09/17/21 05:44 Baso # (Auto) 0.1 10^3/uL (0.0-0.1) 09/17/21 05:44 Absolute Nucleated RBC 0.00 x10^3/uL 09/17/21 05:44 Nucleated RBC % 0.0 /100WBC 09/17/21 05:44 Sodium 141 mmol/L (135-145) 09/17/21 05:44 Potassium 4.1 mmol/L (3.5-5.0) 09/17/21 05:44 Chloride 106 mmol/L (101-111) 09/17/21 05:44 Carbon Dioxide 25 mmol/L (21-32) 09/17/21 05:44 Anion Gap 10.0 (6-13) 09/17/21 05:44 BUN 12 mg/dL (6-20) 09/17/21 05:44 Creatinine 0.6 mg/dL (0.4-1.0) 09/17/21 05:44 Estimated GFR (MDRD) 95 (>89) 09/17/21 05:44 Glucose 105 mg/dL (70-100) H 09/17/21 05:44 Lactic Acid 1.2 mmol/L (0.5-2.2) 09/11/21 20:20 Calcium 8.5 mg/dL (8.5-10.3) 09/17/21 05:44 Total Bilirubin 0.7 mg/dL (0.2-1.0) 09/11/21 17:54 AST 16 IU/L (10-42) 09/11/21 17:54 ALT 11 IU/L (10-60) 09/11/21 17:54 Alkaline Phosphatase 104 IU/L (42-121) 09/11/21 17:54 Total Protein 6.9 g/dL (6.7-8.2) 09/11/21 17:54 Albumin 3.4 g/dL (3.2-5.5) 09/11/21 17:54 Globulin 3.5 g/dL (2.1-4.2) 09/11/21 17:54 Albumin/Globulin Ratio 1.0 (1.0-2.2) 09/11/21 17:54 Triglycerides 93 mg/dL (-149) 09/17/21 05:44 Cholesterol 172 mg/dL (-199) 09/17/21 05:44 LDL Cholesterol, Calc 105 mg/dL (-129) 09/17/21 05:44 VLDL Cholesterol 19 mg/dL 09/17/21 05:44 HDL Cholesterol 48 mg/dL (60-) L 09/17/21 05:44 LDL/HDL Ratio 2.2 (<4.4) 09/17/21 05:44 Cholesterol/HDL Ratio 3.6 (<4.4) 09/17/21 05:44 Lipase 28 U/L (22-51) 09/11/21 17:54 Urine Color YELLOW 09/11/21 18:57 Urine Clarity SL. CLOUDY (CLEAR) 09/11/21 18:57 Urine pH 6.0 PH (5.0-7.5) 09/11/21 18:57 Ur Specific Fe [employer] 1.020 (1.002-1.030) 09/11/21 18:57 Urine Protein TRACE mg/dL (NEGATIVE) 09/11/21 18:57 Urine Glucose (UA) NEGATIVE mg/dL (NEGATIVE) 09/11/21 18:57 Urine Ketones NEGATIVE mg/dL (NEGATIVE) 09/11/21 18:57 Urine Occult Blood SMALL (NEGATIVE) H 09/11/21 18:57 Urine Nitrite POSITIVE (NEGATIVE) H 09/11/21 18:57 Urine Bilirubin NEGATIVE (NEGATIVE) 09/11/21 18:57 Urine Urobilinogen 0.2 (NORMAL) E.U./dL (NORMAL) 09/11/21 18:57 Ur Leukocyte Esterase MODERATE (NEGATIVE) H 09/11/21 18:57 Urine RBC 11-25 /HPF (0-5) H 09/11/21 18:57 Urine WBC >25 /HPF (0-5) H 09/11/21 18:57 Ur Squamous Epith Cells RARE Squamous (<= Few) 09/11/21 18:57 Urine Bacteria Moderate /HPF (None Seen) H 09/11/21 18:57 Ur Microscopic Review INDICATED 09/11/21 18:57 Urine Culture Comments INDICATED 09/11/21 18:57 Nasal Adenovirus (PCR) NOT DETECTED 09/11/21 20:51 Nasal B. parapertussis DNA (PCR) NOT DETECTED 09/11/21 20:51 Nasal Coronavir 229E PCR NOT DETECTED 09/11/21 20:51 Nasal Coronavir HKU1 PCR NOT DETECTED 09/11/21 20:51 Nasal Coronavir NL63 PCR NOT DETECTED 09/11/21 20:51 Nasal Coronavir OC43 PCR NOT DETECTED 09/11/21 20:51 Nasal Enterovir/Rhinovir PCR NOT DETECTED 09/11/21 20:51 Nasal Influenza B PCR NOT DETECTED 09/11/21 20:51 Nasal Influenza A PCR NOT DETECTED 09/11/21 20:51 Nasal Parainfluen 1 PCR NOT DETECTED 09/11/21 20:51 Nasal Parainfluen 2 PCR NOT DETECTED 09/11/21 20:51 Nasal Parainfluen 3 PCR NOT DETECTED 09/11/21 20:51 Nasal Parainfluen 4 PCR NOT DETECTED 09/11/21 20:51 Nasal RSV (PCR) NOT DETECTED 09/11/21 20:51 Nasal B.pertussis DNA PCR NOT DETECTED 09/11/21 20:51 Nasal C.pneumoniae (PCR) NOT DETECTED 09/11/21 20:51 Deven Human Metapneumo PCR NOT DETECTED 09/11/21 20:51 Nasal M.pneumoniae (PCR) NOT DETECTED 09/11/21 20:51 Nasal SARS-CoV-2 (PCR) NOT DETECTED 09/11/21 20:51 C. glabrata (PCR) NEGATIVE (NEGATIVE) 09/13/21 13:00 C. krusei (PCR) NEGATIVE (NEGATIVE) 09/13/21 13:00 Melia species DNA NEGATIVE (NEGATIVE) 09/13/21 13:00 Chlam trachomat DNA PCR NEGATIVE (NEGATIVE) 09/13/21 13:00 N.gonorrhoeae DNA (PCR) NEGATIVE (NEGATIVE) 09/13/21 13:00 T. vaginalis (PCR) NEGATIVE (NEGATIVE) 09/13/21 13:00 T. vaginalis (PCR) NEGATIVE (NEGATIVE) 09/13/21 13:00 Bact Vaginosis (PCR) NEGATIVE (NEGATIVE) 09/13/21 13:00 ABX Reporting Has patient been on IV antibiotics over the past 48 hours?: Yes Current Medications - Current Medications Current Medications: Active Medications Acetaminophen (Acetaminophen 325 Mg Tablet) 650 mg PO Q4HR PRN PRN Reason: Pain 1 to 4 Amlodipine Besylate (Amlodipine 5 Mg Tablet) 2.5 mg PO DAILY [facility] Last Admin: 09/17/21 09:35 Dose: 2.5 mg Amoxicillin/Clavulanate Potassium (Amox/Clav 875 Mg/125 Mg Tablet) 1 tab PO BID [facility] Stop: 09/19/21 00:01 Last Admin: 09/17/21 09:35 Dose: 1 tab Atorvastatin Calcium (Atorvastatin 40 Mg Tablet) 40 mg PO QPM [facility] Last Admin: 09/16/21 21:32 Dose: 40 mg Cholecalciferol (Cholecalciferol 25 Mcg Tablet) 25 mcg PO DAILY [facility] Last Admin: 09/17/21 09:35 Dose: 25 mcg Clopidogrel Bisulfate (Clopidogrel 75 Mg Tablet) 75 mg PO DAILY [facility] Last Admin: 09/17/21 09:36 Dose: 75 mg Cyanocobalamin (Cyanocobalamin 500 Mcg Tablet) 1,000 mcg PO DAILY [facility] Last Admin: 09/17/21 09:35 Dose: 1,000 mcg Enoxaparin Sodium (Enoxaparin 40 Mg/0.4 Ml Syringe) 40 mg SUBQ DAILY [facility] Last Admin: 09/17/21 09:36 Dose: 40 mg Gabapentin (Gabapentin 300 Mg Capsule) 300 mg PO TID [facility] Last Admin: 09/17/21 13:23 Dose: 300 mg Hydralazine HCl (Hydralazine Inj 20 Mg/Ml Vial) 10 mg IVP Q4H PRN PRN Reason: PER PHYSICIAN ORDER Last Admin: 09/15/21 13:12 Dose: 10 mg Lisinopril (Lisinopril 20 Mg Tablet) 20 mg PO DAILY [facility] Last Admin: 09/17/21 09:35 Dose: 20 mg Medroxyprogesterone Acetate (Medroxyprogesterone 2.5 Mg Tablet) 10 mg PO DAILY [facility] Last Admin: 09/17/21 09:36 Dose: 10 mg Mineral Oil (Min Oil/Dimethicon/Coconut Oil 92 Gm Tube) 1 applic TOP PRN PRN PRN Reason: Skin Care Last Admin: 09/15/21 13:13 Dose: 1 applic Multi-Ingredient Ointment (Zinc Oxide 20% Oint 30 Gm Tube) 1 applic TOP PRN PRN PRN Reason: Skin Care Last Admin: 09/15/21 21:46 Dose: 1 applic Nystatin (Nystatin Powder 15 Gm) 1 applic TOP BID [facility] Last Admin: 09/17/21 09:36 Dose: 1 applic Ondansetron HCl (Ondansetron 4 Mg/2 Ml Vial) 4 mg IVP Q6HR PRN PRN Reason: Nausea / Vomiting Polyethylene Glycol (Polyethylene Glycol 3350 17 Gm Packet) 17 gm PO DAILY PRN PRN Reason: Constipation Saccharomyces Boulardii (Saccharomyces Boulardii 250 Mg Capsule) 250 mg PO BIDWM [facility] Last Admin: 09/17/21 09:35 Dose: 250 mg Sodium Chloride (Sodium Chloride Flush 0.9% 10 Ml Syringe) 10 ml IVP PRN PRN PRN Reason: NEEDED PER PROVIDER ORDERS Last Admin: 09/15/21 13:12 Dose: 10 ml Sodium Chloride (Sodium Chloride Flush 0.9% 10 Ml Syringe) 10 ml IVP 0100,0900,1700 [facility] Last Admin: 09/17/21 09:36 Dose: 10 ml Cholecalciferol (Vitamin D3) [Vitamin D3] 1 cap PO DAILY 01/31/20 Cyanocobalamin (Vitamin B-12) [Vitamin B-12] 1,000 mcg PO DAILY 01/31/20 Gabapentin [Neurontin] 800 mg PO TID 01/31/20 polyethylene glycoL 3350 [Miralax] 17 g PO DAILY PRN 01/31/20 Medroxyprogesterone Acetate 10 mg PO DAILY 03/25/20 Nystatin Cream [Mycostatin Cream] 1 applic TOP BID 09/13/21
[2021-09-17] MEDS: ATORVASTATIN 40 MG TABLET PO SCH (22:39)
[2021-09-18] MEDS: GABAPENTIN 300 MG CAPSULE PO SCH ×2 (06:09→13:07)
[2021-09-18] MEDS: SODIUM CHLORIDE FLUSH 0.9% 10 ML SYRINGE IVP SCH ×2 (06:09→09:06)
[2021-09-18 08:26] LABS: BASOPHILS # (AUTO) 0.1 10^3/uL (0.0-0.1); BASOPHILS % (AUTO) 0.7 %; EOSINOPHILS # (AUTO) 0.5 10^3/uL (0.0-0.7); HCT - HEMATOCRIT 41.3 % (37.0-47.0); HGB - HEMOGLOBIN 12.8 g/dL (12.0-16.0); LYMPHOCYTES # (AUTO) 1.5 10^3/uL (1.5-3.5); LYMPHOCYTES % (AUTO) 12.8 %; MEAN CORPUSCULAR HEMOGLOBIN 28.4 pg (27.0-31.0); MEAN CORPUSCULAR VOLUME 91.6 fL (81.0-99.0); MEAN PLATELET VOLUME 9.9 fL (7.9-10.8); MONOCYTES # (AUTO) 0.8 10^3/uL (0.0-1.0); NEUTROPHILS # (AUTO) 8.5 10^3/uL (1.5-6.6); NEUTROPHILS % (AUTO) 75.1 %; PLT - PLATELET COUNT 341 10^3/uL (130-450); RED BLOOD COUNT 4.51 10^6/uL (4.20-5.40); RED CELL DISTRIBUTION WIDTH 16.5 % (12.0-15.0); WHITE BLOOD COUNT 11.4 x10^3/uL (4.8-10.8)
[2021-09-18 08:28] LABS: CALCIUM 8.5 mg/dL (8.5-10.3); CREATININE 0.5 mg/dL (0.4-1.0); POTASSIUM 4.1 mmol/L (3.5-5.0)
[2021-09-18] MEDS: AMOX/CLAV 875 MG/125 MG TABLET PO SCH (09:04)
[2021-09-18] MEDS: CLOPIDOGREL 75 MG TABLET PO SCH (09:04)
[2021-09-18] MEDS: CYANOCOBALAMIN 500 MCG TABLET PO SCH (09:05)
[2021-09-18] MEDS: SACCHAROMYCES BOULARDII 250 MG CAPSULE PO SCH (09:05)
[2021-09-18] MEDS: lisinopriL 20 MG TABLET PO SCH (09:05)
[2021-09-18] MEDS: amLODIPine 5 MG TABLET PO SCH (09:05)
[2021-09-18] MEDS: CHOLECALCIFEROL 25 MCG TABLET PO SCH (09:05)
[2021-09-18] MEDS: ENOXAPARIN 40 MG/0.4 ML SYRINGE SUBQ SCH (09:05)
[2021-09-18] MEDS: NYSTATIN POWDER 15 GM TOP SCH (09:06)
--- NOTE | 2021-09-18 13:12 | CONSULTATION NOTE ---
Palliative Care Follow Up - Referral Referring Provider: TIMOTEO Gilbert Time of Visit: [id number] Referral setting: Hospitalized patient Referral Reason: CVA/Asphasia/ACP - Information Sources History/Review of Systems obtained from: Family (spouse, Ham), Other (Hospitalist, TIMOTEO Harrell) Exam limitations: Clinical condition (expressive aphasia and history of dementia) - History of Present Illness Update Brief HPI Update: This is an 86-year-old female who was seen and evaluated today in patients for follow-up after she presented to the emergency department with altered mental status on 09/11. It was initially believed that she had a urinary tract infection however, after being treated with antibiotic therapy without noted improvement had brain MRI was obtained on 09/16 that demonstrated "left anterior cerebral artery territory infarction, which has a subacute appearance. Underlying brain parenchyma volume loss is seen, with prominence of the lateral ventricles. The lateral ventricles are more prominent than would be expected fo r the degree of sulcal atrophy. Please consider normal pressure hydrocephalus. Chronic small vessel ischemic changes are also seen. The patient continues to not be able to communicate and is demonstrating signs of expressive aphasia as well has suspected dysarthria. She was seen and evaluated by AIR COMPRESSOR ENGINEER on 09/17 and a yes no card was utilized to elicit an response. reports the patient was able to have an appropriate response. He plans on creating a communication response system once the patient returns home. The spouse is very eager to have the patient return home and does not wish to have any further interventions and to focus on comfort in the patient's familiar environments. Spouse does not perceive that anything will really change once the patient returns home given her bedbound state for over 5 years and her need to be fed. The only thing that has been changed is the patient's ability to communicate. There is no evidence of coughing during feedings. The patient's spouse is however, perseverating on the patient's potentially not being able to hear and wishes to reach out to his friend who is an financial compliance manager. Lengthy discussion was attempted to have with the patient's spouse regarding alterations after having a stroke however, patient spouse does not perceive dif ferentiation. The patient spouse also continues to report concerns regarding "congestion" with the patient's chest. This is an ongoing complaint for several years and the patient is unable to be lie flat due to shortness of breath. She has been trialed on oral antihistamines, nasal steroids, [id number] guaifenesin products, and previously chest x-ray is without noted abnormalities.Patient today, presents with out any acute respiratory distress. She is breathing even and symmetric. 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 +COVID vaccine Social History - Living Situation Living arrangement: At home Living Situation: With spouse/s.o. Support System: Patient lives in a one-story home with her , George of 62 years. They have 3 children, 2 girls and 1 boy. They have a private duty family that provides caregiving needs, Shayna and Lila who attend the patient and her 7 days/week and have been present for the last 5 years. Daughter, Karen, works in a medical office and is requesting physicians she works with for additional information and input on additional medical causes for the patient's present alerted mental state. Medications/Allergies - Medications Active Medication List: Active Medications Acetaminophen (Acetaminophen 325 Mg Tablet) 650 mg PO Q4HR PRN PRN Reason: Pain 1 to 4 Amlodipine Besylate (Amlodipine 5 Mg Tablet) 2.5 mg PO DAILY ON LICENSE OF [facility] Last Admin: 09/18/21 09:05 Dose: 2.5 mg Amoxicillin/Clavulanate Potassium (Amox/Clav 875 Mg/125 Mg Tablet) 1 tab PO BID ON LICENSE OF [facility] Stop: 09/19/21 00:01 Last Admin: 09/18/21 09:04 Dose: 1 tab Atorvastatin Calcium (Atorvastatin 40 Mg Tablet) 40 mg PO QPM ON LICENSE OF [facility] Last Admin: 09/17/21 22:39 Dose: 40 mg Cholecalciferol (Cholecalciferol 25 Mcg Tablet) 25 mcg PO DAILY ON LICENSE OF [facility] Last Admin: 09/18/21 09:05 Dose: 25 mcg Clopidogrel Bisulfate (Clopidogrel 75 Mg Tablet) 75 mg PO DAILY ON LICENSE OF [facility] Last Admin: 09/18/21 09:04 Dose: 75 mg Cyanocobalamin (Cyanocobalamin 500 Mcg Tablet) 1,000 mcg PO DAILY ON LICENSE OF [facility] Last Admin: 09/18/21 09:05 Dose: 1,000 mcg Enoxaparin Sodium (Enoxaparin 40 Mg/0.4 Ml Syringe) 40 mg SUBQ DAILY ON LICENSE OF [facility] Last Admin: 09/18/21 09:05 Dose: 40 mg Gabapentin (Gabapentin 300 Mg Capsule) 300 mg PO TID ON LICENSE OF [facility] Last Admin: 09/18/21 06:09 Dose: 300 mg Hydralazine HCl (Hydralazine Inj 20 Mg/Ml Vial) 10 mg IVP Q4H PRN PRN Reason: PER PHYSICIAN ORDER Last Admin: 09/15/21 13:12 Dose: 10 mg Lisinopril (Lisinopril 20 Mg Tablet) 20 mg PO DAILY ON LICENSE OF [facility] Last Admin: 09/18/21 09:05 Dose: 20 mg Medroxyprogesterone Acetate (Medroxyprogesterone 2.5 Mg Tablet) 10 mg PO DAILY ON LICENSE OF [facility] Last Admin: 09/18/21 09:04 Dose: 10 mg Mineral Oil (Min Oil/Dimethicon/Coconut Oil 92 Gm Tube) 1 applic TOP PRN PRN PRN Reason: Skin Care Last Admin: 09/15/21 13:13 Dose: 1 applic Multi-Ingredient Ointment (Zinc Oxide 20% Oint 30 Gm Tube) 1 applic TOP PRN PRN PRN Reason: Skin Care Last Admin: 09/15/21 21:46 Dose: 1 applic Nystatin (Nystatin Powder 15 Gm) 1 applic TOP BID ON LICENSE OF [facility] Last Admin: 09/18/21 09:06 Dose: 1 applic Ondansetron HCl (Ondansetron 4 Mg/2 Ml Vial) 4 mg IVP Q6HR PRN PRN Reason: Nausea / Vomiting Polyethylene Glycol (Polyethylene Glycol 3350 17 Gm Packet) 17 gm PO DAILY PRN PRN Reason: Constipation Saccharomyces Boulardii (Saccharomyces Boulardii 250 Mg Capsule) 250 mg PO BIDWM ON LICENSE OF [facility] Last Admin: 09/18/21 09:05 Dose: 250 mg Sodium Chloride (Sodium Chloride Flush 0.9% 10 Ml Syringe) 10 ml IVP PRN PRN PRN Reason: NEEDED PER PROVIDER ORDERS Last Admin: 09/15/21 13:12 Dose: 10 ml Sodium Chloride (Sodium Chloride Flush 0.9% 10 Ml Syringe) 10 ml IVP 0100,0900,1700 ON LICENSE OF [facility] Last Admin: 09/18/21 09:06 Dose: 10 ml Cholecalciferol (Vitamin D3) [Vitamin D3] 1 cap PO DAILY 08/20 Cyanocobalamin (Vitamin B-12) [Vitamin B-12] 1,000 mcg PO DAILY 01/31/20 Gabapentin [Neurontin] 800 mg PO TID 01/31/20 polyethylene glycoL 3350 [Miralax] 17 g PO DAILY PRN 01/31/20 Medroxyprogesterone Acetate 10 mg PO DAILY 03/25/20 Nystatin Cream [Mycostatin Cream] 1 applic TOP BID 09/13/21 - Allergies Allergies/Adverse Reactions: Allergies Allergy/AdvReac Type Severity Reaction Status Date / Time Milk Containing Products Allergy Unknown Verified 09/11/21 17:19 scopolamine Allergy Unknown Verified 09/11/21 17:19 aspirin AdvReac Nausea Verified 09/11/21 17:19 Review of Systems - Constitutional Constitutional: denies: Fever, Poor appetite, Weight loss - Eyes Eyes: denies: Vision loss - Ears, Nose & Throat Ears, Nose & Throat: reports: Hearing loss (spouse feels like the patient is not listening to him, see HPI), Dentures. denies: Hearing aids - Cardiovascular Cardiovascular: denies: Edema - Respiratory Respiratory: reports: Cough (pronounced in the mornings, CXR obtained 09/16/21 negative for acute process). denies: Wheezing - Gastrointestinal Gastrointestinal: reports: Good appetite (is being fed by spouse at meal times). denies: Abdominal pain, Constipation (controlled with senna in evenings), Vomiting - Genitourinary Genitourinary: reports: Hematuria, Other (+pennington catheter in place, at home does not have a pennington catheter and no history of retention) - Musculoskeletal Musculoskeletal: reports: Assistive devices, Transfer issues. denies: Joint pain - Integumentary Integumentary: reports: Pigment changes (BLE, chronic) - Neurological Neurological: reports: General weakness, Memory problems, Other (+ Generalized Neuropathy) - Psychiatric Psychiatric: reports: Depression - Endocrine Endocrine: denies: Diabetes type 2 - All Other Systems All Other Systems: reports: Reviewed and negative (ROS supplemented by spouse, Ham as patient is nonverbal) Physical Exam - Vital Signs Vital Signs: Vital Signs x48h Temp Pulse Resp BP Pulse Ox 09/18/21 07:50 36.8 C 58 L 16 152/97 H 98 - Physical Exam General Appearance: positive: No acute distress, Alert (Nonverbal and does not respond to commands), Other (obese, sitting up in her hospital bed being fed lunch by spouse without any noted coughing and tolerated meal) Eyes Bilateral: positive: Normal inspection ENT: positive: No signs of dehydration Neck: positive: Trachea midline Cardiovascular: positive: Regular rate & rhythm, Other (Distant heart sound due to body habitus) Respiratory: positive: No respiratory distress, Diminished in bases. negative: Rales Abdomen: positive: Non-tender, Soft, Nml bowel sounds, Obese, Other (Pennington catheter draining yellow urine) Skin: positive: Rash (No evidence of candidasis under b/l breasts or b/l axilla.), Other (scar to left breast s/p lumpectomy; chronic venous stasis dermatitis changes to BLE above ankles L>R) Extremities: positive: No pedal edema Neurologic/Psychiatric: positive: Disoriented to person, Disoriented to place, Disoriented to time, Weakness, Other (Nonverbal and not following commands or "yes or no questions") Palliative Care - POLST Patient has POLST: Yes POLST Status: DNR, Selective Treatment Pain: No pain (controlled with gabapentin) Performance Status: Patient has been nonambulatory for approximately 5 years due to ascending neuropathy. She is incontinent of bowel and bladder. She requires assistance with feeding. Now nonverbal demonstrating aphasia and dysarthria. She is no longer able to communicate. - Palliative Care Discussion: Patient has had a sharp change in her mental status from baseline. She did not respond to antibiotic therapy with being treated for E. coli acute cystitis. Brain MRI obtained on 09/16/2021 is indicative of a left anterior cerebral artery territory infarction that has appearance of being subacute. Also suspicious for possible neuro normal pressure hydrocephalus. The patient continues to not be able to communicate verbally or alternative communications at the present time. She does not have any signs or symptoms of distress. The patient spouse wishes to focus on comfort measures and quality of life and have the patient return home to her familiar environment. Discussed after sustaining a stroke that the patient is unlikely to return to her previous baseline also due to her underlying dementia this is more likely to last be so. Spouse recognizes this. I discussed and introduced the role of hospice services and at the present time the patient spouse wishes to see where the patient will land once returning home but if continued decline or further supplementation is required with hospice services patient spouse would be open to this. He continues to perseverate regarding the patient's possible inability to hear despite having reflection that there is no difficulty with the patient hearing prior to her presentation to the emergency department for acute mental status changes and is unlikely it is auditory in nature and likely due to underlying inability to hear. Spouse will require continued reeducation regarding this and palliative care HIV NURSE will assess with otoscope at home visit next week per spouse's request. Results - Lab Results Fish Bones: 09/18/21 08:13 09/18/21 08:13 Lab and Imaging Results: Lab Results x24hrs 09/18/21 09/18/21 Range/Units 08:13 08:13 WBC 11.4 H (4.8-10.8) x10^3/uL RBC 4.51 (4.20-5.40) 10^6/uL Hgb 12.8 (12.0-16.0) g/dL Hct 41.3 (37.0-47.0) % MCV 91.6 (81.0-99.0) fL MCH 28.4 (27.0-31.0) pg MCHC 31.0 L (32.0-36.0) g/dL RDW 16.5 H (12.0-15.0) % Plt Count 341 (130-450) 10^3/uL MPV 9.9 (7.9-10.8) fL Neut # (Auto) 8.5 H (1.5-6.6) 10^3/uL Lymph # (Auto) 1.5 (1.5-3.5) 10^3/uL [place] # (Auto) 0.8 (0.0-1.0) 10^3/uL Eos # (Auto) 0.5 (0.0-0.7) 10^3/uL Baso # (Auto) 0.1 (0.0-0.1) 10^3/uL Absolute Nucleated RBC 0.00 x10^3/uL Nucleated RBC % 0.0 /100WBC Sodium 138 (135-145) mmol/L Potassium 4.1 (3.5-5.0) mmol/L Chloride 105 (101-111) mmol/L Carbon Dioxide 24 (21-32) mmol/L Anion Gap 9.0 (6-13) BUN 10 (6-20) mg/dL Creatinine 0.5 (0.4-1.0) mg/dL Estimated GFR (MDRD) 117 (>89) Glucose 98 (70-100) mg/dL Calcium 8.5 (8.5-10.3) mg/dL Impression and Recommendations - Palliative Care Impression: This is a 86-year-old female who is bedbound due to undifferentiated progressive neuropathy with obesity now with acute mental status changes status post treatment for acute cystitis now with newfound left anterior cerebral artery territory infarction from brain MRI 09/16/2021. She now presents with expressive aphasia and suspected dysarthria. She is no longer able to communicate. No evidence of dysphagia during meals. Patient spouse is eager to have the patient return home where he has support from private caregivers 7 days/week. Introduced the role of hospice services. Palliative care will continue provide support for symptom management, care coordination and advance care planning. Recommendations/Counseling Done: 1. CVA. Subacute in appearance from brain MRI 09/17 that demonstrated "left anterior cerebral area via artery territory infarction." This is likely the cause of the patient's change in mental status, aphasia, and dysarthria. She is status post AIR COMPRESSOR ENGINEER evaluation on 09/17. Unclear if she will be able to regain her ability to communicate but spouse is optimistic and wishes to create his own communication response system to utilize with the patient within the home setting. He has declined PT, and OT for the patient upon return home per hosp italist report. Spouse is eager for the patient return home later today. Discussed that this is likely a chronic condition and can be progressive. The patient would benefit from continued supportive care. Spouse verbalizes understanding. 2. Acute cystitis. Urine culture grew E. coli. Has been treated with antibiotic therapy. 3. Pennington catheter in place. Unclear why Pennington catheter was placed as patient does not have a history of urinary retention. Discussed with patient's spouse and hospitalist goal to remove and trial voiding before returning home. Patient would be unable to present to the [facility] [place]ton catheter placement. If needed for comfort then would be appropriate to transition to hospice services in the future if continued decline and appropriate. 4. Chronic cough, history. Chest x-ray performed on 09/16 was negative for an acute infectious process. This is more prominent in the franchise field consultant. Has been trialed on second-generation antihistamines, ipratropium nasal spray, Flonase, PPI, none with a positive response per the spouse is observation. Pulse ox remains within normal range. Possibly due to body habitus as the patient is unable to ever lie flat with increased cough. We will continue to monitor and provide support. 5. Dementia. Patient previously presented with signs and symptoms of dementia. Spouse is aware this is chronic and progressive. She is not on any disease modifying agents. Given the patient's advanced age and chronic comorbidities a gradual decline is expected. 6. Advanced care planning. Patient is a POLST in place as DN AR with selective interventions. Spouse wishes strongly for the patient to return home be in her familiar environment and then see where she lands before moving forward with any transitioning to hospice services. Role of hospice services reintroduced again today and patient spouse to consider at a future point. Wishes to focus on comfort measures within the home environment and continue to have support from palliative care. Total time spent 30 minutes with greater than 50% of the spent in counseling and coordination of care with the spouse and hospitalist; examination of patient; review of RI results and pathophysiology; reintroduction of hospice services, and anticipatory guidance. Disclaimer: The chart note was formulated using voice recognition technology and unfortunately sound alike errors may occur.
--- NOTE | 2021-09-18 15:29 | Discharge Plan ---
Discharge Plan Problem Reviewed?: Yes Disposition: Home, Self Care Condition: Poor Prescriptions: Amox/Clav 875/125 [Augmentin 875/125 Tab] 1 tab PO BID #4 tablet Saccharomyces Boulardii [Florastor] 250 mg PO BIDWM #4 cap Atorvastatin [Lipitor] 40 mg PO QPM #30 tablet Gabapentin [Neurontin] 300 mg PO TID #90 cap Clopidogrel [Plavix] 75 mg PO DAILY #30 tablet Diet: Regular (dysphagia) Activity Restrictions: Activity as Tolerated Shower Restrictions: No (fall precaution) Instruction Topics: Atorvastatin tablets, Amoxicillin Clavulanic Acid tablets, Aspirin ASA chewable tablets, Aphasia, Stroke Ischemic, UTI Health Concerns: stroke/aphasia, normal pressure hydrocephalus, UTI, urinary retention, palliative care Plan of Treatment: you were found to have stroke. You still present aphasia. Speech therapy was consulted for you. MRI of brain also reveal normal pressure hydrocephalus. You are prescribed Plavix, you are allergy to aspirin, and Lipitor. Your declined to have with PT/ OT evaluation. your hope to discharge to home with family support. You had palliative care consult at hospital. you may follow-up with palliative care. You were found to have urinary tract infection, you were treated with IV antibiotics in the hospital, you are prescribed antibiotics to finish the treatment course. You present urinary retention, now you have [place]. Home health RN is arranged for your Villafuerte care, and your is educated by nurse for Villaf[place]te care as well. You may follow-up with palliative care to manage the care as well, and followup with urologist as needed. Care Goals: Stabilization, focus on comfortable care, Follow-up with palliative care. Assessment: Discussed the care plan with your , answered his questions, he understood and agreed Additional Instructions or Follow Up instructions: You may follow-up with your PCP in 1 to 2 weeks, and follow-up with palliative care. Should your symptoms return or worse, you may present to the ER or call 911 for help. Follow-Up Care: Home Health - RN No Smoking: If you smoke, Please STOP! Call for help. Follow-up with: Laureano Motta MD [Primary Care Provider] -
[2021-09-18 16:15] VITALS: BP 148/70
--- NOTE | 2021-09-18 16:15 | DISCHARGE SUMMARY ---
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 Patient still present aphasia,and unresponsive to verbal command but eat and drink without issue. pt has been feed by her . pt had ST evaluation and treatment for pt. pt's declined to have PT/OT evaluation and treatment for pt. pt is prescribed Plavix, pt is allergy to aspirin,and lipitor. pt had palliative care consult at hospital. pt may continue followup with palliative care, transfer to hospice care if continue Deteriorated. pt's report pt has full support at her home. (2) normal pressure hydrocephalus MRI of brain also show Normal pressure hydrocephalus. Patient still present aphasia, and unresponsive to verbal command but eat and drink without issue. pt has been feed by her . Discussed the care plans, including transfer pt to high level care, for normal pressure hydrocephalus With the patient's at the bedside at hospital. After Patient's discussed with her family, Patient's clearly state they do not want to do any further intervention or transfer pt for high level of care. He hope to see Patient's palliative provider and discharge to home. pt did have palliative care consult at hospital. (3) E coli UTI The urine culture grew E. coli, which is pansensitive. pt was treated IV an tibiotics at hospital. pt is prescribed antibiotics to finish the treatment course. (4) Aphasia pt continue present aphasia. It appears secondary to combination of subacute s troke and normal pressure hydrocephalus. pt had consult with ST. (5) Post-menopausal bleeding HGB is stable. continue her home MedroxyProgesterone. (6) HTN Stable, resume home BP meds (7)urinary retention we attempted to d/c pt's Villafuerte but pt still present urinary retention at hospital. Then we put back Villafuerte for pt. pt may followup with palliative care and further pt may followup with urologist as needed. 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 She also has history of hypertension, breast cancer status post lumpectomy and radiation and morbid obesity. She lives with her who is her primary caregiver but also has 2 caregivers who come in to assist. History is provided by her who reported that the patient became unresponsive/noncommunicative last night. Normally she is able to speak without difficulty however since yesterday, despite being awake she would not speak. He denied any significant complaints 2 days prior. Work-up in the ED included a urine analysis which was indicative of a UTI. She also had a white blood cell count of 13.5. As a result of this findings she was presented for admission for further treatment. At bedside she appears to be comfortable and awake. However she is noncommunicative. She has a mild audible wheeze. - ALLERGIES Allergies/Adverse Reactions: Allergies Allergy/AdvReac Type Severity Reaction Status Date / Time Milk Containing Products Allergy Unknown Verified 09/11/21 17:19 scopolamine Allergy Unknown Verified 09/11/21 17:19 aspirin AdvReac Nausea Verified 09/11/21 17:19 - MEDICATIONS Home Medications: Ambulatory Orders Medication Instructions Recorded Confirmed Cholecalciferol (Vitamin D3) 1 cap PO DAILY 01/31/20 09/13/21 [Vitamin D3] Cyanocobalamin (Vitamin B-12) 1,000 mcg PO DAILY 01/31/20 09/13/21 [Vitamin B-12] polyethylene glycoL 3350 [Miralax] 17 g PO DAILY PRN 01/31/20 09/13/21 Medroxyprogesterone Acetate 10 mg PO DAILY 03/25/20 09/13/21 Amlodipine Besylate [Norvasc] 2.5 mg PO DAILY #30 tablet 05/07/20 09/13/21 Lisinopril [Zestril] 20 mg PO DAILY #30 tablet 05/07/20 09/13/21 Nystatin Cream [Mycostatin Cream] 1 applic TOP BID 09/13/21 09/13/21 Amox/Clav 875/125 [Augmentin 1 tab PO BID #4 tablet 09/18/21 875/125 Tab] Atorvastatin [Lipitor] 40 mg PO QPM #30 tablet 09/18/21 Clopidogrel [Plavix] 75 mg PO DAILY #30 tablet 09/18/21 Gabapentin [Neurontin] 300 mg PO TID #90 cap 09/18/21 Saccharomyces Boulardii [Florastor] 250 mg PO BIDWM #4 cap 09/18/21 - PHYSICAL EXAM AT DISCHARGE General Appearance: positive: No acute distress, Alert, Lethargic Eyes Bilateral: positive: Normal inspection, No lid inflammation ENT: positive: ENT inspection nml, No signs of dehydration. negative: Purulent nasal drainage Neck: positive: Nml inspection. negative: Trachea midline, Tracheal deviation Respiratory: positive: Chest non-tender, No respiratory distress. negative: Wheezes Cardiovascular: positive: Regular rate & rhythm. negative: Tachycardia, Bradycardia, Systolic murmur Peripheral Pulses: positive: 2+ Abdomen: positive: Non-tender, Nml bowel sounds, No distention. negative: Tenderness Back: positive: Nml inspection Skin: positive: Color nml, Warm, Dry. negative: Cyanosis Extremities: positive: Non-tender, Nml appearance Neurologic/Psychiatric: positive: Other (pt present aphasia, she is bedbound. pt's declined assessment to her). negative: Facial droop - LABS Result Diagrams: 09/18/21 08:13 09/18/21 08:13 - FOLLOW UP Follow Up: you were found to have stroke. You still present aphasia. Speech therapy was consulted for you. MRI of brain also reveal normal pressure hydrocephalus. You are prescribed Plavix, you are allergy to aspirin, and Lipitor. Your declined to have with PT/ OT evaluation. your hope to discharge to home with family support. You had palliative care consult at hospital. you may follow-up with palliative care. You were found to have urinary tract infection, you were treated with IV anti biotics in the hospital, you are prescribed antibiotics to finish the treatment course. You present urinary retention, now you have Villafuerte. Home health RN is arranged for your Villafuerte care, and your is educated by nurse for Villafuerte care as well. You may follow-up with palliative care to manage the care as well, and followup with urologist as needed. You may follow-up with your PCP in 1 to 2 weeks, and follow-up with palliative care. Should your symptoms return or worse, you may present to the ER or call 911 for help. - TIME SPENT Time Spent in Discharge (Minutes): 30
== END 2021-09-18 16:30 | disposition home or self-care (01) | DRG 65 ==
LOC: EDUNIT# → ED 17:08 → MS3 21:23 → OBSVTOIN 09-12 10:41
PROVIDERS: ADMIT Internal Medicine; ATTEND Nurse Practitioner Gerontology
DX: I63.9 Cerebral infarction, unspecified (principal); N20.0 Calculus of kidney; D72.829 Elevated white blood cell count, unspecified; N30.00 Acute cystitis without hematuria; R41.82 Altered mental status, unspecified; G37.9 Demyelinating disease of central nervous system, unspecified; G91.2 (Idiopathic) normal pressure hydrocephalus; G62.9 Polyneuropathy, unspecified; G89.29 Other chronic pain; H54.7 Unspecified visual loss; H91.90 Unspecified hearing loss, unspecified ear; Z20.822 Contact with and (suspected) exposure to COVID-19; I10 Essential (primary) hypertension; F03.90 Unspecified dementia, unspecified severity, without behavioral disturbance, psychotic disturbance, mood disturbance, and anxiety; F32.A Depression, unspecified; F41.9 Anxiety disorder, unspecified; K59.09 Other constipation; B96.20 Unspecified Escherichia coli [E. coli] as the cause of diseases classified elsewhere; N95.0 Postmenopausal bleeding; M54.9 Dorsalgia, unspecified; R15.9 Full incontinence of feces; R32 Unspecified urinary incontinence; R33.9 Retention of urine, unspecified; R47.01 Aphasia; Z74.01 Bed confinement status; Z79.899 Other long term (current) drug therapy; Z85.3 Personal history of malignant neoplasm of breast; Z86.19 Personal history of other infectious and parasitic diseases; Z86.718 Personal history of other venous thrombosis and embolism; Z87.891 Personal history of nicotine dependence; Z88.8 Allergy status to other drugs, medicaments and biological substances; Z90.49 Acquired absence of other specified parts of digestive tract; Z91.011 Allergy to milk products; Z97.2 Presence of dental prosthetic device (complete) (partial); Z92.3 Personal history of irradiation
CPT/HCPCS: 36415; 51701; 70450; 70551; 71045; 74177; 80048; 80053; 80061; 81001; 83605; 83690; 85025; 87040; 87070; 87077; 87086; 87181; 87481; 87491; 87591; 87631; 87661; 87801; 92523; 96372; 96374; 99233; 99281; 99285; A6250; A9270; J1650; Q9967; 0202U; 81003; 83721; 99232

== ENCOUNTER 2021-09-18 16:36 | Outpatient (CLI) | payer MEDICARE, OTHER | END 2021-09-18 16:37 | disposition home or self-care (01) | LOC: EMS 16:36 | PROVIDERS: ATTEND Nurse Practitioner Gerontology | DX: R53.1 Weakness (principal); I63.9 Cerebral infarction, unspecified; Z74.01 Bed confinement status | CPT/HCPCS: A0425; A0428 ==

== ENCOUNTER 2021-09-24 15:10 | Outpatient (CLI) | payer MEDICARE, OTHER ==
--- NOTE | 2021-09-24 16:27 | CONSULTATION NOTE ---
Palliative Care Follow Up - Referral Referring Provider: Dr. Laureano Motta Time of Visit: 4023-4052 Referral setting: Home Referral Reason: CVA/Debility/Pennington Catheter/Dementia - Information Sources Records reviewed: Previous records reviewed History/Review of Systems obtained from: Family (spouse/DPOA, [place]) Exam limitations: Clinical condition (Nonverbal) - History of Present Illness Update Brief HPI Update: This is a tarah 86-year-old female who is seen and evaluated in follow-up today in her home status post hospitalization for altered mental status admitted on 09/11 that resulted in evidence of a CVA and urinary tract infection now home with a Pennington catheter, and expressive aphasia in the setting of dementia, postmenopausal bleeding and polyneuropathy. MRI on 09/16 demonstrated "left anterior cerebral artery territory infarction, which has a subacute appearance. Underlying brain parenchymal volume loss is seen, with prominence of lateral ventricles. The lateral ventricles are more prominent than would be expected for the degree of sulcal atrophy. Please consider normal pressure hydrocephalus. Small small vessel ischemic changes are also seen." The patient was discharged from the hospital with Plavix 75 mg and atorvastatin given the most recent findings of CVA. She is no longer communicating like she wants was. She was seen and evaluated by HARNESS MAKER in the hospital on 09/17. Spouse continues to report when he is feeding the patient that there is no dysphagia noted as there is no evidence of coughing. He perceives that the patient is saying a few words appropriately when the caregivers have been present in the context. However, with this BENEFITS DIRECTOR for the entire length of the visit she never uttered a word nor was able to communicate with just simple yes and no questions. Previously, the patient was able to utilize her right arm. Now she is unable to utilize either side of her body. She is being fed by her spouse or caregivers. She was discharged home with a Pennington catheter. Discharge paperwork states that the patient has urinary retention however, unable to find a bladder scan documentation in the patient's hospital stay. Spouse reports that despite having a wonderful stay of the last few hours at the hospital was very chaotic including removing the patient's Pennington catheter and then the ambulance coming to take her home and her not having voided in a 3 to 4-hour timeframe resulting in this being placed back. The spouse is presently unclear how he feels about bashir ving a Pennington catheter in place as the patient has been incontinent for many years and he and the caregivers have been diligent with skin care not resulting in any skin breakdown. The patient has been battling topical candidiasis that has been generalized and has had pulsed courses of Diflucan as well as topical nystatin. While she was hospitalized the patches of candidiasis completely resolved and improved. Patient has been on gabapentin 800 mg 3 times daily for a number of years. She was discharged home with a prescription of gabapentin 300 mg 3 times a day. Spouse is questioning which dose to utilize moving forward and advised to return back to the patient's dosage of gabapentin that she was on prior to admission. 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 +COVID vaccine Social History - Living Situation Living arrangement: At home Living Situation: With spouse/s.o. Support System: Patient lives in a one-story home with her , Ham of 62 years. They have 3 children, 2 girls and 1 boy. They have a private duty family that provides caregiving needs, Shayna and Lila who attend the patient and her 7 days/week and have been present for the last 5 years. Medications/Allergies - Medications Home Medications: Ambulatory Orders Medication Instructions Recorded Confirmed Cholecalciferol (Vitamin D3) 1 cap PO DAILY 01/31/20 09/13/21 [Vitamin D3] Cyanocobalamin (Vitamin B-12) 1,000 mcg PO DAILY 01/31/20 09/13/21 [Vitamin B-12] polyethylene glycoL 3350 [Miralax] 17 g PO DAILY PRN 01/31/20 09/13/21 Medroxyprogesterone Acetate 10 mg PO DAILY 03/25/20 09/13/21 Amlodipine Besylate [Norvasc] 2.5 mg PO DAILY #30 tablet 05/07/20 09/13/21 Lisinopril [Zestril] 20 mg PO DAILY #30 tablet 05/07/20 09/13/21 Nystatin Cream [Mycostatin Cream] 1 applic TOP BID 09/13/21 09/13/21 Atorvastatin [Lipitor] 40 mg PO QPM #30 tablet 09/18/21 Clopidogrel [Plavix] 75 mg PO DAILY #30 tablet 09/18/21 Gabapentin [Neurontin] 800 mg PO TID 09/25/21 - Allergies Allergies/Adverse Reactions: Allergies Allergy/AdvReac Type Severity Reaction Status Date / Time Milk Containing Products Allergy Unknown Verified 09/11/21 17:19 scopolamine Allergy Unknown Verified 09/11/21 17:19 aspirin AdvReac Nausea Verified 09/11/21 17:19 Review of Systems - Constitutional Constitutional: denies: Fever, Poor appetite, Weight loss - Eyes Eyes: denies: Vision loss - Ears, Nose & Throat Ears, Nose & Throat: reports: Hearing loss (spouse feels like the patient is not listening to him and has reached out to a local director safety to see about getting a home visit), Dentures. denies: Hearing aids - Cardiovascular Cardiovascular: reports: Edema (LUE intermittent due to dependency, has been occuring on and off for several months. Resolved in hospital with elevation of UE.) - Respiratory Respiratory: reports: Cough (pronounced in the mornings, CXR obtained 09/16/21 negative for acute process. Spouse continues to worry about the patient's "congestion" which has been long standing.). denies: Wheezing - Gastrointestinal Gastrointestinal: reports: Good appetite (is being fed by spouse at meal times). denies: Abdominal pain, Constipation (controlled with senna in evenings Spouse gave enemez when patient came home.), Vomiting - Genitourinary Genitourinary: reports: Hematuria, Other (+pennington catheter in place with hospital documentation stating history of rention) - Musculoskeletal Musculoskeletal: reports: Assistive devices, Transfer issues. denies: Joint pain - Integumentary Integumentary: reports: Pigment changes (BLE, chronic) - Neurological Neurological: reports: General weakness, Memory problems, Other (+ Generalized Neuropathy; No longer able to use either UE; +aphasia) - Psychiatric Psychiatric: reports: Depression - Endocrine Endocrine: denies: Diabetes type 2 (HgA1C 5.2% 08/07/21) - All Other Systems All Other Systems: reports: Reviewed and negative (ROS supplemented by spouse, Ham as patient is nonverbal) Physical Exam - Vital Signs Temperature: 36.5 C Pulse Rate: 53 O2 Saturation: 96 (on RA) Blood Pressure: 121/64 - Physical Exam General Appearance: positive: No acute distress, Alert (Nonverbal and does not respond to commands), Other (obese, sitting up in her hospital) Eyes Bilateral: positive: Normal inspection ENT: positive: No signs of dehydration Neck: positive: Trachea midline Cardiovascular: positive: Bradycardia, Other (Distant heart sound due to body habitus) Respiratory: positive: No respiratory distress, Rales (trace LLL) Abdomen: positive: Non-tender, Soft, Nml bowel sounds, Obese, Other (+Pennington catheter draining yellow urine) Skin: positive: Rash (No evidence of candidasis under b/l breasts or b/l axilla.), Other (scar to left breast s/p lumpectomy; chronic venous stasis dermatitis changes to BLE above ankles L>R) Extremities: positive: No pedal edema, Other (Trace LUE edema noted as arm is in dependent postion) Neurologic/Psychiatric: positive: Disoriented to person, Disoriented to place, Disoriented to time, Weakness, Other (Nonverbal and not following commands or "yes or no questions") Palliative Care - POLST Patient has POLST: Yes POLST Status: DNR, Selective Treatment Sleep: Sleeps well Constipation: Yes, Managed Performance Status: Patient has been nonambulatory for approximately 5 years due to ascending neuropathy. She has been incontinent of bowel and bladder now with a Pennington catheter in place for urinary retention. She requires assistance with feeding. Now nonverbal demonstrating aphasia and dysarthria. She is no longer able to communicate. - Palliative Care Discussion: Spouse perceives that since returning home in the last week the patient has recovered with alertness and her ability to communicate. He remains optimistic in regards to being able to formulate a plan in order to have the patient communicate with him and caregivers. Discussed with the patient spouse pathophysiology of the patient's stroke and to eliminate hope but set expectations that the patient may not recover nor return to her former baseline also given her history of dementia. Discussed that in the context of the patient's stroke she would be appropriate to transition to hospice services if the patient's spouse says goals are in alignment with the hospice philosophy. Reviewed hospice philosophy with patient spouse at length. At the present time, the patient spouse wishes to continually have an answer as to why something is medically going wrong with the patient and therefore would want her to be transferred to the hospital for any circumstances. He also expresses that as long as she is "a viable person that I want to care for her at home." In the context of the patient's Pennington catheter he expresses uncertainty were regarding utilizing this moving forward. Discussed may consider a trial of removing the Pennington catheter based on further evaluation of documentation from the patient's hospitalization. By moving forward will need support from home health nursing for management and assistance with understanding verbalized. He is going to consider potential trial removal versus continuation which could be appropriate given the patient's morbid obesity, bedbound state and for comfort measures. Impression and Recommendations - Palliative Care Impression: This is an 86-year-old female who is bedbound due to undifferentiated progressive neuropathy with obesity now status post new CVA noted on brain MRI 09/16/2021 with expressive aphasia, urinary retention, and postmenopausal bleeding. She is no longer able to communicate. Spouse continues to express desire to have the patient be medically worked up for any circumstance and therefore not appropriate to transition to hospice services. Palliative care will continue to provide support for symptom management, care coordination and advance care planning. Recommendations/Counseling Done: 1. CVA. Subacute in appearance from brain MRI 09/17/2021 that demonstrated left anterior cerebral area artery territory infarction. The patient has now developed aphasia and dysarthria. She is status post HARNESS MAKER evaluation on 09/17. Unclear if she will be able to regain her ability to communicate but the spouse remains optimistic. Request HARNESS MAKER from home health services with eating for support within the home. Reviewed today that this is a progressive chronic condition. Continue Plavix 75 mg given patient's history of aspirin and atorvastatin at the present time as well as optimizing the patient's blood pressure for prevention. 2. Pennington catheter. Patient does not have a prior history of urinary retention. Upon review of medical records from hospitalization in August 2021 prior to her discharge noted the patient had urinary retention. Will evaluate further for bladder scan records of available to determine extent of urinary retention. Spouse is unclear if he would wish to do a trial removal of Pennington catheter. Home health nursing would be available to remove the Pennington catheter in the morning and if the patient was unable to void to replace later in the afternoon. Spouse to consider and palliative care will follow-up regarding trial removal. Did discuss with the spouse that may consider leaving Pennington catheter in place for comfort measures given the patient's morbid obesity, bedbound state and high risk for skin breakdown in the setting of history of urinary retention. [facility] contacted to request initiation of home health services. 3. Acute cystitis. Urine culture grew E. coli from hospitalization in August 2021. Has completed antibiotic therapy. 4. Chronic cough, longstanding history. Chest x-ray performed on 09/16 was negative for an acute infectious process. Reviewed today with the patient's spouse that pulse ox remains within normal range. Discussed that given the patient's bedbound state, history of ascending peripheral neuropathy and now with history of CVA this is likely all contributing to her ability to have a strong cough and gag reflex with her inability to expel phlegm. We reviewed the chest x-ray results that did not indicate any acute infectious process. Also reviewed in the past have trialed second-generation antihistamines, ipratropium nasal spray, Flonase, PPI, none of which had a positive response per the past spouse as observation. Again reviewed the patient's pulse ox remains within normal range and she herself does not not appear to be concerned regarding the cough but it is through the observation of others that appears to have concerns. Supportive and apathetic listening provided to the patient's spouse. 5.Peripheral neuropathy, ascending. Longstanding history. Resulted in bedbound state for 5 to 6 years. Patient was discharged from hospital with a prescription for gabapentin 300 mg 3 times daily when she has been on 800 mg 3 times daily for numerous years. Advised spouse to resume gabapentin 800 mg 3 times daily moving forward. 6. Advance care planning. Patient has POLST in place as DN AR with selective interventions. Spouse does not wish to transition to hospice services as he continues to want to know the why for her medical changes that are occurring with the patient and would wish to have her transferred to the hospital for hospital level of care when appropriate. Total time spent 60 minutes with greater than 50% of the spent in counseling coronation care with the patient, patient's spouse; examination of patient; review of pathophysiology and setting expectations; review of hospice services and philosophy; review of home health services; medication management and advance care planning. Disclaimer: The chart note was formulated using voice recognition technology and unfortunately sound alike errors may occur.
== END 2021-09-24 15:11 | disposition home or self-care (01) ==
LOC: PC 15:10
PROVIDERS: ATTEND Nurse Practitioner Family
DX: Z51.5 Encounter for palliative care (principal); I69.320 Aphasia following cerebral infarction; I69.322 Dysarthria following cerebral infarction; I10 Essential (primary) hypertension; N30.00 Acute cystitis without hematuria; R05.3 Chronic cough; G62.9 Polyneuropathy, unspecified; Z96.0 Presence of urogenital implants; Z66 Do not resuscitate
CPT/HCPCS: 99350

== ENCOUNTER 2021-10-16 15:21 | Outpatient (CLI) | payer MEDICARE, OTHER | END 2021-10-16 15:22 | disposition critical access hospital (66) | LOC: EMS 15:21 | DX: Z46.6 Encounter for fitting and adjustment of urinary device (principal) ==

== ENCOUNTER 2021-10-16 15:26 | Emergency (ER) | payer MEDICARE, OTHER ==
--- NOTE | 2021-10-16 15:42 | ED Physician Documentation ---
History of Present Illness - Stated complaint Stated Complaint: CATH ISSUE - History obtained from History obtained from: Family, EMS - History of Present Illness Timing: Today Pain level max: 0 Pain level now: 0 - Additonal information Additional information: 86-year-old female brought in by EMS because her catheter "was not working". She has a history of a stroke. Is nonverbal and bedbound. Apparently this catheter was replaced last night. According to EMS states that it was not draining this morning. The patient's arrived to the emergency department after the catheter had been replaced in the emergency department. He states that the home health agency told him to cut the catheter balloon and pulled the catheter out. It is unclear what their plan was to place the catheter back in this patient. 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: Breast cancer, Other : Incontinence HEENT: Chronic vision loss, Chronic sinusitis Psych: Depression, Anxiety Musculoskeletal: Chronic back pain Derm: Herpes zoster, Other - Past Surgical History Past Surgical History: Yes General: Cholecystectomy /BLACK LEATHER BUFFER: Other - Present Medications Home Medications: Ambulatory Orders Medication Instructions Recorded Confirmed Cholecalciferol (Vitamin D3) 1 cap PO DAILY 01/31/20 09/13/21 [Vitamin D3] Cyanocobalamin (Vitamin B-12) 1,000 mcg PO DAILY 01/31/20 09/13/21 [Vitamin B-12] polyethylene glycoL 3350 [Miralax] 17 g PO DAILY PRN 01/31/20 09/13/21 Medroxyprogesterone Acetate 10 mg PO DAILY 03/25/20 09/13/21 Amlodipine Besylate [Norvasc] 2.5 mg PO DAILY #30 tablet 05/07/20 09/13/21 Lisinopril [Zestril] 20 mg PO DAILY #30 tablet 05/07/20 09/13/21 Nystatin Cream [Mycostatin Cream] 1 applic TOP BID 09/13/21 09/13/21 Atorvastatin [Lipitor] 40 mg PO QPM #30 tablet 09/18/21 Clopidogrel [Plavix] 75 mg PO DAILY #30 tablet 09/18/21 Gabapentin [Neurontin] 800 mg PO TID 09/25/21 - Allergies Allergies/Adverse Reactions: Allergies Allergy/AdvReac Type Severity Reaction Status Date / Time Milk Containing Products Allergy Unknown Verified 09/11/21 17:19 scopolamine Allergy Unknown Verified 09/11/21 17:19 aspirin AdvReac Nausea Verified 09/11/21 17:19 - Social History Does the pt smoke?: No Smoking Status: Former smoker Does the pt drink ETOH?: No Does the pt have substance abuse?: No - Immunizations Immunizations are current?: Yes - POLST Patient has POLST: Yes POLST Status: DNI (Ok for CPAP/BiPAP) PD ED PE NORMAL - Vitals Vital signs reviewed: Yes - General General: No acute distress, Well developed/nourished, Other (Alert, nonverbal) - HEENT HEENT: PERRL, Moist mucous membranes - Neck Neck: Supple, no meningeal sign - Cardiac Cardiac: RRR - Respiratory Respiratory: No respiratory distress, Clear bilaterally - Abdomen Abdomen: Soft, Non tender, Non distended - Derm Derm: Warm and dry - Neuro Neuro: Other (Alert, at her mental baseline) Results - Vitals Vitals: Oxygen O2 Source [Without Activity] Room air O2 Source Room air PD MEDICAL DECISION MAKING - ED course Complexity details: considered differential, d/w patient, d/w family ED course: Villafuerte catheter was placed. Patient tolerated well. Clear urine draining. Patient will be sent back home with her . She is nonambulatory at baseline. Family counseled regarding signs and symptoms for which I believe and urgent re-evaluation would be necessary. Family with good understanding of and agreement to plan and is comfortable going home at this time This document was made in part using voice recognition software. While efforts are made to proofread this document, sound alike and grammatical errors may occur. Departure - Departure Disposition: 01 Home, Self Care Clinical Impression: Encounter for Villafuerte catheter replacement Condition: Good Instructions: ED Catheter Care Villafuerte Follow-Up: Laureano Motta MD [Primary Care Provider] - Within 1 week Comments: The Villafuerte catheter was replaced today. Please follow-up with your doctor for further care. Return if she worsens. Discharge Date/Time: 10/16/21 15:45
== END 2021-10-16 15:45 | disposition home or self-care (01) ==
LOC: EDUNIT# → ED 15:26
DX: Z46.6 Encounter for fitting and adjustment of urinary device (principal)
CPT/HCPCS: 51702; 99282; 99283

== ENCOUNTER 2021-10-16 15:52 | Outpatient (CLI) | payer MEDICARE, OTHER | END 2021-10-16 15:53 | disposition home or self-care (01) | LOC: EMS 15:52 | PROVIDERS: ATTEND Emergency Medicine | DX: Z46.6 Encounter for fitting and adjustment of urinary device (principal); Z74.01 Bed confinement status | CPT/HCPCS: A0425; A0428; A0429 ==

== ENCOUNTER 2021-10-23 15:45 | Outpatient (CLI) | payer MEDICARE, OTHER ==
--- NOTE | 2021-10-23 17:28 | CONSULTATION NOTE ---
Palliative Care Follow Up - Referral Referring Provider: Dr. Laureano Motta Time of Visit: 3161-1721 Referral setting: Home Referral Reason: Edema/CVA/Dementia/Postmenopausal bleeding - Information Sources Records reviewed: Previous records reviewed History/Review of Systems obtained from: Family (spouse/ANALIA Vazquez), Caregiver (Shayna and Lila) Exam limitations: Clinical condition (Speaking few sentenances---significantly improved from last evaluation) - History of Present Illness Update Brief HPI Update: This is a tarah 86-year-old female who was seen in follow-up today due to reports of edema, postmenopausal bleeding, recent CVA, and urinary retention in the setting of dementia with her spouse and caregivers present. Provider wore N95 mask. Patient presented in August 2021 with altered mental status with MRI on 09/16/2021 demonstrating "left anterior cerebral artery territory infarction, which has a subacute appearance. Underlying brain parenchymal volume loss is seen, with prominence of lateral ventricles. The lateral ventricles are more prominent than would be expected for the degree of sulcal atrophy. Please consider normal pressure hydrocephalus. Small vessel ischemic changes are also seen." The patient was discharged from the hospital with Plavix 75 mg and atorvastatin given her findings of CVA. Patient spouse has had difficulty in refilling the patient's Plavix and atorvastatin and is asking for this [employer] to fill. It has been a few days since she has been on either medication. The patient has a history of postmenopausal bleeding that began in 2019. She failed to have an endometrial biopsy as she was not able to tolerate lying flat due to going into respiratory distress and ultimately, the spouse then opted not to proceed with a biopsy. Gynecology then placed her on medroxyprogesterone to be continued long-term. Since returning home from the hospital caregivers and spouse report that the postmenopausal bleeding has changed. Previously, the patient's discharge was bright-colored vaginally. Since then, it appears more bright red and most every day she is having vaginal bleeding when previously was more spotting. Patient denies any abdominal discomfort or concern. On 10/10 home health nurse Henry reported that the patient was having 4+ edema and moist breath sounds with increased respirations and requested a diuretic for the patient. The patient's spouse, him With the patient was in the same state she has always been in. She was started on furosemide 20 mg daily x14 days. She has been on more day for completion. Caregivers report only minimal change since starting the diuretic and overall, the patient has been at baseline. They also report that when lying patient flat she continues to express discomfort and this has not improved. Her speech has significantly improved since her CVA. She initially presented as nonverbal and now has progressed and at times will have conversations. However, her conversations will wax and wane much to the disappointment of her spouse who wishes to continue to work on her communication. He has her scheduled for an master technician to come to the home next month and she is being followed by [facility] within the home. She demonstrated urinary retention while inpatient and was discharged home with a Pennington catheter which home health nursing is following. It was replaced 10 then "not working" therefore she presented to the emergency department on 10/16 for replacement. Presently with clear yellow urinary output. Past Medical History: tyrel has a past medical history that includes hypertension, peripheral neuropathy, with bedbound status for the last 4 years, breast cancer with left breast infiltrating ductal carcinoma status post lumpectomy with radiation in 2009 and recurrent disease in 2010, incontinence, depression, chronic back pain, herpes zoster, hypertensive encephalopathy 2019, postmenopausal bleeding 2019. +COVID vaccine Social History - Living Situation Living arrangement: At home Living Situation: With spouse/s.o. Support System: Patient lives in a one-story home with her , Ham of 62 years. They have 3 children, 2 girls and 1 boy. They have a private duty family that provides caregiving needs, Shayna and Lila who attend the patient and her 7 days/week and have been present for the last [address] [facility] is following. Patient had a short hair cut provided by her caregiver Lila. Medications/Allergies - Medications Home Medications: Ambulatory Orders Medication Instructions Recorded Confirmed Cholecalciferol (Vitamin D3) 1 cap PO DAILY 01/31/20 09/13/21 [Vitamin D3] Cyanocobalamin (Vitamin B-12) 1,000 mcg PO DAILY 01/31/20 09/13/21 [Vitamin B-12] polyethylene glycoL 3350 [Miralax] 17 g PO DAILY PRN 01/31/20 09/13/21 Medroxyprogesterone Acetate 10 mg PO DAILY 03/25/20 09/13/21 Amlodipine Besylate [Norvasc] 2.5 mg PO DAILY #30 tablet 05/07/20 09/13/21 Lisinopril [Zestril] 20 mg PO DAILY #30 tablet 05/07/20 09/13/21 Nystatin Cream [Mycostatin Cream] 1 applic TOP BID 09/13/21 09/13/21 Atorvastatin [Lipitor] 40 mg PO QPM #30 tablet 09/18/21 Clopidogrel [Plavix] 75 mg PO DAILY #30 tablet 09/18/21 Gabapentin [Neurontin] 800 mg PO TID 09/25/21 - Allergies Allergies/Adverse Reactions: Allergies Allergy/AdvReac Type Severity Reaction Status Date / Time Milk Containing Products Allergy Unknown Verified 09/11/21 17:19 scopolamine Allergy Unknown Verified 09/11/21 17:19 aspirin AdvReac Nausea Verified 09/11/21 17:19 Review of Systems - Constitutional Constitutional: denies: Fever, Poor appetite, Weight loss - Eyes Eyes: denies: Vision loss - Ears, Nose & Throat Ears, Nose & Throat: reports: Hearing loss (perceived by spouse and has request master technician to come to home next month), Dentures (does not allow for dentures to be cleaned frequently and reported odor from mouth---request that dentures be cleaned at least every other day.). denies: Hearing aids - Cardiovascular Cardiovascular: reports: Edema (LUE intermittent due to dependency, has been occuring on and off for several months. Resolved in hospital with elevation of UE. Otherwise, trace BLE edema which is baseline) - Respiratory Respiratory: reports: Cough (pronounced in the mornings, CXR obtained 09/16/21 negative for acute process.). denies: Wheezing - Gastrointestinal Gastrointestinal: reports: Good appetite (is being fed by spouse at meal times). denies: Abdominal pain, Constipation, Vomiting - Genitourinary Genitourinary: reports: Other (+pennington catheter in place with hospital documentation stating history of rention). denies: Hematuria - Musculoskeletal Musculoskeletal: reports: Stiffness (Right shoulder intermittent, will do passive ROM exercies), Assistive devices, Transfer issues. denies: Joint pain - Integumentary Integumentary: reports: Pigment changes (BLE, chronic), Other (Resolution of generalized topical candidiasis at present time) - Neurological Neurological: reports: General weakness, Memory problems, Other (+ Generalized Neuropathy; No longer able to use either UE; +aphasia) - Psychiatric Psychiatric: reports: Depression - Endocrine Endocrine: denies: Diabetes type 2 (HgA1C 5.2% 08/07/21) - Hematologic/Lymphatic Hematologic/Lymph: reports: Other (No recurrent infections) - All Other Systems All Other Systems: reports: Reviewed and negative (ROS supplemented by spouse, Ham and caregivers due to patient's limited responses and dementia) Physical Exam - Vital Signs Temperature: 36.6 C Pulse Rate: 52 O2 Saturation: 95 (on RA) Blood Pressure: 133/54 - Physical Exam General Appearance: positive: No acute distress, Alert, Other (obese, sitting up in her hospital) Eyes Bilateral: positive: Normal inspection, PERRL ENT: positive: No signs of dehydration Neck: positive: Trachea midline Cardiovascular: positive: Bradycardia, Other (Distant heart sound due to body habitus) Respiratory: positive: No respiratory distress, Diminished in bases Abdomen: positive: Non-tender, Soft, Nml bowel sounds, Obese, Other (+Pennington catheter draining yellow urine) Skin: positive: Other (scar to left breast s/p lumpectomy; chronic venous stasis dermatitis changes to BLE above ankles L>R). negative: Rash (No evidence of candidasis under b/l breasts or b/l axilla.) Extremities: positive: Pedal edema (BLE trace), Other (Trace LUE edema noted as arm is in dependent postion) Neurologic/Psychiatric: positive: Disoriented to person, Disoriented to place, Disoriented to time, Weakness, Other (SPeaking more than last assessment post CVA appropriately but at other times will stare off and not answer. Followed commands today.) Palliative Care - POLST Patient has POLST: Yes POLST Status: DNR, Selective Treatment - Palliative Care Discussion: Patient has significantly improved her ability to communicate poststroke however, her spouse continues to perseverate on different ways to process and communicating including seeing, hearing, and talking. He wishes to pursue all avenues to make sure there are not any impairments and to address any impairment that is present. He is planning to have an master technician coming to the home next month to assess the patient. Continue to set expectations regarding the patient's history of CVA and on underlying dementia is contributing factors for processing however, highlighted that the patient has made significant strides since her return home. Patient has a history of postmenopausal bleeding. Since initiation of Plavix 75 mg for CVA prophylaxis spouse and caregivers are noting in creased and change in Bleeding. Discussed antiplatelet therapy is likely exacerbating postmenopausal bleeding and if continues and noted decline with H&H may need to weigh benefits versus burdens regarding continuation of antiplatelet therapy recognizing that this if this is stopped can increase the patient's risk of stroke. Lengthy discussion was had regarding this. Impression and Recommendations - Palliative Care Impression: This is an 86-year-old female who is bedbound due to undifferentiated progressive neuropathy with obesity status post CVA on brain MRI 09/16/2021, urinary retention, postmenopausal bleeding, topical candidiasis and debility. Improvement of her ability to communicate. Palliative care will continue to provide support for symptom management, care coordination and advance care planning. Recommendations/Counseling Done: 1. CVA. Improve expressive aphasia. Noted on brain MRI 09/16/2021. Followed by home health [facility]. Chronic. Progressive. Continue Plavix 75 mg given the patient's history of aspirin allergy and atorvastatin as well as optimizing the patient's blood pressure for prevention. Prescription for Plavix and atorvastatin sent to [facility] in [place] per spouse's request. We will need to continue to weigh benefits versus burdens regarding continuation of Plavix given the patient's postmenopausal bleeding. 2. Postmenopausal bleeding. On CT of the abdomen on 02/2020 there was evidence of thickened endometrium. Patient was unable to undergo an endometrial biopsy due to respiratory distress. She was initiated on medroxyprogesterone 10 mg daily and per gynecology, Dr. Eaton is to continue this therapy moving forward. Again, per Dr. Eaton's recommendations may increase medroxyprogesterone dosage if the patient has an increase of her overall bleeding such as soaking pads or passing large clots. Postmenopausal bleeding due to the patient's body habitus, obesity, and unopposed estrogen in the setting of thickened endometrium. No evidence of diabetes mellitus with last hemoglobin A1c obtainment. Plavix is likely exacerbating postmenopausal bleeding and will need to continue to monitor. Request CBC to be obtained this month with next Pennington catheter changed to monitor H&H trend. Continue to monitor. 3. Lower extremity edema. Continues to appear to be at baseline and overall euvolemic. Continue to encourage elevation of upper and lower extremities. Minimal changes noted with furosemide 20 mg daily therefore, we will not continue moving forward. Continue to monitor. 4. Candidiasis dermatitis due to multiple sites due to increased moisture and body habitus. Presently resolved. Has had Diflucan pulse therapy in the past. Discussed utilization of Interdry fabric to be obtained [id number] and apply under bilateral breasts and abdominal folds. Made it clear not to use creams, ointments or powders with Interdry fabric and may use up to 5 times. Spouse to look into obtainment. 5. Pennington catheter due to history of urinary retention August 2021. Continue to be followed by [facility]. When catheter to be replaced to have a catheter with longer length later this month. Patient's body habitus is contributing to properly of catheter. 6. Dementia. Patient continues to have signs and symptoms of dementia and recent CVA is also contributing. Chronic. Progressive. Supportive measures. On no disease modifying agents. Given the patient's advanced age and chronic c omorbidities a gradual decline is expected. Consider UMS testing for more formal testing in the future. Total time spent 45 minutes with greater than 50% of the spent in counseling and coordination of care with the spouse, patient, and caregivers; examination of patient; review of medication management and symptom management; review of benefits versus burdens regarding antiplatelet therapy; and anticipatory guidance. Disclaimer: The chart note was formulated using voice recognition technology and unfortunately sound alike errors may occur.
== END 2021-10-23 15:46 | disposition home or self-care (01) ==
LOC: PC 15:45
PROVIDERS: ATTEND Nurse Practitioner Family
DX: Z51.5 Encounter for palliative care (principal); N95.0 Postmenopausal bleeding; R60.0 Localized edema; I69.320 Aphasia following cerebral infarction; G62.89 Other specified polyneuropathies; R41.89 Other symptoms and signs involving cognitive functions and awareness; R33.9 Retention of urine, unspecified; Z79.02 Long term (current) use of antithrombotics/antiplatelets; Z79.899 Other long term (current) drug therapy; Z74.01 Bed confinement status
CPT/HCPCS: 99349

== ENCOUNTER 2021-11-11 12:13 | Outpatient (CLI) | payer MEDICARE, OTHER ==
[2021-11-11 12:29] LABS: HGB - HEMOGLOBIN 12.3 g/dL (12.0-16.0); MEAN CORPUSCULAR HEMOGLOBIN 28.4 pg (27.0-31.0); MEAN CORPUSCULAR HGB CONC 30.8 g/dL (32.0-36.0); MEAN CORPUSCULAR VOLUME 92.4 fL (81.0-99.0); MEAN PLATELET VOLUME 10.7 fL (7.9-10.8); RED BLOOD COUNT 4.33 10^6/uL (4.20-5.40); RED CELL DISTRIBUTION WIDTH 16.7 % (12.0-15.0)
== END 2021-11-11 12:14 | disposition home or self-care (01) ==
LOC: LAB 12:13 → LAB.R 12:14
PROVIDERS: ATTEND Nurse Practitioner Family
DX: G62.9 Polyneuropathy, unspecified (principal)
CPT/HCPCS: 80053; 85027

== ENCOUNTER 2021-11-13 10:30 | Outpatient (CLI) | payer MEDICARE, OTHER ==
--- NOTE | 2021-11-13 13:37 | CONSULTATION NOTE ---
Palliative Care Follow Up - Referral Referring Provider: Dr. Laureano Motta Time of Visit: [id number] Referral setting: Home Referral Reason: Edema/CVA/Stiff shoulders/Postmenopausal bleeding - Information Sources Records reviewed: Previous records reviewed History/Review of Systems obtained from: Patient, Family (spouse/ANALIA Vazquez), Caregiver (Shayna and Lila) Exam limitations: Clinical condition (Cognitive impairment, speaking a few sentances) - History of Present Illness Update Brief HPI Update: This is a tarah 86-year-old female who is seen in follow-up today due to postmenopausal bleeding, history of CVA, edema, the setting of dementia. Patient was seen with her spouse and caregivers present. Patient has a history of postmenopausal bleeding that began in 2019. She failed to have an endometrial biopsy as she was unable to tolerate lying flat due to going into respiratory distress and ultimately, the spouse then opted not to proceed with a biopsy. Gynecology then placed her on medroxyprogesterone to be continued long-term. Since the patient sustained a CVA and is now on Plavix she has had increased discharge vaginally. No evidence abdominal discomfort. CBC was obtained on 11/11 which demonstrated hemoglobin and hematocrit 12.3 and 40% without evidence of anemia. This lab work did demonstrate mild leukocytosis at 13%. Spouse and caregivers deny fever, diaphoresis, change in appetite, cough or change in mental status. Patient was having reports of increased cough as well as some increased lower extremity edema and therefore, furosemide 20 mg daily was reinitiated on 11/06. She continues to not be able to lie flat despite having furosemide on board. Since reinitiation of furosemide caregivers report there has been improvement in the patient's overall edema most specifically to her lower legs.. Previous x- ray imaging but the patient has had has not demonstrated any signs of pulmonary edema in the past. All parties continue to report difficulty with catheter placement with the use of this StatLock as it interferes with the pannus with rubbing and are looking to get a longer Pennington catheter and home health nursing is aware. She continues to have decreased range of motion through her bilateral shoulders. Spouse reports he is doing passive range of motion exercises at times. 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 +COVID vaccine Social History - Living Situation Living arrangement: At home Living Situation: With spouse/s.o. Support System: Patient lives in a one-story home with her , Ham of 62 years. They have 3 children, 2 girls and 1 boy. They have a private duty family that provides caregiving needs, Shayna and Lila who attend the patient and her 7 days/week and have been present for the last 5 years. Spouse does errands on afternoons. [facility] Medications/Allergies - Medications Home Medications: Ambulatory Orders Medication Instructions Recorded Confirmed Cholecalciferol (Vitamin D3) 1 cap PO DAILY 01/31/20 09/13/21 [Vitamin D3] Cyanocobalamin (Vitamin B-12) 1,000 mcg PO DAILY 01/31/20 09/13/21 [Vitamin B-12] polyethylene glycoL 3350 [Miralax] 17 g PO DAILY PRN 01/31/20 09/13/21 Medroxyprogesterone Acetate 10 mg PO DAILY 03/25/20 09/13/21 Amlodipine Besylate [Norvasc] 2.5 mg PO DAILY #30 tablet 05/07/20 09/13/21 Lisinopril [Zestril] 20 mg PO DAILY #30 tablet 05/07/20 09/13/21 Nystatin Cream [Mycostatin Cream] 1 applic TOP BID 09/13/21 09/13/21 Atorvastatin [Lipitor] 40 mg PO QPM #30 tablet 09/18/21 Clopidogrel [Plavix] 75 mg PO DAILY #30 tablet 09/18/21 Gabapentin [Neurontin] 800 mg PO TID 09/25/21 Furosemide [Lasix] 20 mg PO DAILY 11/16/21 11/16/21 - Allergies Allergies/Adverse Reactions: Allergies Allergy/AdvReac Type Severity Reaction Status Date / Time Milk Containing Products Allergy Unknown Verified 09/11/21 17:19 scopolamine Allergy Unknown Verified 09/11/21 17:19 aspirin AdvReac Nausea Verified 09/11/21 17:19 Review of Systems - Constitutional Constitutional: denies: Fever, Poor appetite, Weight loss - Eyes Eyes: denies: Vision loss - Ears, Nose & Throat Ears, Nose & Throat: reports: Hearing loss (perceived by spouse and has request superintendent overhead distribution to come to home in November 2021), Dentures. denies: Hearing aids, Mouth lesions - Cardiovascular Cardiovascular: denies: Chest pain, Edema (Improved per caregivers report with initiation of furosemide) - Respiratory Respiratory: reports: Cough (pronounced in the mornings, CXR obtained 09/16/21 negative for acute process. Spouse has started giving guafensin again to reduce cough and phlegm as patient is unable to bring phlegm up at times). denies: Wheezing - Gastrointestinal Gastrointestinal: reports: Good appetite (is being fed by spouse at meal times). denies: Abdominal pain, Constipation, Bloody stools, Vomiting - Genitourinary Genitourinary: reports: Other (+pennington catheter in place with hospital docume ntation stating history of rention). denies: Hematuria - Musculoskeletal Musculoskeletal: reports: Stiffness (Bilateral shoulders with right > left see HPI), Assistive devices, Transfer issues. denies: Joint pain - Integumentary Integumentary: reports: Pigment changes (BLE, chronic) - Neurological Neurological: reports: General weakness, Memory problems, Other (+ Generalized Neuropathy; No longer able to use either UE; +aphasia) - Psychiatric Psychiatric: reports: Depression - Endocrine Endocrine: denies: Diabetes type 2 (HgA1C 5.2% 08/07/21) - Hematologic/Lymphatic Hematologic/Lymph: reports: Bruising, Other (No recurrent infections) - All Other Systems All Other Systems: reports: Reviewed and negative (ROS supplemented by spouse, Ham and caregivers due to patient's limited responses and dementia) Physical Exam - Vital Signs Temperature: 36.6 C Pulse Rate: 56 O2 Saturation: 94 (on RA) - Physical Exam General Appearance: positive: No acute distress, Alert, Other (obese, sitting up in her hospital) Eyes Bilateral: positive: Normal inspection ENT: positive: No signs of dehydration Neck: positive: Trachea midline Cardiovascular: positive: Bradycardia, Other (Distant heart sound due to body habitus) Respiratory: positive: No respiratory distress, Diminished in bases. negative: Rales Abdomen: positive: Non-tender, Soft, Nml bowel sounds, Obese, Other (+Pennington catheter draining yellow urine to gravity) Skin: positive: Bruising (Resolving bruise to RUE due to friction from draw sheet), Other (scar to left breast s/p lumpectomy; chronic venous stasis dermatitis changes to BLE above ankles L>R). negative: Rash (No evidence of candidasis under b/l breasts or panus) Extremities: positive: Pedal edema (BLE trace) Neurologic/Psychiatric: positive: Disoriented to person, Disoriented to place, Disoriented to time, Weakness, Other (Minimal responses today but did engage when questioned directly) Palliative Care - POLST Patient has POLST: Yes POLST Status: DNR, Selective Treatment Pain: No pain - Palliative Care Discussion: Patient has a history of postmenopausal bleeding and since initiation of Plavix 75 mg for CVA prophylaxis spouse and caregivers have noted increase in vaginal bleeding. H&H was obtained to value weight patient's hemoglobin and hematocrit and this is stable without evidence of anemia. However, given the patient is on antiplatelet therapy will need to continue to weigh benefits versus burdens regarding continuation and in the light of the patient's risk for stroke. Patient's spouse is linear and his thought process and can be calm overwhelmed if too many suggestions or differentials are provided to him. Therefore, it is best to have recommendations coming from 1 source moving forward to reduce confusion. This was discussed with the patient's home health RN, Mounika. Spouse continues to perseverate that the patient's ability to communicate with him poststroke is related to the different ways to communicate with seeing, hearing, and then being able to talk. He continues to worry that the patient has hearing impairments and has requested that an superintendent overhead distribution come to the home in November 2021 to evaluate the patient. He also perceives that the patient is more communicative with the caregivers versus himself. Results - Lab Results Lab results reviewed: Yes Lab and Imaging Results: 11/11/2021 WBC 13, hemoglobin 12.3, hematocrit 40%, MCW 92.4, RDW 16.7, platelet 370 Impression and Recommendations - Palliative Care Impression: This is an 86-year-old female who is bedbound due to undifferentiated progressive neuropathy with obesity status post CVA on brain MRI 09/16/2021, urinary retention, postmenopausal bleeding with stable H&H, decreased range of motion to bilateral shoulders, and bilateral lower extremity edema presently controlled with furosemide. Patient would benefit from occupational therapy for adaptation and range of motion exercises to perform. Palliative care will continue to provide support for symptom management, care coordination and advance care planning. Recommendations/Counseling Done: 1. Bilateral lower extremity edema. Improved per perception of patient's spouse and caregivers. Presently appears to be euvolemic. Continue to encourage elevation of upper and lower extremities. Continue furosemide 20 mg daily. Continue to monitor. 2. Leukocytosis, mild. Does not present with any signs and symptoms of infection. Reviewed signs and symptoms of infection with patient spouse and caregivers. Request reevaluation of CBC in 1 month to reevaluate and the spouse and caregivers aware to contact palliative care or PCP if development of signs and symptoms of infection. 3. Postmenopausal bleeding. On CT of the abdomen on 02/2020 there was evidence of thickened endometrium. Patient was unable to undergo an endometrial biopsy due to respiratory distress. She was initiated on medroxyprogesterone 10 mg daily and per gynecology, Dr. Eaton is to continue this therapy moving forward. Again, per Dr. Eaton's recommendations may increase medroxyprogesterone dosage if patient has an increase in her overall bleeding such as soaking pads or passing large clots. Postmenopausal bleeding due to the patient's body habitus, obesity, and unopposed estrogen in the setting of thickened endometrium. Patient has not had any evidence of diabetes mellitus with glycemic globin A1c obtainment 5.2% on 08/07/2021. Plavix is likely exacerbating postmenopausal bleeding and will need to continue to monitor. Obtain CBC next month and continue to monitor. 4. CVA. Continues to have some expressive aphasia but significantly improved. CVA noted on brain MRI 09/16/2021. Followed by home health [employer] [employer]. Chronic. Progressive. Continue Plavix 75 mg given the patient's history of aspirin allergy and atorvastatin as well to optimize the patient's as well as optimizing the patient's blood pressure for prevention of CVA. We will need to continue to weigh benefits versus burdens regarding continuation of Plavix given the patient's postmenopausal bleeding. Continue to set expectations to the patient's spouse regarding the patient's ability to express herself due to history of CVA and underlying dementia. 5.Bilateral shoulder stiffness. Some evidence of beginning of frozen shoulder due to lack of movement and patient's body habitus. Would benefit from occupational therapy for assessment for range of motion exercises and modifications that may be needed in the home to assist the patient's comfort. And improve range of motion. 6. Dementia. Patient continues to have signs and symptoms of dementia and recent CVA is also contributing. Chronic. Progressive. Supportive measures. On no disease modifying agents. Given the patient's advanced age and chronic comorbidities a gradual decline is expected. Face to face: Patient is bedbound and unable to leave her home. Would benefit from occupational therapy for range of motion exercises to bilateral shoulders as well as adaptation equipment and techniques to reduce stiffening. Total time spent 40 minutes with greater than 50% of the spent in counseling and coordination of care with the patient, spouse/DPOA, and caregiver; review of lab work; examination of patient; review of medication management and symptom management; and anticipatory guidance. Able to speak to and with [facility], and updated regarding plan of care after visit with understanding verbalized. Disclaimer: The chart note was formulated using voice recognition technology and unfortunately sound alike errors may occur.
== END 2021-11-13 10:31 | disposition home or self-care (01) ==
LOC: PC 10:30
PROVIDERS: ATTEND Nurse Practitioner Family
DX: Z51.5 Encounter for palliative care (principal); R60.0 Localized edema; D72.829 Elevated white blood cell count, unspecified; N93.8 Other specified abnormal uterine and vaginal bleeding; I69.320 Aphasia following cerebral infarction; I10 Essential (primary) hypertension; M25.612 Stiffness of left shoulder, not elsewhere classified; M25.611 Stiffness of right shoulder, not elsewhere classified; Z79.02 Long term (current) use of antithrombotics/antiplatelets; Z79.899 Other long term (current) drug therapy; Z74.01 Bed confinement status; Z66 Do not resuscitate
CPT/HCPCS: 99349

== ENCOUNTER 2021-11-13 12:37 | Outpatient (CLI) | payer MEDICARE, OTHER ==
[2021-11-13 13:17] LABS: ALBUMIN/GLOBULIN RATIO 0.9 (1.0-2.2); BILIRUBIN,TOTAL 0.8 mg/dL (0.2-1.0); CALCIUM 8.8 mg/dL (8.5-10.3); CREATININE 0.7 mg/dL (0.4-1.0); POTASSIUM 4.6 mmol/L (3.5-5.0); TOTAL PROTEIN 6.3 g/dL (6.7-8.2)
== END 2021-11-13 12:38 | disposition home or self-care (01) ==
LOC: LAB 12:37
PROVIDERS: ATTEND Nurse Practitioner Family
DX: G62.9 Polyneuropathy, unspecified (principal)
CPT/HCPCS: 36415; 80053

== ENCOUNTER 2021-12-09 08:00 | Outpatient (CLI) | payer MEDICARE, OTHER ==
[2021-12-09 16:57] LABS: BASOPHILS # (AUTO) 0.1 10^3/uL (0.0-0.1); BASOPHILS % (AUTO) 0.5 %; EOSINOPHILS # (AUTO) 0.3 10^3/uL (0.0-0.7); EOSINOPHILS % (AUTO) 2.5 %; HCT - HEMATOCRIT 37.1 % (37.0-47.0); HGB - HEMOGLOBIN 11.1 g/dL (12.0-16.0); LYMPHOCYTES # (AUTO) 1.3 10^3/uL (1.5-3.5); LYMPHOCYTES % (AUTO) 10.8 %; MEAN CORPUSCULAR HEMOGLOBIN 28.4 pg (27.0-31.0); MEAN CORPUSCULAR HGB CONC 29.9 g/dL (32.0-36.0); MEAN CORPUSCULAR VOLUME 94.9 fL (81.0-99.0); MEAN PLATELET VOLUME 10.2 fL (7.9-10.8); MONOCYTES # (AUTO) 0.9 10^3/uL (0.0-1.0); MONOCYTES % (AUTO) 7.2 %; NEUTROPHILS # (AUTO) 9.4 10^3/uL (1.5-6.6); NEUTROPHILS % (AUTO) 78.6 %; PLT - PLATELET COUNT 398 10^3/uL (130-450); RED BLOOD COUNT 3.91 10^6/uL (4.20-5.40); RED CELL DISTRIBUTION WIDTH 17.3 % (12.0-15.0)
== END 2021-12-09 23:59 | disposition home or self-care (01) ==
LOC: LAB.R 08:00
PROVIDERS: ATTEND Nurse Practitioner Family
DX: D72.829 Elevated white blood cell count, unspecified (principal)
CPT/HCPCS: 85025

== ENCOUNTER 2021-12-21 02:47 | Emergency (ER) | payer MEDICARE, OTHER ==
--- NOTE | 2021-12-21 03:34 | ED Physician Documentation ---
History of Present Illness - Stated complaint Stated Complaint: SOA/CONGESTION - Chief complaint Chief Complaint: Resp - History obtained from History obtained from: Family (Patient's ) - Additonal information Additional information: Patient is an 86-year-old female who is bedbound, history of CVA, edema, dementia presenting for evaluation of worsening shortness of breath. History is provided by her as patient has aphasia.Per her , she has had a cough for several weeks and is not able to produce any phlegm. He felt that her breathing was worse this evening. She does have generalized edema and is on furosemide 20 mg daily which she reports she is getting and having adequate urine output. She has a Villafuerte catheter for history of urinary retention. Spouse denies any changes to her diet or recent increased liquid intake or salt intake. Spouse states that that her swelling appears improved since starting the Lasix several months ago and has not recently worsened.No known fevers or sick contacts. No vomiting or diarrhea. Spouse denies concerns for aspiration and says that he is careful with her diet and has not witnessed any choking episodes.History is very limited as patient is not able to provide any.Patient was given a breathing treatment by EMS. Review of Systems Unable to obtain: Other (Patient has aphasia) PD PAST MEDICAL HISTORY - Past Medical History Cardiovascular: Hypertension, Deep vein thrombosis Respiratory: Other Neuro: Dementia, Peripheral neuropathy, Other Endocrine/Autoimmune: None GI: Chronic constipation PROGRAM ELIGIBILITY SPECIALIST: Breast cancer, Other : Incontinence HEENT: Chronic vision loss, Chronic sinusitis Psych: Depression, Anxiety Musculoskeletal: Chronic back pain Derm: Herpes zoster, Other - Past Surgical History Past Surgical History: Yes General: Cholecystectomy /PROGRAM ELIGIBILITY SPECIALIST: Other - Present Medications Home Medications: Ambulatory Orders Medication Instructions Recorded Confirmed Cholecalciferol (Vitamin D3) 1 cap PO DAILY 01/31/20 12/21/21 [Vitamin D3] Cyanocobalamin (Vitamin B-12) 1,000 mcg PO DAILY 01/31/20 12/21/21 [Vitamin B-12] polyethylene glycoL 3350 [Miralax] 17 g PO DAILY PRN 01/31/20 12/21/21 Medroxyprogesterone Acetate 10 mg PO DAILY 03/25/20 12/21/21 Amlodipine Besylate [Norvasc] 2.5 mg PO DAILY #30 tablet 05/07/20 12/21/21 Lisinopril [Zestril] 20 mg PO DAILY #30 tablet 05/07/20 12/21/21 Nystatin Cream [Mycostatin Cream] 1 applic TOP BID 09/13/21 12/21/21 Atorvastatin [Lipitor] 40 mg PO QPM #30 tablet 09/18/21 12/21/21 Clopidogrel [Plavix] 75 mg PO DAILY #30 tablet 09/18/21 12/21/21 Gabapentin [Neurontin] 800 mg PO TID 09/25/21 12/21/21 Furosemide [Lasix] 20 mg PO DAILY 11/16/21 12/21/21 Azithromycin [Zithromax] 0 mg PO DAILY #6 tablet 12/21/21 - Allergies Allergies/Adverse Reactions: Allergies Allergy/AdvReac Type Severity Reaction Status Date / Time Milk Containing Products Allergy Unknown Verified 12/21/21 03:06 scopolamine Allergy Unknown Verified 12/21/21 03:06 aspirin AdvReac Nausea Verified 12/21/21 03:06 - Social History Does the pt smoke?: No Smoking Status: Former smoker Does the pt drink ETOH?: No Does the pt have substance abuse?: No - Immunizations Immunizations are current?: Yes - POLST Patient has POLST: Yes POLST Status: DNI (Ok for CPAP/BiPAP) PD ED PE NORMAL - General General: No acute distress, Well developed/nourished, Other (Elderly, chronically ill-appearing; Patient is alert, attempts to answer her name but unable to understand her speech) - HEENT HEENT: Atraumatic, Moist mucous membranes - Cardiac Cardiac: RRR, No murmur, Strong equal pulses - Respiratory Respiratory: Other (Mildly tachypneic, diminished breath sounds) - Abdomen Abdomen: Normal bowel sounds, Soft, Non tender, Non distended - Derm Derm: Warm and dry - Extremities Extremities: Other (Bilateral lower extremity edema) - Neuro Neuro: No: Alert and oriented X 3, No motor deficit, Normal speech Results - Vitals Vitals: Oxygen O2 Source [] Room air O2 Source Room air - EKG (time done) 0336 Rate: Rate (enter#) (86) Rhythm: NSR Intervals: RBBB, Other (Significant motion artifact affecting the baseline) Ischemia: No: ST elevation c/w ischemia - Labs Labs: Laboratory Tests 12/21/21 12/21/21 12/21/21 03:40 03:40 03:40 WBC 16.5 H RBC 3.82 L Hgb 10.7 L Hct 36.3 L MCV 95.0 MCH 28.0 MCHC 29.5 L RDW 17.2 H Plt Count 481 H MPV 10.3 Neut # (Auto) 13.4 H Lymph # (Auto) 1.6 Maury # (Auto) 1.0 Eos # (Auto) 0.3 Baso # (Auto) 0.1 Absolute Nucleated RBC 0.00 Nucleated RBC % 0.0 D-Dimer Sodium 142 Potassium 3.9 Chloride 104 Carbon Dioxide 28 Anion Gap 10.0 BUN 13 Creatinine 0.7 Estimated GFR (MDRD) 80 L Glucose 143 H Lactic Acid Calcium 8.7 Magnesium 2.0 Total Bilirubin 0.6 AST 17 ALT 15 Alkaline Phosphatase 122 H Troponin I High Sens 7.4 B-Natriuretic Peptide Total Protein 6.8 Albumin 3.1 L Globulin 3.7 Albumin/Globulin Ratio 0.8 L Lipase 36 SARS-CoV-2 (PCR) 12/21/21 12/21/21 12/21/21 03:40 03:40 04:25 WBC RBC Hgb Hct MCV MCH MCHC RDW Plt Count MPV Neut # (Auto) Lymph # (Auto) Maury # (Auto) Eos # (Auto) Baso # (Auto) Absolute Nucleated RBC Nucleated RBC % D-Dimer Sodium Potassium Chloride Carbon Dioxide Anion Gap BUN Creatinine Estimated GFR (MDRD) Glucose Lactic Acid 2.1 Calcium Magnesium Total Bilirubin AST ALT Alkaline Phosphatase Troponin I High Sens B-Natriuretic Peptide 49 Total Protein Albumin Globulin Albumin/Globulin Ratio Lipase SARS-CoV-2 (PCR) NOT DETECTED 12/21/21 05:44 WBC RBC Hgb Hct MCV MCH MCHC RDW Plt Count MPV Neut # (Auto) Lymph # (Auto) Maury # (Auto) Eos # (Auto) Baso # (Auto) Absolute Nucleated RBC Nucleated RBC % D-Dimer 441.2 H Sodium Potassium Chloride Carbon Dioxide Anion Gap BUN Creatinine Estimated GFR (MDRD) Glucose Lactic Acid Calcium Magnesium Total Bilirubin AST ALT Alkaline Phosphatase Troponin I High Sens B-Natriuretic Peptide Total Protein Albumin Globulin Albumin/Globulin Ratio Lipase SARS-CoV-2 (PCR) PD MEDICAL DECISION MAKING - ED course Complexity details: reviewed results, re-evaluated patient, d/w family ED course: 05 - Patient received breathing treatment.Patient states yes when asked if it feels like it helped her. She is smiling at and providers in room. She does not appear anxious. I asked if she has pain and she says no. Lung sounds clear. However she remains slightly tachypneic and per labored with her breathing. Oxygenation is normal. Patient is bedbound. No unilateral leg swelling but she does have bilateral lower extremity swelling. D-dimer ordered. 0601 - D-dimer is elevated even with age-adjusted cut off. CT angio ordered. 0700 - Pt signed out to Dr. Strange. CTA pending. Likely discharge if negative as workup has otherwise been unremarkable other than mild leukocytosis. Departure - Departure Disposition: Home, Self Care Clinical Impression: Bronchiolitis Dyspnea Qualifiers: Dyspnea type: unspecified Qualified Code(s): R06.00 - Dyspnea, unspecified Condition: Stable Instructions: ED Upper Resp Infec Abx Tx Prescriptions: Azithromycin [Zithromax] 0 mg PO DAILY #6 tablet Comments: Extensive work-up today has overall looked fairly good. We have done laboratory studies, EKG, chest x-ray, and a CT scan of the chest. Testing has been negati ve for congestive heart failure, both by blood work and imaging, heart attack, pneumonia, and blood clot. Ms. Mcclendon does have a moderately elevated white blood cell count and CT scan finding of inflammation in the bronchi/bronchioles, the tubes that bring air to the lungs. This is mild to moderate in nature and can be caused by infection. As such, she has been started on an antibiotic for bronchitis. This is most likely the cause of her altered breathing, white blood cell count, and cough. However, her lung exam actually sounds fairly good with an occasional faint wheeze and very good air movement into the depths of her lungs. Her respiratory rate is only slightly above normal, and her oxygen levels have been completely normal in the emergency department. Additionally, her heart rate and rhythm have been normal, as have blood pressures. Her visualized respirations are not labored and she has been able to rest comfortably here and is not in respiratory distress. As such, she is stable to go home and take antibiotics there. She has been given first dose of antibiotics in the emergency department, and will be due for her next dose tomorrow morning. Please pick the antibiotics up at the [facility] in [place]. Your prescription has been electronically transmitted to this pharmacy at your request. Discharge Date/Time: 12/21/21 09:41
[2021-12-21 03:47] LABS: BASOPHILS # (AUTO) 0.1 10^3/uL (0.0-0.1); BASOPHILS % (AUTO) 0.5 %; EOSINOPHILS # (AUTO) 0.3 10^3/uL (0.0-0.7); EOSINOPHILS % (AUTO) 1.8 %; HCT - HEMATOCRIT 36.3 % (37.0-47.0); HGB - HEMOGLOBIN 10.7 g/dL (12.0-16.0); LYMPHOCYTES # (AUTO) 1.6 10^3/uL (1.5-3.5); LYMPHOCYTES % (AUTO) 9.7 %; MEAN CORPUSCULAR HGB CONC 29.5 g/dL (32.0-36.0); MEAN PLATELET VOLUME 10.3 fL (7.9-10.8); NEUTROPHILS # (AUTO) 13.4 10^3/uL (1.5-6.6); NEUTROPHILS % (AUTO) 81.6 %; PLT - PLATELET COUNT 481 10^3/uL (130-450); RED BLOOD COUNT 3.82 10^6/uL (4.20-5.40); RED CELL DISTRIBUTION WIDTH 17.2 % (12.0-15.0); WHITE BLOOD COUNT 16.5 x10^3/uL (4.8-10.8)
[2021-12-21 04:00] LABS: ALBUMIN 3.1 g/dL (3.2-5.5); ALBUMIN/GLOBULIN RATIO 0.8 (1.0-2.2); BILIRUBIN,TOTAL 0.6 mg/dL (0.2-1.0); CALCIUM 8.7 mg/dL (8.5-10.3); CREATININE 0.7 mg/dL (0.4-1.0); POTASSIUM 3.9 mmol/L (3.5-5.0); TOTAL PROTEIN 6.8 g/dL (6.7-8.2)
[2021-12-21] MEDS ORDERED: IPRATROPIUM/ALBUTEROL 3 ML NEB INH STA (04:24)
[2021-12-21] MEDS ORDERED: iohexoL-300 100 ML VIAL ONE (06:20)
[2021-12-21] MEDS ORDERED: iohexoL-300 100 ML VIAL IVP ONE (07:12)
--- NOTE | 2021-12-21 07:46 | XRAY Report ---
PROCEDURE: Chest 1 View X-Ray INDICATIONS: Chronic congestion and productive cough. Increased redness of breath. TECHNIQUE: One view of the chest was acquired. FINDINGS: Surgical changes and devices: Surgical clips in the right upper quadrant. Lungs and pleura: No pleural effusions or pneumothorax. Lungs are clear. Mediastinum: There is left hilar prominence.. Heart size is enlarged. A hiatal hernia is noted. Bones and chest wall: No suspicious bony lesions. Overlying soft tissues appear unremarkable. IMPRESSION: 1. No acute cardiopulmonary abnormality. 2. Left hilar prominence may represent enlarged lymph nodes. Findings above correspond with preliminary findings by [facility]. Reviewed by: Carlton Rodriguez on 12/21/2021 6:44 AM DON Approved by: Carlton Rodriguez on 12/21/2021 6:44 AM DON Station ID: [id number]
[2021-12-21] MEDS ORDERED: AZITHROMYCIN 250 MG TABLET PO STA (08:27)
--- NOTE | 2021-12-21 09:05 | ED Physician Documentation ---
ED Addendum - Addendum Addendum: 12/21/21 09:02 The patient was signed out to me by Dr. Fulton, pending CTA of the chest after presenting with history given by as dyspnea and cough. The patient has been stable throughout her stay in the emergency department and had had good oxygen saturation throughout that time. Her heart rate and rhythm had been normal. Extensive work-up had been negative except for a moderately elevated white blood cell count at 16 and a D-dimer of over 400. The patient was sent f or CTA which did not show any PE. No fluid or infiltrate was noted either. The patient was found to have bronchiolitis which could be inflammatory versus infectious. Given the patient's inability to provide any history, and also given her immobility, which puts her at risk for suboptimal breathing and infection, and also given her leukocytosis and cough, I did opt to put her on Zithromax. I had an extensive discussion with the regarding the work-up and the findings. He did seem to have some trouble grasping the reassuring findings of nonlabored respirations, the patient resting comfortably in bed, and her excellent oxygen saturation. Because of his enduring concerns, I did reexamine the patient's lungs, which were clear, and demonstrated good air movement to the depths of bilaterally. Patient was given first dose of Zithromax here. 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 We have discussed home management symptoms, as well as the usual indications for return. Final impression: 1. Bronchiolitis 2. Dyspnea Disposition: Home in stable condition.
[2021-12-21 09:24] VITALS: BP 136/96
--- NOTE | 2021-12-21 11:49 | CT Report ---
PROCEDURE: ANGIO CHEST W/WO INDICATIONS: SOB/ elevated ddimer CONTRAST: IV CONTRAST: Isovue 300 ml: 100 PO CONTRAST: Isovue 300 ml100 TECHNIQUE: After the administration of intravenous contrast, 2 mm axial images were acquired from the pulmonary apices to the posterior costophrenic angles during the arterial phase. In addition, 1 mm lung kernel and 5 mm soft tissue kernel reconstructions were performed. 3-dimensional coronal oblique maximum int ensity projection (MIP) reformats, 8 mm axial MIP, and 5 mm coronal and sagittal MPR reformats were t hen performed through the thorax. For radiation dose reduction, the following was used: automated exp osure control, adjustment of mA and/or kV according to patient size. COMPARISON: Chest x-ray dated 12/21/2021 FINDINGS: Image quality: Excellent. Pulmonary arteries: Pulmonary arteries are normal in size, and demonstrate no intraluminal filling d efects to suggest central pulmonary embolism. Lungs and pleura: Lungs are clear. No pleural effusions or pneumothorax. Central and peripheral ai rways are patent. Bronchial wall thickening with scattered areas of subsegmental atelectasis and pro minence of the pulmonary interstitium. 9 mm nodule in the right upper lobe series 7 image 111. 3 mm nodule in the right middle lobe series 7 image 172. Mediastinum: Heart size is normal, without pericardial effusion. No mediastinal or hilar adenopathy . Thoracic aorta is normal in caliber and enhancement. The main pulmonary artery measures 3.7 cm. T he main pulmonary artery/aorta ratio is within normal limits. No pulmonary artery embolism. Moderate- sized sliding hiatal hernia. Bones and chest wall: No suspicious bony lesions. Ribs and thoracic spine appear intact throughout. No axillary or supraclavicular adenopathy. The thyroid is normal in size and there are no incident al findings. Abdomen: Visualized upper abdominal solid organs appear normal in the early arterial phase of enhanc ement. An 8.1 cm simple cortical cyst of the upper pole of the right kidney. IMPRESSION: 1. No pulmonary embolism. 2. Inflammatory versus infectious bronchiolitis. 3. 9 mm nodule in the right upper lobe and 3 mm nodule in the right middle lobe. The findings describ ed above include a newly detected solid pulmonary nodule of 8 mm or larger average diameter. Guidelin es in persons >34 years old depend on nodule size (average of length and width) and underlying risk f actors (including smoking and other risk factors). Please consider the following recommendations aft er clinical assessment of risk factors. For nodules >8 mm: In low risk patients, follow-up CT at ap proximately 3, 9, and 24 months. In high risk patients, dynamic contrast-enhanced CT, PET, and/or bio psy. Reviewed by: Carlton Rodriguez on 12/21/2021 10:48 AM DON Approved by: Carlton Rodriguez on 12/21/2021 10:48 AM DON Station ID: [id number]
== END 2021-12-21 09:41 | disposition home or self-care (01) ==
LOC: EDBD → EDUNIT# → ED 02:47
DX: J21.9 Acute bronchiolitis, unspecified (principal); Z87.891 Personal history of nicotine dependence; Z20.822 Contact with and (suspected) exposure to COVID-19
CPT/HCPCS: 36415; 71045; 71275; 80053; 83605; 83690; 83735; 83880; 84484; 85025; 85379; 87635; 93005; 94640; 99281; 99284; A9270; Q9967

== ENCOUNTER 2022-02-27 20:08 | Outpatient (CLI) | payer MEDICARE, OTHER | END 2022-02-27 20:09 | disposition critical access hospital (66) | LOC: EMS 20:08 | DX: R46.4 Slowness and poor responsiveness (principal) | CPT/HCPCS: A0425; A0429 ==